=== PATIENT | female | born 1935 ===

== ENCOUNTER 2016-12-11 08:29 | Inpatient (IN) | payer MEDICARE, MEDICAID ==
--- NOTE | 2016-12-11 08:38 | ED PDOC ---
Arrival/HPI - General Historian: Patient, Family - History of Present Illness Time/Duration: < week Symptom Onset: Gradual Symptom Course: Worsening Activities at Onset: Light <Ehsan Kennedy - Last Filed: 12/11/16 10:23> <Doni Alvarado - Last Filed: 12/11/16 10:37> - General Chief Complaint: Shortness Of Breath Time Seen by Provider: 12/11/16 08:30 - History of Present Illness Narrative History of Present Illness (Text): 12/11/16 09:20 81yo F with PMHx of HTN, CHF, severe obesity, Osteoarthritis here for evaluation of shortness of breath. Patient has similar symptoms in the past, however, this morning, it was much worse. She states that she felt as though she could not breathe. She feels very tired. She felt as though her heart was racing. She does report a cough for the past week, productive of white phlegm. She reports some chills over the past week, but denies any subjective fevers. She also reports some sore throat over the same time period. She denies any Chest pain. No Headaches. She has been compliant with all of her medications. She uses 2L NC or Supplemental O2 at home as needed. She is not mobile and is in bed most of the time due to her severe Bilateral knee OA and severe BLE edema. She has to sleep in an upright position, does report severe orthopnea. PMD: Dr. Darcy Hopkins Cardio: Dr. Mendoza PMHx: Cataracts, GERD, HTN, CHF, Obesity, Bilateral lower Extremity OA Social Hx: Lives with son. Never used tobacco, denies ETOH, denies illicit drugs Allergy: Dabigatran, PCN, Rofecoxib, Warfarin, Pravastatin (Brent,Ehsan) Past Medical History - Provider Review Nursing Documentation Reviewed: Yes - Cardiac Hx Congestive Heart Failure: Yes (this admission) Hx Hypertension: Yes - Pulmonary Hx Respiratory Disorders: No - Neurological Hx Neurological Disorder: No - HEENT Hx Cataracts: Yes - Renal Hx Renal Disorder: No - Endocrine/Metabolic Hx Endocrine Disorders: No - Hematological/Oncological Hx Blood Disorders: No - Integumentary Hx Dermatological Disorder: No - Musculoskeletal/Rheumatological Hx Arthritis: Yes (bilateral knees) - Gastrointestinal Hx Gastroesophageal Reflux: Yes - Genitourinary/Gynecological Other/Comment: overactive bladder - Psychiatric Hx Depression: No Hx Emotional Abuse: No Hx Physical Abuse: No Hx Substance Use: No - Past Surgical History Past Surgical History: No Previous - Surgical History Other/Comment: fractured left wrist/arm needing cast - Anesthesia Hx Anesthesia: Yes Hx Anesthesia Reactions: No Hx Malignant Hyperthermia: No - Suicidal Assessment Feels Threatened In Home Enviroment: No <Ehsan Kennedy - Last Filed: 12/11/16 10:23> Family/Social History - Physician Review Nursing Documentation Reviewed: Yes Family/Social History: Unknown Family HX Smoking Status: Never Smoked Hx Alcohol Use: No Hx Substance Use: No Hx Substance Use Treatment: No <Ehsan Kennedy - Last Filed: 12/11/16 10:23> Allergies/Home Meds <Ehsan Kennedy - Last Filed: 12/11/16 10:23> <Doni Alvarado - Last Filed: 12/11/16 10:37> Allergies/Adverse Reactions: Allergies dabigatran etexilate mesylate [From Pradaxa] Allergy (Intermediate, Verified 08:37) ANGIOEDEMA arthralgia, cough, vertigo, itching, sorethroat, irritability Penicillins Allergy (Verified 12/11/16 08:37) RASH rofecoxib [From Vioxx] Allergy (Verified 12/11/16 08:37) FATIGUE warfarin Adverse Reaction (Unknown, Verified 12/11/16 08:37) ITCHING intolerant with cardio since she could not tolerate pradaxa pravastatin Adverse Reaction (Verified 12/11/16 08:37) RASH Home Medications: Home Meds Medication Instructions Recorded Confirmed Esomeprazole Magnesium [Nexium] 40 mg PO DAILY 09/13/11 12/11/16 Metoprolol Succinate 100 mg PO DAILY 09/13/11 12/11/16 Nisoldipine [Sular] 8.5 mg PO DAILY 09/13/11 12/11/16 Ergocalciferol (Vitamin D2) 1.25 mg PO .WEEKLY 12/11/16 12/11/16 [Vitamin D2] Furosemide [Lasix] 40 mg PO BID 12/11/16 12/11/16 Review of Systems - Physician Review All systems were reviewed & negative as marked: Yes - Review of Systems Constitutional: absent: Fevers Eyes: Normal ENT: Sore Throat. absent: Tinnitus, Sinus Congestion Respiratory: SOB, Cough, Sputum Cardiovascular: Chest Pain, Palpitations, Edema, CRA[place], Orthopnea. absent: Calf Pain, Syncope Gastrointestinal: absent: Abdominal Pain, Nausea, Vomiting Genitourinary Female: Normal Musculoskeletal: Normal Skin: Normal Neurological: Normal Endocrine: Normal <Ehsan Kennedy - Last Filed: 12/11/16 10:23> Physical Exam Vital Signs Reviewed: Yes Temperature: Afebrile Blood Pressure: Normal Pulse: Irregular Respiratory Rate: Normal Appearance: Positive for: Non-Toxic, Comfortable Pain Distress: Mild Mental Status: Positive for: Alert and Oriented X 3 - Systems Exam Head: Present: Atraumatic, Normocephalic Extroacular Muscles: Present: EOMI Conjunctiva: Present: Normal Mouth: Present: Moist Mucous Membranes Respiratory/Chest: Present: Decreased Breath Sounds, Rales Cardiovascular: Present: Irregular Rhythm, Peripheal Pulses Present, Tachycardic. No: Rub, Gallop, Muffled Abdomen: No: Tenderness, Distention, Peritoneal Signs, Rebound, Guarding Lower Extremity: Present: Edema, Tenderness, Swelling. No: CALF TENDERNESS, Estella's Sign Neurological: Present: GCS=15 Skin: Present: Warm, Normal Color Psychiatric: Present: Alert, Oriented x 3 <Ehsan Kennedy - Last Filed: 12/11/16 10:23> Medical Decision Making <Ehsan Kennedy - Last Filed: 12/11/16 10:23> <Doni Alvarado - Last Filed: 12/11/16 10:37> ED Course and Treatment: 12/11/16 10:12 81yo F here for evaluation of Shortness of breath. - CBC/CMP - BNP - CXR - Troponin - Blood Cxs, UA - EKG = Atrial Fib @ 96. Diffuse low voltage QRS. No Apparent ST changes. 12/11/16 10:23 - BNP elevated. - CXR with pleural effusions noted. Cardiomegaly. Increased lung markings. - Lasix 40 IVP given. - Elevated T. Bili 1.4 12/11/16 10:26 - Discussed case with Dr. Vikram Silver, Hospitalist covering for Dr. Darcy Hopkins, who accepts patient for admission. Discussed results with patient and family. All questions and concerns addressed. Patient and family understand and agree with plan. (Ehsan Kennedy) Patient Seen With Resident: In agreement with resident note which contains more details about the patient. Patient was seen and evaluated with resident. Came up with plan and treatment together. An 81 year old female with shortness of breath. Additional HPI as noted by resident. On physical exam, patient is tachycardic, has decreased breath sounds and rales, and lower extremity edema, tenderness and swelling. Ordered EKG, chest xray, labs and urinalysis. Will give patient Lasix. (Doni Alvarado) - Lab Interpretations Lab Results: 12/11/16 09:05 12/11/16 09:05 Lab Results 12/11/16 09:05: WBC 6.4 D, RBC 3.50, Hgb 10.0 L, Hct 31.8 L, MCV 90.9, MCH 28.6 , MCHC 31.4, RDW 15.7 H, Plt Count 165, MPV 9.4, Gran % 72.4 H, Lymph % (Auto) 13.0 L, [place] % (Auto) 12.7 H, Eos % (Auto) 1.4 L, Baso % (Auto) 0.5, Gran # 4.64 , Lymph # 0.8 L, [place] # 0.8 H, Eos # 0.1, Baso # 0.03 12/11/16 09:05: Sodium 140, Potassium 3.9, Chloride 101, Carbon Dioxide 31, Anion Gap 12, BUN 22 H, Creatinine 0.8, Est GFR ( Amer) > 60, Est GFR ( Non-Af Amer) > 60, Random Glucose 91, Calcium 9.2, Total Bilirubin 1.4 H, AST 34 , ALT 26, Alkaline Phosphatase 61, Troponin I < 0.01, NT-Pro-B Natriuret Pep 3850 H, Total Protein 6.7, Albumin 3.7, Globulin 3.0, Albumin/Globulin Ratio 1.2 - RAD Interpretation Radiology Orders: 12/11/16 08:54 CHEST PORTABLE [RAD] Stat - Medication Orders Current Medication Orders: Discontinued Medications Furosemide (Lasix) 40 mg IVP STAT STA Stop: 12/11/16 09:17 Last Admin: 12/11/16 09:39 Dose: 40 mg - PA / UTILITY TECHNICIAN / Resident Statement /DO has reviewed & agrees with the documentation as recorded. MD/DO has examined the patient and agrees with the treatment plan. <Ehsan Kennedy - Last Filed: 12/11/16 10:23> - Scribe Statement The provider has reviewed the documentation as recorded by the Scribe <Doni Alvarado - Last Filed: 12/11/16 10:37> - Scribe Statement Gregory Desouza Provider Scribe Attestation: All medical record entries made by the Scribe were at my direction and personally dictated by me. I have reviewed the chart and agree that the record accurately reflects my personal performance of the history, physical exam, medical decision making, and the department course for this patient. I have also personally directed, reviewed, and agree with the discharge instructions and disposition. (Doni Alvarado) Disposition/Present on Arrival - Present on Arrival Any Indicators Present on Arrival: No History of DVT/PE: No History of Uncontrolled Diabetes: No Urinary Catheter: No History Surgical Site Infection Following: None - Disposition Have Diagnosis and Disposition been Completed?: Yes Disposition Time: 10:29 Patient Plan: Admission, Telemetry <Ehsan Kennedy - Last Filed: 12/11/16 10:23> <Doni Alvarado - Last Filed: 12/11/16 10:37> - Disposition Diagnosis: CHF exacerbation Disposition: HOSPITALIZED Patient Problems: Current Active Problems Problem Status Onset CHF exacerbation Acute Condition: FAIR
[2016-12-11 08:47] VITALS: BMI 45.7
[2016-12-11 09:32] LABS: BASO # 0.03 K/mm3 (0.0-2.0); BASO % 0.5 % (0.0-3.0); EOS # 0.1 (0.0-0.7); EOS % 1.4 % (1.5-5.0); GRAN # 4.64 (1.4-6.5); GRAN % 72.4 % (50.0-68.0); LYMPH # 0.8 (1.2-3.4); MEAN CELL VOLUME 90.9 fl (80.0-105.0); MEAN CORPUSCULAR HEMOGLOBIN 28.6 pg (25.0-35.0); MEAN CORPUSCULAR HGB CONC 31.4 g/dl (31.0-37.0); MEAN PLATELET VOLUME 9.4 fl (7.0-11.0); MONO # 0.8 (0.1-0.6); MONO % 12.7 % (1.0-6.0); PLATELET COUNT 165 10^3/uL (120.0-450.0); RED CELL DISTRIBUTION WIDTH 15.7 % (11.5-14.5); WHITE BLOOD COUNT 6.4 10^3/ul (4.5-11.0)
[2016-12-11 09:33] LABS: ALB/GLOB RATIO 1.2 (1.1-1.8); ALBUMIN 3.7 g/dL (3.0-4.8); ALT/SGPT 26 U/L (7-56); AST/SGOT 34 U/L (15-39); BLOOD UREA NITROGEN 22 mg/dL (7-21); CALCIUM 9.2 mg/dL (8.4-10.5); GFR AFRICAN-AMERICAN > 60; GFR NON-AFRICAN AMERICAN > 60
[2016-12-11 09:44] LABS: B-TYPE NATRIURETIC PEPTIDE 3850 pg/mL (0-450)
[2016-12-11 09:47] LABS: TROPONIN I < 0.01 ng/mL
[2016-12-11 10:34] LABS: URINE BILIRUBIN NEGATIVE (NEGATIVE); URINE BLOOD SMALL (NEGATIVE); URINE GLUCOSE (UA) NEGATIVE (NEGATIVE); URINE LEUKOCYTE ESTERASE NEGATIVE Leu/uL (NEGATIVE); URINE NITRATE NEGATIVE (NEGATIVE); URINE PROTEIN NEGATIVE mg/dL (<30 mg/dL); URINE UROBILINOGEN 0.2 E.U./dL (<1 E.U./dL)
[2016-12-11 10:36] LABS: URINE APPEARANCE CLEAR (CLEAR); URINE COLOR YELLOW (YELLOW)
[2016-12-11 10:38] LABS: URINE BACTERIA TRACE (NEG); URINE RBC 15 - 20 /hpf (0-2)
[2016-12-11] MEDS ORDERED: Metoprolol Succinate 100 mg XL Tab PO SCH (11:45)
--- NOTE | 2016-12-11 11:51 | CP.PCM.HP ---
<Elinor Eli - Last Filed: 12/11/16 12:16> History of Present Illness - History of Present Illness History of Present Illness: 81 yo female with pmhx of HTN, Diastolic CHF (03/2016 EF 70%), Chronic atrial fibrillation, Obesity, Osteoarthritis presents to the ED for shortness of breath x 1 week. Daughters at the bedside, providing the history. Reports that breathing was worse this morning which prompted the ED visit. SOB is associated with LE swelling and palpitations, orthopnea. Patient reports that she is compliant with all medications. Sleeps with head of bed elevated. Periodically uses O2 supplementation at home. Also complaining of sore throat and productive cough (white phelgm). Patient denies any changes in activity. She ambulates minimally, normally transfers from the bed to chair at home. Denies any headache, dizziness, cp, abdominal pain, urinary symptoms, changes in bowel habits. ED Course: Lasix 40mg IVP PMD: Dr Hopkins Cardiology: Dr Hinojosa ALL: PCN, Warfarin, Rofecoxib, Dabigatran, Pravastatin Medications: Lasix 40mg BID, Metoprolol Succinate 100mg daily, Nisoldipine 8.5mg daily, Nexium 40mg daily Medical Hx: Chronic atrial fibrillation, HTN, CHF, Obesity, Osteoarthritis, GERD , Chronic venous stasis/LE edema Surgical Hx: Cataract surgery Social Hx: Lives with son, denies alcohol, tobacco, drug use Family Hx: non-contributory Present on Admission - Present on Admission Any Indicators Present on Admission: No History of DVT/PE: No History of Uncontrolled Diabetes: No Urinary Catheter: No Decubitus Ulcer Present: No Review of Systems - Review of Systems Systems not reviewed;Unavailable: Respiratory Distress All systems: reviewed and no additional remarkable complaints except - Constitutional Constitutional: absent: Chills, Fever, Weakness - EENT Eyes: absent: Blurred Vision, Change in Vision Ears: absent: Decreased Hearing Nose/Mouth/Throat: Sore Throat - Cardiovascular Cardiovascular: Dyspnea, Palpitations, Paroxysmal Nocturnal Dyspnea, Pedal Edema. absent: Chest Pain, Lightheadedness - Respiratory Respiratory: Cough, Dyspnea. absent: Wheezing - Gastrointestinal Gastrointestinal: absent: Abdominal Pain, Constipation, Diarrhea, Nausea, Vomiting - Genitourinary Genitourinary: absent: Difficulty Urinating, Dysuria, Urinary Frequency - Musculoskeletal Musculoskeletal: Arthralgias - Neurological Neurological: absent: Dizziness, Numbness, Headaches, Tingling - Psychiatric Psychiatric: absent: Anxiety, Depression Past Patient History - Past Social History Smoking Status: Never Smoked - CARDIAC Hx Congestive Heart Failure: Yes (this admission) Hx Hypertension: Yes - PULMONARY Hx Respiratory Disorders: No - NEUROLOGICAL Hx Neurological Disorder: No - HEENT Hx Cataracts: Yes - RENAL Hx Chronic Kidney Disease: No - ENDOCRINE/METABOLIC Hx Endocrine Disorders: No - HEMATOLOGICAL/ONCOLOGICAL Hx Blood Disorders: No - INTEGUMENTARY Hx Dermatological Problems: No - MUSCULOSKELETAL/RHEUMATOLOGICAL Hx Arthritis: Yes (bilateral knees) - GASTROINTESTINAL Hx Gastroesophageal Reflux: Yes - GENITOURINARY/GYNECOLOGICAL Other/Comment: overactive bladder - PSYCHIATRIC Hx Depression: No Hx Emotional Abuse: No Hx Physical Abuse: No Hx Substance Use: No - SURGICAL HISTORY Other/Comment: fractured left wrist/arm needing cast - ANESTHESIA Hx Anesthesia: Yes Hx Anesthesia Reactions: No Hx Malignant Hyperthermia: No Meds Allergies/Adverse Reactions: Allergies Allergy/AdvReac Type Severity Reaction Status Date / Time dabigatran etexilate mesylate Allergy Intermediate ANGIOEDEMA Verified 12/11/16 08:37 [From Pradaxa] Penicillins Allergy RASH Verified 12/11/16 08:37 rofecoxib [From Vioxx] Allergy FATIGUE Verified 12/11/16 08:37 warfarin AdvReac Unknown ITCHING Verified 12/11/16 08:37 pravastatin AdvReac RASH Verified 12/11/16 08:37 Physical Exam - Constitutional Appears: Well, Non-toxic - Head Exam Head Exam: ATRAUMATIC, NORMAL INSPECTION - Eye Exam Eye Exam: EOMI, Normal appearance Pupil Exam: NORMAL ACCOMODATION - ENT Exam ENT Exam: Mucous Membranes Moist - Neck Exam Neck exam: Positive for: Full Rom - Respiratory Exam Respiratory Exam: Rales, Respiratory Distress. absent: Accessory Muscle Use - Cardiovascular Exam Cardiovascular Exam: Irregular Rhythm, +S1, +S2 - GI/Abdominal Exam GI & Abdominal Exam: Normal Bowel Sounds, Soft. absent: Firm, Guarding, Rigid, Tenderness - Extremities Exam Additional comments: +3 LE edema Chronic venous stasis skin changes - Back Exam Back exam: NORMAL INSPECTION - Neurological Exam Neurological exam: Alert, CN II-XII Intact, Oriented x3 - Psychiatric Exam Psychiatric exam: Normal Affect, Normal Mood - Skin Skin Exam: Normal Color, Warm Results - Vital Signs Recent Vital Signs: Last Vital Signs Temp 98.6 F 12/11/16 08:33 Pulse 97 H 12/11/16 11:04 Resp 20 12/11/16 11:04 BP 132/60 12/11/16 11:04 Pulse Ox 95 12/11/16 11:04 - Labs Result Diagrams: 12/11/16 09:05 12/11/16 09:05 Assessment & Plan - Assessment and Plan (Free Text) Assessment: 81 yo female with pmhx of Diastolic CHF, HTN, Chronic afib, osteoartirits presents to the ED with worsening shortness of breath. Patient noted to be in Acute Respiratory Distress likely secondary to Acute on Chronic CHF. Plan: 1. Acute Respiratory distress 2/2 Acute on Chronic CHF exacerbation, Diastolic Dysfunction -Stable, Afebrile -Bilateral crackles noted on lung exam, +3 LE edema B/L -BNP: 3850 -CXR: final read pending -Echo 03/2016: EF 69%, moderate MR and TR, mild to moderate pulmonary HTN -F/U repeat Echo, f/u am CXR -Received Lasix 40mg IV in ED -Continue Lasix 40mg IV BID -Daily weights, strict I/Os -Trop negative x 1, trend cardiac enzymes -O2 supplementation -Monitor electrolytes -2gm Sodium diet, fluid restriction 1000ml -Cardiology on consult, f/u recommendations 2. Chronic atrial fibrillation -Monitor on telemetry -EKG in ED a fib, rate controlled -Not on anticoagulation at this time -Will continue Metoprolol Succinate 100mg daily -F/U echo 3. Hypertension -Continue metoprolol succinate 100mg daily -On Nisoldipine at home, will hold at this time -Can add CCB if needed 4. Anemia, Normocytic -Hgb 10.0 -Stable at baseline -Can follow up outpatient for further workup 5. GI/DVT ppx -Protonix 40mg PO daily -Lovenox 40mg daily <Adrianne WOOTEN,Rodolfo - Last Filed: 12/11/16 15:11> Results - Vital Signs Recent Vital Signs: Last Vital Signs Temp 97.6 F 12/11/16 12:00 Pulse 81 12/11/16 13:40 Resp 20 12/11/16 12:00 BP 133/72 12/11/16 13:40 Pulse Ox 95 12/11/16 11:04 - Labs Result Diagrams: 12/11/16 09:05 12/11/16 09:05 Attending/Attestation - Attestation I have personally seen and examined this patient.: Yes I have fully participated in the care of the patient.: Yes I have reviewed all pertinent clinical information: Yes Notes (Text): 12/11/16 15:08 Patient was seen and examined with medical editor. Agreed with resident assessment and plan. 81 yrs female with PMH of HTN, Diastolic CHF (03/2016 EF 70%), Chronic atrial fibrillation not on anticoagulation due to increase risk of fall ( Patient is minimally ambulatory at home) and , Obesity is admitted with CHF exacerbation, Patient is on IV diuresis, will follow up BUN and electrolyte.Patient has low voltage EKG and poor R wave progression, will get 2D Echo and cardiology consult. Management plan was discussed in detail with patient family. Education was provided. Prognosis is guarded.
--- NOTE | 2016-12-11 12:07 | RAD ---
HISTORY: Shortness of breath. Portable study 09:07. COMPARISON: 04/27/2016. FINDINGS: LUNGS: Suboptimal inspiratory effort and body habitus preclude optimal assessment of the lung kraus. Haziness at both bases unchanged compared to the prior study. PLEURA: No significant pleural effusion identified, no pneumothorax apparent. CARDIOVASCULAR: No radiographic findings to suggest acute or significant cardiovascular disease. OSSEOUS STRUCTURES: No significant abnormalities. VISUALIZED UPPER ABDOMEN: Normal. OTHER FINDINGS: None. IMPRESSION: Probably no active disease. No significant interval change compared to the prior examination(s). No preliminary report provided by emergency department personnel.
[2016-12-11] MEDS: Enoxaparin 40 mg Syringe SC SCH (13:40)
[2016-12-11] MEDS: Metoprolol Succinate 100 mg XL Tab PO SCH (13:40)
--- NOTE | 2016-12-11 14:02 | CARD ---
APPROVED REPORT EKG Measurement Heart [id number] <Conclusion> Atrial fibrillation Low voltage QRS Cannot rule out Anteroseptal infarct, age undetermined Abnormal ECG
[2016-12-11] MEDS ORDERED: guaiFENesin-DM 600-30 mg ER Tab PO PRN (15:58)
[2016-12-11] MEDS: Benzocaine/Menthol (Cepacol) Lozenge MT PRN (17:02)
[2016-12-11] MEDS: guaiFENesin-DM 600-30 mg ER Tab PO PRN (17:03)
[2016-12-11] MEDS ORDERED: Metoprolol Succinate 50 mg XL Tab PO SCH (19:00)
[2016-12-12 07:09] LABS: HEMOGLOBIN 9.7 g/dL (12.0-16.0); MEAN CELL VOLUME 94.7 fl (80.0-105.0); MEAN CORPUSCULAR HEMOGLOBIN 28.4 pg (25.0-35.0); MEAN CORPUSCULAR HGB CONC 29.9 g/dl (31.0-37.0); MEAN PLATELET VOLUME 9.8 fl (7.0-11.0); RBC 3.42 10^6/uL (3.5-6.1); RED CELL DISTRIBUTION WIDTH 15.9 % (11.5-14.5); WHITE BLOOD COUNT 6.2 10^3/ul (4.5-11.0)
[2016-12-12 07:15] LABS: ALB/GLOB RATIO 1.2 (1.1-1.8); ALBUMIN 3.6 g/dL (3.0-4.8); ALT/SGPT 32 U/L (7-56); AST/SGOT 36 U/L (15-39); BLOOD UREA NITROGEN 24 mg/dL (7-21); CALCIUM 9.1 mg/dL (8.4-10.5); GFR AFRICAN-AMERICAN > 60; GFR NON-AFRICAN AMERICAN > 60; MAGNESIUM 1.8 mg/dL (1.7-2.2)
[2016-12-12] MEDS: Metoprolol Succinate 100 mg XL Tab PO SCH (08:10)
[2016-12-12] MEDS: guaiFENesin-DM 600-30 mg ER Tab PO PRN (08:55)
--- NOTE | 2016-12-12 09:26 | RAD ---
HISTORY: CHF COMPARISON: 12/11/2016 FINDINGS: LUNGS: Moderate vascular congestion PLEURA: No significant pleural effusion identified, no pneumothorax apparent. CARDIOVASCULAR: Mild cardiomegaly OSSEOUS STRUCTURES: No significant abnormalities. VISUALIZED UPPER ABDOMEN: Normal. OTHER FINDINGS: None. IMPRESSION: Moderate vascular congestion
[2016-12-12] MEDS: NISOLDIPINE 8.5 MG PO SCH (11:19)
[2016-12-12] MEDS: Enoxaparin 40 mg Syringe SC SCH (11:19)
[2016-12-12] MEDS: Pantoprazole 40 mg EC Tab PO SCH (11:19)
--- NOTE | 2016-12-12 11:23 | CP.PCM.PN ---
<Elinor Eli - Last Filed: 12/12/16 14:10> Subjective - Date & Time of Evaluation Date of Evaluation: 12/12/16 Time of Evaluation: 07:00 - Subjective Subjective: Elinor Eli DO, PGY-1, Internal Medicine, Hospitalist Service Patient seen and examined at bedside. Per nursing, patient woke up last night feeling short of breath, O2 sat was wnl, currently patient reports breathing is a little better. Still coughing. Denies headache, dizziness, cp, palpitations, abdominal pain, urinary symptoms, changes in bowel habit. Objective - Vital Signs/Intake and Output Vital Signs (last 24 hours): Temp Pulse Resp BP Pulse Ox 97.7 F 64 20 122/65 95 12/12/16 06:00 12/12/16 08:10 12/12/16 06:00 12/12/16 08:10 12/12/16 06:00 Intake and Output: 12/12/16 12/12/16 06:59 18:59 Intake Total 240 Output Total 700 Balance -460 - Medications Medications: Current Medications Benzocaine/Menthol (Cepacol Sore Throat) 1 [place] MT Q4H PRN PRN Reason: Sore Throat Last Admin: 12/11/16 17:02 Dose: 1 [place] Enoxaparin Sodium (Lovenox) 40 mg SC DAILY [facility] PRN Reason: Protocol Last Admin: 12/11/16 13:40 Dose: 40 mg Furosemide (Lasix) 40 mg IVP BID [facility] Last Admin: 12/11/16 17:07 Dose: 40 mg Guaifenesin/Dextromethorphan (Mucinex-Dm 600-30 Mg) 1 tab PO BID PRN PRN Reason: Cough Last Admin: 12/12/16 08:55 Dose: 1 tab Home Med (Home Med) 1 unit PO DAILY [facility] Metoprolol Succinate (Toprol Xl) 100 mg PO BRK [facility] Last Admin: 12/12/16 08:10 Dose: 100 mg Metoprolol Succinate (Toprol Xl) 50 mg PO HS [facility] Pantoprazole Sodium (Protonix Ec Tab) 40 mg PO DAILY [facility] - Labs Labs: 12/12/16 06:30 12/12/16 06:30 - Constitutional Appears: Non-toxic, No Acute Distress - Head Exam Head Exam: ATRAUMATIC, NORMAL INSPECTION - Eye Exam Eye Exam: EOMI, Normal appearance Pupil Exam: NORMAL ACCOMODATION - ENT Exam ENT Exam: Mucous Membranes Moist - Neck Exam Neck Exam: Full ROM - Respiratory Exam Respiratory Exam: Decreased Breath Sounds, Rales, NORMAL BREATHING PATTERN. absent: Rhonchi, Wheezes - GI/Abdominal Exam GI & Abdominal Exam: Soft, Normal Bowel Sounds. absent: Distended, Rigid, Tenderness, Rebound - Extremities Exam Extremities Exam: Pedal Edema. absent: Tenderness Additional comments: + 3 LE edema B/L - Back Exam Back Exam: NORMAL INSPECTION - Neurological Exam Neurological Exam: Alert, Awake, Oriented x3 - Psychiatric Exam Psychiatric exam: Normal Affect, Normal Mood - Skin Skin Exam: Normal Color, Warm Assessment and Plan - Assessment and Plan (Free Text) Assessment: 81 yo female with pmhx of Diastolic CHF, HTN, Chronic afib, osteoartirits presents to the ED with worsening shortness of breath. Patient noted to be in Acute Respiratory Distress likely secondary to Acute on Chronic CHF. Plan: 1. Acute Respiratory distress 2/2 Acute on Chronic CHF exacerbation, Diastolic Dysfunction -Stable, Afebrile -BNP: 3850 on admission -CXR: moderate vascular congestion -Echo 03/2016: EF 69%, moderate MR and TR, mild to moderate pulmonary HTN -EKG in ED showing a fib, low voltage, poor R wave progression -Prelim Echo showing EF approx 54%, will await final report -Continue Lasix 40mg IV BID -Daily weights, strict I/Os -Trop negative x 3 -O2 supplementation -Monitor electrolytes -2gm Sodium diet, fluid restriction 1000ml -Cardiology on consult, f/u recommendations 2. Chronic atrial fibrillation -Monitor on telemetry -EKG in ED a fib, rate controlled -[id number]: 5, HASBLED: 1 -Not on anticoagulation at this time, possibly due to fall risk? -Will continue Metoprolol Succinate 100mg daily -F/U echo final report -Cardiology on consult 3. Hypertension -Continue metoprolol succinate 100mg daily -Per the family, patient takes 50mg of Metoprolol succinate HS, will continue -On Nisoldipine at home, will continue 4. Anemia, Normocytic -Hgb 9.7 -Stable at baseline -Can follow up outpatient for further workup 5. GI/DVT ppx -Protonix 40mg PO daily -Lovenox 40mg daily <Rodolfo Silver MD - Last Filed: 12/12/16 16:18> Objective - Vital Signs/Intake and Output Vital Signs (last 24 hours): Temp Pulse Resp BP Pulse Ox 97.0 F L 44 L 20 147/75 95 12/12/16 12:00 12/12/16 14:00 12/12/16 12:00 12/12/16 12:00 12/12/16 06:00 Intake and Output: 12/12/16 12/12/16 06:59 18:59 Intake Total 240 Output Total 700 Balance -460 - Medications Medications: Current Medications Benzocaine/Menthol (Cepacol Sore Throat) 1 [place] MT Q4H PRN PRN Reason: Sore Throat Last Admin: 12/11/16 17:02 Dose: 1 [place] Enoxaparin Sodium (Lovenox) 40 mg SC DAILY [facility] PRN Reason: Protocol Last Admin: 12/12/16 11:19 Dose: 40 mg Furosemide (Lasix) 40 mg IVP BID [facility] Last Admin: 12/12/16 11:20 Dose: 40 mg Guaifenesin/Dextromethorphan (Mucinex-Dm 600-30 Mg) 1 tab PO BID PRN PRN Reason: Cough Last Admin: 12/12/16 08:55 Dose: 1 tab Home Med (Home Med) 1 unit PO DAILY [facility] Last Admin: 12/12/16 11:19 Dose: 1 unit Metoprolol Succinate (Toprol Xl) 100 mg PO BRK [facility] Last Admin: 12/12/16 08:10 Dose: 100 mg Metoprolol Succinate (Toprol Xl) 50 mg PO HS [facility] Pantoprazole Sodium (Protonix Ec Tab) 40 mg PO DAILY [facility] Last Admin: 12/12/16 11:19 Dose: 40 mg - Labs Labs: 12/12/16 06:30 12/12/16 06:30 Attending/Attestation - Attestation I have personally seen and examined this patient.: Yes I have fully participated in the care of the patient.: Yes I have reviewed all pertinent clinical information, including history, physical exam and plan: Yes Notes (Text): 12/12/16 16:15 Patient was seen and examined with medical secretary receptionist. Agreed with resident assessment and plan. 81 yrs female with PMH of HTN, Diastolic CHF (03/2016 EF 70%), Chronic atrial fibrillation not on anticoagulation due to increase risk of fall and H/O bleeding , Obesity was admitted with CHF exacerbation, Patient is on IV lasix , slowly improving, renal functions are stable.We will continue IV lasix. We will follow up 2D Echo. AF, Rate is controlled with Metoprolol, not on anticoagulation due to H/O fall, GI bleeding ? Patient case was discussed with cardiology . Management plan was discussed in detail with patient family. Education was provided. Prognosis is guarded.
--- NOTE | 2016-12-12 20:07 | CARD ---
APPROVED REPORT EXAM: Two-dimensional and M-mode echocardiogram with Doppler and color Doppler. INDICATION Congestive Heart Failure 2D DIMENSIONS Left Atrium (2D)4.6 (1.6-4.0cm)IVSd1.1 (0.7-1.1cm) LVDd4.9 (3.9-5.9cm)PWd1.3 (0.7-1.1cm) LVDs3.5 (2.5-4.0cm)FS (%) 28.1 % LVEF (%)54.1 (>50%) M-Mode DIMENSIONS Aortic Root2.30 (2.2-3.7cm)Aortic Cusp Exc.1.10 (1.5-2.0cm) Aortic Valve AoV Peak Oomjwhjh651.0cm/sAoV VTI73.8cmAO Peak GR.25mmHg LVOT Peak Vpjotwhw84.5cm/sLVOT VTI23.40cmAO Mean GR.13mmHg Mitral Valve MV E Wktxwcxq972.0cm/sMV A Nugsnimd05.2cm/sE/A ratio2.8 TDI E/Lateral E'0.0E/Medial E'0.0 Tricuspid Valve TR Peak Hayvxdex575ld/sRAP [id number] Peak Gr.54mmHg [id number] LEFT VENTRICLE The left ventricle is normal size. There is borderline to mild concentric left ventricular hypertrophy. The left ventricular function is normal.EF-55% There is normal LV segmental wall motion. A fib No left ventricle thrombus noted on this study. There is no ventricular septal defect visualized. There is no left ventricular aneurysm. There is no mass noted in the left ventricle. RIGHT VENTRICLE The right ventricle is moderately to severely dilated. There is normal right ventricular wall thickness. Systolic function of RV is moderately to severely reduced. ATRIA The left atrium is severely dilated. The right atrium is severely dilated. The atrial septum is aneurysmal.A small PFO with left to right shunt by colr flow noted. AORTIC VALVE The aortic valve is calcified and displays decreased opening. There is trace aortic regurgitation. There is mild valvular aortic stenosis. There is no aortic valvular vegetation. MITRAL VALVE The mitral valve is calcified but opens well. Mitral annular calcification is mild to moderate. Mitral regurgitation is mild to moderate. There is no mitral valve stenosis. There is no evidence of mitral valve prolapse. TRICUSPID VALVE The tricuspid valve leaflets are thickened , but open well. There is moderate to severe tricuspid regurgitation.[id number] There is moderate to severe pulmonary hypertension. There is no tricuspid valve stenosis. There is no tricuspid valve prolapse or vegetation. PULMONIC VALVE The pulmonic valve is borderline thickened. There is trace to mild pulmonic valvular regurgitation. GREAT VESSELS The aortic root is normal in size. The ascending aorta is normal in size. The pulmonary artery is normal. The IVC is dilated. PERICARDIAL EFFUSION There is no pleural effusion. There is no pericardial effusion. <Conclusion> The left ventricle is normal size. There is borderline to mild concentric left ventricular hypertrophy. The left ventricular function is normal.EF-55% The right ventricle is moderately to severely dilated. Systolic function of RV is moderately to severely reduced. The left atrium is severely dilated. The right atrium is severely dilated. There is trace aortic regurgitation. Mitral regurgitation is mild to moderate. There is moderate to severe tricuspid regurgitation.[id number] There is moderate to severe pulmonary hypertension. There is trace to mild pulmonic valvular regurgitation. The IVC is dilated. There is no pericardial effusion.
[2016-12-12] MEDS ORDERED: Metoprolol Succinate 50 mg XL Tab PO SCH (22:00)
--- NOTE | 2016-12-13 03:48 | CON ---
DATE: 12/12/2016 CONSULT SERVICE: Cardiology. REASON FOR CONSULTATION: Shortness of breath, cardiac evaluation, and history of chronic atrial fibrillation. BRIEF CLINICAL HISTORY: An 81-year-old -speaking female with past medical history significant for chronic atrial fibrillation, CHF possibly secondary to diastolic dysfunction, osteoarthritis, came in with a one-week history of shortness of breath, but denies any chest pain or palpitations. The patient's son is at the bedside, giving all the information. Past history is significant for chronic atrial fibrillation, hypertension, gastroesophageal reflux disease, arthritis. Previous cardiac workup is as follows: The patient had echocardiography on 04/22/2016 that showed ejection fraction of 70%, normal LV size, normal LV thickness. Aortic valve was moderately calcified, mild valvular aortic stenosis, mitral regurgitation, moderate tricuspid regurgitation, mild pulmonary hypertension 49. Aortic peak gradient 26 mmHg, mean gradient 15 mmHg. NAZANIN 1.27. It was read as mild, but possibly looks like moderate aortic stenosis. History of chronic atrial fibrillation, started on Eliquis at home because the patient had difficulty in maintaining the Coumadin. Later on, it was discontinued because according to son, the patient had GI bleed. PMD: Dr. Hopkins. CARDIOLOGY: Dr. Hinojosa. ALLERGY: ALLERGIES TO PENICILLIN, COUMADIN, PRADAXA, and PRAVASTATIN. CURRENT MEDICATIONS: Lasix 40 mg b.i.d., metoprolol succinate 100 mg daily, and Nexium. PAST MEDICAL HISTORY: As mentioned, chronic atrial fibrillation, hypertension, CHF, diastolic dysfunction, aortic stenosis, arthritis, gastroesophageal reflux disease, chronic venous stasis, and leg edema. PAST SURGICAL HISTORY: Significant for cataract surgery. SOCIAL HISTORY: Denies smoking. Denies any history of alcohol abuse. REVIEW OF SYSTEMS: A 14-point review of systems as per HPI. PHYSICAL EXAMINATION: As follows. VITAL SIGNS: Temperature afebrile, heart rate 64, and blood pressure 147/75. HEENT: PERRLA. Extraocular muscles intact. NECK: Supple. No carotid bruit. No thyromegaly. CHEST: Clear to auscultation. HEART: S1 and S2 regular. ABDOMEN: Soft. EXTREMITIES: Clubbing and cyanosis negative. LABORATORY DATA: Blood workup is as follows. WBC 6.2, hemoglobin 9.9, hematocrit 32.4, and platelet count 159. Chemistry shows sodium 143, potassium 4.0, chloride 102, carbon dioxide of 30, anion gap of 14, BUN 24, creatinine 0.8. Troponin 0.01 and 0.03, x3 negative. ASSESSMENT: Decompensated congestive heart failure, acute and chronic secondary to diastolic dysfunction, atrial fibrillation, moderate aortic regurgitation, no evidence of acute [place] or obesity, arthritis, chronic venous stasis, history of anticoagulation on Eliquis probably stopped because of gastrointestinal bleed and anemia. RECOMMENDATION: Continue Lasix, continue enoxaparin DVT prophylaxis, continue metoprolol in the morning and 50 at night. We will follow with you. Once the patient's respiratory status improves, possible discharge. We will follow with you. Thank you Dr. Adrianne Templeton for the opportunity of taking care of the patient. Rodolfo Rudd MD
[2016-12-13 07:02] LABS: BLOOD UREA NITROGEN 28 mg/dL (7-21); GFR AFRICAN-AMERICAN > 60; GFR NON-AFRICAN AMERICAN 60; MAGNESIUM 1.8 mg/dL (1.7-2.2)
[2016-12-13 07:13] LABS: HEMOGLOBIN 9.7 g/dL (12.0-16.0); MEAN CELL VOLUME 95.2 fl (80.0-105.0); MEAN CORPUSCULAR HEMOGLOBIN 29.1 pg (25.0-35.0); MEAN CORPUSCULAR HGB CONC 30.6 g/dl (31.0-37.0); MEAN PLATELET VOLUME 9.6 fl (7.0-11.0); RBC 3.33 10^6/uL (3.5-6.1); RED CELL DISTRIBUTION WIDTH 15.8 % (11.5-14.5); WHITE BLOOD COUNT 6.9 10^3/ul (4.5-11.0)
[2016-12-13] MEDS ORDERED: Metoprolol Succinate 50 mg XL Tab PO SCH (08:00)
[2016-12-13] MEDS: Pantoprazole 40 mg EC Tab PO SCH (09:53)
[2016-12-13] MEDS: Enoxaparin 40 mg Syringe SC SCH (09:53)
--- NOTE | 2016-12-13 12:30 | CP.PCM.PN ---
<Elinor Eli - Last Filed: 12/13/16 17:08> Subjective - Date & Time of Evaluation Date of Evaluation: 12/13/16 Time of Evaluation: 07:30 - Subjective Subjective: Elinor Eli DO, PGY-1, Internal Medicine, Hospitalist Service Patient seen and examined at bedside. Per nursing no acute events overnight. Patient still short of breath but feels a little better. Denies headache, dizziness, cp, palpitations, abdominal pain, urinary symptoms. Objective - Vital Signs/Intake and Output Vital Signs (last 24 hours): Temp Pulse Resp BP Pulse Ox 98.3 F 62 20 129/51 L 96 12/13/16 06:00 12/13/16 06:00 12/13/16 06:00 12/13/16 06:00 12/13/16 06:00 Intake and Output: 12/13/16 12/13/16 06:59 18:59 Intake Total 480 Output Total 350 Balance 130 - Medications Medications: Current Medications Apixaban (Eliquis) 2.5 mg PO BID [facility] PRN Reason: Protocol Benzocaine/Menthol (Cepacol Sore Throat) 1 [place] MT Q4H PRN PRN Reason: Sore Throat Last Admin: 12/11/16 17:02 Dose: 1 [place] Furosemide (Lasix) 40 mg IVP BID [facility] Last Admin: 12/12/16 18:13 Dose: 40 mg Guaifenesin/Dextromethorphan (Mucinex-Dm 600-30 Mg) 1 tab PO BID PRN PRN Reason: Cough Last Admin: 12/12/16 08:55 Dose: 1 tab Home Med (Home Med) 1 unit PO DAILY [facility] Last Admin: 12/12/16 11:19 Dose: 1 unit Metoprolol Tartrate (Lopressor) 25 mg PO BID [facility] Pantoprazole Sodium (Protonix Ec Tab) 40 mg PO DAILY [facility] Last Admin: 12/13/16 09:53 Dose: 40 mg - Labs Labs: 12/13/16 05:45 12/13/16 05:45 - Constitutional Appears: Non-toxic, No Acute Distress - Head Exam Head Exam: ATRAUMATIC, NORMAL INSPECTION - Eye Exam Eye Exam: EOMI, Normal appearance Pupil Exam: NORMAL ACCOMODATION - ENT Exam ENT Exam: Mucous Membranes Moist - Neck Exam Neck Exam: Full ROM - Respiratory Exam Respiratory Exam: Decreased Breath Sounds, Rales, NORMAL BREATHING PATTERN. absent: Rhonchi, Wheezes - Cardiovascular Exam Cardiovascular Exam: Irregular Rhythm, +S1, +S2 - GI/Abdominal Exam GI & Abdominal Exam: Guarding, Soft, Normal Bowel Sounds. absent: Rigid, Tenderness - Extremities Exam Additional comments: +3 LE edema B/L - Back Exam Back Exam: NORMAL INSPECTION - Neurological Exam Neurological Exam: Alert, Awake, Oriented x3 - Psychiatric Exam Psychiatric exam: Normal Affect, Normal Mood - Skin Skin Exam: Normal Color, Warm Assessment and Plan - Assessment and Plan (Free Text) Assessment: 81 yo female with pmhx of Diastolic CHF, HTN, Chronic afib, osteoartirits presents to the ED with worsening shortness of breath. Patient noted to be in Acute Respiratory Distress likely secondary to Acute on Chronic CHF. Plan: 1. Acute Respiratory distress 2/2 Acute on Chronic CHF exacerbation, Diastolic Dysfunction -Stable, Afebrile -BNP: 3850 on admission -CXR: moderate vascular congestion -Echo 03/2016: EF 69%, moderate MR and TR, mild to moderate pulmonary HTN -EKG in ED showing a fib, low voltage, poor R wave progression -Echo showing EF approx 55%, moderate AR -Continue Lasix 40mg IV BID -Daily weights, strict I/Os -Trop negative x 3 -O2 supplementation -Monitor electrolytes -2gm Sodium diet, fluid restriction 1000ml -Cardiology on consult, f/u recommendations 2. Chronic atrial fibrillation -Monitor on telemetry -EKG in ED a fib, rate controlled -[id number]: 5, HASBLED: 1 -Stared on Eliquis 2.5mg BID -Lopressor 25mg BID -Echo showing EF 55%, moderate AR -Cardiology on consult 3. Hypertension -Lopressor 25mg BID -On Nisoldipine at home, will continue 4. Anemia, Normocytic -Stable at baseline -Can follow up outpatient for further workup 5. GI/DVT ppx -Protonix 40mg PO daily -Lovenox 40mg daily <Carmel Templeton - Last Filed: 12/13/16 21:38> Objective - Vital Signs/Intake and Output Vital Signs (last 24 hours): Temp Pulse Resp BP Pulse Ox 98.5 F 65 20 125/55 L 96 12/13/16 12:00 12/13/16 12:00 12/13/16 12:00 12/13/16 12:00 12/13/16 06:00 Intake and Output: 12/13/16 12/13/16 06:59 18:59 Intake Total 480 Output Total 350 Balance 130 - Medications Medications: Current Medications Apixaban (Eliquis) 2.5 mg PO BID [facility] PRN Reason: Protocol Benzocaine/Menthol (Cepacol Sore Throat) 1 [place] MT Q4H PRN PRN Reason: Sore Throat Last Admin: 12/11/16 17:02 Dose: 1 [place] Furosemide (Lasix) 40 mg IVP BID [facility] Last Admin: 12/13/16 15:41 Dose: Not Given Guaifenesin/Dextromethorphan (Mucinex-Dm 600-30 Mg) 1 tab PO BID PRN PRN Reason: Cough Last Admin: 12/12/16 08:55 Dose: 1 tab Home Med (Home Med) 1 unit PO DAILY [facility] Last Admin: 12/13/16 15:41 Dose: Not Given Metoprolol Tartrate (Lopressor) 25 mg PO BID [facility] Pantoprazole Sodium (Protonix Ec Tab) 40 mg PO DAILY [facility] Last Admin: 12/13/16 09:53 Dose: 40 mg Polyethylene Glycol (Miralax) 17 gm PO BID PRN PRN Reason: Constipation - Labs Labs: 12/13/16 05:45 12/13/16 05:45 Attending/Attestation - Attestation I have personally seen and examined this patient.: Yes I have fully participated in the care of the patient.: Yes I have reviewed all pertinent clinical information, including history, physical exam and plan: Yes Notes (Text): I have seen and examined patient at bedside. Agree with the above note with the following addition/ exceptions: Briefly this is 81 year old female with history of HTN, Diastolic CHF (03/2016 EF 70%), Chronic atrial fibrillation not on anticoagulation, Obesity was admitted with acute on chronic diastolic CHF exacerbation. She complains of tiredness and fatigue. Continue lasix. We will follow up 2D Echo. Patient has Afib. Yesterday she had episodes of bradycardia. Toprol was stopped and was started on low dose metoprolol. Patient was started on eliquis. Will closely monitor CBC. PT eval in am. Discussed in detail with patients son. Upon discharge patient will follow up with Varun GALLARDO. Dr Carmel Templeton
--- NOTE | 2016-12-13 15:17 | PN ---
DATE: 12/13/2016 REASON FOR THE CONSULTATION: Followup shortness of breath, cardiac evaluation, history of atrial fibrillation now is bradycardia. SUBJECTIVE: The patient denies any chest pain, shortness of breath. Family is at the bedside. [id number] is at the bedside. OBJECTIVE: GENERAL: Not in apparent distress, denies any chest pain. VITAL SIGNS: Temperature is afebrile, heart rate 62, blood pressure 129/50. HEENT: PERRLA. Extraocular muscles intact. NECK: Supple. No carotid bruit. No thyromegaly. CHEST: Clear to auscultation. HEART: S1 and S2 regular. ABDOMEN: Soft. EXTREMITIES: Clubbing and cyanosis negative. LABORATORY DATA: Blood workup as follows; WBC 6.9, hemoglobin 9.7, hematocrit 31.7, platelet count 149. Chemistry showed sodium 142, potassium 3.9, chloride 101, carbon dioxide 32, anion gap of 13, BUN 28, creatinine 0.9, troponin 0.01, 0.01, 0.3, 0.3, BNP 53111. ASSESSMENT AND PLAN: An 81-year-old female with past medical history of chronic atrial fibrillation, congestive heart failure secondary to diastolic dysfunction admitted to [facility] who had no evidence of acute coronary syndrome, no evidence of acute non-ST segment myocardial infarction. Patient's last echocardiogram on 04/22/2016 showed ejection fraction of 70%, normal LV size, normal LV wall thickness, aortic valve moderately calcified, mild aortic stenosis, mitral regurgitation, moderate tricuspid regurgitation, mild pulmonary hypertension, RV systolic pressure of 49, peak gradient across aortic valve is 26, mean gradient 15,aortic valve area 1.3. The patient was at home in Eliquis and 100 mg of Toprol-XL in the morning and 50 at night. Yesterday the patient had multiple pauses with bradycardia, being followed by Dr. Hopkins, so at this point, recommendation is, we will hold metoprolol and 100 mg of Toprol-XL decrease 100 mg XL in the morning and 50 at night, we will hold it and change to metoprolol 25 mg b.i.d. from tomorrow giving the wash out. So, the patient does not get bradycardia and pause, patient may end up in pacemaker, discussed with [id number] who was with the patient. Continue IV diuretics. The patient was at home on Eliquis, but it was held because of GI bleed at one point. We will monitor H and H and we will start 2.5 b.i.d and if patient can tolerate, we will continue Eliquis, discussed with [id number]. We will send the stool for guaiac to make sure the patient does not active bleeding and we will monitor H and H. We will start low dose 2.5 b.i.d. Eliquis, continue Lasix and continue proton pump inhibitor, continue Eliquis. We will follow. If the H and H drops, we will hold the Eliquis. We will restart metoprolol 25 b.i.d. from tomorrow with holding parameters with regular metoprolol tartrate. Rodolfo Rudd MD
[2016-12-13] MEDS: NISOLDIPINE 8.5 MG PO SCH (15:41)
[2016-12-13] MEDS ORDERED: POLYETHYLENE GLYCOL 3350 17 GM/Dose PACKET PO PRN (15:50)
[2016-12-13] MEDS: Benzocaine/Menthol (Cepacol) Lozenge MT PRN (20:09)
[2016-12-14 07:19] LABS: BASO # 0.02 K/mm3 (0.0-2.0); BASO % 0.3 % (0.0-3.0); EOS # 0.1 (0.0-0.7); EOS % 1.1 % (1.5-5.0); GRAN # 5.01 (1.4-6.5); GRAN % 70.7 % (50.0-68.0); HEMOGLOBIN 9.9 g/dL (12.0-16.0); LYMPH # 0.7 (1.2-3.4); LYMPH % 10.2 % (22.0-35.0); MEAN CELL VOLUME 95.1 fl (80.0-105.0); MEAN CORPUSCULAR HEMOGLOBIN 28.4 pg (25.0-35.0); MEAN CORPUSCULAR HGB CONC 29.9 g/dl (31.0-37.0); MEAN PLATELET VOLUME 9.5 fl (7.0-11.0); MONO # 1.3 (0.1-0.6); MONO % 17.7 % (1.0-6.0); PLATELET COUNT 157 10^3/uL (120.0-450.0); RBC 3.48 10^6/uL (3.5-6.1); RED CELL DISTRIBUTION WIDTH 15.8 % (11.5-14.5); WHITE BLOOD COUNT 7.1 10^3/ul (4.5-11.0)
[2016-12-14 07:39] LABS: ALB/GLOB RATIO 1.1 (1.1-1.8); ALBUMIN 3.5 g/dL (3.0-4.8); ALT/SGPT 28 U/L (7-56); AST/SGOT 33 U/L (15-39); BLOOD UREA NITROGEN 29 mg/dL (7-21); GFR AFRICAN-AMERICAN > 60; GFR NON-AFRICAN AMERICAN > 60; MAGNESIUM 1.8 mg/dL (1.7-2.2)
[2016-12-14] MEDS: guaiFENesin-DM 600-30 mg ER Tab PO PRN (10:02)
[2016-12-14] MEDS: POLYETHYLENE GLYCOL 3350 17 GM/Dose PACKET PO SCH ×2 (10:02→17:48)
[2016-12-14] MEDS: Pantoprazole 40 mg EC Tab PO SCH (10:03)
[2016-12-14] MEDS: NISOLDIPINE 8.5 MG PO SCH (10:07)
--- NOTE | 2016-12-14 12:56 | CP.PCM.PN ---
<Elinor Eli - Last Filed: 12/14/16 15:26> Subjective - Date & Time of Evaluation Date of Evaluation: 12/14/16 Time of Evaluation: 07:10 - Subjective Subjective: Elinor Eli DO, PGY-1, Internal Medicine, Hospitalist Service Patient seen and examined at bedside. Per nursing no acute events overnight. Patient is feeling better, less sob. Denies any headache, dizziness, cp, abdominal pain, urinary symptoms, changes in bowel habits. Objective - Vital Signs/Intake and Output Vital Signs (last 24 hours): Temp Pulse Resp BP Pulse Ox 99.1 F 69 18 147/60 98 12/14/16 12:00 12/14/16 12:00 12/14/16 12:00 12/14/16 12:00 12/14/16 06:00 Intake and Output: 12/14/16 12/14/16 06:59 18:59 Intake Total 120 Output Total 1300 Balance -1180 - Medications Medications: Current Medications Benzocaine/Menthol (Cepacol Sore Throat) 1 [place] MT Q4H PRN PRN Reason: Sore Throat Last Admin: 12/13/16 20:09 Dose: 1 [place] Docusate Sodium (Colace) 100 mg PO BID [facility] Last Admin: 12/14/16 10:02 Dose: 100 mg Furosemide (Lasix) 40 mg IVP BID [facility] Last Admin: 12/14/16 10:07 Dose: 40 mg Guaifenesin/Dextromethorphan (Mucinex-Dm 600-30 Mg) 1 tab PO BID PRN PRN Reason: Cough Last Admin: 12/14/16 10:02 Dose: 1 tab Home Med (Home Med) 1 unit PO DAILY [facility] Last Admin: 12/14/16 10:07 Dose: 1 unit Metoprolol Tartrate (Lopressor) 25 mg PO BID [facility] Last Admin: 12/14/16 10:03 Dose: 25 mg Pantoprazole Sodium (Protonix Ec Tab) 40 mg PO DAILY [facility] Last Admin: 12/14/16 10:03 Dose: 40 mg Polyethylene Glycol (Miralax) 17 gm PO BID [facility] Last Admin: 12/14/16 10:02 Dose: 17 gm - Labs Labs: 12/14/16 07:00 12/14/16 07:00 - Constitutional Appears: Non-toxic, No Acute Distress - Head Exam Head Exam: ATRAUMATIC, NORMAL INSPECTION - Eye Exam Eye Exam: EOMI, Normal appearance Pupil Exam: NORMAL ACCOMODATION - ENT Exam ENT Exam: Mucous Membranes Moist - Neck Exam Neck Exam: Full ROM - Respiratory Exam Respiratory Exam: Decreased Breath Sounds, Rales, NORMAL BREATHING PATTERN. absent: Wheezes - Cardiovascular Exam Cardiovascular Exam: Irregular Rhythm, +S1, +S2 - GI/Abdominal Exam GI & Abdominal Exam: Soft, Normal Bowel Sounds. absent: Guarding, Rigid, Tenderness - Extremities Exam Additional comments: +3 LE edema B/L - Back Exam Back Exam: NORMAL INSPECTION - Neurological Exam Neurological Exam: Alert, Awake, Oriented x3 - Psychiatric Exam Psychiatric exam: Normal Affect, Normal Mood - Skin Skin Exam: Normal Color, Warm Assessment and Plan - Assessment and Plan (Free Text) Assessment: 81 yo female with pmhx of Diastolic CHF, HTN, Chronic afib, osteoartirits presents to the ED with worsening shortness of breath. Patient noted to be in Acute Respiratory Distress likely secondary to Acute on Chronic CHF. Plan: 1. Acute Respiratory distress 2/2 Acute on Chronic CHF exacerbation, Diastolic Dysfunction -Stable, Afebrile -BNP: 3850 on admission -CXR on admission: moderate vascular congestion -Echo 03/2016: EF 69%, moderate MR and TR, mild to moderate pulmonary HTN -EKG in ED showing a fib, low voltage, poor R wave progression -Echo showing EF approx 55%, moderate AR -Continue Lasix 40mg IV BID -Daily weights, strict I/Os -Trop negative x 3 -O2 supplementation -Monitor electrolytes -2gm Sodium diet, fluid restriction 1000ml -Cardiology on consult, f/u recommendations -PT eval ordered, f/u recommendations 2. Chronic atrial fibrillation -Monitor on telemetry -EKG in ED a fib, rate controlled -[id number]: 5, HASBLED: 1 -Stared on Eliquis 2.5mg BID yesterday, however family concerned for GI bleed -Will monitor H/H and f/u stool occult -Continue Lopressor 25mg BID -Echo showing EF 55%, moderate AR -Cardiology on consult, f/u recommendations 3. Hypertension -Patient on metoprolol succinate at home, was bradycardic with pauses so discontinued -Continue Lopressor 25mg BID -On Nisoldipine at home, will continue 4. Anemia, Normocytic -Stable at baseline -Can follow up outpatient for further workup 5. GI/DVT ppx -Protonix 40mg PO daily -Eliquis on hold at this time as family is concerned for GI bleed, discussed with family the risks vs benefit of being on anticoagulation, family wants to discuss it amongst themselves. <Carmel Templeton - Last Filed: 12/15/16 16:10> Objective - Vital Signs/Intake and Output Vital Signs (last 24 hours): Temp Pulse Resp BP Pulse Ox 99.1 F 69 18 147/60 98 12/14/16 12:00 12/14/16 12:00 12/14/16 12:00 12/14/16 12:00 12/14/16 06:00 Intake and Output: 12/14/16 12/14/16 06:59 18:59 Intake Total 120 Output Total 1300 Balance -1180 - Medications Medications: Current Medications Acetaminophen (Tylenol 325mg Tab) 650 mg PO Q6H PRN PRN Reason: Pain, moderate (4-7) Last Admin: 12/14/16 13:51 Dose: 325 mg Benzocaine/Menthol (Cepacol Sore Throat) 1 [place] MT Q4H PRN PRN Reason: Sore Throat Last Admin: 12/13/16 20:09 Dose: 1 [place] Docusate Sodium (Colace) 100 mg PO BID [facility] Last Admin: 12/14/16 10:02 Dose: 100 mg Furosemide (Lasix) 40 mg IVP BID [facility] Last Admin: 12/14/16 10:07 Dose: 40 mg Guaifenesin/Dextromethorphan (Mucinex-Dm 600-30 Mg) 1 tab PO BID PRN PRN Reason: Cough Last Admin: 12/14/16 10:02 Dose: 1 tab Home Med (Home Med) 1 unit PO DAILY [facility] Last Admin: 12/14/16 10:07 Dose: 1 unit Metoprolol Tartrate (Lopressor) 25 mg PO BID [facility] Last Admin: 12/14/16 10:03 Dose: 25 mg Pantoprazole Sodium (Protonix Ec Tab) 40 mg PO DAILY [facility] Last Admin: 12/14/16 10:03 Dose: 40 mg Polyethylene Glycol (Miralax) 17 gm PO BID [facility] Last Admin: 12/14/16 10:02 Dose: 17 gm - Labs Labs: 12/14/16 07:00 12/14/16 07:00 Attending/Attestation - Attestation I have personally seen and examined this patient.: Yes I have fully participated in the care of the patient.: Yes I have reviewed all pertinent clinical information, including history, physical exam and plan: Yes Notes (Text): I have seen and examined patient at bedside. Agree with the above note with the following addition/ exceptions: Briefly this is 81 year old female with history of HTN, Diastolic CHF (03/2016 EF 70%), Chronic atrial fibrillation not on anticoagulation, Obesity was admitted with acute on chronic diastolic CHF exacerbation. She complains of tiredness and fatigue. Continue lasix. We will follow up 2D Echo. Patient has Afib. Yesterday she had episodes of bradycardia. Toprol was stopped and was started on low dose metoprolol. Patient was started on eliquis however family is adamantly refusing that. Patient son gave the history of massive GI bleed when she was on eliquis. Family was instructed on benefits vs side effects of not having anticoagulation. Patients son understands the risk. Will closely monitor CBC. PT eval in am. Discussed in detail with patients son. Upon discharge patient will follow up with Varun GALLARDO. Dr Carmel Templeton
--- NOTE | 2016-12-14 13:11 | CARD ---
APPROVED REPORT EKG Measurement Heart [id number] <Conclusion> Atrial fibrillation Rightward axis Low voltage QRS Septal infarct, age undetermined Abnormal ECG
--- NOTE | 2016-12-14 15:18 | PN ---
DATE: 12/14/2016 SUBJECTIVE: The patient is an 81-year-old female. The patient denies any chest pain, shortness of breath, or any palpitations. Two daughters and a son name Aaron is at the bedside. OBJECTIVE: GENERAL: Not in apparent distress, lying flat in the bed. VITAL SIGNS: As follows: Temperature is afebrile, heart rate 85, and blood pressure 129/65. HEENT: PERRLA. Extraocular muscles intact. NECK: Supple. No carotid bruit. No thyromegaly. CHEST: Clear to auscultation. HEART: S1 and S2 regular. ABDOMEN: Soft. EXTREMITIES: Clubbing and cyanosis negative. LABORATORY DATA: Blood workup as follows; WBC 7.1, hemoglobin 9.9, hematocrit 33.1, and platelet count 157. Chemistry showed sodium 144, potassium 4.3, chloride 102, carbon dioxide 34, anion gap of 12, BUN 29, creatinine 0.8, total protein 6.7, albumin 3.5, albumin-globulin ratio 1.1. Troponin 0.1, 0.3, 0.3. IMPRESSION AND PLAN: An 81-year-old morbidly obese female with past medical history significant for chronic atrial fibrillation, congestive heart failure secondary to diastolic dysfunction admitted to shortness of breath. No evidence of acute coronary syndrome, so far troponin is negative, no evidence of acute non-ST segment myocardial infarction. The patient's last echo on 04/22/2016 showed ejection fraction of 70%, normal LV size, normal LV wall thickness, aortic valve moderately calcified, mild aortic stenosis, mitral regurgitation, moderate tricuspid regurgitation, RV systolic pressure of 49, peak gradient across aortic valve is 26 mmHg, mean gradient 15 mmHg,valve area 1.3 cm consistent with mild to moderate aortic stenosis. The patient was at home on 100 mg of Toprol XL in the morning and 50 at night, and Eliquis discharged on home last time but the patient had a bleeding, so was stopped by the son. The patient on this admission had decompensated congestive heart failure, but multiple pauses, so Toprol was held up to yesterday afternoon. The patient has maximum pauses 2.6 multiple pauses, but since Toprol was held now this morning, since last night 5 p.m. no further episode of pause noted, but atrial fibrillation with slow ventricular rate noted. This morning, length of discussion done with the son name Aaron and 2 sisters, yesterday also discussed with the [id number] that we will cutdown the Toprol to 25 mg and wait for the washout period for 48 hours. If the patient remains stable, possibly we will discharged. So, far no evidence of longer pause than 3 seconds noted; the maximum pause is 2.6 seconds as mentioned above. The patient was in Toprol 100 mg XL in the morning and 50 mg at night. The patient's son is very adamant, does not want to be on Eliquis because the patient has a gastrointestinal bleed. Also, the patient has a history of gastrointestinal bleeding from Coumadin, though he understood completely his risk of stroke because this is the patient with a high risk for a stroke. Yesterday guaiac stool was also sent. So, we will discontinue Eliquis because the patient's family thinks this is allergy explaining that this is a side effect, so we will discontinue Eliquis, though we started low dose while the patient was in hospital to see any effective GI bleed, but the patient's son does not want to take the chance, so we will discontinue and start metoprolol 25 mg b.i.d. and observe for any bradycardia. If remained stable, possibly discharge home tomorrow, get out of bed to chair, ambulate and physical therapy. Further recommendation with the hospital course. We will follow with you. Physical therapy consult for ambulation. Thank you Dr. Adrianne Templeton for providing me the opportunity in taking care of Vicenta Duran. Rodolfo Rudd MD
[2016-12-14] MEDS: Benzocaine/Menthol (Cepacol) Lozenge MT PRN (20:32)
[2016-12-15] MEDS: guaiFENesin-DM 600-30 mg ER Tab PO PRN (00:17)
[2016-12-15 02:26] VITALS: O2SAT 94
[2016-12-15 06:08] LABS: MEAN CELL VOLUME 95.1 fl (80.0-105.0); MEAN CORPUSCULAR HEMOGLOBIN 28.6 pg (25.0-35.0); MEAN PLATELET VOLUME 9.5 fl (7.0-11.0); RBC 3.5 10^6/uL (3.5-6.1); WHITE BLOOD COUNT 7.9 10^3/ul (4.5-11.0)
[2016-12-15 06:43] LABS: BLOOD UREA NITROGEN 28 mg/dL (7-21); GFR AFRICAN-AMERICAN > 60; GFR NON-AFRICAN AMERICAN > 60; MAGNESIUM 1.7 mg/dL (1.7-2.2)
[2016-12-15 07:06] VITALS: RESP 18; TEMP 98.6
[2016-12-15] MEDS: Pantoprazole 40 mg EC Tab PO SCH (11:10)
[2016-12-15] MEDS: NISOLDIPINE 8.5 MG PO SCH (11:11)
[2016-12-15] MEDS: POLYETHYLENE GLYCOL 3350 17 GM/Dose PACKET PO SCH (11:11)
[2016-12-15 11:13] VITALS: BP 130/56; PULSE 76
--- NOTE | 2016-12-15 12:19 | CP.PCM.PN ---
<Elinor Eli - Last Filed: 12/15/16 12:29> Subjective - Date & Time of Evaluation Date of Evaluation: 12/15/16 Time of Evaluation: 07:05 - Subjective Subjective: Elinor Eli DO, PGY-1, Internal Medicine, Hospitalist Service Patient seen and examined at bedside. Per nursing no acute events overnight. Daughter at the bedside. Breathing is a little better, Having B/L knee pain, recieved Tylenol with some relief. Denies headache, dizziness, fevers, chills, cp, sob, abdominal pain, urinary symptoms. Objective - Vital Signs/Intake and Output Vital Signs (last 24 hours): Temp Pulse Resp BP Pulse Ox 98.6 F 76 18 130/56 L 94 L 12/15/16 06:00 12/15/16 11:10 12/15/16 06:00 12/15/16 11:11 12/15/16 06:00 Intake and Output: 12/15/16 12/15/16 06:59 18:59 Intake Total 820 Output Total 700 Balance 120 - Medications Medications: Current Medications Acetaminophen (Tylenol 325mg Tab) 650 mg PO Q6H PRN PRN Reason: Pain, moderate (4-7) Last Admin: 12/14/16 13:51 Dose: 325 mg Benzocaine/Menthol (Cepacol Sore Throat) 1 [place] MT Q4H PRN PRN Reason: Sore Throat Last Admin: 12/14/16 20:32 Dose: 1 [place] Docusate Sodium (Colace) 100 mg PO BID [facility] Last Admin: 12/15/16 11:10 Dose: 100 mg Furosemide (Lasix) 40 mg IVP BID [facility] Last Admin: 12/15/16 11:11 Dose: 40 mg Guaifenesin/Dextromethorphan (Mucinex-Dm 600-30 Mg) 1 tab PO BID PRN PRN Reason: Cough Last Admin: 12/15/16 00:17 Dose: 1 tab Home Med (Home Med) 1 unit PO DAILY [facility] Last Admin: 12/15/16 11:11 Dose: 1 unit Metoprolol Tartrate (Lopressor) 25 mg PO BID [facility] Last Admin: 12/15/16 11:10 Dose: 25 mg Pantoprazole Sodium (Protonix Ec Tab) 40 mg PO DAILY [facility] Last Admin: 12/15/16 11:10 Dose: 40 mg Polyethylene Glycol (Miralax) 17 gm PO BID [facility] Last Admin: 12/15/16 11:11 Dose: 17 gm - Labs Labs: 12/15/16 05:30 12/15/16 05:30 - Constitutional Appears: Well, No Acute Distress - Head Exam Head Exam: ATRAUMATIC, NORMAL INSPECTION, NORMOCEPHALIC - Eye Exam Eye Exam: EOMI, Normal appearance Pupil Exam: NORMAL ACCOMODATION - ENT Exam ENT Exam: Mucous Membranes Moist - Neck Exam Neck Exam: Full ROM - Respiratory Exam Respiratory Exam: Decreased Breath Sounds, NORMAL BREATHING PATTERN. absent: Rhonchi, Wheezes, Respiratory Distress - Cardiovascular Exam Cardiovascular Exam: Irregular Rhythm, +S1, +S2 - GI/Abdominal Exam GI & Abdominal Exam: Soft, Normal Bowel Sounds. absent: Guarding, Rigid, Tenderness - Extremities Exam Additional comments: +3 LE edema bilaterally + pedal pulses - Back Exam Back Exam: NORMAL INSPECTION - Neurological Exam Neurological Exam: Alert, Awake, Oriented x3 - Psychiatric Exam Psychiatric exam: Normal Affect, Normal Mood - Skin Skin Exam: Normal Color, Warm Assessment and Plan - Assessment and Plan (Free Text) Assessment: 81 yo female with pmhx of Diastolic CHF, HTN, Chronic afib, osteoartirits presents to the ED with worsening shortness of breath. Patient noted to be in Acute Respiratory Distress likely secondary to Acute on Chronic CHF. Plan: 1. Acute Respiratory distress 2/2 Acute on Chronic CHF exacerbation, Diastolic Dysfunction -Stable, Afebrile -BNP: 3850 on admission -CXR on admission: moderate vascular congestion -Echo 03/2016: EF 69%, moderate MR and TR, mild to moderate pulmonary HTN -EKG in ED showing a fib, low voltage, poor R wave progression -Echo showing EF approx 55%, moderate AR -Continue Lasix 40mg IV BID -Daily weights, strict I/Os -Trop negative x 3 -O2 supplementation -Monitor electrolytes -2gm Sodium diet, fluid restriction 1000ml -Cardiology on consult, f/u recommendations -PT eval ordered, patient was refusing PT yesterday because of pain, will f/u recommendations -Patient is a good candidate for [facility], Family wants to discuss patient's disposition 2. Chronic atrial fibrillation -Monitor on telemetry -EKG in ED a fib, rate controlled -[id number]: 5, HASBLED: 2 (patient reports having a history of GI bleed when on Eliquis in the past) -Eliquis has been discontinued per family's request. They understand the risks of not being on anticoagulation. -Continue Lopressor 25mg BID -Echo showing EF 55%, moderate AR -Cardiology on consult, f/u recommendations 3. Hypertension -Patient on metoprolol succinate at home, was bradycardic with pauses so discontinued -Continue Lopressor 25mg BID -On Nisoldipine at home, will continue 4. Anemia, Normocytic -Stable at baseline -Can follow up outpatient for further workup 5. GI/DVT ppx -Protonix 40mg PO daily -Eliquis discontinued <Carmel Templeton - Last Filed: 12/15/16 16:30> Objective - Vital Signs/Intake and Output Vital Signs (last 24 hours): Temp Pulse Resp BP Pulse Ox 98.6 F 76 18 130/56 L 94 L 12/15/16 06:00 12/15/16 11:10 12/15/16 06:00 12/15/16 11:11 12/15/16 06:00 Intake and Output: 12/15/16 12/15/16 06:59 18:59 Intake Total 820 Output Total 700 Balance 120 - Labs Labs: 12/15/16 05:30 12/15/16 05:30 Attending/Attestation - Attestation I have personally seen and examined this patient.: Yes I have fully participated in the care of the patient.: Yes I have reviewed all pertinent clinical information, including history, physical exam and plan: Yes Notes (Text): I have seen and examined patient at bedside. Agree with the above note with the following addition/ exceptions: Briefly this is 81 year old female with history of HTN, Diastolic CHF (03/2016 EF 70%), Chronic atrial fibrillation not on anticoagulation, Obesity was admitted with acute on chronic diastolic CHF exacerbation. She states that her tiredness and shortness of breath has improved. Continue lasix. We will follow up 2D Echo. Patient has Afib which is rate controlled. Toprol was stopped and was started on low dose metoprolol. Patient was started on eliquis however family is adamantly refusing that. Patient son gave the history of massive GI bleed when she was on eliquis. Family was instructed on benefits vs side effects of not having anticoagulation. Patients son understands the risk. Will closely monitor CBC. PT eval today. Discussed in detail with patients son. Upon discharge patient will follow up with Varun GALLARDO. Dr Carmel Templeton
--- NOTE | 2016-12-15 13:44 | CP.PCM.DIS ---
<Elinor Eli - Last Filed: 12/15/16 16:02> Provider - Provider Date of Admission: 12/11/16 10:21 Attending physician: Carmel Templeton MD Primary care physician: Cyndi Bond APN Consults: Cardiology: Tobin Time Spent in preparation of Discharge (in minutes): 35 Hospital Course - Lab Results Lab Results: Most Recent Lab Values WBC 7.9 10^3/ul (4.5-11.0) 12/15/16 05:30 RBC 3.50 10^6/uL (3.5-6.1) 12/15/16 05:30 Hgb 10.0 g/dL (12.0-16.0) L 12/15/16 05:30 Hct 33.3 % (36.0-48.0) L 12/15/16 05:30 MCV 95.1 fl (80.0-105.0) 12/15/16 05:30 MCH 28.6 pg (25.0-35.0) 12/15/16 05:30 MCHC 30.0 g/dl (31.0-37.0) L 12/15/16 05:30 RDW 16.0 % (11.5-14.5) H 12/15/16 05:30 Plt Count 153 10^3/uL (120.0-450.0) 12/15/16 05:30 MPV 9.5 fl (7.0-11.0) 12/15/16 05:30 Gran % 70.7 % (50.0-68.0) H 12/14/16 07:00 Lymph % (Auto) 10.2 % (22.0-35.0) L 12/14/16 07:00 [place] % (Auto) 17.7 % (1.0-6.0) H 12/14/16 07:00 Eos % (Auto) 1.1 % (1.5-5.0) L 12/14/16 07:00 Baso % (Auto) 0.3 % (0.0-3.0) 12/14/16 07:00 Gran # 5.01 (1.4-6.5) 12/14/16 07:00 Lymph # 0.7 (1.2-3.4) L 12/14/16 07:00 [place] # 1.3 (0.1-0.6) H 12/14/16 07:00 Eos # 0.1 (0.0-0.7) 12/14/16 07:00 Baso # 0.02 K/mm3 (0.0-2.0) 12/14/16 07:00 Sodium 143 mmol/L (132-148) 12/15/16 05:30 Potassium 3.9 mmol/L (3.6-5.0) 12/15/16 05:30 Chloride 100 mmol/L (95-110) 12/15/16 05:30 Carbon Dioxide 35 mmol/L (21-33) H 12/15/16 05:30 Anion Gap 12 (10-20) 12/15/16 05:30 BUN 28 mg/dL (7-21) H 12/15/16 05:30 Creatinine 0.8 mg/dL (0.5-1.4) 12/15/16 05:30 Est GFR ( Amer) > 60 12/15/16 05:30 Est GFR (Non-Af Amer) > 60 12/15/16 05:30 Random Glucose 90 mg/dL (70-110) 12/15/16 05:30 Calcium 9.0 mg/dL (8.4-10.5) 12/15/16 05:30 Phosphorus 3.5 mg/dL (2.5-4.5) 12/15/16 05:30 Magnesium 1.7 mg/dL (1.7-2.2) 12/15/16 05:30 Total Bilirubin 1.2 mg/dL (0.2-1.3) 12/14/16 07:00 AST 33 U/L (15-39) 12/14/16 07:00 ALT 28 U/L (7-56) 12/14/16 07:00 Alkaline Phosphatase 47 U/L (38-133) 12/14/16 07:00 Troponin I 0.03 ng/mL 12/11/16 21:00 NT-Pro-B Natriuret Pep 3850 pg/mL (0-450) H 12/11/16 09:05 Total Protein 6.7 g/dL (5.8-8.3) 12/14/16 07:00 Albumin 3.5 g/dL (3.0-4.8) 12/14/16 07:00 Globulin 3.2 gm/dL 12/14/16 07:00 Albumin/Globulin Ratio 1.1 (1.1-1.8) 12/14/16 07:00 Urine Color Yellow (YELLOW) 12/11/16 10:21 Urine Appearance Clear (CLEAR) 12/11/16 10:21 Urine pH 6.0 (4.7-8.0) 12/11/16 10:21 Ur Specific [place] 1.010 (1.005-1.035) 12/11/16 10:21 Urine Protein Negative mg/dL (<30 mg/dL) 12/11/16 10:21 Urine Glucose (UA) Negative mg/dL (NEGATIVE) 12/11/16 10:21 Urine Ketones Negative mg/dL (NEGATIVE) 12/11/16 10:21 Urine Blood Small (NEGATIVE) H 12/11/16 10:21 Urine Nitrate Negative (NEGATIVE) 12/11/16 10:21 Urine Bilirubin Negative (NEGATIVE) 12/11/16 10:21 Urine Urobilinogen 0.2 E.U./dL (<1 E.U./dL) 12/11/16 10:21 Ur Leukocyte Esterase Negative Jareth/uL (NEGATIVE) 12/11/16 10:21 Urine RBC 15 - 20 /hpf (0-2) 12/11/16 10:21 Urine WBC 2 - 5 /hpf (0-6) 12/11/16 10:21 Ur Epithelial Cells 4 - 5 /hpf (0-5) 12/11/16 10:21 Urine Bacteria Trace (NEG) 12/11/16 10:21 - Hospital Course Hospital Course: 81 yo female with pmhx of HTN, Diastolic CHF (03/2016 EF 70%), Chronic atrial fibrillation, Obesity, Osteoarthritis presents to the ED for shortness of breath x 1 week. Daughters at the bedside, providing the history. Reports that breathing was worse this morning which prompted the ED visit. SOB is associated with LE swelling and palpitations, orthopnea. Patient reports that she is compliant with all medications. Sleeps with head of bed elevated. Periodically uses O2 supplementation at home. Also complaining of sore throat and productive cough (white phelgm). Patient denies any changes in activity. She ambulates minimally, normally transfers from the bed to chair at home. Denies any headache, dizziness, cp, abdominal pain, urinary symptoms, changes in bowel habits. Patient was admitted for acute on chronic CHF exacerbation, diastolic dysfunction. BNP was 3850. CXR showed moderate vascular congestion. Cardiology was consulted and on the case. EKG on admission showed atrial fibrillation, rate controlled, with Poor R wave progression and low voltage. Troponins negative x 3. Echo showed EF of 55%, moderate AR. Patient was started on Lasix 40mg IV BID. Daily weights, strict I/Os, 1000ml fluid restriction and 2gm sodium diet were ordered. Patient was monitored on telemetry. Home medications were also resumed. While on telemetry, patient was noted to be bradycardic with pauses. Metoprolol succinate was discontinued and patient was started on Lopressor 25mg BID. Patient has a history of chronic atrial fibrillation, not on anticoagulation currently. Order was placed to start on Eliquis, however patients family did not want to start her on Eliquis. Per the family, the patient had a reaction in the past to Eliquis where she had a GI bleed. Discussed with the family that we recommend starting low dose Eliquis and will monitor H/H. Explained risks of not being anticoagulated and family understand and accept the risks. Eliquis was subsequently discontinued. Labs were monitored daily. Patient is anemic, hgb stable and at baseline. Will need outpatient workup. PT was ordered for the patient. Patient was also evaluated for TCU and was subsequently accepted. Patient was medically stable prior to discharge. All medications were reconciled. All questions and concerns were addressed. Patient to continue current treatment in TCU. Discharge Exam - Head Exam Head Exam: ATRAUMATIC, NORMAL INSPECTION, NORMOCEPHALIC - Eye Exam Eye Exam: EOMI, Normal appearance Pupil Exam: NORMAL ACCOMODATION - ENT Exam ENT Exam: Mucous Membranes Moist - Neck Exam Neck exam: Full Rom - Respiratory Exam Respiratory Exam: Decreased Breath Sounds, NORMAL BREATHING PATTERN. absent: Rales, Rhonchi, Wheezes, Respiratory Distress - Cardiovascular Exam Cardiovascular Exam: Irregular Rhythm, +S1, +S2 - GI/Abdominal Exam GI & Abdominal Exam: Normal Bowel Sounds, Soft, Tenderness. absent: Guarding, Rebound, Rigid - Extremities Exam Extremities exam: pedal pulses present Additional comments: +3 LE edema B/L - Back Exam Back exam: NORMAL INSPECTION - Neurological Exam Neurological exam: Alert, CN II-XII Intact, Oriented x3 - Psychiatric Exam Psychiatric exam: Normal Affect, Normal Mood - Skin Skin Exam: Normal Color, Warm Discharge Plan - Follow Up Plan Condition: FAIR Disposition: TRANSF TO SNF Instructions: Heart Failure (DC), Atrial Fibrillation (DC), Chest Pain (DC), Fall Prevention for Older Adults (GEN), Dyspnea (GEN) Additional Instructions: Patient will be discharged to TCU Referrals: Cyndi Bond APN [Primary Care Provider] - <Carmel Templeton - Last Filed: 12/15/16 16:34> Provider - Provider Date of Admission: 12/11/16 10:21 Attending physician: Carmel Templeton MD Primary care physician: Cyndi Bond APN Hospital Course - Lab Results Lab Results: Most Recent Lab Values WBC 7.9 10^3/ul (4.5-11.0) 12/15/16 05:30 RBC 3.50 10^6/uL (3.5-6.1) 12/15/16 05:30 Hgb 10.0 g/dL (12.0-16.0) L 12/15/16 05:30 Hct 33.3 % (36.0-48.0) L 12/15/16 05:30 MCV 95.1 fl (80.0-105.0) 12/15/16 05:30 MCH 28.6 pg (25.0-35.0) 12/15/16 05:30 MCHC 30.0 g/dl (31.0-37.0) L 12/15/16 05:30 RDW 16.0 % (11.5-14.5) H 12/15/16 05:30 Plt Count 153 10^3/uL (120.0-450.0) 12/15/16 05:30 MPV 9.5 fl (7.0-11.0) 12/15/16 05:30 Gran % 70.7 % (50.0-68.0) H 12/14/16 07:00 Lymph % (Auto) 10.2 % (22.0-35.0) L 12/14/16 07:00 [place] % (Auto) 17.7 % (1.0-6.0) H 12/14/16 07:00 Eos % (Auto) 1.1 % (1.5-5.0) L 12/14/16 07:00 Baso % (Auto) 0.3 % (0.0-3.0) 12/14/16 07:00 Gran # 5.01 (1.4-6.5) 12/14/16 07:00 Lymph # 0.7 (1.2-3.4) L 12/14/16 07:00 [place] # 1.3 (0.1-0.6) H 12/14/16 07:00 Eos # 0.1 (0.0-0.7) 12/14/16 07:00 Baso # 0.02 K/mm3 (0.0-2.0) 12/14/16 07:00 Sodium 143 mmol/L (132-148) 12/15/16 05:30 Potassium 3.9 mmol/L (3.6-5.0) 12/15/16 05:30 Chloride 100 mmol/L (95-110) 12/15/16 05:30 Carbon Dioxide 35 mmol/L (21-33) H 12/15/16 05:30 Anion Gap 12 (10-20) 12/15/16 05:30 BUN 28 mg/dL (7-21) H 12/15/16 05:30 Creatinine 0.8 mg/dL (0.5-1.4) 12/15/16 05:30 Est GFR ( Amer) > 60 12/15/16 05:30 Est GFR (Non-Af Amer) > 60 12/15/16 05:30 Random Glucose 90 mg/dL (70-110) 12/15/16 05:30 Calcium 9.0 mg/dL (8.4-10.5) 12/15/16 05:30 Phosphorus 3.5 mg/dL (2.5-4.5) 12/15/16 05:30 Magnesium 1.7 mg/dL (1.7-2.2) 12/15/16 05:30 Total Bilirubin 1.2 mg/dL (0.2-1.3) 12/14/16 07:00 AST 33 U/L (15-39) 12/14/16 07:00 ALT 28 U/L (7-56) 12/14/16 07:00 Alkaline Phosphatase 47 U/L (38-133) 12/14/16 07:00 Troponin I 0.03 ng/mL 12/11/16 21:00 NT-Pro-B Natriuret Pep 3850 pg/mL (0-450) H 12/11/16 09:05 Total Protein 6.7 g/dL (5.8-8.3) 12/14/16 07:00 Albumin 3.5 g/dL (3.0-4.8) 12/14/16 07:00 Globulin 3.2 gm/dL 12/14/16 07:00 Albumin/Globulin Ratio 1.1 (1.1-1.8) 12/14/16 07:00 Urine Color Yellow (YELLOW) 12/11/16 10:21 Urine Appearance Clear (CLEAR) 12/11/16 10:21 Urine pH 6.0 (4.7-8.0) 12/11/16 10:21 Ur Specific [place] 1.010 (1.005-1.035) 12/11/16 10:21 Urine Protein Negative mg/dL (<30 mg/dL) 12/11/16 10:21 Urine Glucose (UA) Negative mg/dL (NEGATIVE) 12/11/16 10:21 Urine Ketones Negative mg/dL (NEGATIVE) 12/11/16 10:21 Urine Blood Small (NEGATIVE) H 12/11/16 10:21 Urine Nitrate Negative (NEGATIVE) 12/11/16 10:21 Urine Bilirubin Negative (NEGATIVE) 12/11/16 10:21 Urine Urobilinogen 0.2 E.U./dL (<1 E.U./dL) 12/11/16 10:21 Ur Leukocyte Esterase Negative Jareth/uL (NEGATIVE) 12/11/16 10:21 Urine RBC 15 - 20 /hpf (0-2) 12/11/16 10:21 Urine WBC 2 - 5 /hpf (0-6) 12/11/16 10:21 Ur Epithelial Cells 4 - 5 /hpf (0-5) 12/11/16 10:21 Urine Bacteria Trace (NEG) 12/11/16 10:21 Attending/Attestation - Attestation I have personally seen and examined this patient.: Yes I have fully participated in the care of the patient.: Yes I have reviewed all pertinent clinical information, including history, physical exam and plan: Yes Notes (Text): I have seen and examined patient at bedside. Agree with the above note with the following addition/ exceptions: Briefly this is 81 year old female with history of HTN, Diastolic CHF (03/2016 EF 70%), Chronic atrial fibrillation not on anticoagulation, Obesity was admitted with acute on chronic diastolic CHF exacerbation. She states that her tiredness and shortness of breath has improved. She still complains of mild dry cough. Continue lasix. Patient has Afib which is rate controlled. Continue metoprolol. Patient got accepted in TCU. Discussed in detail with patients son. Upon discharge patient will follow up with Varun GALLARDO. Dr Carmel Templeton
[2016-12-15] MEDS ORDERED: Potassium Chloride 20 mEq ER Tab PO ONE (14:51)
[2016-12-15] MEDS ORDERED: Magnesium Oxide 400 mg Tab UD PO SCH (18:00)
--- NOTE | 2016-12-15 19:16 | PN ---
DATE: 12/15/2016 REASON FOR CONSULTATION: Decompensated congestive heart failure. SUBJECTIVE: The patient is an 81-year-old female. Denies any chest pain, shortness of breath, or any palpitation. Family is at the bedside. PHYSICAL EXAMINATION: GENERAL: Not in apparent distress, lying flat. VITAL SIGNS: As follows: Temperature afebrile, heart rate 72, and blood pressure 130/56. HEENT: PERRLA. Extraocular muscles are intact. NECK: Supple. No carotid bruits or thyromegaly. CHEST: Clear to auscultation. HEART: S1 and S2. Regular. ABDOMEN: Soft. EXTREMITIES: Clubbing and cyanosis are negative. LABORATORY DATA: Blood workup as follows: WBC 7.9, hemoglobin 10, hematocrit 33.3, and platelet count 153. Chemistry shows sodium 143, potassium 3.9, chloride 100, carbon dioxide 35, anion gap 12, BUN 28, creatinine 0.8, and magnesium 1.7. IMPRESSION: An 81-year-old morbidly obese female with past medical history significant for atrial fibrillation, chronic congestive heart failure secondary to diastolic dysfunction admitted with shortness of breath. No evidence of acute coronary syndrome, so far troponin remains flat negative. No evidence of non-ST segment myocardial infarction. Last echo on 04/22/2016 showed ejection fraction of 70%, normal left ventricular size, wall thickness, aortic valve moderately calcified, mild aortic stenosis, mild mitral regurgitation, moderate tricuspid regurgitation, right ventricular systolic pressure of 49, peak gradient across aortic valve is 26 mmHg, mean gradient 15 mmHg,valve area 1.3 cm consistent with mild to moderate aortic stenosis. The patient was at home on 100 mg of Toprol XL and 50 at night, bradycardia since the patient is here. Toprol was stopped and metoprolol 25 was started b.i.d. No further episode of bradycardia noted. Discussed with the night nurse took care the patient has no significant bradyarrhythmia. The patient was discharged on Eliquis, but son says that the bleeding stopped and later on Coumadin started, which also is stopped. The patient is not on anticoagulation. Discussed in length with the son Aaron risks, benefits, and alternatives, but the patient's son does not want to take the chance of gastrointestinal bleed though he understood the risk of stroke that the patient can get a stroke. RECOMMENDATIONS: Continue metoprolol 25 mg b.i.d., continue diuretics. The patient's family does not want to anticoagulation, out of bed to chair rehab. Monitor electrolyte supplement magnesium. We will follow. Consider TCU evaluation. We will also write for physical therapy evaluation out of bed to chair. Thank you Dr. Templeton for providing me the opportunity in taking care of Vicenta Duran. Rodolfo Rudd MD
== END 2016-12-15 14:14 | DRG 292 ==
LOC: ED 08:29 → ERH 10:21 → 2RNO 12:14
PROVIDERS: ADMIT Internal Medicine; ATTEND Hospitalist
DX: I11.0 Hypertensive heart disease with heart failure (principal); I50.33 Acute on chronic diastolic (congestive) heart failure; Z68.42 Body mass index [BMI] 45.0-49.9, adult; I27.2 Other secondary pulmonary hypertension; E66.01 Morbid (severe) obesity due to excess calories; R00.1 Bradycardia, unspecified; I08.3 Combined rheumatic disorders of mitral, aortic and tricuspid valves; I48.2 Chronic atrial fibrillation; M19.90 Unspecified osteoarthritis, unspecified site; K21.9 Gastro-esophageal reflux disease without esophagitis; I87.8 Other specified disorders of veins; D64.9 Anemia, unspecified; Z88.0 Allergy status to penicillin; Z79.02 Long term (current) use of antithrombotics/antiplatelets

== ENCOUNTER 2016-12-15 14:14 | Inpatient (IN) | payer OTHER, MEDICAID ==
[2016-12-15 17:33] VITALS: BMI 42.7
[2016-12-15] MEDS ORDERED: Pneumococcal 23-Valent Vaccine IM ONE (17:33)
[2016-12-15] MEDS: guaiFENesin-DM 600-30 mg ER Tab PO SCH (18:54)
[2016-12-15] MEDS: POLYETHYLENE GLYCOL 3350 17 GM/Dose PACKET PO SCH (18:54)
[2016-12-15] MEDS: Benzocaine/Menthol (Cepacol) Lozenge MT PRN (20:01)
[2016-12-16] MEDS: Pantoprazole 40 mg EC Tab PO SCH (05:13)
[2016-12-16 06:36] LABS: HEMATOCRIT 32.2 % (36.0-48.0); MEAN CELL VOLUME 96.1 fl (80.0-105.0); MEAN CORPUSCULAR HGB CONC 30.1 g/dl (31.0-37.0); MEAN PLATELET VOLUME 9.2 fl (7.0-11.0); WHITE BLOOD COUNT 7.1 10^3/ul (4.5-11.0)
[2016-12-16 06:52] LABS: ALB/GLOB RATIO 1.1 (1.1-1.8); ALKALINE PHOSPHATASE 49 U/L (38-133); ALT/SGPT 30 U/L (7-56); AST/SGOT 27 U/L (15-39); BILIRUBIN,TOTAL 1.4 mg/dL (0.2-1.3); BLOOD UREA NITROGEN 29 mg/dL (7-21); CALCIUM 8.9 mg/dL (8.4-10.5); CARBON DIOXIDE 33 mmol/L (21-33); CHLORIDE 101 mmol/L (95-110); GFR AFRICAN-AMERICAN > 60; GLUCOSE,RANDOM 98 mg/dL (70-110); POTASSIUM 4.1 mmol/L (3.6-5.0); SODIUM 144 mmol/L (132-148); TOTAL PROTEIN 6.7 g/dL (5.8-8.3)
[2016-12-16] MEDS ORDERED: MethylPREDNISolone Depo 40 mg/ml Inj IM ONE (10:31)
[2016-12-16] MEDS ORDERED: Bupivacaine 0.5% Inj(30mL) IJ ONE (10:31)
[2016-12-16] MEDS ORDERED: FMT LOWER DELIVERY MICROBIOTA PREPARATION 250 ML RC ONE (11:07)
--- NOTE | 2016-12-16 11:24 | CP.PCM.HP ---
<Elinor Eli - Last Filed: 12/16/16 16:49> History of Present Illness - History of Present Illness History of Present Illness: 81 yo female with pmhx of HTN, Diastolic CHF (03/2016 EF 70%), Chronic atrial fibrillation, Obesity, Osteoarthritis [place] [facility] [place] breath x 1 week. Daughters at the bedside, providing the history. Reports that breathing was worse this morning which prompted the ED visit. SOB is associated with LE swelling and palpitations, orthopnea, productive cough. Patient was admitted for acute on chronic CHF exacerbation, diastolic dysfunction. BNP was 3850. Cardiology was consulted and on the case. EKG on admission showed atrial fibrillation, rate controlled, with Poor R wave progression and low voltage. Troponins negative x 3. Echo showed EF of 55%, moderate AR. Patient was started on Lasix 40mg IV BID. Patient's breathing was improving, transferred to TCU for deconditioning and physical therapy. Currently patient reports breathing continues to improve. C/O of B/L knee pain. Also reports that she hasn't had a BM since monday. No other complaints at this time. Denies headaches, dizziness, cp, palpitations, abdominal pain, urinary symptoms. PMD: Dr Hopkins Cardiology: Dr Hinojosa ALL: PCN, Warfarin, Rofecoxib, Dabigatran, Pravastatin Medications: Lasix 40mg BID, Metoprolol Succinate 100mg daily, Nisoldipine 8.5mg daily, Nexium 40mg daily Medical Hx: Chronic atrial fibrillation, HTN, CHF, Obesity, Osteoarthritis, GERD , Chronic venous stasis/LE edema Surgical Hx: Cataract surgery Social Hx: Lives with son, denies alcohol, tobacco, drug use Family Hx: non-contributory Present on Admission - Present on Admission Any Indicators Present on Admission: No History of DVT/PE: No History of Uncontrolled Diabetes: No Urinary Catheter: No Decubitus Ulcer Present: No Review of Systems - Review of Systems All systems: reviewed and no additional remarkable complaints except - Constitutional Constitutional: absent: Chills, Fever, Weakness - EENT Eyes: absent: Blurred Vision, Change in Vision Ears: absent: Decreased Hearing - Cardiovascular Cardiovascular: Dyspnea, Edema. absent: Chest Pain, Lightheadedness, Palpitations, Syncope - Respiratory Respiratory: Cough. absent: Dyspnea, Wheezing - Gastrointestinal Gastrointestinal: Constipation. absent: Abdominal Pain, Bloating, Cramping, Diarrhea, Nausea, Vomiting - Genitourinary Genitourinary: absent: Difficulty Urinating, Dysuria, Hematuria - Musculoskeletal Musculoskeletal: Arthralgias. absent: Back Pain, Joint Swelling - Integumentary Integumentary: absent: Rash - Neurological Neurological: absent: Dizziness, Headaches, Weakness - Psychiatric Psychiatric: absent: Anxiety, Confusion, Depression Past Patient History - Past Social History Smoking Status: Never Smoked - CARDIAC Hx Congestive Heart Failure: Yes Hx Hypertension: Yes - PULMONARY Hx Respiratory Disorders: No - NEUROLOGICAL Hx Neurological Disorder: No - HEENT Hx Cataracts: Yes - RENAL Hx Chronic Kidney Disease: No - ENDOCRINE/METABOLIC Hx Endocrine Disorders: No - HEMATOLOGICAL/ONCOLOGICAL Hx Blood Disorders: No - INTEGUMENTARY Hx Dermatological Problems: No - MUSCULOSKELETAL/RHEUMATOLOGICAL Hx Arthritis: Yes - GASTROINTESTINAL Hx Gastrointestinal Disorders: (obese/reflux/constipation) - GENITOURINARY/GYNECOLOGICAL Hx Reproductive Disorders: No - PSYCHIATRIC Hx Depression: No Hx Emotional Abuse: No Hx Physical Abuse: No Hx Substance Use: No - SURGICAL HISTORY Other/Comment: fractured left wrist/arm needing cast - ANESTHESIA Hx Anesthesia: Yes Hx Anesthesia Reactions: No Hx Malignant Hyperthermia: No Meds Allergies/Adverse Reactions: Allergies Allergy/AdvReac Type Severity Reaction Status Date / Time dabigatran etexilate mesylate Allergy Intermediate ANGIOEDEMA Verified 12/11/16 08:37 [From Pradaxa] Penicillins Allergy RASH Verified 12/11/16 08:37 rofecoxib [From Vioxx] Allergy FATIGUE Verified 12/11/16 08:37 warfarin AdvReac Unknown ITCHING Verified 12/11/16 08:37 pravastatin AdvReac RASH Verified 12/11/16 08:37 Physical Exam - Constitutional Appears: Well, No Acute Distress - Head Exam Head Exam: ATRAUMATIC, NORMAL INSPECTION - Eye Exam Eye Exam: EOMI, Normal appearance Pupil Exam: NORMAL ACCOMODATION - ENT Exam ENT Exam: Mucous Membranes Moist - Neck Exam Neck exam: Positive for: Full Rom - Respiratory Exam Respiratory Exam: Decreased Breath Sounds, NORMAL BREATHING PATTERN. absent: Rales, Rhonchi, Wheezes - Cardiovascular Exam Cardiovascular Exam: Irregular Rhythm, +S1, +S2 - GI/Abdominal Exam GI & Abdominal Exam: Normal Bowel Sounds, Soft. absent: Guarding, Rigid, Tenderness - Extremities Exam Additional comments: +3 LE edema B/L - Back Exam Back exam: NORMAL INSPECTION - Neurological Exam Neurological exam: Alert, CN II-XII Intact, Oriented x3 - Psychiatric Exam Psychiatric exam: Normal Affect, Normal Mood - Skin Skin Exam: Normal Color, Warm Results - Vital Signs Recent Vital Signs: Last Vital Signs Temp 97.8 F 12/16/16 08:53 Pulse 68 12/16/16 08:53 Resp 18 12/16/16 08:53 BP 142/63 12/16/16 08:53 Pulse Ox 97 12/16/16 08:53 - Labs Result Diagrams: 12/16/16 05:30 12/16/16 05:30 Labs: Laboratory Results - last 24 hr 12/16/16 12/16/16 05:30 05:30 WBC 7.1 RBC 3.35 L Hgb 9.7 L Hct 32.2 L MCV 96.1 MCH 29.0 MCHC 30.1 L RDW 16.0 H Plt Count 150 MPV 9.2 Sodium 144 Potassium 4.1 Chloride 101 Carbon Dioxide 33 Anion Gap 14 BUN 29 H Creatinine 0.8 Est GFR ( Amer) > 60 Est GFR (Non-Af Amer) > 60 Random Glucose 98 Calcium 8.9 Total Bilirubin 1.4 H AST 27 ALT 30 Alkaline Phosphatase 49 Total Protein 6.7 Albumin 3.5 Globulin 3.2 Albumin/Globulin Ratio 1.1 Assessment & Plan - Assessment and Plan (Free Text) Assessment: 81 yo female with pmhx of Diastolic CHF, HTN, Chronic afib, osteoartirits presents to the ED with worsening shortness of breath. Patient noted to be in Acute Respiratory Distress likely secondary to Acute on Chronic CHF. Plan: 1. Acute Respiratory distress 2/2 Acute on Chronic CHF exacerbation, Diastolic Dysfunction -Stable, Afebrile -BNP: 3850 on admission -CXR on admission: moderate vascular congestion -Echo 03/2016: EF 69%, moderate MR and TR, mild to moderate pulmonary HTN -EKG in ED showing a fib, low voltage, poor R wave progression -Echo showing EF approx 55%, moderate AR -Continue Lasix 40mg PO BID -Daily weights, strict I/Os -Continue O2 supplementation -Monitor electrolytes -2gm Sodium diet, fluid restriction 1000ml -Cardiology on consult, f/u recommendations -Continue PT as tolerated 2. Chronic atrial fibrillation -Monitor on telemetry -EKG in ED a fib, rate controlled -[id number]: 5, HASBLED: 2 (patient reports having a history of GI bleed when on Eliquis in the past) -Eliquis has been discontinued per family's request. They understand the risks of not being on anticoagulation. -Continue Lopressor 25mg BID -Echo showing EF 55%, moderate AR -Cardiology on consult, f/u recommendations 3. Hypertension -Patient on metoprolol succinate at home, was bradycardic with pauses so discontinued -Continue Lopressor 25mg BID -On Nisoldipine at home, will continue 4. Anemia, Normocytic -Stable at baseline -Can follow up outpatient for further workup 5. Constipation -No BM since monday -Recieving Colace and Miralax -Will order tap water enema 5. GI/DVT ppx -Protonix 40mg PO daily <Carmel Templeton - Last Filed: 12/16/16 17:42> Results - Vital Signs Recent Vital Signs: Last Vital Signs Temp 97.1 F L 12/16/16 10:35 Pulse 85 12/16/16 17:23 Resp 18 12/16/16 10:35 BP 129/78 12/16/16 17:23 Pulse Ox 97 12/16/16 10:35 - Labs Result Diagrams: 12/16/16 05:30 12/16/16 05:30 Labs: Laboratory Results - last 24 hr 12/16/16 12/16/16 05:30 05:30 WBC 7.1 RBC 3.35 L Hgb 9.7 L Hct 32.2 L MCV 96.1 MCH 29.0 MCHC 30.1 L RDW 16.0 H Plt Count 150 MPV 9.2 Sodium 144 Potassium 4.1 Chloride 101 Carbon Dioxide 33 Anion Gap 14 BUN 29 H Creatinine 0.8 Est GFR ( Amer) > 60 Est GFR (Non-Af Amer) > 60 Random Glucose 98 Calcium 8.9 Total Bilirubin 1.4 H AST 27 ALT 30 Alkaline Phosphatase 49 Total Protein 6.7 Albumin 3.5 Globulin 3.2 Albumin/Globulin Ratio 1.1 Attending/Attestation - Attestation I have personally seen and examined this patient.: Yes I have fully participated in the care of the patient.: Yes I have reviewed all pertinent clinical information: Yes Notes (Text): I have seen and examined patient at bedside. Agree with the above note with the following addition/ exceptions: Briefly this is 81 year old female with history of HTN, Diastolic CHF (03/2016 EF 70%), Chronic atrial fibrillation not on anticoagulation, Obesity was admitted with acute on chronic diastolic CHF exacerbation. She states that her tiredness, cough and shortness of breath has improved. Continue lasix. Patient has Afib which is rate controlled. Continue metoprolol. Discussed in detail with patients son. Upon discharge patient will follow up with Varun GALLARDO. Dr Carmel Templeton
[2016-12-16] MEDS: NISOLDIPINE 8.5 MG PO SCH (11:54)
[2016-12-16] MEDS: POLYETHYLENE GLYCOL 3350 17 GM/Dose PACKET PO SCH ×2 (11:55→17:24)
[2016-12-16] MEDS: guaiFENesin-DM 600-30 mg ER Tab PO SCH ×2 (11:56→17:23)
[2016-12-16] MEDS: Benzocaine/Menthol (Cepacol) Lozenge MT PRN (11:57)
--- NOTE | 2016-12-16 23:47 | CON ---
DATE: 12/16/2016 HISTORY OF PRESENT ILLNESS: She is an 81-year-old female in room 313, bed 2. Seen in the TCU floor as she just came yesterday. Orthopedically, main problem is severe osteoarthritis right knee and being ankylosed with [id number] and effusion mild, but she has also lymphedema in both lower extremities. The arthritis x-ray was on the right when taken. I went to see the patient and she does have knee pain, but the family does not want an injection as she had one over a year ago without any help, and I explained that she needs physical therapy to regain some strength and mobility, and not to lie in bed all the time.she will need physical therapy to mobilize the patient with strengthening exercises and muscle exercises that will help decrease the lymphedema, and we will try to get her out of bed with help, but the family is very protective though. Does not want to do too much that may aggravate her pain, which I told we have to help her, we would have to do things that might aggravate her to get her stronger and mobilize her up out of bed, so persistent physical therapy and hold off on any Depo-Medrol injections until the family consents. FINAL DIAGNOSIS: Severe osteoarthritis right knee and lymphedema of the lower legs. Dl Steward DO TERRI
--- NOTE | 2016-12-17 05:40 | CON ---
DATE: 12/16/2016 LOCATION: The patient is in room 313, bed 2. REASON FOR CONSULTATION: Shortness of breath, chronic atrial fibrillation, diastolic dysfunction, and CHF. HISTORY OF PRESENT ILLNESS: An 81-year-old Greenlandic-speaking female who is known to have chronic atrial fibrillation, CHF, possibly secondary to diastolic dysfunction, osteoarthritis, obesity, moderate aortic regurgitation, and chronic venous stasis, who was admitted to the medical floor with shortness of breath. The patient was treated on the medical floor for CHF and now the patient admitted to Transition Care Unit for deconditioning and physical therapy. The patient's previous cardiac workup is as follows; the patient has echocardiogram on 04/22/2016, that showed ejection fraction of 70%, normal LV size, normal LV thickness, aortic valve was moderately calcified, and mild aortic valve stenosis was seen, moderate tricuspid regurgitation, mild mitral regurgitation, mild pulmonary hypertension with RVSP of 49 mmHg, peak aortic valve gradients of 26 with mean of 15 mmHg, and aortic valve area 1.27. The patient has history of chronic atrial fibrillation, was on Eliquis at home, also she has been tried on Coumadin, but this was difficult to manage Coumadin at home and then family did not want any anticoagulation because they are concerned about GI bleeding and complication of GI bleeding. According to the son, the patient had GI bleeding. MEDICATIONS: The patient's medications at home were Lasix 40 mg b.i.d., metoprolol succinate 100 mg b.i.d., and Nexium daily. ALLERGIES: THE PATIENT IS ALLERGIC TO PENICILLIN, COUMADIN, PRADAXA, AND PRAVASTATIN. COUMADIN AND PRADAXA ALLERGIES IS MEANT BY THE FAMILY THAT SHE DEVELOPS BLEEDING. PERSONAL HISTORY: Denies smoking or drinking. REVIEW OF SYSTEMS: All other systems reviewed, positive mentioned in the history, others are negative. PHYSICAL EXAMINATION: VITAL SIGNS: Blood pressure 138/77, respirations 18, pulse 74, and temperature 97.1. HEENT: Head is normocephalic. Eyes; pupils normal. Conjunctivae slightly pale. NECK: JVP low. Carotids equal. Thorax; AP diameter normal. LUNGS: No rales. CARDIOVASCULAR: S1 and S2, systolic murmur. No rub. ABDOMEN: Soft and protuberant. No organomegaly. EXTREMITIES: No clubbing. No cyanosis. The patient still has edema on the feet and lower legs. LABORATORY DATA: WBC 7.1, hemoglobin 9.7, hematocrit 32.2, and platelet 150. Sodium 144, potassium 4.1, BUN 29, creatinine 0.8, and total bilirubin 1.4. AST and ALT normal. Total protein and albumin normal. Chest x-ray on medical floor showed mild congestion changes and EKG on the medical floor showed atrial fibrillation with moderate rate, and nonspecific ST-T changes. The patient's troponin was negative. DIAGNOSES: Decompensated congestive heart failure, [id number], due to diastolic dysfunction, atrial fibrillation, moderate aortic regurgitation, mild aortic stenosis, moderate tricuspid regurgitation, mild mitral regurgitation, obesity, arthritis, chronic venous stasis, gastroesophageal reflux disease, and hypertension. PLAN: The patient not on anticoagulation because of family's request. They understands all possible complication including CVA and the patient can be bedridden rest of the life. The patient is now on Transition Care Unit for deconditioning and physical therapy, furosemide 40 mg p.o. b.i.d., metoprolol 25 mg b.i.d. with 100 mg, which she was getting b.i.d. from home, with which she has bradycardia. Since we cut down the metoprolol 25 mg b.i.d., her heart rate has been stable. Mucinex-DM 600-30 mg 1 tablet p.o. b.i.d. for cough, Protonix 40 mg daily. Continue present therapy and continue physical therapy. We will follow closely with you. Rodolfo Hinojosa MD
[2016-12-17] MEDS: Pantoprazole 40 mg EC Tab PO SCH (06:10)
[2016-12-17] MEDS: NISOLDIPINE 8.5 MG PO SCH (10:46)
[2016-12-17] MEDS: guaiFENesin-DM 600-30 mg ER Tab PO SCH ×2 (10:47→17:07)
[2016-12-17] MEDS: POLYETHYLENE GLYCOL 3350 17 GM/Dose PACKET PO SCH ×2 (10:47→17:06)
--- NOTE | 2016-12-17 15:41 | PN ---
DATE: 12/17/2016 REASON FOR CONSULTATION: Shortness of breath, chronic atrial fibrillation, diastolic dysfunction and CHF. SUBJECTIVE: The patient denies any chest pain, shortness of breath or any palpitation. OBJECTIVE: Not in apparent distress. Family is at the bedside, the son and sister is at the bedside. PHYSICAL EXAMINATION: As follows: VITAL SIGNS: Temperature afebrile, heart rate 85, blood pressure 129/78. HEENT: PERRLA. Extraocular muscles intact. NECK: Supple. No carotid bruit. No thyromegaly. CHEST: Clear to auscultation. HEART: S1 and S2 regular. ABDOMEN: Soft. EXTREMITIES: Clubbing and cyanosis negative. LABORATORY DATA: Blood workup as follows; WBC 7.8, hemoglobin 9.7, hematocrit 32.2, platelet count 150. Chemistries show sodium 144, potassium 4.1, chloride 101, carbon dioxide 33, anion gap of 14, BUN of 29, creatinine 0.8. IMPRESSION: 1. Acute decompensated congestive heart failure, acute on chronic diastolic dysfunction. Last echo on 04/22/2016 showed ejection 70% and normal left ventricular size, mild aortic stenosis, moderate tricuspid regurgitation, mild to moderate regurgitation, mild pulmonary hypertension, right ventricular systolic pressure 49. Peak gradient across the aortic valve was 26, mean gradient 50 mm, valve area 1.3 consistent with mild to moderate aortic stenosis. 2. Chronic atrial fibrillation, was on Eliquis at home. Also patient wanted to have Coumadin, but because of gastrointestinal bleed, it was held. 3. Chronic leg venous stasis. Currently the patient is not on anticoagulation because of family's request. Patient's family understand the risk of having a stroke, not having an anticoagulation, but does not want be because of the gastrointestinal bleed, thinks more dangerous. The patient was at home on 100 mg of Toprol-XL in the morning and 50 at night, Toprol was discontinued. Metoprolol 25 b.i.d. No further episode of bradyarrhythmia noted. RECOMMENDATION: Continue 25 metoprolol twice a day. Continue gentle diuretics. Continue rehab. Monitor electrolytes. We will follow with you. Thank you Dr. Diaz for providing me the opportunity in taking care of the patient, Renee Yadav. Rodolfo Rudd MD
--- NOTE | 2016-12-17 17:06 | PN ---
SUBJECTIVE: The patient is an 81 years old; I was asked by Dr. Hinojosa to takeover the patient's case because family knows Dr. Hinojosa for too long and they want somebody who can do , so I came to see the patient's family by the bedside, very concerned about her overall deteriorating condition. PHYSICAL EXAMINATION: GENERAL: She is awake and alert, Belarusian speaking, answer simple question. VITAL SIGNS: She is afebrile, pulse 85, respirations 16, and blood pressure 136/70. LUNGS: Bilateral fair air flow. No rhonchi or crackles. HEART: S1 and S2 audible. ABDOMEN: Soft and nontender. No rebound. No guarding. NEUROLOGIC: She has bilateral leg edema, seems to be improving. She has no focal deficits. LABORATORY DATA: WBC 7.1, hemoglobin 9.7, hematocrit 32, platelet 150. Chemistry; sodium 144, potassium 4.1, chloride 101, CO2 of 33, BUN 29, creatinine 0.8, blood sugar of 98. ASSESSMENT: 1. Morbid obesity. 2. Improving congestive heart failure, acute on chronic. 3. Chronic atrial fibrillation, not on anticoagulation upon family's request. 4. Tricuspid regurgitation. 5. Generalized osteoarthritis. 6. Bilateral edema, improving. 7. Peptic ulcer disease. 8. Hypertension. PLAN: Currently, the patient is on diuretics. She is not on any anticoagulation since the patient's family does not want her to have bleeding because she had one episode of bleeding and the patient was very significantly deconditioned. Given that finding, they understand the risk of not being on anticoagulant and still they do not want her to be on that. We will follow up her electrolyte and CBC intermittently. Katerin Diaz MD
--- NOTE | 2016-12-18 02:56 | RAD ---
EXAM: XR Chest, 1 View CLINICAL HISTORY: 81 years old, female; Signs and symptoms; Dyspnea; Additional info: Dyspnea, worsening TECHNIQUE: Frontal view of the chest. COMPARISON: DX - CHEST PORTABLE 12/12/2016 8:40:30 AM FINDINGS: The cardiomediastinal silhouette is enlarged, unchanged. Increased interstitial markings are identified bilaterally, findings consistent with mild pulmonary vascular congestion. The lungs are otherwise clear. No subdiaphragmatic free air or pneumothorax. The trachea is midline. IMPRESSION: Mild pulmonary vascular congestion, without focal infiltrate or effusion.
--- NOTE | 2016-12-18 03:14 | CP.PCM.PN ---
Subjective - Date & Time of Evaluation Date of Evaluation: 12/18/16 Time of Evaluation: 03:09 - Subjective Subjective: called by nurse pt is sob . pt is admitted with chf diastolic dysfunction.is on metoprolol and lasix. bid. Objective - Vital Signs/Intake and Output Vital Signs (last 24 hours): Temp Pulse Resp BP Pulse Ox 98.3 F 73 22 134/72 98 12/17/16 15:52 12/17/16 17:06 12/17/16 15:52 12/17/16 17:06 12/17/16 09:53 Intake and Output: 12/17/16 12/18/16 18:59 06:59 Intake Total 480 Balance 480 - Medications Medications: Current Medications Acetaminophen (Tylenol 325mg Tab) 650 mg PO Q6H PRN; Protocol PRN Reason: Pain, moderate (4-7) Benzocaine/Menthol (Cepacol Sore Throat) 1 [place] MT Q2H PRN; Protocol PRN Reason: Sore Throat Last Admin: 12/16/16 11:57 Dose: 1 [place] Docusate Sodium (Colace) 100 mg PO BID GOLDEN PRN Reason: Protocol Last Admin: 12/17/16 17:05 Dose: 100 mg Furosemide (Lasix) 40 mg PO BID GOLDEN Last Admin: 12/17/16 17:06 Dose: 40 mg Guaifenesin/Dextromethorphan (Mucinex-Dm 600-30 Mg) 1 tab PO BID GOLDEN PRN Reason: Protocol Last Admin: 12/17/16 17:07 Dose: 1 tab Home Med (Home Med) 1 unit PO DAILY GOLDEN PRN Reason: Protocol Last Admin: 12/17/16 10:46 Dose: 1 unit Metoprolol Tartrate (Lopressor) 25 mg PO 0800,1800 OGLDEN PRN Reason: Protocol Last Admin: 12/17/16 17:06 Dose: 25 mg Pantoprazole Sodium (Protonix Ec Tab) 40 mg PO 0600 GOLDEN PRN Reason: Protocol Last Admin: 12/17/16 06:10 Dose: 40 mg Polyethylene Glycol (Miralax) 17 gm PO BID GOLDEN PRN Reason: Protocol Last Admin: 12/17/16 17:06 Dose: 17 gm - Labs Labs: 12/16/16 05:30 12/16/16 05:30 - Constitutional Appears: Other (mild sob) - Head Exam Head Exam: NORMOCEPHALIC - Eye Exam Eye Exam: Normal appearance Pupil Exam: PERRL - ENT Exam ENT Exam: Mucous Membranes Moist - Respiratory Exam Respiratory Exam: Decreased Breath Sounds, Rales Additional comments: pt has rales at the bases. - Cardiovascular Exam Cardiovascular Exam: RRR, +S1, +S2 - Extremities Exam Extremities Exam: Normal Inspection - Neurological Exam Neurological Exam: Altered, Awake, CN II-XII Intact, Oriented x3 - Psychiatric Exam Psychiatric exam: Anxious - Skin Skin Exam: Dry, Warm Assessment and Plan - Assessment and Plan (Free Text) Assessment: chf. diastolic dysfunction. Plan: chest x-ray shows mild vascular congestion. lasix 40 mg x1 po.
[2016-12-18] MEDS: Pantoprazole 40 mg EC Tab PO SCH (05:43)
[2016-12-18 09:08] LABS: BASO # 0.02 K/mm3 (0.0-2.0); BASO % 0.3 % (0.0-3.0); EOS % 0.3 % (1.5-5.0); GRAN # 4.88 (1.4-6.5); GRAN % 78.2 % (50.0-68.0); HEMATOCRIT 30.9 % (36.0-48.0); LYMPH # 0.4 (1.2-3.4); LYMPH % 6.3 % (22.0-35.0); MEAN CORPUSCULAR HEMOGLOBIN 28.9 pg (25.0-35.0); MEAN CORPUSCULAR HGB CONC 30.1 g/dl (31.0-37.0); MEAN PLATELET VOLUME 9.1 fl (7.0-11.0); MONO # 0.9 (0.1-0.6); MONO % 14.9 % (1.0-6.0); PLATELET COUNT 158 10^3/uL (120.0-450.0); WHITE BLOOD COUNT 6.2 10^3/ul (4.5-11.0)
[2016-12-18 09:09] LABS: ALKALINE PHOSPHATASE 52 U/L (38-133); ALT/SGPT 33 U/L (7-56); AST/SGOT 32 U/L (15-39); BILIRUBIN,TOTAL 1.4 mg/dL (0.2-1.3); BLOOD UREA NITROGEN 34 mg/dL (7-21); CALCIUM 9.3 mg/dL (8.4-10.5); CARBON DIOXIDE 37 mmol/L (21-33); CHLORIDE 99 mmol/L (95-110); GFR AFRICAN-AMERICAN > 60; GLUCOSE,RANDOM 101 mg/dL (70-110); POTASSIUM 4.3 mmol/L (3.6-5.0); SODIUM 143 mmol/L (132-148); TOTAL PROTEIN 6.9 g/dL (5.8-8.3)
[2016-12-18 09:42] LABS: BAND 3 % (0-2); NEUTROPHIL 80 % (50.0-70.0)
[2016-12-18 09:43] LABS: ANISOCYTOSIS 1+; HYPOCHROMIA SLIGHT; OVALOCYTES SLIGHT; PLATELET ESTIMATE NORMAL (NORMAL); POIKILOCYTOSIS SLIGHT
[2016-12-18] MEDS: POLYETHYLENE GLYCOL 3350 17 GM/Dose PACKET PO SCH ×2 (11:18→18:17)
[2016-12-18] MEDS: NISOLDIPINE 8.5 MG PO SCH (11:18)
[2016-12-18] MEDS: guaiFENesin-DM 600-30 mg ER Tab PO SCH ×2 (11:19→18:17)
[2016-12-18] MEDS ORDERED: Enoxaparin 40 mg Syringe SC SCH (11:45)
--- NOTE | 2016-12-18 13:26 | CP.PCM.PN ---
Subjective - Date & Time of Evaluation Date of Evaluation: 12/18/16 Time of Evaluation: 13:24 - Subjective Subjective: Patient has very poor veins,needs iv access Objective - Vital Signs/Intake and Output Vital Signs (last 24 hours): Temp Pulse Resp BP Pulse Ox 98.4 F 79 20 124/55 L 95 12/18/16 10:00 12/18/16 10:00 12/18/16 10:00 12/18/16 10:00 12/18/16 10:00 Intake and Output: 12/18/16 12/18/16 06:59 18:59 Intake Total 480 Balance 480 - Medications Medications: Current Medications Acetaminophen (Tylenol 325mg Tab) 650 mg PO Q6H PRN; Protocol PRN Reason: Pain, moderate (4-7) Benzocaine/Menthol (Cepacol Sore Throat) 1 [place] MT Q2H PRN; Protocol PRN Reason: Sore Throat Last Admin: 12/16/16 11:57 Dose: 1 [place] Docusate Sodium (Colace) 100 mg PO BID GOLDEN PRN Reason: Protocol Last Admin: 12/18/16 11:18 Dose: Not Given Enoxaparin Sodium (Lovenox) 40 mg SC DAILY GOLDEN PRN Reason: Protocol Furosemide (Lasix) 40 mg IV 0800,1400 GOLDEN Guaifenesin/Dextromethorphan (Mucinex-Dm 600-30 Mg) 1 tab PO BID GOLDEN PRN Reason: Protocol Last Admin: 12/18/16 11:19 Dose: 1 tab Home Med (Home Med) 1 unit PO DAILY GOLDEN PRN Reason: Protocol Last Admin: 12/18/16 11:18 Dose: 1 unit Metoprolol Tartrate (Lopressor) 25 mg PO 0800,1800 GOLDEN PRN Reason: Protocol Last Admin: 12/18/16 08:35 Dose: 25 mg Pantoprazole Sodium (Protonix Ec Tab) 40 mg PO 0600 GOLDEN PRN Reason: Protocol Last Admin: 12/18/16 05:43 Dose: 40 mg Polyethylene Glycol (Miralax) 17 gm PO BID GOLDEN PRN Reason: Protocol Last Admin: 12/18/16 11:18 Dose: Not Given - Labs Labs: 12/18/16 09:00 12/18/16 08:30 - Constitutional Appears: No Acute Distress Assessment and Plan - Assessment and Plan (Free Text) Assessment: Poor venous access Plan: Hep lock inserted in the R antecubital region. # 22 angiocath used.
--- NOTE | 2016-12-18 20:46 | PN ---
DATE: 12/18/2016 REASON FOR CONSULTATION: Shortness of breath, atrial fibrillation, diastolic dysfunction and CHF. SUBJECTIVE: Family is at the bedside, complaining of shortness of breath. Event from the last night noted at 1 a.m., patient with short of breath. Chest x-ray was done, mild CHF. OBJECTIVE: GENERAL: Patient is lying on the bed, mild respiratory distress. Family is at the bedside. Event of the last night noted. Examination as follows: VITAL SIGNS: Temperature afebrile, heart rate 79, blood pressure 124/55. HEENT: PERRLA. Extraocular muscles intact. NECK: Supple. No carotid bruit. No thyromegaly. Mild JVD. CHEST: Clear to auscultation. HEART: S1 and S2 regular. ABDOMEN: Soft. EXTREMITIES: Clubbing and cyanosis negative. 2+ pedal edema. LABORATORY DATA: Blood workup as follows: WBC 6.2, hemoglobin 9.5, hematocrit 30.9, platelet count 158. Chemistries show sodium 143, potassium 4.3, chloride 99, carbon dioxide 37, anion gap 11, BUN of 34, creatinine of 1.0, bilirubin 1.4. Chest x-ray done at 1 a.m. reviewed, appears mild vascular congestion. IMPRESSION: 1. An 81-year-old obese female, body mass index elevated, body weight 243, body mass index 43 kg/m2, history of chronic atrial fibrillation, not on anticoagulation. Family is concerned about the gastrointestinal bleed. Admitted with acute decompensated congestive heart failure, acute on chronic, secondary diastolic dysfunction. Last echo dated 04/22/2016 showed ejection 70% and normal left ventricular size and function, mild aortic stenosis, event of last night noted and found to be in mildly congestive heart failure. Last echo as mentioned shows peak gradient across the aortic valve was 26, mean gradient 15, valve area consists of 1.2 cm2 consistent with [id number] aortic stenosis. 2. Chronic atrial fibrillation, on Eliquis. At one point, patient is also on Coumadin, but family is concerned of gastrointestinal bleed, on hold. 3. Chronic venous stasis and bradycardia when patient was admitted as patient was at home on 100 mg of Toprol-XL and 50 mg at night. It was held. As the bradycardia resolved, now on 25 mg b.i.d. RECOMMENDATION: We will discontinue p.o. Lasix. Start IV Lasix one stat dose now and one at 2 p.m. and then put 40 mg b.i.d. at 8 a.m. and 2 p.m. from tomorrow. Discussed with the family. We will put the IV line. If the IV line cannot be maintained in TCU and IV medication cannot be given, then the patient will be transferred to the medical floor. We will also discuss with Dr. Diaz and text Dr. Diaz the above update. Discussed with the patient's son, Aaron and the two daughters in length. We will follow closely. We will also get CBC, CMP in the morning with magnesium and phosphate in the morning. We will put DVT prophylaxis to prevent the blood clot. Monitor H and H for any drop in H and H. We will follow with you. If H and H drop, we will discontinue Lovenox Thank you Dr. Diaz for providing me the opportunity in taking care of the patient, Vicenta Duran. Rodolfo Rudd MD
[2016-12-19 07:33] LABS: BASO # 0.03 K/mm3 (0.0-2.0); BASO % 0.5 % (0.0-3.0); EOS % 0.6 % (1.5-5.0); GRAN # 4.55 (1.4-6.5); GRAN % 73.5 % (50.0-68.0); HEMATOCRIT 32.2 % (36.0-48.0); LYMPH # 0.5 (1.2-3.4); LYMPH % 8.6 % (22.0-35.0); MEAN CELL VOLUME 95.5 fl (80.0-105.0); MEAN CORPUSCULAR HEMOGLOBIN 28.5 pg (25.0-35.0); MEAN CORPUSCULAR HGB CONC 29.8 g/dl (31.0-37.0); MEAN PLATELET VOLUME 9.2 fl (7.0-11.0); MONO % 16.8 % (1.0-6.0); WHITE BLOOD COUNT 6.2 10^3/ul (4.5-11.0)
[2016-12-19 07:52] LABS: ALB/GLOB RATIO 1.1 (1.1-1.8); ALKALINE PHOSPHATASE 54 U/L (38-133); ALT/SGPT 35 U/L (7-56); AST/SGOT 33 U/L (15-39); BILIRUBIN,TOTAL 1.2 mg/dL (0.2-1.3); BLOOD UREA NITROGEN 34 mg/dL (7-21); CALCIUM 9.2 mg/dL (8.4-10.5); CARBON DIOXIDE 36 mmol/L (21-33); CHLORIDE 100 mmol/L (98-107); GFR AFRICAN-AMERICAN > 60; GLUCOSE,RANDOM 94 mg/dL (70-110); PHOSPHOROUS 3.6 mg/dL (2.5-4.5); SODIUM 146 mmol/L (132-148); TOTAL PROTEIN 6.8 g/dL (5.8-8.3)
[2016-12-19] MEDS: Pantoprazole 40 mg EC Tab PO SCH (08:09)
--- NOTE | 2016-12-19 09:10 | DS ---
HISTORY OF PRESENT ILLNESS: The patient is an 81-year-old female seen and examined. She complained of shortness of breath. Very sleepy. Family by the bedside. No nausea or vomiting and no diarrhea. No cough and no congestion. PHYSICAL EXAMINATION: VITAL SIGNS: She is afebrile, pulse is 79, respirations are 20 and blood pressure is 125/55. LUNGS: Bilateral soft crackles at bases. No respiratory rhonchi. HEART: S1 and S2 audible. Irregular rate control. ABDOMEN: Soft, obese and nontender. No rebound. No guarding. NEUROLOGIC: She is sleepy, but arousable. LABORATORY DATA: WBC of 6.2, hemoglobin of 9.3, hematocrit of 30.9 [place] [address]. Chemistries: Sodium of 143, potassium of 4.3, chloride of 99, CO2 of 37, BUN of 34, creatinine of 1.0, and blood sugar of 101 and total bilirubin of 1.4. ASSESSMENT: 1. Acute on chronic congestive heart failure leading to shortness of breath. X-ray showing pulmonary vascular congestion. 2. Morbid obesity. 3. Bilateral leg edema has significantly improved. 4. Chronic atrial fibrillation. 5. Generalized osteoarthritis. 6. History of peptic ulcer disease. PLAN: So, the plan is her Lasix has been switched to IV. If she did not improve, she will be transferred to ER to be admitted on acute care floor. Katerin Diaz MD
[2016-12-19] MEDS: guaiFENesin-DM 600-30 mg ER Tab PO SCH ×2 (11:00→17:32)
[2016-12-19] MEDS: POLYETHYLENE GLYCOL 3350 17 GM/Dose PACKET PO SCH ×2 (11:00→17:32)
[2016-12-19] MEDS: NISOLDIPINE 8.5 MG PO SCH (11:00)
--- NOTE | 2016-12-19 15:31 | PN ---
DATE: 12/19/2016 LOCATION: Room #313, bed 2. REASON FOR CONSULTATION: Shortness of breath, atrial fibrillation, diastolic dysfunction, congestive heart failure. SUBJECTIVE: The patient is lying comfortably in chair without any chest pain. The patient denies any palpitation. The patient now denies any shortness of breath. PHYSICAL EXAMINATION: VITAL SIGNS: Blood pressure is 126/62, respirations 20, pulse 77, temperature 98.5. HEENT: Head is normocephalic. Eyes: Pupils normal. Conjunctivae slightly pale. NECK: JVP low. Carotids equal. Thorax, AP diameter normal. LUNGS: No significant rales. CARDIOVASCULAR: S1 and S2. ABDOMEN: Protuberant. No organomegaly. EXTREMITIES: The patient has chronic venous stasis changes, also has some changes of elephantiasis type of thickness of skin. LABORATORY DATA: WBC 6.2, hemoglobin 9.6, hematocrit 32.2, platelets 159. Sodium 146, potassium 4.0, BUN 34, creatinine 0.9. Calcium, phosphorus, magnesium normal. AST and ALT normal. Total protein and albumin normal. DIAGNOSES: Congestive heart failure with diastolic dysfunction, chronic atrial fibrillation, echocardiogram 04/22/2016 ejection fraction 70%, mild to moderate aortic stenosis, chronic venous stasis, status post bradycardia due to Lopressor 100 mg XL in the morning and 50 mg at night. But now with cutting down Lopressor 25 mg b.i.d. short acting, the patient has no bradycardia. RECOMMENDATION/PLAN: Lengthy discussion with the family and finally they agreed to go on Eliquis 2.5 mg b.i.d half the dose. They know all the risks and complication. Previously, the patient had once a gastrointestinal bleeding so that is why they do not want to have any anticoagulation. But now after many discussions the family getting together they have agreed for that. So Eliquis has been ordered 2.[address] Diaz and continuing other medications as well, furosemide 40 mg p.o b.i.d., metoprolol 25 mg b.i.d., Protonix 40 daily. The patient continues to get physical therapy for deconditioning. We will follow. Rodolfo Hinojosa MD /15:30:49<
--- NOTE | 2016-12-19 17:44 | PN ---
SUBJECTIVE: The patient is seen and examined, lying in bed, mild shortness of breath better than yesterday. According to family, she was by bedside, eating and tolerating, does not have a great appetite worth referring. PHYSICAL EXAMINATION: VITAL SIGNS: She is afebrile, pulse 78, respirations 24, blood pressure 123/64. HEART: S1 and S2 audible. LUNGS: Bilaterally fair air flow. No rhonchi or crackle. ABDOMEN: Soft and obese. EXTREMITIES: Bilateral leg resolving edema and shrunken skin. LABORATORY DATA: WBC 6.2, hemoglobin 9.6, hematocrit 32, and platelets 159. Chemistry; sodium 146, potassium 4, chloride 100, CO2 of 36, BUN 34, and creatinine 0.9. Blood sugar of 94. LFTs are within normal limits. ASSESSMENT AND PLAN: 1. Morbid obesity. 2. Congestive heart failure. 3. Atrial fibrillation. 4. Discussed with patient's son who is at the bedside. They have decided to put her back on blood thinner. They want to watch her while she is here. We will monitor her electrolyte, out of bed to chair. Discussed with family at length . Katerin Diaz MD
[2016-12-20 06:11] LABS: ALKALINE PHOSPHATASE 49 U/L (38-133); ALT/SGPT 24 U/L (7-56); AST/SGOT 31 U/L (15-39); BILIRUBIN,TOTAL 1.2 mg/dL (0.2-1.3); BLOOD UREA NITROGEN 39 mg/dL (7-21); CALCIUM 9.2 mg/dL (8.4-10.5); CARBON DIOXIDE 39 mmol/L (21-33); CHLORIDE 98 mmol/L (95-110); GFR AFRICAN-AMERICAN > 60; GLUCOSE,RANDOM 96 mg/dL (70-110); POTASSIUM 4.1 mmol/L (3.6-5.0); SODIUM 144 mmol/L (132-148); TOTAL PROTEIN 6.7 g/dL (5.8-8.3)
[2016-12-20] MEDS: Pantoprazole 40 mg EC Tab PO SCH (06:25)
[2016-12-20 06:47] LABS: BASO # 0.03 K/mm3 (0.0-2.0); BASO % 0.5 % (0.0-3.0); EOS # 0.1 (0.0-0.7); EOS % 1.3 % (1.5-5.0); GRAN # 4.58 (1.4-6.5); GRAN % 72.7 % (50.0-68.0); HEMATOCRIT 30.8 % (36.0-48.0); LYMPH # 0.5 (1.2-3.4); LYMPH % 7.9 % (22.0-35.0); MEAN CELL VOLUME 96.6 fl (80.0-105.0); MEAN CORPUSCULAR HEMOGLOBIN 28.5 pg (25.0-35.0); MEAN CORPUSCULAR HGB CONC 29.5 g/dl (31.0-37.0); MEAN PLATELET VOLUME 9.5 fl (7.0-11.0); MONO # 1.1 (0.1-0.6); MONO % 17.6 % (1.0-6.0); RED CELL DISTRIBUTION WIDTH 15.9 % (11.5-14.5); WHITE BLOOD COUNT 6.3 10^3/ul (4.5-11.0)
[2016-12-20] MEDS: NISOLDIPINE 8.5 MG PO SCH (09:53)
[2016-12-20] MEDS: guaiFENesin-DM 600-30 mg ER Tab PO SCH ×2 (09:54→18:24)
[2016-12-20] MEDS: POLYETHYLENE GLYCOL 3350 17 GM/Dose PACKET PO SCH ×2 (09:54→18:26)
--- NOTE | 2016-12-20 16:09 | PN ---
DATE: 12/15/2016 REASON FOR CONSULTATION: Shortness of breath, atrial fibrillation, diastolic dysfunction, and CHF. SUBJECTIVE: Sitting on easy chair, family at bedside. Denies any chest pain. Shortness of breath improved than before. OBJECTIVE: GENERAL: Not in apparent distress. VITAL SIGNS: Heart rate 76, blood pressure 149/72. HEENT: PERRLA, intact. NECK: Supple. No carotid bruit or thyromegaly. LUNGS: Clear to auscultation. HEART: S1, S2 regular. ABDOMEN: Soft. EXTREMITIES: Clubbing and cyanosis negative. LABORATORY DATA: WBC 6.3, hemoglobin 9.2, hematocrit 30.8, and platelet count 166. Chemistry shows sodium 144, potassium 4.0, chloride , creatinine 0.9. IMPRESSION: Decompensated congestive heart failure acute on chronic secondary to diastolic dysfunction, obesity, body mass index 43.9 kg per meter square. Last echocardiogram shows ejection fraction 70%; [id number] aortic stenosis; chronic atrial fibrillation, on Eliquis; venous stasis. On admission, the patient was on high dose of beta facundo, bradycardia was decreased, but now was fairly stable. RECOMMENDATION: The patient has IV line. Continue IV Lasix. Continue Eliquis for atrial fibrillation. Continue metoprolol. Continue rehab. CVA status is stable. Periodically monitor electrolytes. We will follow with you. Thank you Dr. Diaz for providing me the opportunity in taking care of Renee Yadav. Rodolfo Rudd MD
[2016-12-21] MEDS: Pantoprazole 40 mg EC Tab PO SCH (06:49)
[2016-12-21] MEDS: NISOLDIPINE 8.5 MG PO SCH (11:20)
[2016-12-21] MEDS: guaiFENesin-DM 600-30 mg ER Tab PO SCH ×2 (11:21→17:31)
[2016-12-21] MEDS: POLYETHYLENE GLYCOL 3350 17 GM/Dose PACKET PO SCH ×2 (11:21→17:33)
--- NOTE | 2016-12-21 15:26 | RAD ---
HISTORY: Compare to see improvement of Congestion. COMPARISON: 12/18/2016 FINDINGS: LUNGS: No active pulmonary disease. PLEURA: No significant pleural effusion identified, no pneumothorax apparent. CARDIOVASCULAR: Moderate cardiomegaly and moderate vascular congestion. No significant change OSSEOUS STRUCTURES: No significant abnormalities. VISUALIZED UPPER ABDOMEN: Normal. OTHER FINDINGS: None. IMPRESSION: Moderate cardiomegaly and moderate vascular congestion. No significant change
--- NOTE | 2016-12-21 20:24 | PN ---
DATE: 12/21/2016 LOCATION: The patient in room 313, bed 2. REASON FOR CONSULTATION: Followup shortness of breath, atrial fibrillation, diastolic dysfunction, congestive heart failure. SUBJECTIVE: The patient lying comfortably in incliner without any chest pain, shortness of breath, palpitation. PHYSICAL EXAMINATION VITAL SIGNS: Blood pressure 132/74, respiratory rate 20, pulse 66, temperature 98.4. HEENT: Head is normocephalic. Eyes, pupils normal. Conjunctivae slightly pale. NECK: JVP low. Carotids equal. Thorax, AP diameter normal. LUNGS: No significant rales. CARDIOVASCULAR: S1, S2. ABDOMEN: Protuberant. No organomegaly. EXTREMITIES: The patient has chronic venous stasis changes. LABORATORY DATA: WBC 6.3, hemoglobin 9.1, hematocrit 30.8, platelets 156. Sodium 144, potassium 4.1, BUN 39, creatinine 0.9. Calcium, phosphorus, magnesium normal. AST, ALT normal. NT-proBNP 12,500. DIAGNOSES: Congestive heart failure with diastolic dysfunction, chronic atrial fibrillation, echo on 04/22/2016 showed ejection fraction of 70%. Mild to moderate aortic stenosis, chronic venous stasis, status post bradycardia due to Lopressor 100 mg XL long acting in the morning and 50 XL at night, but now with cutting down Lopressor to 25 mg b.i.d., the short-acting version, The patient states that she is feeling better. RECOMMENDATIONS AND PLAN: The patient started on Eliquis 2.5 mg b.i.d. after lengthy discussion many times with the family. They were reluctant the patient because she has history of GI bleeding, so family insisted to put on Eliquis half the dose, which is 2.5 b.i.d. The patient will continue to have physical therapy. The patient denies chest pain, shortness of breath, palpitation. The patient getting Eliquis 2.5 b.i.d., furosemide 40 IV b.i.d., metoprolol 25 mg b.i.d. The patient already on Mucinex DM 600 one tablet b.i.d., Protonix 40 daily, We will repeat chest x-ray to see improvement of the congestion, which was seen on the previous x-ray of 04/19/2013 and we will continue the present therapy, and we will discuss with you and follow with you. Rodolfo Hinojosa MD
--- NOTE | 2016-12-22 05:07 | CP.PCM.PN ---
Subjective - Date & Time of Evaluation Date of Evaluation: 12/22/16 Time of Evaluation: 05:30 - Subjective Subjective: Patient was seen at bedside because she complained of palpitations. Had sob, 10 minutes ago, not anymore. No chest pain. 81/min. BP.130/65. Temp:99*F RR:14/Min. Pulse ox : 95% . Received two tylenols 45 minutes ago. Daughter says that she can take only one tylenol, if she gets more , she gets palpitation. Medical record was reviewed. This 81 year old woman was admitted sob,lower extremities swelling, cough, orthopnea,. Has PMH of HTN,Atrial fibrillation, CHF, obesity , OA,multiple allergies, cataract surgery. Objective - Vital Signs/Intake and Output Vital Signs (last 24 hours): Temp Pulse Resp BP Pulse Ox 99 F 72 20 123/71 95 12/21/16 16:16 12/21/16 17:32 12/21/16 16:16 12/21/16 17:32 12/21/16 16:16 - Medications Medications: Current Medications Acetaminophen (Tylenol 325mg Tab) 650 mg PO Q6H PRN; Protocol PRN Reason: Pain, moderate (4-7) Last Admin: 12/22/16 02:07 Dose: 650 mg Apixaban (Eliquis) 2.5 mg PO BID GOLDEN PRN Reason: Protocol Last Admin: 12/21/16 17:31 Dose: 2.5 mg Benzocaine/Menthol (Cepacol Sore Throat) 1 [place] MT Q2H PRN; Protocol PRN Reason: Sore Throat Last Admin: 12/16/16 11:57 Dose: 1 [place] Docusate Sodium (Colace) 100 mg PO BID GOLDEN PRN Reason: Protocol Last Admin: 12/21/16 17:30 Dose: 100 mg Furosemide (Lasix) 40 mg IV 0800,1400 GOLDEN Last Admin: 12/21/16 13:40 Dose: 40 mg Guaifenesin/Dextromethorphan (Mucinex-Dm 600-30 Mg) 1 tab PO BID GOLDEN PRN Reason: Protocol Last Admin: 12/21/16 17:31 Dose: 1 tab Home Med (Home Med) 1 unit PO DAILY GOLDEN PRN Reason: Protocol Last Admin: 12/21/16 11:20 Dose: 1 unit Metoprolol Tartrate (Lopressor) 25 mg PO 0800,1800 GOLDEN PRN Reason: Protocol Last Admin: 12/21/16 17:32 Dose: 25 mg Pantoprazole Sodium (Protonix Ec Tab) 40 mg PO 0600 GOLDEN PRN Reason: Protocol Last Admin: 12/21/16 06:49 Dose: 40 mg Polyethylene Glycol (Miralax) 17 gm PO BID GOLDEN PRN Reason: Protocol Last Admin: 12/21/16 17:33 Dose: Not Given - Labs Labs: 12/20/16 05:20 12/20/16 05:20 - Constitutional Appears: Well, No Acute Distress - Head Exam Head Exam: ATRAUMATIC, NORMAL INSPECTION, NORMOCEPHALIC - Eye Exam Eye Exam: Normal appearance - ENT Exam ENT Exam: Normal External Ear Exam - Neck Exam Neck Exam: Normal Inspection - Respiratory Exam Respiratory Exam: NORMAL BREATHING PATTERN - Cardiovascular Exam Cardiovascular Exam: absent: JVD - GI/Abdominal Exam GI & Abdominal Exam: absent: Distended - Rectal Exam Rectal Exam: Deferred - Exam Additional comments: Deferred. - Extremities Exam Extremities Exam: Normal Inspection - Back Exam Back Exam: NORMAL INSPECTION - Neurological Exam Neurological Exam: Alert, Awake - Psychiatric Exam Psychiatric exam: Normal Affect, Normal Mood - Skin Skin Exam: Normal Color Assessment and Plan - Assessment and Plan (Free Text) Assessment: Atrial fibrillation. CHF. HTN. Obesity. OA. Plan: Duoneb neb treatment stat. Will let effect of tylenol wear off. Observation. Continue present management.
[2016-12-22] MEDS: Pantoprazole 40 mg EC Tab PO SCH (05:08)
[2016-12-22] MEDS ORDERED: Albuterol-Ipratrop 3 mg / 0.5 (3 ml) UD IH ONE (05:20)
[2016-12-22] MEDS: NISOLDIPINE 8.5 MG PO SCH (11:09)
[2016-12-22] MEDS: guaiFENesin-DM 600-30 mg ER Tab PO SCH ×2 (11:10→18:08)
[2016-12-22] MEDS: POLYETHYLENE GLYCOL 3350 17 GM/Dose PACKET PO SCH ×2 (11:11→18:08)
--- NOTE | 2016-12-22 13:38 | RAD ---
HISTORY: cough COMPARISON: 12/21/2016 TECHNIQUE: Chest PA and lateral FINDINGS: LUNGS: Technically limited examination, particularly in lateral view. No acute infiltrate. PLEURA: Small left pleural effusion. No evidence of right pleural effusion. No pneumothorax. CARDIOVASCULAR: Mild cardiomegaly. Congestive change. OSSEOUS STRUCTURES: No significant abnormalities. VISUALIZED UPPER ABDOMEN: Normal. OTHER FINDINGS: None. IMPRESSION: Congestive change with mild cardiomegaly and small left pleural effusion. No acute infiltrate.
[2016-12-22] MEDS ORDERED: metOLazone 5 MG TAB PO STA (17:25)
--- NOTE | 2016-12-23 03:46 | PN ---
DATE: 12/22/2016 LOCATION: The patient in room 313, bed 2. REASON FOR CONSULTATION: Followup shortness of breath, atrial fibrillation, diastolic dysfunction, CHF. SUBJECTIVE: The patient denies any chest pain or palpitation, but sometimes she feels slight short of breath. Right now, the patient is lying comfortably flat in bed. PHYSICAL EXAMINATION VITAL SIGNS: Blood pressure is 140/72, respirations 18, pulse 74, temperature 98.1. HEENT: Head is normocephalic. Eyes, pupils normal. Conjunctiva slightly pale. NECK: JVP low. Carotids equal. Thorax, AP diameter normal. LUNGS: Few basal rales. CARDIOVASCULAR: S1, S2. ABDOMEN: Protuberant. No organomegaly. EXTREMITIES: The patient has chronic venous stasis changes and some changes of elephantiasis of the skin. LABORATORY DATA: Sodium 144, potassium 4.1, BUN 39, creatinine 0.9. AST and ALT normal. Total protein and albumin normal. Sugar 96. Chest x-ray showed mild congestive changes. DIAGNOSES: Congestive heart failure, diastolic dysfunction, chronic atrial fibrillation, chronic venous stasis, [id number] aortic stenosis, on echo, performed on 04/22/2016 with ejection fraction 70%. PLAN: We will continue present therapy. We will give Lasix 40 IV extra dose now and we will also give Zaroxolyn 5 mg p.o. now, to the IV, she is already getting Lasix 40 IV b.i.d. So in addition to the b.i.d., we will give another does of Lasix and Zaroxolyn 5 mg p.o. stat dose to enhance the diuresis and we will continue to follow with you. Rodolfo Hinojosa MD
[2016-12-23] MEDS: Pantoprazole 40 mg EC Tab PO SCH (06:49)
[2016-12-23 07:24] LABS: BASO # 0.02 K/mm3 (0.0-2.0); BASO % 0.3 % (0.0-3.0); EOS # 0.1 (0.0-0.7); GRAN # 5.05 (1.4-6.5); GRAN % 74.4 % (50.0-68.0); HEMATOCRIT 30.6 % (36.0-48.0); LYMPH # 0.7 (1.2-3.4); LYMPH % 9.7 % (22.0-35.0); MEAN CELL VOLUME 97.8 fl (80.0-105.0); MEAN CORPUSCULAR HEMOGLOBIN 28.4 pg (25.0-35.0); MEAN CORPUSCULAR HGB CONC 29.1 g/dl (31.0-37.0); MEAN PLATELET VOLUME 8.7 fl (7.0-11.0); MONO % 14.6 % (1.0-6.0); RED CELL DISTRIBUTION WIDTH 16.3 % (11.5-14.5); WHITE BLOOD COUNT 6.8 10^3/ul (4.5-11.0)
[2016-12-23 07:27] LABS: BLOOD UREA NITROGEN 38 mg/dL (7-21); CHLORIDE 91 mmol/L (95-110); GFR AFRICAN-AMERICAN > 60; GLUCOSE,RANDOM 90 mg/dL (70-110); MAGNESIUM 1.9 mg/dL (1.7-2.2); PHOSPHOROUS 3.8 mg/dL (2.5-4.5); POTASSIUM 3.5 mmol/L (3.6-5.0); SODIUM 146 mmol/L (132-148)
[2016-12-23 07:40] LABS: CALCIUM 9.2 mg/dL (8.4-10.5); CARBON DIOXIDE 47 mmol/L (21-33)
[2016-12-23] MEDS ORDERED: Potassium Chloride 20 mEq ER Tab PO ONE ×2 (10:35→11:06)
[2016-12-23] MEDS: guaiFENesin-DM 600-30 mg ER Tab PO SCH (11:08)
[2016-12-23 11:12] VITALS: BP 153/82; PULSE 54; RESP 18; TEMP 98.7; O2SAT 95
[2016-12-23] MEDS: NISOLDIPINE 8.5 MG PO SCH (11:37)
[2016-12-23] MEDS: POLYETHYLENE GLYCOL 3350 17 GM/Dose PACKET PO SCH (11:38)
--- NOTE | 2016-12-23 14:52 | PN ---
DATE: 12/23/2016 LOCATION: The patient in room 313, bed 2. REASON FOR CONSULTATION AND FOLLOWUP: Shortness of breath, atrial fibrillation, diastolic dysfunction, congestive heart failure. SUBJECTIVE: The patient lying flat in bed without chest pain, shortness of breath, or palpitation. PHYSICAL EXAMINATION VITAL SIGNS: Blood pressure 153/82. Earlier blood pressure 134/73. Respirations 18, pulse recorded is 54. When examined, pulse was around 60 and the patient was sleeping. Temperature 98.7. HEENT: Head is normocephalic. Eyes, pupils normal. Conjunctiva slightly pale. NECK: JVP low. Carotids equal. Thorax, AP diameter normal. LUNGS: Clear. CARDIOVASCULAR: S1, S2. ABDOMEN: Protuberant. No organomegaly. EXTREMITIES: No clubbing. No cyanosis. The patient has thickness of the skin of the lower extremities. The edema of the legs has improved. LABORATORY DATA: WBC 6.8, hemoglobin 8.9, hematocrit 30.6, platelets 156. Sodium 146, potassium 3.5, BUN 38, creatinine 0.8. Random glucose 90. Calcium, phosphorus, magnesium normal. DIAGNOSES: Congestive heart failure with diastolic dysfunction; chronic atrial fibrillation; echo on 04/22/2016 showed ejection fraction of 70%, [id number] aortic stenosis; chronic venous stasis in the legs; status post bradycardia due to Lopressor 100 mg XL, long acting in the morning and 50 XL at night, but now with cutting down Lopressor to 25 mg b.i.d., which is short acting and also dose has been reduced, so the patient is staying stable with the rate; hypokalemia. PLAN: We will give K-Dur 40 mEq p.o. now and the patient is also on Eliquis 2.5 b.i.d. and Lasix 40 b.i.d. If the patient is going home today, we will give prescription for Zaroxolyn 2.5 mg Mondays and which means twice a week and the patient will go home on metoprolol 50 mg XL once a day, which is equivalent to regular metoprolol 25 b.i.d., which patient was getting in the hospital. Yesterday, after extra IV Lasix and Zaroxolyn 5 mg, the patient had good diuresis. We will follow. Rodolfo Hinojosa MD [facility] # [id number]
--- NOTE | 2016-12-23 22:19 | DS ---
HISTORY OF PRESENT ILLNESS: This is an 81-year-old female who had come into transitional care unit because of acute CHF. The patient was getting physical therapy. She is being followed by Dr. Hinojosa from Cardiology. She is improving. She has no complaints of headache, dizziness. The patient had echo that showed EF 70%. She had [id number] aortic stenosis. She is going to be discharged home. She has no headaches, dizziness, nausea, or vomiting. PHYSICAL EXAMINATION: VITAL SIGNS: Temperature is 98.8, pulse is 74, blood pressure is 144/77, respirations 20, O2 saturation 96%. GENERAL: The patient is lying in bed, flat, comfortable. HEENT: No oral lesion. Anicteric sclerae. Moist mucosa. NECK: No JVD, adenopathy, or thyromegaly. CARDIOVASCULAR: S1 and S2, regular. No murmurs, rubs, or gallops. LUNGS: Clear to auscultation bilaterally. No wheeze, rales, or rhonchi. ABDOMEN: Bowel sounds are positive, soft, nontender and nondistended. EXTREMITIES: no cyanosis, clubbing or edema. LABS: Last hemoglobin was 9.1. Chest x-ray shows mild left pleural effusion. PLAN: The patient will need to be on liquids for anticoagulation. She is going to continue with Lasix. She is on metoprolol. The patient was on cough medication, guaifenesin. The patient is going to be discharged home to follow up as an outpatient. CONDITION: Stable. ACTIVITIES: Increase as tolerated. Alfred Jara MD
== END 2016-12-23 15:01 | disposition home health service (06) | DRG 292 ==
LOC: TRCU 14:14
PROVIDERS: ADMIT Internal Medicine; ATTEND Internal Medicine
PROC: F07Z9FZ Gait Training/Functional Ambulation Treatment using Assistive, Adaptive, Supportive or Protective Equipment (ICD-10-PCS; principal; 2016-12-17)
PROC: F07Z5FZ Bed Mobility Treatment using Assistive, Adaptive, Supportive or Protective Equipment (ICD-10-PCS; 2016-12-17)
PROC: F07Z8FZ Transfer Training Treatment using Assistive, Adaptive, Supportive or Protective Equipment (ICD-10-PCS; 2016-12-17)
PROC: F07L6YZ Therapeutic Exercise Treatment of Musculoskeletal System - Lower Back / Lower Extremity using Other Equipment (ICD-10-PCS; 2016-12-17)
PROC: F08Z2FZ Grooming/Personal Hygiene Treatment using Assistive, Adaptive, Supportive or Protective Equipment (ICD-10-PCS; 2016-12-19)
PROC: F08Z1FZ Dressing Techniques Treatment using Assistive, Adaptive, Supportive or Protective Equipment (ICD-10-PCS; 2016-12-19)
DX: I11.0 Hypertensive heart disease with heart failure (principal); I50.33 Acute on chronic diastolic (congestive) heart failure; Z68.41 Body mass index [BMI] 40.0-44.9, adult; I27.2 Other secondary pulmonary hypertension; I48.2 Chronic atrial fibrillation; E66.01 Morbid (severe) obesity due to excess calories; R00.1 Bradycardia, unspecified; K21.9 Gastro-esophageal reflux disease without esophagitis; I87.8 Other specified disorders of veins; I35.0 Nonrheumatic aortic (valve) stenosis; I89.0 Lymphedema, not elsewhere classified; D64.9 Anemia, unspecified; K59.00 Constipation, unspecified; M17.11 Unilateral primary osteoarthritis, right knee; E87.6 Hypokalemia; Z87.11 Personal history of peptic ulcer disease; Z88.0 Allergy status to penicillin

== ENCOUNTER 2017-10-24 18:02 | Inpatient (IN) | payer MEDICARE, MEDICAID ==
[2017-10-24 18:51] LABS: VENOUS BLOOD GAS BASE EXCESS 9.2 mmol/L (0.0-2.0); VENOUS BLOOD GAS PO2 180 mm/Hg (30-55); VENOUS BLOOD PH 7.53 (7.32-7.43)
[2017-10-24 18:52] LABS: BASO # 0.02 K/mm3 (0.0-2.0); BASO % 0.3 % (0.0-3.0); EOS # 0.1 (0.0-0.7); EOS % 1.7 % (1.5-5.0); GRAN # 4.91 (1.4-6.5); GRAN % 63.4 % (50.0-68.0); HEMOGLOBIN 11.7 g/dL (12.0-16.0); LYMPH # 1.8 (1.2-3.4); LYMPH % 23.7 % (22.0-35.0); MEAN CELL VOLUME 89.4 fl (80.0-105.0); MEAN CORPUSCULAR HEMOGLOBIN 29.5 pg (25.0-35.0); MEAN CORPUSCULAR HGB CONC 33.1 g/dl (31.0-37.0); MEAN PLATELET VOLUME 9.6 fl (7.0-11.0); MONO # 0.8 (0.1-0.6); MONO % 10.9 % (1.0-6.0); RBC 3.96 10^6/uL (3.5-6.1); RED CELL DISTRIBUTION WIDTH 15.3 % (11.5-14.5); WHITE BLOOD COUNT 7.7 10^3/ul (4.5-11.0)
--- NOTE | 2017-10-24 18:59 | ED PDOC ---
Arrival/HPI - General Chief Complaint: Altered Mental Status Time Seen by Provider: 10/24/17 18:03 Historian: Family EM Caveat: Altered Mental Status - History of Present Illness Narrative History of Present Illness (Text): 10/24/17 19:44 This is an 82 yo F with PMH of HTN, Diastolic CHF (12/11/16 EF 51%), Chronic atrial fibrillation, Obesity, and Osteoarthritis who was brought in by family with complaint of acutely altered mental status x3 days. HPI/ROS/PE limited as patient non-verbal, not following commands. As per family, baseline was cautiously ambulatory around house, independent in some ADLs, but became altered , bedbound, non-verbal and moaning for last 3 days. Reports no PO intake, not following commands, and not speaking to family, mostly just moaning and tossing/ turning in bed. Is still making urine and moving bowels, soiling herself. No appreciable fevers, no diarrhea, no emesis. Medical Hx: Chronic atrial fibrillation, HTN, CHF, Obesity, Osteoarthritis, GERD , Chronic venous stasis/LE edema Surgical Hx: Cataract surgery Social Hx: Lives with son, denies alcohol, tobacco, drug use Family Hx: non-contributory PMD: Dr. Diaz Time/Duration: < week Symptom Onset: Sudden Symptom Course: Unchanged Associated Symptoms (Text): 10/24/17 20:53 non-verbal, moaning, not following commands Past Medical History - Provider Review Nursing Documentation Reviewed: Yes - Cardiac Hx Congestive Heart Failure: Yes Hx Hypertension: Yes - Pulmonary Hx Respiratory Disorders: No - Neurological Hx Neurological Disorder: No - HEENT Hx Cataracts: Yes - Renal Hx Renal Disorder: No - Endocrine/Metabolic Hx Endocrine Disorders: No - Hematological/Oncological Hx Blood Disorders: No - Integumentary Hx Dermatological Disorder: No - Musculoskeletal/Rheumatological Hx Falls: Yes - Gastrointestinal Hx Gastrointestinal Disorders: Yes - Genitourinary/Gynecological Other/Comment: overactive bladder - Psychiatric Hx Depression: No Hx Emotional Abuse: No Hx Physical Abuse: No Hx Substance Use: No - Past Surgical History Past Surgical History: No Previous - Surgical History Other/Comment: fractured left wrist/arm needing cast - Anesthesia Hx Anesthesia: Yes Hx Anesthesia Reactions: No Hx Malignant Hyperthermia: No - Suicidal Assessment Feels Threatened In Home Enviroment: No Family/Social History - Physician Review Nursing Documentation Reviewed: Yes Family/Social History: No Known Family HX Smoking Status: Never Smoked Hx Alcohol Use: No Hx Substance Use: No Hx Substance Use Treatment: No Allergies/Home Meds Allergies/Adverse Reactions: Allergies dabigatran etexilate mesylate [From Pradaxa] Allergy (Intermediate, Verified 08:37) ANGIOEDEMA arthralgia, cough, vertigo, itching, sorethroat, irritability Penicillins Allergy (Verified 12/11/16 08:37) RASH rofecoxib [From Vioxx] Allergy (Verified 12/11/16 08:37) FATIGUE warfarin Adverse Reaction (Unknown, Verified 12/11/16 08:37) ITCHING intolerant with cardio since she could not tolerate pradaxa pravastatin Adverse Reaction (Verified 12/11/16 08:37) RASH Home Medications: Home Meds Medication Instructions Recorded Confirmed Esomeprazole Magnesium [Nexium] 40 mg PO DAILY 09/13/11 10/24/17 Metoprolol Succinate 100 mg PO DAILY 09/13/11 10/24/17 Nisoldipine [Sular] 8.5 mg PO DAILY 09/13/11 10/24/17 Ergocalciferol (Vitamin D2) 1.25 mg PO .WEEKLY 12/11/16 10/24/17 [Vitamin D2] Furosemide [Lasix] 40 mg PO BID 12/11/16 10/24/17 Review of Systems - Review of Systems Systems not reviewed;Unavailable: Altered Mental Status Physical Exam - Physical Exam Physical Exam Limitations: Altered Mental Status Vital Signs Reviewed: Yes Vital Signs Temp Pulse Resp BP Pulse Ox 10/24/17 19:59 98.6 F 78 19 124/43 L 99 10/24/17 18:02 99 F 85 18 Temperature: Afebrile Blood Pressure: Normal Pulse: Regular Respiratory Rate: Normal Appearance: Positive for: Ill-Appearing, Uncomfortable. No: Well-Appearing, Comfortable Pain Distress: Moderate (intermittently rolling towards right lateral recummbent position,) Mental Status: Positive for: other (moaning, non-verbal, not following commands) . No: Alert and Oriented X 3 - Systems Exam Head: Present: Atraumatic, Normocephalic. No: Tenderness, Contusion, Swelling, Ecchymosis, Abrasion, Laceration Pupils: Present: PERRL. No: Sluggish, Non-Reactive, Pinpoint Extroacular Muscles: Present: Other (not following commands, so unable to assess EOMI, brief eye movement towards painful stimuli observed during one spontaneous eye opening) Conjunctiva: Present: Normal. No: Injected, Icteric Mouth: Present: Dry, Normal Lips, Normal Tounge. No: Moist Mucous Membranes, Drooling Nose (External): Present: Atraumatic. No: Abrasion, Laceration Nose (Internal): Present: No Active Bleeding. No: Epistaxis Neck: Present: Trachea Midline. No: JVD Respiratory/Chest: Present: Other (not following commands so not deep breathing for auscultation, but no jose david wheezes/rales/ronchi ). No: Respiratory Distress , Accessory Muscle Use Cardiovascular: Present: Normal S1, S2, Irregular Rhythm, Peripheal Pulses Present (+2 radials bilaterally). No: Regular Rate and Rhythm, Murmurs, Tachycardic, Bradycardic Abdomen: Present: Normal Bowel Sounds. No: Distention Upper Extremity: Present: Normal Inspection, NORMAL PULSES, Other (unable to assess ROM, some spontaneous movements but not following commands). No: Cyanosis, Edema, Swelling, Erythema, Deformity Lower Extremity: Present: Edema (trace pedal/ankle pitting edema), NORMAL PULSES. No: Cyanosis, Normal ROM (unable to assess ROM, some spontaneous movements but not following commands), Swelling, Erythema, Deformity Neurological: Present: Other (not following commands, sufficient motor control to repeatedly attempt to roll over on right lateral recumbent position from supine position). No: GCS=15 (GCS 9: E2 V2 M5) Skin: Present: Warm, Dry, Normal Color. No: Rashes Psychiatric: Present: Other (AMS, non-verbal, moaning, not following commands). No: Alert, Oriented x 3, Normal Insight, Normal Concentration, Normal Affect, Normal Mood Medical Decision Making ED Course and Treatment: 10/24/17 20:11 Ddx: AMS 2/2 UTI vs PNA, r/o stroke Hx of UTIs with AMS as per family, UA, Urine and Blood cx, CBC, and VBG lactate ordered to assess EKG obtained given hx AFib Trop and BNP to rule out ACS/CHF exacerbation CXR to assess for PNA Head CT to rule out acute stroke or bleed f/u and reassess for dispo 10/24/17 21:[address] positive for Right parasylvian hemorrhage, confirmed with [facility] Radiologist Neurosurgery consulted, nothing to do as per Dr. Johnson Neuro consulted: maintain SBP < 160 as per Neuro, CTA head and neck to rule out aneurysm due to location of bleed, repeat head CT in AM as per Dr. Stephenson CXR negative for infiltrate or fluid overload BNP elevated at > 2000, Cardio consulted as per Primary Case discussed with PMD, Dr. Diaz, who accepts for admission and requests ICU placement. Case discussed with resolution agent sheet ironworker (Dr. Menezes) who agrees with ICU placement, will come evaluate patient. ICU resident sheet ironworker notified of admission. Seen, reviewed, and discussed with attending, Dr. Mendes - Lab Interpretations Lab Results: 10/24/17 18:20 10/24/17 18:20 Lab Results 10/24/17 19:49: Urine Color Yellow, Urine Appearance Clear, Urine pH 7.5, Ur Specific Clark 1.010, Urine Protein Negative, Urine Glucose (UA) Negative, Urine Ketones Negative, Urine Blood Negative, Urine Nitrate Negative, Urine Bilirubin Negative, Urine Urobilinogen 2.0 H, Ur Leukocyte Esterase Negative 10/24/17 18:20: Sodium 145, Chloride 105, Potassium 4.4, Carbon Dioxide 29, Anion Gap 16, BUN 68 H, Creatinine 1.2, Est GFR ( Amer) 52, Est GFR (Non- Af Amer) 43, Random Glucose 104, Calcium 10.4, Phosphorus 4.2, Magnesium 2.3 H, Total Bilirubin 2.6 H, AST 37 H, ALT 34, Alkaline Phosphatase 50, Troponin I 0.04 D, NT-Pro-B Natriuret Pep 2340 H, Total Protein 7.2, Albumin 3.7, Globulin 3.5, Albumin/Globulin Ratio 1.1 10/24/17 18:20: pO2 180 H, VBG pH 7.53 H, VBG pCO2 39.0 L, VBG HCO3 32.6 H, VBG Total CO2 33.8 H, VBG O2 Sat (Calc) 100.1 H, VBG Base Excess 9.2 H, VBG Potassium 4.4, Sodium 143.0, Chloride 109.0 H, Glucose 101, Lactate 1.4, FiO2 21.0, Venous Blood Potassium 4.4 10/24/17 18:20: WBC 7.7, RBC 3.96, Hgb 11.7 L D, Hct 35.4 L, MCV 89.4 D, MCH 29.5, MCHC 33.1, RDW 15.3 H, Plt Count 214, MPV 9.6, Gran % 63.4, Lymph % (Auto ) 23.7, [place] % (Auto) 10.9 H, Eos % (Auto) 1.7, Baso % (Auto) 0.3, Gran # 4.91, Lymph # (Auto) 1.8, [place] # (Auto) 0.8 H, Eos # (Auto) 0.1, Baso # (Auto) 0.02 - RAD Interpretation Radiology Orders: 10/24/17 18:41 HEAD W/O CONTRAST [CT] Stat 10/24/17 19:01 CXR [CHEST PORTABLE] [RAD] Stat - Medication Orders Current Medication Orders: Sodium Chloride (Sodium Chloride 0.9%) 1,000 mls @ 70 mls/hr IV .[id number] GOLDEN Last Admin: 10/24/17 19:50 Dose: 70 mls/hr eMAR Start Stop Document 10/24/17 19:50 RD (Rec: 10/24/17 19:50 RD [id number]) Intravenous Solution Start Date 10/24/17 Start Time 19:50 Disposition/Present on Arrival - Present on Arrival Any Indicators Present on Arrival: No History of DVT/PE: No History of Uncontrolled Diabetes: No Urinary Catheter: No History of Decub. Ulcer: No History Surgical Site Infection Following: None - Disposition Have Diagnosis and Disposition been Completed?: Yes Diagnosis: Intracerebral bleed Disposition: HOSPITALIZED Disposition Time: 21:40 Patient Plan: Admission, ICU Condition: CRITICAL Forms: [employer] (Azeri)
[2017-10-24 19:02] LABS: ALB/GLOB RATIO 1.1 (1.1-1.8); ALBUMIN 3.7 g/dL (3.0-4.8); CALCIUM 10.4 mg/dL (8.4-10.5)
[2017-10-24 19:13] LABS: TROPONIN I 0.04 ng/mL
--- NOTE | 2017-10-24 19:30 | CT ---
EXAM: CT Head Without Intravenous Contrast EXAM DATE/TIME: 10/24/2017 6:41 PM CLINICAL HISTORY: 82 years old, female; Signs and symptoms; Altered mental status/memory loss; Confusion or disorientation; Additional info: AMS TECHNIQUE: Axial computed tomography images of the head/brain without intravenous contrast. All CT scans at this facility use at least one of these dose optimization techniques: automated exposure control; mA and/or kV adjustment per patient size (includes targeted exams where dose is matched to clinical indication); or iterative reconstruction. Coronal and sagittal reformatted images were created and reviewed. COMPARISON: There are no prior studies for comparison. FINDINGS: Artifacts: Motion artifact degrades image quality. Brain and ventricles: Ventricles are normal in size. There is no midline shift. There is mild prominence of sulci and gyri. There is patchy decrease attenuation in periventricular white matter. There is a focus of increased attenuation just medial to the right sylvian fissure. There is minimal surrounding edema. No other hemorrhages are identified. Martin-white differentiation is maintained. Bones/joints: There are no gross osseous abnormalities. Soft tissues: unremarkable Sinuses: There is no acute sinusitis. Mastoid air cells: Ears and mastoids: Middle ears and mastoids are unremarkable. Orbits: Motion limits evaluation of orbital contents. IMPRESSION: Small right parasylvian hemorrhage possibly hypertensive Additional nonemergent findings as described above.
[2017-10-24] MEDS: Sodium Chloride 0.9% 1,000 ML IV SCH (19:50)
[2017-10-24 19:55] LABS: PH,URINE 7.5 (4.7-8.0); URINE APPEARANCE CLEAR (CLEAR); URINE BILIRUBIN NEGATIVE (NEGATIVE); URINE BLOOD NEGATIVE (NEGATIVE); URINE COLOR YELLOW (YELLOW); URINE GLUCOSE (UA) NEGATIVE (NEGATIVE); URINE LEUKOCYTE ESTERASE NEGATIVE Leu/uL (NEGATIVE); URINE PROTEIN NEGATIVE mg/dL (<30 mg/dL)
--- NOTE | 2017-10-24 21:16 | CP.PCM.CON ---
<Nohemi Nazario - Last Filed: 10/24/17 22:38> History of Present Illness - History of Present Illness History of Present Illness: ICU consult note for Dr Menezes. Reason for consult: hemorrhagic cva. Patient is an 82 y/o with PMHx of HTN, Diastolic CHF (03/2016 EF 55%), Chronic atrial fibrillation ( not on anticoagulation), Obesity, severe osteoarthritis presenting with changes in mental status. Patient is currently non verbal, thus history was obtained from son and daughter. Family states since Monday noon, patient suddenly became confused, was unable to talk, eat, and was not opening her eyes. Patient became incontinent as well. Patient was only moaning, and saying in Tongan "pain" pointing toward her right knee (this complaints is chronic as per family, states patient complains of pain even when alert, due to severe OA). Nevertheless, prior to Monday, patient was verbal, was ambulating with a walker with family's help. Patient takes BP meds daily, takes Lopressor, and sular and water pill, measures her BP at home daily and as per son it has been normal. As per son, patient was started on pradaxa, then Coumadin for afib almost a year ago, which were stopped due to side effects such as dizziness, nausea/ vomiting. Patient doesn't take asa. Patient was also started on cholesterol medication in the past, however patient stopped taking it due to side effects. No recent travel as per family. Family denies fall, trauma or seizure like activity. Unable to obtain detail ROS due to mental status. In the ED, patient was found to have small right parasylvian hemorrhage possibly hypertensive. GCS of 9 ( E1V3M5), Patient is otherwise able to protect her airway, saturating 95% on room air. PMHx: Chronic atrial fibrillation (not on anticoagulation), HTN, CHF, Obesity, Osteoarthritis, GERD PSHx: Cataract surgery, lap bouchra FMHx: non contributory Social: Lives with son and daughter, denies alcohol, tobacco, or drug use. Uses walker to ambulate. Family Hx: non-contributory ALL: PCN, Warfarin, Rofecoxib, Dabigatran, Pravastatin Medications: as per chart. Review of Systems - Review of Systems Systems not reviewed;Unavailable: Altered Mental Status Past Patient History - Past Social History Smoking Status: Never Smoked Alcohol: None Drugs: Denies Home Situation {Lives}: With Family - CARDIAC Hx Congestive Heart Failure: Yes Hx Hypertension: Yes - PULMONARY Hx Respiratory Disorders: No - NEUROLOGICAL Hx Neurological Disorder: No - HEENT Hx Cataracts: Yes - RENAL Hx Chronic Kidney Disease: No - ENDOCRINE/METABOLIC Hx Endocrine Disorders: No - HEMATOLOGICAL/ONCOLOGICAL Hx Blood Disorders: No - INTEGUMENTARY Hx Dermatological Problems: No - MUSCULOSKELETAL/RHEUMATOLOGICAL Hx Falls: Yes - GASTROINTESTINAL Hx Gastrointestinal Disorders: Yes - GENITOURINARY/GYNECOLOGICAL Other/Comment: overactive bladder - PSYCHIATRIC Hx Depression: No Hx Emotional Abuse: No Hx Physical Abuse: No Hx Substance Use: No - SURGICAL HISTORY Other/Comment: fractured left wrist/arm needing cast - ANESTHESIA Hx Anesthesia: Yes Hx Anesthesia Reactions: No Hx Malignant Hyperthermia: No Meds Allergies/Adverse Reactions: Allergies Allergy/AdvReac Type Severity Reaction Status Date / Time dabigatran etexilate mesylate Allergy Intermediate ANGIOEDEMA Verified 12/11/16 08:37 [From Pradaxa] Penicillins Allergy RASH Verified 12/11/16 08:37 rofecoxib [From Vioxx] Allergy FATIGUE Verified 12/11/16 08:37 warfarin AdvReac Unknown ITCHING Verified 12/11/16 08:37 pravastatin AdvReac RASH Verified 12/11/16 08:37 - Medications Medications: Current Medications Sodium Chloride (Sodium Chloride 0.9%) 1,000 mls @ 70 mls/hr IV .[id number] [facility] Last Admin: 10/24/17 19:50 Dose: 70 mls/hr Physical Exam - Constitutional Appears: No Acute Distress, Confused - Head Exam Head Exam: ATRAUMATIC, NORMAL INSPECTION, NORMOCEPHALIC - Eye Exam Eye Exam: Normal appearance, PERRL. absent: Scleral icterus Pupil Exam: NORMAL ACCOMODATION - ENT Exam ENT Exam: Mucous Membranes Moist - Neck Exam Additional comments: + short neck - Respiratory Exam Respiratory Exam: Clear to Auscultation Bilateral, NORMAL BREATHING PATTERN. absent: Rales, Rhonchi, Wheezes, Respiratory Distress, Stridor - Cardiovascular Exam Cardiovascular Exam: Diastolic murmur, Irregular Rhythm, +S1, +S2, Systolic Murmur. absent: Bradycardia, Tachycardia, Gallop, JVD, Rubs - GI/Abdominal Exam GI & Abdominal Exam: Normal Bowel Sounds, Soft. absent: Distended, Firm, Guarding, Rebound, Rigid, Tenderness - Extremities Exam Extremities exam: Positive for: tenderness (right knees.), pedal pulses present. Negative for: pedal edema Additional comments: non pitting edema. - Neurological Exam Additional comments: Patient with closed eyes, not opening her eyes spontaneously, moves most of her extremities spontaneously with pain, not following commands. Unable to lift kelsey upper and lower extremities against gravity. Downward going toes kelsey. Normal patella and brachioradial reflexes kelsey. Pupils equal, and reactive to light. - Psychiatric Exam Psychiatric exam: Anxious - Skin Skin Exam: Dry, Normal Color, Warm Results - Vital Signs Recent Vital Signs: Last Vital Signs Temp 98.6 F 10/24/17 19:59 Pulse 78 10/24/17 19:59 Resp 19 10/24/17 19:59 BP 124/43 L 10/24/17 19:59 Pulse Ox 99 10/24/17 19:59 - Labs Result Diagrams: 10/24/17 18:20 10/24/17 18:20 Labs: Laboratory Results - last 24 hr 10/24/17 10/24/17 10/24/17 18:20 18:20 18:20 WBC 7.7 RBC 3.96 Hgb 11.7 L D Hct 35.4 L MCV 89.4 D MCH 29.5 MCHC 33.1 RDW 15.3 H Plt Count 214 MPV 9.6 Gran % 63.4 Lymph % (Auto) 23.7 [place] % (Auto) 10.9 H Eos % (Auto) 1.7 Baso % (Auto) 0.3 Gran # 4.91 Lymph # (Auto) 1.8 [place] # (Auto) 0.8 H Eos # (Auto) 0.1 Baso # (Auto) 0.02 pO2 180 H VBG pH 7.53 H VBG pCO2 39.0 L VBG HCO3 32.6 H VBG Total CO2 33.8 H VBG O2 Sat (Calc) 100.1 H VBG Base Excess 9.2 H VBG Potassium 4.4 Sodium 143.0 145 Chloride 109.0 H 105 Glucose 101 Lactate 1.4 FiO2 21.0 Potassium 4.4 Carbon Dioxide 29 Anion Gap 16 BUN 68 H Creatinine 1.2 Est GFR ( Amer) 52 Est GFR (Non-Af Amer) 43 Random Glucose 104 Calcium 10.4 Phosphorus 4.2 Magnesium 2.3 H Total Bilirubin 2.6 H AST 37 H ALT 34 Alkaline Phosphatase 50 Troponin I 0.04 D NT-Pro-B Natriuret Pep 2340 H Total Protein 7.2 Albumin 3.7 Globulin 3.5 Albumin/Globulin Ratio 1.1 Venous Blood Potassium 4.4 Urine Color Urine Appearance Urine pH Ur Specific [place] Urine Protein Urine Glucose (UA) Urine Ketones Urine Blood Urine Nitrate Urine Bilirubin Urine Urobilinogen Ur Leukocyte Esterase 10/24/17 19:49 WBC RBC Hgb Hct MCV MCH MCHC RDW Plt Count MPV Gran % Lymph % (Auto) [place] % (Auto) Eos % (Auto) Baso % (Auto) Gran # Lymph # (Auto) [place] # (Auto) Eos # (Auto) Baso # (Auto) pO2 VBG pH VBG pCO2 VBG HCO3 VBG Total CO2 VBG O2 Sat (Calc) VBG Base Excess VBG Potassium Sodium Chloride Glucose Lactate FiO2 Potassium Carbon Dioxide Anion Gap BUN Creatinine Est GFR ( Amer) Est GFR (Non-Af Amer) Random Glucose Calcium Phosphorus Magnesium Total Bilirubin AST ALT Alkaline Phosphatase Troponin I NT-Pro-B Natriuret Pep Total Protein Albumin Globulin Albumin/Globulin Ratio Venous Blood Potassium Urine Color Yellow Urine Appearance Clear Urine pH 7.5 Ur Specific [place] 1.010 Urine Protein Negative Urine Glucose (UA) Negative Urine Ketones Negative Urine Blood Negative Urine Nitrate Negative Urine Bilirubin Negative Urine Urobilinogen 2.0 H Ur Leukocyte Esterase Negative - EKG Data EKG Interpreted by: Myself (Afib with non specific ST/T wave changes.) Assessment & Plan - Assessment and Plan (Free Text) Assessment: Patient is an 82 y/o with PMHx of HTN, Diastolic CHF (03/2016 EF 55%), Chronic atrial fibrillation ( not on anticoagulation), Obesity, severe osteoarthritis presenting with changes in mental status for 4 days. Patient was found to have small right parasylvian hemorrhage possibly hypertensive. GCS of 9, Patient is otherwise able to protect her airway, saturating 95% on room air. Patient is to be admitted to ICU for close monitoring. Plan: Neuro: AMS likely due to small right parasylvian hemorrhage possibly hypertensive - Neurosurgery consulted, no intervention at this time as per ED. - Neurology consulted, recommending to maintain SBP below 160, repeat CT head in the AM, CTA of neck and head to r/o aneurysm and stenosis. - Neuro check q2, fall and seizure precautions - Head of bed above 35 degrees - Cardene drip to maintain SBP ~160s. - NPO - Speech, swallow, PT/OT evaluation - Will add PT/PTT to the lab. Pulm: stable, saturating well on room air. Nasal cannula prn to maintain O2 sat above 94%. Cardiac: Cardene drip started to maintain sbp ~160. h/o diastolic chf, no clinical signs of fluid overload, however pro bnp was elevated. repeat echo ordered, cardio consulted, lasix and oral BP meds on hold. H/o of AFib- currently rate controlled. not on anticoagulation. ID: No active signs of infection will monitor. Renal: slight increase in creat by 0.4 from almost a year ago likely due to dehydration. started on NS@70 ml/hr. Endo: will maintain euglycemia. Heme: h/o of anemia- h/h slightly higher than previous h/h likely due to dehydration. will add pt/ptt. Gi: npo pending swallow eval. Protonix for gi prophylaxis. DVT prophylaxis: VTE device. Patient seen, examined and case discussed with Dr Menezes. - Date & Time Date: 10/24/17 Time: 22:35 <Hakan Menezes - Last Filed: 10/25/17 06:44> Meds - Medications Medications: Current Medications Sodium Chloride (Sodium Chloride 0.9%) 1,000 mls @ 70 mls/hr IV .[id number] [facility] Last Admin: 10/24/17 19:50 Dose: 70 mls/hr Nicardipine HCl (Cardene Iv Premix) 20 mg in 200 mls @ 50 mls/hr IV .Q4H PRN; Protocol; 5 MG/HR PRN Reason: TITRATE PER MD ORDER Last Titration: 10/25/17 06:00 Dose: 5 mg/hr, 50 mls/hr Propofol (Diprivan) 1,000 mg in 100 mls @ 2.336 mls/hr IV .Q24H PRN; Protocol; 5 MCG/KG/MIN PRN Reason: TITRATE PER MD ORDER Pantoprazole Sodium (Protonix Inj) 40 mg IVP DAILY [facility] Results - Vital Signs Recent Vital Signs: Last Vital Signs Temp 98.2 F 10/24/17 23:46 Pulse 87 10/24/17 23:46 Resp 20 10/24/17 23:46 BP 102/41 L 10/24/17 23:46 Pulse Ox 94 L 10/24/17 23:46 - Labs Result Diagrams: 10/24/17 18:20 10/24/17 18:20 Labs: Laboratory Results - last 24 hr 10/25/17 05:55 pCO2 37 pO2 193.0 H HCO3 27.6 ABG pH 7.48 H ABG Total CO2 28.7 H ABG O2 Saturation 100.1 H ABG O2 Content 17.3 ABG Base Excess 4.0 H ABG Hemoglobin 12.4 ABG Carboxyhemoglobin 2.0 H POC ABG HHb (Measured) -0.1 L ABG Methemoglobin 1.2 ABG O2 Capacity 17.3 Hgb O2 Saturation 96.9 FiO2 50.0 Attending/Attestation - Attestation I have personally seen and examined this patient.: Yes I have fully participated in the care of the patient.: Yes I have reviewed all pertinent clinical information: Yes Notes (Text): 10/25/17 06:39 Patient was seen when she was in the ER . Agree with history, physical examination, assessment , plan, consult note. 82 year ole woman with altered mental status for 2 days ,elevated BNP, elevated BUN,has PMH of HTN,CHF,paroxysmal SVT,aortic regurgitation, nephrolithiasis, OA,morbid obesity, chronic atrial fibrillation,GERD,venous stasis, hypothyroidism, PNA, anemia, GERD, facial neuralgia, right wrist fracture(Cast), cataract surgery,family history of DM, HTN.Will keep in ICU for observation, neurocheck, repeat CT head,CT angio head, neurosurgery consult, neurology consult, hydration. BP 104/41, HR 83/min, afebrile, RR 18/min, pulse ox was 98 % on nasal canula at 2L/min. But patient started coughing a lot, there was accumulation of lot of secretion in tanya pharynx. She was intubated prophylactically with size 7.5 ETT. Position was confirmed by direct visualization, co2 capnography and cxr. She was kept on 450/14/50% ,+ 5. This AM ABG was 7.48/37/193/27.6. FiO2 was reduced to 40%. NGT was passed. CCT spent was 30 minutes.
[2017-10-24] MEDS ORDERED: Iodixanol 320 mg/ml 150 ml Bottle IV ONE (22:01)
--- NOTE | 2017-10-24 22:26 | CARD ---
APPROVED REPORT EKG Measurement Heart [id number] <Conclusion> Atrial fibrillation Anteroseptal infarct, age undetermined Abnormal ECG
[2017-10-24] MEDS ORDERED: Nicardipine 20 MG/200 ML 20 MG/200 ML BAG IV PRN (22:40)
[2017-10-25 00:15] LABS: INR 1.13 (0.93-1.08); PARTIAL THROMBOPLASTIN TIME 30.2 Seconds (25.1-36.5); PROTHROMBIN TIME 12.9 SECONDS (9.4-12.5)
[2017-10-25 00:57] VITALS: BMI 29.5
[2017-10-25] MEDS ORDERED: Midazolam 2 MG/2 ML VIAL IVP STA (01:54)
[2017-10-25] MEDS ORDERED: Midazolam 2 MG/2 ML VIAL ONE (01:58)
[2017-10-25] MEDS ORDERED: Propofol 10 mg/ml 1,000 MG/100 ML VIAL ONE (02:17)
[2017-10-25] MEDS ORDERED: Propofol 10 mg/ml 1,000 MG/100 ML VIAL IV PRN (02:30)
--- NOTE | 2017-10-25 05:10 | HP ---
HISTORY OF PRESENT ILLNESS: The patient is 82 years old, known to me from house call. I saw the patient almost 3 weeks ago because of her bilateral leg swelling, redness. They were hard to touch. She was getting increasingly short of breath, so I started her on Lasix 40 mg twice a day and metolazone 2.5 mg daily and that was given for 1 week. I got a call day before yesterday that the patient has been increasingly weak, lethargic, not eating. I asked them to stop her Lasix that has been stopped for last 3-4 days. The patient is mostly sleepy and hardly arousable. I advised them to come to emergency room. They were reluctant to take her to emergency room yesterday. I asked them to give her p.o. fluids, Pedialyte, Gatorade and if did not improve, she has to come to emergency room to rule out any underlying infection or renal insufficiency. So, she was brought in today for further evaluation. PAST MEDICAL HISTORY: 1. Significant for chronic AFib, not on anticoagulation upon family's request. 2. Congestive heart failure. 3. History of hypertension. 4. Chronic kidney disease. 5. Bilateral leg elephantiasis. ALLERGIES: 1. THE PATIENT IS ALLERGIC TO DABIGATRAN. 2. PENICILLIN. 3. ROFECOXIB. 4. WARFARIN. 5. PRAVASTATIN. MEDICATION AT HOME: She is on metoprolol 100 mg daily, Lasix 40 mg twice a day, Nexium 40 mg daily, lisinopril 10 mg daily. SOCIAL HISTORY: She lives with her daughter. Denies smoking or alcohol use. PHYSICAL EXAMINATION GENERAL: She is sleeping, but arousable. VITAL SIGNS: She has temperature 99, pulse 85, respirations 18. HEAD AND NECK: She has nonicteric sclerae, pale conjunctivae. HEART: S1 and S2 audible. Irregular rate control. ABDOMEN: Soft, nontender. No rebound. No guarding. NEUROLOGIC: The patient is awake, alert, oriented. The patient is sleeping, but arousable. LABORATORY DATA: WBC 7.7, hemoglobin 11.7, hematocrit 35.4, platelet 214, pH 7.53, PCO2 of 39, pulse ox is 100. Chemistry, sodium 145, potassium 4.4, chloride 105, CO2 of 29, BUN 68, creatinine 1.2, blood sugar of 104. Magnesium 2.3, total bilirubin 2.6, AST , BNP is 2340. Urinalysis is pending. ASSESSMENT AND PLAN: 1. Acute and chronic renal failure. 2. Dehydration. 3. History of congestive heart failure. 4. Hypotension. 5. Altered mental status, rule out urinary tract infection. PLAN: Blood culture and urine cultures are sent. We will start IV fluid and resume her usual medication. Dr. Hinojosa will be consulted. We will follow up electrolyte in the a.m. Katerin Diaz MD
[2017-10-25 06:13] LABS: ARTERIAL BLOOD GAS HCO3 27.6 mmol/L (21-28); ARTERIAL BLOOD GAS HEMOGLOBIN 12.4 g/dL (11.7-17.4); ARTERIAL BLOOD GAS O2 CAPACITY 17.3 mL/dl (16-24); ARTERIAL BLOOD GAS O2 CONTENT 17.3 ML/dl (15-23); ARTERIAL BLOOD GAS O2 SAT 100.1 % (95-98); ARTERIAL BLOOD GAS PCO2 37 mm/Hg (35-45); ARTERIAL BLOOD GAS PH 7.48 (7.35-7.45); ARTERIAL BLOOD GAS TCO2 28.7 mmol.L (22-28)
[2017-10-25 06:52] LABS: BASO # 0.02 K/mm3 (0.0-2.0); BASO % 0.2 % (0.0-3.0); EOS % 0.1 % (1.5-5.0); GRAN # 6.62 (1.4-6.5); LYMPH # 0.7 (1.2-3.4); LYMPH % 8.7 % (22.0-35.0); MEAN CELL VOLUME 89.6 fl (80.0-105.0); MEAN CORPUSCULAR HEMOGLOBIN 29.6 pg (25.0-35.0); MEAN CORPUSCULAR HGB CONC 33.1 g/dl (31.0-37.0); MEAN PLATELET VOLUME 9.3 fl (7.0-11.0); MONO # 0.9 (0.1-0.6); RBC 4.05 10^6/uL (3.5-6.1); RED CELL DISTRIBUTION WIDTH 15.3 % (11.5-14.5); WHITE BLOOD COUNT 8.3 10^3/ul (4.5-11.0)
[2017-10-25 07:12] LABS: ALBUMIN 3.7 g/dL (3.0-4.8); ALT/SGPT 27 U/L (7-56); AST/SGOT 39 U/L (14-36); BLOOD UREA NITROGEN 60 mg/dL (7-21); GFR AFRICAN-AMERICAN > 60; GFR NON-AFRICAN AMERICAN 53; HDL CHOLESTEROL 47 mg/dL (29-60)
[2017-10-25 07:16] LABS: LDL CHOLESTEROL 52 mg/dL (0-129)
--- NOTE | 2017-10-25 07:59 | CP.CCUPN ---
<Joaquina Zacarias - Last Filed: 10/25/17 14:55> CCU Subjective - Physician Review Subjective (Free Text): 10/25/17 07:54 Per sign out, pt was intubated for alter mental status and copious secretion to protect airway Now, Family by bedside CCU Objective - Vital Signs / Intake & Output Intake and Output (Last 8hrs): Intake & Output 10/24/17 10/25/17 10/25/17 22:59 06:59 14:59 Intake Total 0 Balance 0 Weight 171 lb 11.2 oz Intake: IV 0 - Physical Exam Head: Positive for: Atraumatic, Normocephalic. Negative for: Tenderness, Contusion, Swelling, Ecchymosis, Abrasion, Laceration Pupils: Positive for: PERRL. Negative for: Sluggish, Non-Reactive, Pinpoint Conjunctiva: Positive for: Normal. Negative for: Injected, Icteric Mouth: Positive for: Dry, Normal Lips, Normal Tounge. Negative for: Moist Mucous Membranes, Drooling Nose (External): Positive for: Atraumatic. Negative for: Abrasion, Laceration Nose (Internal): Positive for: No Active Bleeding. Negative for: Epistaxis Neck: Positive for: Trachea Midline. Negative for: JVD Respiratory/Chest: Positive for: Clear to Auscultation. Negative for: Respiratory Distress, Accessory Muscle Use Cardiovascular: Positive for: Normal S1, S2, Irregular Rhythm, Peripheal Pulses Present (+2 radials bilaterally). Negative for: Regular Rate and Rhythm, Murmurs, Tachycardic, Bradycardic Abdomen: Positive for: Normal Bowel Sounds. Negative for: Distention, Peritoneal Signs Upper Extremity: Positive for: Normal Inspection, NORMAL PULSES. Negative for: Cyanosis, Edema, Swelling, Erythema, Deformity Lower Extremity: Positive for: Edema (trace pedal/ankle pitting edema), NORMAL PULSES. Negative for: Cyanosis, Normal ROM (unable to assess ROM, some spontaneous movements but not following commands), Swelling, Erythema, Deformity Neurological: Positive for: Other (not following commands, sufficient motor control to repeatedly attempt to roll over on right lateral recumbent position from supine position). Negative for: GCS=15 (GCS 9: E2 V2 M5) Skin: Positive for: Warm, Dry, Normal Color. Negative for: Rashes Psychiatric: Positive for: Other (Intubated). Negative for: Alert, Oriented x 3 , Normal Insight, Normal Concentration, Normal Affect, Normal Mood - Medications Active Medications: Active Medications Generic Name Dose Route Start Last Admin Trade Name Freq PRN Reason Stop Dose Admin Sodium Chloride 1,000 mls @ 70 mls/hr 10/24/17 19:30 10/24/17 19:50 Sodium Chloride 0.9% IV 70 mls/hr .[id number] GOLDEN Administration Nicardipine HCl 20 mg in 200 mls @ 50 mls/hr 10/24/17 22:40 10/25/17 06:00 Cardene Iv Premix IV 5 mg/hr .Q4H PRN 50 mls/hr TITRATE PER MD ORDER Titration Protocol 5 MG/HR Propofol 1,000 mg in 100 mls @ 2.336 mls/hr 10/25/17 02:30 Diprivan IV .Q24H PRN TITRATE PER MD ORDER Protocol 5 MCG/KG/MIN Pantoprazole Sodium 40 mg 10/25/17 10:00 Protonix Inj IVP DAILY GOLDEN - Patient Studies Lab Studies: Lab Studies 10/25/17 10/25/17 10/25/17 Range/Units 06:00 06:00 05:55 WBC 8.3 (4.5-11.0) 10^3/ul RBC 4.05 (3.5-6.1) 10^6/uL Hgb 12.0 (12.0-16.0) g/dL Hct 36.3 (36.0-48.0) % MCV 89.6 (80.0-105.0) fl MCH 29.6 (25.0-35.0) pg MCHC 33.1 (31.0-37.0) g/dl RDW 15.3 H (11.5-14.5) % Plt Count 206 (120.0-450.0) 10^3/uL MPV 9.3 (7.0-11.0) fl Gran % 80.0 H (50.0-68.0) % Lymph % (Auto) 8.7 L (22.0-35.0) % Dubois % (Auto) 11.0 H (1.0-6.0) % Eos % (Auto) 0.1 L (1.5-5.0) % Baso % (Auto) 0.2 (0.0-3.0) % Gran # 6.62 H (1.4-6.5) Lymph # (Auto) 0.7 L (1.2-3.4) Dubois # (Auto) 0.9 H (0.1-0.6) Eos # (Auto) 0.0 (0.0-0.7) Baso # (Auto) 0.02 (0.0-2.0) K/mm3 pCO2 37 (35-45) mm/Hg pO2 193.0 H (80-100) mm/Hg HCO3 27.6 (21-28) mmol/L ABG pH 7.48 H (7.35-7.45) ABG Total CO2 28.7 H (22-28) mmol.L ABG O2 Saturation 100.1 H (95-98) % ABG O2 Content 17.3 (15-23) ML/dl ABG Base Excess 4.0 H (-2.0-3.0) mmol/L ABG Hemoglobin 12.4 (11.7-17.4) g/dL ABG Carboxyhemoglobin 2.0 H (0.5-1.5) % POC ABG HHb (Measured) -0.1 L (0-5) % ABG Methemoglobin 1.2 (0.0-3.0) % ABG O2 Capacity 17.3 (16-24) mL/dl Hgb O2 Saturation 96.9 (95.0-98.0) % FiO2 50.0 % Sodium 145 (132-148) mmol/L Potassium 3.9 (3.6-5.0) mmol/L Chloride 106 (98-107) mmol/L Carbon Dioxide 27 (21-33) mmol/L Anion Gap 16 (10-20) BUN 60 H (7-21) mg/dL Creatinine 1.0 (0.7-1.2) mg/dl Est GFR ( Amer) > 60 Est GFR (Non-Af Amer) 53 Random Glucose 135 H (70-110) mg/dL Calcium 10.0 (8.4-10.5) mg/dL Total Bilirubin 2.5 H (0.2-1.3) mg/dL AST 39 H (14-36) U/L ALT 27 (7-56) U/L Alkaline Phosphatase 47 (38-126) U/L Total Protein 7.2 (5.8-8.3) g/dL Albumin 3.7 (3.0-4.8) g/dL Globulin 3.5 gm/dL Albumin/Globulin Ratio 1.0 L (1.1-1.8) Triglycerides 308 H (35-160) mg/dL Cholesterol 130 (130-200) mg/dL LDL Cholesterol Direct 52 (0-129) mg/dL HDL Cholesterol 47 (29-60) mg/dL Laboratory Results - last 24 hr 10/25/17 10/25/17 10/25/17 05:55 06:00 06:00 WBC 8.3 RBC 4.05 Hgb 12.0 Hct 36.3 MCV 89.6 MCH 29.6 MCHC 33.1 RDW 15.3 H Plt Count 206 MPV 9.3 Gran % 80.0 H Lymph % (Auto) 8.7 L Dubois % (Auto) 11.0 H Eos % (Auto) 0.1 L Baso % (Auto) 0.2 Gran # 6.62 H Lymph # (Auto) 0.7 L Dubois # (Auto) 0.9 H Eos # (Auto) 0.0 Baso # (Auto) 0.02 pCO2 37 pO2 193.0 H HCO3 27.6 ABG pH 7.48 H ABG Total CO2 28.7 H ABG O2 Saturation 100.1 H ABG O2 Content 17.3 ABG Base Excess 4.0 H ABG Hemoglobin 12.4 ABG Carboxyhemoglobin 2.0 H POC ABG HHb (Measured) -0.1 L ABG Methemoglobin 1.2 ABG O2 Capacity 17.3 Hgb O2 Saturation 96.9 FiO2 50.0 Sodium 145 Potassium 3.9 Chloride 106 Carbon Dioxide 27 Anion Gap 16 BUN 60 H Creatinine 1.0 Est GFR ( Amer) > 60 Est GFR (Non-Af Amer) 53 Random Glucose 135 H Calcium 10.0 Total Bilirubin 2.5 H AST 39 H ALT 27 Alkaline Phosphatase 47 Total Protein 7.2 Albumin 3.7 Globulin 3.5 Albumin/Globulin Ratio 1.0 L Triglycerides 308 H Cholesterol 130 LDL Cholesterol Direct 52 HDL Cholesterol 47 Critical Care Progress Note - Nutrition Nutrition: Nutrition Category Date Time Status NPO Diet [DIET] Diets 06/26/18 Dinner Ordered Assessment/Plan - Assessment and Plan (Free Text) Plan: Ms Vicenta Duran, 82 F with PMHx of HTN, Diastolic CHF (03/2016 EF 55%) not on ASA/Statin, Chronic atrial fibrillation (not on anticoagulation), Obesity, severe osteoarthritis presenting with changes in mental status for 4 days. Patient was found to have small right parasylvian hemorrhage possibly hypertensive. GCS of 9 (E1V3M5) last night, but copious secretion in tanya pharynx worrisome of aspiration, and she was intubated for protecting airway Neuro: AMS likely due to small right parasylvian hemorrhage possibly hypertensive - Neurosurgery consulted, no intervention at this time as per ED. - Neurology consulted, recommending to maintain SBP below 160, repeat CT head in the AM, CTA of neck and head to r/o aneurysm and stenosis. - Neuro check q2, fall and seizure precautions - Head of bed above 35 degrees - Cardene drip to maintain SBP 130 - 160. - NPO - Speech, swallow, PT/OT evaluation - Will add PT/PTT to the lab. - Per neuro - No MRI today Pulm: Intubated for airway protection: PRVC 450/14/40% ,+ 5.; Pressure support x 4 hours. back on PRVC CXR (10/25) - slightly fluid overload, no significant pleural effusion ABG normal pro bnp was elevated Cardiac: Cardene drip PRN to maintain sbp 130~160. h/o diastolic chf repeat echo ordered, cardio consulted, lasix and oral BP meds on hold H/o of AFib- currently rate controlled. not on anticoagulation. GI: NGT in place ID: No active signs of infection will monitor. Renal: slight increase in creat by 0.4 from almost a year ago likely due to dehydration. started on NS@70 ml/hr. Endo: will maintain euglycemia. Hx hypothyroidism Heme: h/o of anemia- h/h slightly higher than previous h/h likely due to dehydration. will add pt/ptt. Gi: npo pending swallow eval. Protonix for gi prophylaxis. DVT prophylaxis: VTE device. s/r/d/w Dr. Villalobos <Tree Villalobos - Last Filed: 10/25/17 15:17> CCU Objective - Vital Signs / Intake & Output Vital Signs (Last 4 hours): Vital Signs Temp Pulse Resp BP Pulse Ox 10/25/17 15:09 101.6 F H 10/25/17 14:50 82 96 10/25/17 14:40 86 97 10/25/17 14:30 80 136/63 99 10/25/17 14:20 79 97 10/25/17 14:10 84 98 10/25/17 14:00 92 H 146/70 99 10/25/17 13:50 94 H 98 10/25/17 13:40 87 98 10/25/17 13:30 90 124/49 L 99 10/25/17 13:20 98 10/25/17 13:10 85 98 10/25/17 13:00 87 122/61 98 10/25/17 12:50 91 H 98 10/25/17 12:40 89 98 10/25/17 12:30 84 124/51 L 97 10/25/17 12:20 89 100 10/25/17 12:10 93 H 98 10/25/17 12:00 88 124/57 L 99 10/25/17 11:50 92 H 98 10/25/17 11:40 89 98 10/25/17 11:30 95 H 130/49 L 98 10/25/17 11:20 100.6 F H 91 H 28 H 99 10/25/17 11:17 88 98 Intake and Output (Last 8hrs): Intake & Output 10/25/17 10/25/17 10/25/17 06:59 14:59 22:59 Intake Total 1040 Output Total 200 Balance 840 Weight 171 lb 11.2 oz Intake: IV 1040 Left Antecubital 840 Left Hand 200 Oral 0 Output: Urine 200 Urethral (Jackson) 200 Other: # Bowel Movements 2 - Medications Active Medications: Active Medications Generic Name Dose Route Start Last Admin Trade Name Freq PRN Reason Stop Dose Admin Sodium Chloride 1,000 mls @ 70 mls/hr 10/24/17 19:30 10/25/17 10:14 Sodium Chloride 0.9% IV 70 mls/hr .[id number] GOLDEN Administration Nicardipine HCl 20 mg in 200 mls @ 50 mls/hr 10/24/17 22:40 10/25/17 06:00 Cardene Iv Premix IV 5 mg/hr .Q4H PRN 50 mls/hr TITRATE PER MD ORDER Titration Protocol 5 MG/HR Propofol 1,000 mg in 100 mls @ 2.336 mls/hr 10/25/17 02:30 Diprivan IV .Q24H PRN TITRATE PER MD ORDER Protocol 5 MCG/KG/MIN Pantoprazole Sodium 40 mg 10/25/17 10:00 10/25/17 10:12 Protonix Inj IVP 40 mg DAILY GOLDEN Administration - Patient Studies Lab Studies: Lab Studies 10/25/17 10/25/17 10/25/17 Range/Units 06:00 06:00 05:55 WBC 8.3 (4.5-11.0) 10^3/ul RBC 4.05 (3.5-6.1) 10^6/uL Hgb 12.0 (12.0-16.0) g/dL Hct 36.3 (36.0-48.0) % MCV 89.6 (80.0-105.0) fl MCH 29.6 (25.0-35.0) pg MCHC 33.1 (31.0-37.0) g/dl RDW 15.3 H (11.5-14.5) % Plt Count 206 (120.0-450.0) 10^3/uL MPV 9.3 (7.0-11.0) fl Gran % 80.0 H (50.0-68.0) % Lymph % (Auto) 8.7 L (22.0-35.0) % Dubois % (Auto) 11.0 H (1.0-6.0) % Eos % (Auto) 0.1 L (1.5-5.0) % Baso % (Auto) 0.2 (0.0-3.0) % Gran # 6.62 H (1.4-6.5) Lymph # (Auto) 0.7 L (1.2-3.4) Dubois # (Auto) 0.9 H (0.1-0.6) Eos # (Auto) 0.0 (0.0-0.7) Baso # (Auto) 0.02 (0.0-2.0) K/mm3 pCO2 37 (35-45) mm/Hg pO2 193.0 H (80-100) mm/Hg HCO3 27.6 (21-28) mmol/L ABG pH 7.48 H (7.35-7.45) ABG Total CO2 28.7 H (22-28) mmol.L ABG O2 Saturation 100.1 H (95-98) % ABG O2 Content 17.3 (15-23) ML/dl ABG Base Excess 4.0 H (-2.0-3.0) mmol/L ABG Hemoglobin 12.4 (11.7-17.4) g/dL ABG Carboxyhemoglobin 2.0 H (0.5-1.5) % POC ABG HHb (Measured) -0.1 L (0-5) % ABG Methemoglobin 1.2 (0.0-3.0) % ABG O2 Capacity 17.3 (16-24) mL/dl Hgb O2 Saturation 96.9 (95.0-98.0) % FiO2 50.0 % Sodium 145 (132-148) mmol/L Potassium 3.9 (3.6-5.0) mmol/L Chloride 106 (98-107) mmol/L Carbon Dioxide 27 (21-33) mmol/L Anion Gap 16 (10-20) BUN 60 H (7-21) mg/dL Creatinine 1.0 (0.7-1.2) mg/dl Est GFR ( Amer) > 60 Est GFR (Non-Af Amer) 53 Random Glucose 135 H (70-110) mg/dL Calcium 10.0 (8.4-10.5) mg/dL Total Bilirubin 2.5 H (0.2-1.3) mg/dL AST 39 H (14-36) U/L ALT 27 (7-56) U/L Alkaline Phosphatase 47 (38-126) U/L Total Protein 7.2 (5.8-8.3) g/dL Albumin 3.7 (3.0-4.8) g/dL Globulin 3.5 gm/dL Albumin/Globulin Ratio 1.0 L (1.1-1.8) Triglycerides 308 H (35-160) mg/dL Cholesterol 130 (130-200) mg/dL LDL Cholesterol Direct 52 (0-129) mg/dL HDL Cholesterol 47 (29-60) mg/dL Laboratory Results - last 24 hr 10/25/17 10/25/17 10/25/17 05:55 06:00 06:00 WBC 8.3 RBC 4.05 Hgb 12.0 Hct 36.3 MCV 89.6 MCH 29.6 MCHC 33.1 RDW 15.3 H Plt Count 206 MPV 9.3 Gran % 80.0 H Lymph % (Auto) 8.7 L Dubois % (Auto) 11.0 H Eos % (Auto) 0.1 L Baso % (Auto) 0.2 Gran # 6.62 H Lymph # (Auto) 0.7 L Dubois # (Auto) 0.9 H Eos # (Auto) 0.0 Baso # (Auto) 0.02 pCO2 37 pO2 193.0 H HCO3 27.6 ABG pH 7.48 H ABG Total CO2 28.7 H ABG O2 Saturation 100.1 H ABG O2 Content 17.3 ABG Base Excess 4.0 H ABG Hemoglobin 12.4 ABG Carboxyhemoglobin 2.0 H POC ABG HHb (Measured) -0.1 L ABG Methemoglobin 1.2 ABG O2 Capacity 17.3 Hgb O2 Saturation 96.9 FiO2 50.0 Sodium 145 Potassium 3.9 Chloride 106 Carbon Dioxide 27 Anion Gap 16 BUN 60 H Creatinine 1.0 Est GFR ( Amer) > 60 Est GFR (Non-Af Amer) 53 Random Glucose 135 H Calcium 10.0 Total Bilirubin 2.5 H AST 39 H ALT 27 Alkaline Phosphatase 47 Total Protein 7.2 Albumin 3.7 Globulin 3.5 Albumin/Globulin Ratio 1.0 L Triglycerides 308 H Cholesterol 130 LDL Cholesterol Direct 52 HDL Cholesterol 47 Critical Care Progress Note - Nutrition Nutrition: Nutrition Category Date Time Status NPO Diet [DIET] Diets 10/24/17 Dinner Ordered Attending/Attestation - Attestation I have personally seen and examined this patient.: Yes I have fully participated in the care of the patient.: Yes I have reviewed all pertinent clinical information: Yes Notes (Text): 10/25/17 15:10 The patient was seen and examined at the bedside. Patient care was discussed with resident Medical records, lab studies were reviewed and management issues were discussed and formulated. Overnight events reviewed. Agree with above treatment plans as outlined in 's note with addition of the following: Acute Respiratory Failure \ Hypoxemia \ Intracerebral Bleed \ Afib \ CHF \ Sepsis \ MIRIAM on CKD \ Encephalopathy -hemodynamic monitoring to maintain MAP>65; f\u Echo -mechanical ventilation and o2 supplementation to maintain Spo2 >90 Pao2>60 -monitor for TV 6ml\kg IBW and plateau pressure <30 -ABG and CXR were reviewed ; PS trial of 10 PS plus 5 Peep tolerated well -Pt unable to protect airway at this time for extubation -continue nebs and pulmonary toileting -start broad spectrum Abx and and f\u pancultures; consider ID team eval -f\u Bun\Cr and U\o; continue gentle hydration -NPO and aspiration precautions -neurosurgery eval appreciated; as per their opinion the bleed is minimal and no acute intervention is needed at this time -neurology team eval; continue neuro checks; repeat imaging as requested by neurology team -DVT \ PUD prophylaxis CCM time 35min
--- NOTE | 2017-10-25 08:30 | RAD ---
HISTORY: ams, r/o PNA COMPARISON: Chest radiographs 12/22/2016. FINDINGS: LUNGS: No active pulmonary disease. PLEURA: No significant pleural effusion identified, no pneumothorax apparent. CARDIOVASCULAR: Cardiomegaly remains. No pulmonary vascular congestion apparent. OSSEOUS STRUCTURES: No significant abnormalities. VISUALIZED UPPER ABDOMEN: Normal. OTHER FINDINGS: None. IMPRESSION: Stable cardiomegaly. No acute pulmonary or vascular disease appreciable.
--- NOTE | 2017-10-25 09:02 | RAD ---
HISTORY: post intubation COMPARISON: No prior. FINDINGS: A nasogastric tube is in place terminating at the left upper quadrant abdomen. LUNGS: No active pulmonary disease. PLEURA: No significant pleural effusion identified, no pneumothorax apparent. CARDIOVASCULAR: Stable likely cardiomegaly. No pulmonary vascular congestion. . OSSEOUS STRUCTURES: No significant abnormalities. VISUALIZED UPPER ABDOMEN: Normal. OTHER FINDINGS: None. IMPRESSION: Status post NG tube placement terminating at left upper quadrant abdomen as discussed above. No definite acute cardiopulmonary disease appreciable.
[2017-10-25] MEDS ORDERED: Sodium Chloride 0.9% 500 ML IV STA (09:41)
--- NOTE | 2017-10-25 09:43 | CP.PCM.PN ---
Subjective - Date & Time of Evaluation Date of Evaluation: 10/25/17 Time of Evaluation: 09:38 - Subjective Subjective: CT last night small right parasyslvian hemmorhage I could not personally identify it on that study nor did I see it on repeat No surgical intervention managment as per neurology Objective - Vital Signs/Intake and Output Vital Signs (last 24 hours): Temp Pulse Resp BP Pulse Ox 98.2 F 83 20 102/41 L 94 L 10/24/17 23:46 10/25/17 02:00 10/24/17 23:46 10/24/17 23:46 10/24/17 23:46 Intake and Output: 10/25/17 10/25/17 06:59 18:59 Intake Total 0 Balance 0 - Medications Medications: Current Medications Sodium Chloride (Sodium Chloride 0.9%) 1,000 mls @ 70 mls/hr IV .[id number] [facility] Last Admin: 10/24/17 19:50 Dose: 70 mls/hr Nicardipine HCl (Cardene Iv Premix) 20 mg in 200 mls @ 50 mls/hr IV .Q4H PRN; Protocol; 5 MG/HR PRN Reason: TITRATE PER MD ORDER Last Titration: 10/25/17 06:00 Dose: 5 mg/hr, 50 mls/hr Propofol (Diprivan) 1,000 mg in 100 mls @ 2.336 mls/hr IV .Q24H PRN; Protocol; 5 MCG/KG/MIN PRN Reason: TITRATE PER MD ORDER Pantoprazole Sodium (Protonix Inj) 40 mg IVP DAILY GOLDEN - Labs Labs: 10/25/17 06:00 10/25/17 06:00 PT 12.9 SECONDS (9.4-12.5) H 10/24/17 18:25 INR 1.13 (0.93-1.08) H 10/24/17 18:25 APTT 30.2 Seconds (25.1-36.5) 10/24/17 18:25
--- NOTE | 2017-10-25 10:12 | CT ---
PROCEDURE: CT HEAD WITHOUT CONTRAST. HISTORY: follow up COMPARISON: 10/24/17. TECHNIQUE: Axial computed tomography images were obtained through the head/brain without intravenous contrast. Radiation dose: Total exam DLP = mGy-cm. This CT exam was performed using one or more of the following dose reduction techniques: Automated exposure control, adjustment of the mA and/or kV according to patient size, and/or use of iterative reconstruction technique. FINDINGS: HEMORRHAGE: Stable small right perisylvian.Fissure hemorrhage. BRAIN: No mass effect or edema. Chronic microvascular ischemic changes. VENTRICLES: Unremarkable. No hydrocephalus. CALVARIUM: Unremarkable. PARANASAL SINUSES: Unremarkable as visualized. No significant inflammatory changes. MASTOID AIR CELLS: Unremarkable as visualized. No inflammatory changes. OTHER FINDINGS: None. IMPRESSION: Stable small right perisylvian.Fissure hemorrhage.
[2017-10-25] MEDS: Sodium Chloride 0.9% 1,000 ML IV SCH ×2 (10:14→16:39)
--- NOTE | 2017-10-25 14:37 | CT ---
PROCEDURE: CT Angiography of the Brain and Neck. HISTORY: rule out aneurysm as per Neuro COMPARISON: None available. TECHNIQUE: CT angiography of the intracranial and neck arteries was performed. Coronal and sagittal maximum intensity projection reformatted images were generated. Contrast Dose: Visipaque 320, 150 cc Radiation dose:Total exam DLP = 492.54 mGy-cm. This CT exam was performed using one or more of the following dose reduction techniques: Automated exposure control, adjustment of the mA and/or kV according to patient size, and/or use of iterative reconstruction technique. FINDINGS: INTERNAL CEREBRAL ARTERIES: Unremarkable. The skull base, petrous, cavernous and supraclinoid segments are bilaterally widely patent. The right cavernous and supraclinoid right DEEPIKA segment is slightly larger than the left without definitive aneurysm development appreciable. ANTERIOR CEREBRAL ARTERIES: Unremarkable. A1 and A2 segments are widely patent. Smaller distal branches unremarkable, as visualized. MIDDLE CEREBRAL ARTERIES: Unremarkable. M1 and M2 segments are widely patent. Perisylvian branches grossly symmetric. POSTERIOR CIRCULATION: Basilar Artery: Unremarkable. Distal Vertebral Arteries: Unremarkable. Posterior Cerebral Arteries: Unremarkable. Posterior Inferior Cerebellar Arteries: Unremarkable. NECK CTA: Common Carotid arteries: The bilateral common carotid appear widely patent from their origins to their bifurcations with no significant stenosis appreciated. No evidence to suggest common carotid artery dissection. Internal Carotid arteries: No significant stenosis is appreciated throughout the cervical internal carotid artery segments bilaterally and there is no evidence of dissection either. External Carotid arteries: Appear unremarkable bilaterally. Vertebral arteries: The bilateral vertebral arteries appear normal in caliber from their origins to their junction with the basilar artery. No significant stenosis or definite pattern of dissection. ANEURYSM/ VASCULAR MALFORMATIONS: None. OTHER FINDINGS: Trace right basal ganglia intraparenchymal hemorrhage stable. IMPRESSION: Unremarkable CT Angiography of the Brain and Neck.
--- NOTE | 2017-10-25 15:24 | CP.PCM.CON ---
History of Present Illness - History of Present Illness History of Present Illness: Neurology Consultation Note: Mrs. Duran is an 82-year-old woman with a past medical history of HTN, CHF, AF not on anti-coagulation, severe osteoarthritis, who presented to the ED yesterday with encephalopathy, became less responsive with GCS of 8, and required intubation for airway protection. CT scan of the head showed a small hoang-sylvian area hyperdensity that was concerning for bleed. CTA of the head/ neck was unremarkable. According to the history, which is provided by the daughter, who is at bedside in the ICU, the patient became suddenly confused and had difficulty with speech after complaining of pain in her knees. She began to moan in pain and did not offer speech after that. Currently, the patient is intubated, off sedation moves all extremities, does not open eyes to command or pain, does localize to pain. Pupils are reactive, she breathes on her own with pressure support, but is not on PRVC (still breathing over the vent). Review of Systems - Review of Systems All systems: reviewed and no additional remarkable complaints except Past Patient History - Past Social History Smoking Status: Never Smoked - CARDIAC Hx Cardiac Disorders: Yes Hx Angina: No Hx Cardia Arrhythmia: Yes Hx Circulatory Problems: Yes Hx Congestive Heart Failure: Yes Hx Heart Murmur: No Hx Heart Transplant: No Hx Hypercholesterolemia: No Hx Hypertension: Yes Hx Internal Defibrillator: No Hx Mitral Valve Prolapse: No Hx Pacemaker: No Hx Peripheral Edema: No Hx Peripheral Vascular Disease: No - PULMONARY Hx Respiratory Disorders: No - NEUROLOGICAL Hx Neurological Disorder: No - HEENT Hx Cataracts: Yes - RENAL Hx Chronic Kidney Disease: No - ENDOCRINE/METABOLIC Hx Endocrine Disorders: No - HEMATOLOGICAL/ONCOLOGICAL Hx Blood Disorders: No - INTEGUMENTARY Hx Dermatological Problems: No - MUSCULOSKELETAL/RHEUMATOLOGICAL Hx Falls: Yes - GASTROINTESTINAL Hx Gastrointestinal Disorders: Yes - GENITOURINARY/GYNECOLOGICAL Other/Comment: overactive bladder - PSYCHIATRIC Hx Depression: No Hx Emotional Abuse: No Hx Physical Abuse: No Hx Substance Use: No - SURGICAL HISTORY Hx Cardiac Catheterization: Yes Hx Coronary Stent: Yes - ANESTHESIA Hx Anesthesia: Yes Hx Anesthesia Reactions: No Hx Malignant Hyperthermia: No Meds Allergies/Adverse Reactions: Allergies Allergy/AdvReac Type Severity Reaction Status Date / Time dabigatran etexilate mesylate Allergy Intermediate ANGIOEDEMA Verified 12/11/16 08:37 [From Pradaxa] Penicillins Allergy RASH Verified 12/11/16 08:37 rofecoxib [From Vioxx] Allergy FATIGUE Verified 12/11/16 08:37 warfarin AdvReac Unknown ITCHING Verified 12/11/16 08:37 pravastatin AdvReac RASH Verified 12/11/16 08:37 - Medications Medications: Current Medications Sodium Chloride (Sodium Chloride 0.9%) 1,000 mls @ 70 mls/hr IV .[id number] [facility] Last Admin: 10/25/17 10:14 Dose: 70 mls/hr Nicardipine HCl (Cardene Iv Premix) 20 mg in 200 mls @ 50 mls/hr IV .Q4H PRN; Protocol; 5 MG/HR PRN Reason: TITRATE PER MD ORDER Last Titration: 10/25/17 06:00 Dose: 5 mg/hr, 50 mls/hr Propofol (Diprivan) 1,000 mg in 100 mls @ 2.336 mls/hr IV .Q24H PRN; Protocol; 5 MCG/KG/MIN PRN Reason: TITRATE PER MD ORDER Pantoprazole Sodium (Protonix Inj) 40 mg IVP DAILY [facility] Last Admin: 10/25/17 10:12 Dose: 40 mg Physical Exam - Neurological Exam Additional comments: Pupils reactive and equal, corneal response is normal, breathes over the ventilator, moves all extremities to painful stimulus, does not open eyes to pain or voice. GCS = 6T Results - Vital Signs Recent Vital Signs: Last Vital Signs Temp 101.6 F H 10/25/17 15:09 Pulse 82 10/25/17 14:50 Resp 28 H 10/25/17 11:20 BP 136/63 10/25/17 14:30 Pulse Ox 96 10/25/17 14:50 - Labs Result Diagrams: 10/25/17 06:00 10/25/17 06:00 Labs: Laboratory Results - last 24 hr 10/25/17 10/25/17 10/25/17 05:55 06:00 06:00 WBC 8.3 RBC 4.05 Hgb 12.0 Hct 36.3 MCV 89.6 MCH 29.6 MCHC 33.1 RDW 15.3 H Plt Count 206 MPV 9.3 Gran % 80.0 H Lymph % (Auto) 8.7 L [place] % (Auto) 11.0 H Eos % (Auto) 0.1 L Baso % (Auto) 0.2 Gran # 6.62 H Lymph # (Auto) 0.7 L [place] # (Auto) 0.9 H Eos # (Auto) 0.0 Baso # (Auto) 0.02 pCO2 37 pO2 193.0 H HCO3 27.6 ABG pH 7.48 H ABG Total CO2 28.7 H ABG O2 Saturation 100.1 H ABG O2 Content 17.3 ABG Base Excess 4.0 H ABG Hemoglobin 12.4 ABG Carboxyhemoglobin 2.0 H POC ABG HHb (Measured) -0.1 L ABG Methemoglobin 1.2 ABG O2 Capacity 17.3 Hgb O2 Saturation 96.9 FiO2 50.0 Sodium 145 Potassium 3.9 Chloride 106 Carbon Dioxide 27 Anion Gap 16 BUN 60 H Creatinine 1.0 Est GFR ( Amer) > 60 Est GFR (Non-Af Amer) 53 Random Glucose 135 H Calcium 10.0 Total Bilirubin 2.5 H AST 39 H ALT 27 Alkaline Phosphatase 47 Total Protein 7.2 Albumin 3.7 Globulin 3.5 Albumin/Globulin Ratio 1.0 L Triglycerides 308 H Cholesterol 130 LDL Cholesterol Direct 52 HDL Cholesterol 47 Assessment & Plan - Assessment and Plan (Free Text) Assessment: The patient may have toxic-metabolic encephalopathy, a new ischemic stroke, or may have subclinical status epilepticus. The small area of focal hyperdensity on CT scan should be re-evaluated. It may be a vein or could be a small bleed. Plan: This is unlikely to cause her current mental status. However, we will continue monitoring her vital signs to ensure she is not hypertensive, she does not have any abnormal electrolytes, infection, fever or flat head position. I will order an EEG to rule out subclinical status. Otherwise, the patient's underlying cardiac, infectious and pulmonary issues should be managed to improve her mental status. Thank you.
[2017-10-25] MEDS: Vancomycin 1gm in NS 250ml 1 GM/250 ML BAG IVPB SCH (16:36)
--- NOTE | 2017-10-25 17:39 | CP.PCM.CON ---
History of Present Illness - History of Present Illness History of Present Illness: Infectious Disease Consultation: October 25, 2017 82 yo female with PMHx of HTN, Diastolic CHF (03/2016 EF 55%), Chronic atrial fibrillation ( not on anticoagulation), Obesity, severe osteoarthritis presenting with changes in mental status. Patient is currently non verbal, thus history was obtained from son and daughter. Family states since Monday noon, patient suddenly became confused, was unable to talk, eat, and was not opening her eyes. Patient became incontinent as well. Patient was only moaning, and saying in Icelandic "pain" pointing toward her right knee (this complaints is chronic as per family, states patient complains of pain even when alert, due to severe OA). Nevertheless, prior to Monday, patient was verbal, was ambulating with a walker with family's help. Patient takes BP meds daily, takes Lopressor, and sular and water pill, measures her BP at home daily and as per son it has been normal. As per son, patient was started on pradaxa, then Coumadin for afib almost a year ago, which were stopped due to side effects such as dizziness, nausea/ vomiting. No recent travel as per family. Family denies fall, trauma or seizure like activity. Unable to obtain detail ROS due to mental status. In the ED, patient was found to have small right parasylvian hemorrhage possibly hypertensive. GCS of 9 ( E1V3M5), Patient is otherwise able to protect her airway, saturating 95% on room air. PMHx: Chronic atrial fibrillation (not on anticoagulation), HTN, CHF, Obesity, Osteoarthritis, GERD PSHx: Cataract, lap chol Allergies: PCN, refecoxib, warfarin, pravastatin, dabigatran etexilate mesylate. Social Hx: No EtOH or illicit drug use Tobacco use daily (refused to quantify) Active Medications Acetaminophen (Tylenol 650 Mg Supp) 650 mg RC Q4H PRN PRN Reason: Fever >100.4 F Sodium Chloride (Sodium Chloride 0.9%) 1,000 mls @ 70 mls/hr IV .[id number] [facility] Last Admin: 10/25/17 10:14 Dose: 70 mls/hr Nicardipine HCl (Cardene Iv Premix) 20 mg in 200 mls @ 50 mls/hr IV .Q4H PRN; Protocol; 5 MG/HR PRN Reason: TITRATE PER MD ORDER Last Titration: 10/25/17 06:00 Dose: 5 mg/hr, 50 mls/hr Propofol (Diprivan) 1,000 mg in 100 mls @ 2.336 mls/hr IV .Q24H PRN; Protocol; 5 MCG/KG/MIN PRN Reason: TITRATE PER MD ORDER Vancomycin HCl (Vancomycin 1gm) 1 gm in 250 mls @ 167 mls/hr IVPB Q12H [facility] PRN Reason: Protocol Last Admin: 10/25/17 16:36 Dose: 167 mls/hr Piperacillin Sod/Tazobactam Sod (Zosyn 3.375 In Ns 100ml) 100 mls @ 200 mls/hr IVPB Q6 [facility] PRN Reason: Protocol Stop: 10/26/17 00:29 Pantoprazole Sodium (Protonix Inj) 40 mg IVP DAILY [facility] Last Admin: 10/25/17 10:12 Dose: 40 mg Family Hx: Unable to Obtain ROS: Unable to Obtain Past Patient History - Past Social History Smoking Status: Never Smoked - CARDIAC Hx Cardiac Disorders: Yes Hx Angina: No Hx Cardia Arrhythmia: Yes Hx Circulatory Problems: Yes Hx Congestive Heart Failure: Yes Hx Heart Murmur: No Hx Heart Transplant: No Hx Hypercholesterolemia: No Hx Hypertension: Yes Hx Internal Defibrillator: No Hx Mitral Valve Prolapse: No Hx Pacemaker: No Hx Peripheral Edema: No Hx Peripheral Vascular Disease: No - PULMONARY Hx Respiratory Disorders: No - NEUROLOGICAL Hx Neurological Disorder: No - HEENT Hx Cataracts: Yes - RENAL Hx Chronic Kidney Disease: No - ENDOCRINE/METABOLIC Hx Endocrine Disorders: No - HEMATOLOGICAL/ONCOLOGICAL Hx Blood Disorders: No - INTEGUMENTARY Hx Dermatological Problems: No - MUSCULOSKELETAL/RHEUMATOLOGICAL Hx Falls: Yes - GASTROINTESTINAL Hx Gastrointestinal Disorders: Yes - GENITOURINARY/GYNECOLOGICAL Other/Comment: overactive bladder - PSYCHIATRIC Hx Depression: No Hx Emotional Abuse: No Hx Physical Abuse: No Hx Substance Use: No - SURGICAL HISTORY Hx Cardiac Catheterization: Yes Hx Coronary Stent: Yes - ANESTHESIA Hx Anesthesia: Yes Hx Anesthesia Reactions: No Hx Malignant Hyperthermia: No Meds Allergies/Adverse Reactions: Allergies Allergy/AdvReac Type Severity Reaction Status Date / Time dabigatran etexilate mesylate Allergy Intermediate ANGIOEDEMA Verified 12/11/16 08:37 [From Pradaxa] Penicillins Allergy RASH Verified 12/11/16 08:37 rofecoxib [From Vioxx] Allergy FATIGUE Verified 12/11/16 08:37 warfarin AdvReac Unknown ITCHING Verified 12/11/16 08:37 pravastatin AdvReac RASH Verified 12/11/16 08:37 - Medications Medications: Current Medications Acetaminophen (Tylenol 650 Mg Supp) 650 mg RC Q4H PRN PRN Reason: Fever >100.4 F Sodium Chloride (Sodium Chloride 0.9%) 1,000 mls @ 70 mls/hr IV .[id number] [facility] Last Admin: 10/25/17 10:14 Dose: 70 mls/hr Nicardipine HCl (Cardene Iv Premix) 20 mg in 200 mls @ 50 mls/hr IV .Q4H PRN; Protocol; 5 MG/HR PRN Reason: TITRATE PER MD ORDER Last Titration: 10/25/17 06:00 Dose: 5 mg/hr, 50 mls/hr Propofol (Diprivan) 1,000 mg in 100 mls @ 2.336 mls/hr IV .Q24H PRN; Protocol; 5 MCG/KG/MIN PRN Reason: TITRATE PER MD ORDER Vancomycin HCl (Vancomycin 1gm) 1 gm in 250 mls @ 167 mls/hr IVPB Q12H [facility] PRN Reason: Protocol Last Admin: 10/25/17 16:36 Dose: 167 mls/hr Piperacillin Sod/Tazobactam Sod (Zosyn 3.375 In Ns 100ml) 100 mls @ 200 mls/hr IVPB Q6 [facility] PRN Reason: Protocol Stop: 10/26/17 00:29 Pantoprazole Sodium (Protonix Inj) 40 mg IVP DAILY [facility] Last Admin: 10/25/17 10:12 Dose: 40 mg Physical Exam - Constitutional Appears: Non-toxic, Chronically Ill - Head Exam Head Exam: ATRAUMATIC, NORMOCEPHALIC - Eye Exam Eye Exam: EOMI, PERRL Pupil Exam: NORMAL ACCOMODATION, PERRL - ENT Exam ENT Exam: Mucous Membranes Moist, Normal External Ear Exam, TM's Normal Bilaterally - Respiratory Exam Respiratory Exam: Clear to Auscultation Bilateral, NORMAL BREATHING PATTERN. absent: Rales, Rhonchi, Wheezes - Cardiovascular Exam Cardiovascular Exam: Diastolic murmur, Irregular Rhythm, +S1, +S2 - GI/Abdominal Exam GI & Abdominal Exam: Normal Bowel Sounds, Soft. absent: Distended, Tenderness - Extremities Exam Extremities exam: Positive for: tenderness (right knee) - Neurological Exam Neurological exam: Altered Additional comments: Patient with closed eyes, not opening her eyes spontaneously, moves most of her extremities spontaneously with pain, not following commands. Unable to lift kelsey upper and lower extremities against gravity. Downward going toes kelsey. Normal patella and brachioradial reflexes kelsey. Pupils equal, and reactive to light. - Skin Skin Exam: Dry, Normal Color, Warm Results - Vital Signs Recent Vital Signs: Last Vital Signs Temp 101.6 F H 10/25/17 15:09 Pulse 82 10/25/17 14:50 Resp 28 H 10/25/17 11:20 BP 136/63 10/25/17 14:30 Pulse Ox 96 10/25/17 14:50 - Labs Result Diagrams: 10/25/17 06:00 10/25/17 06:00 Labs: Laboratory Results - last 24 hr 10/25/17 10/25/17 10/25/17 05:55 06:00 06:00 WBC 8.3 RBC 4.05 Hgb 12.0 Hct 36.3 MCV 89.6 MCH 29.6 MCHC 33.1 RDW 15.3 H Plt Count 206 MPV 9.3 Gran % 80.0 H Lymph % (Auto) 8.7 L [place] % (Auto) 11.0 H Eos % (Auto) 0.1 L Baso % (Auto) 0.2 Gran # 6.62 H Lymph # (Auto) 0.7 L [place] # (Auto) 0.9 H Eos # (Auto) 0.0 Baso # (Auto) 0.02 pCO2 37 pO2 193.0 H HCO3 27.6 ABG pH 7.48 H ABG Total CO2 28.7 H ABG O2 Saturation 100.1 H ABG O2 Content 17.3 ABG Base Excess 4.0 H ABG Hemoglobin 12.4 ABG Carboxyhemoglobin 2.0 H POC ABG HHb (Measured) -0.1 L ABG Methemoglobin 1.2 ABG O2 Capacity 17.3 Hgb O2 Saturation 96.9 FiO2 50.0 Sodium 145 Potassium 3.9 Chloride 106 Carbon Dioxide 27 Anion Gap 16 BUN 60 H Creatinine 1.0 Est GFR ( Amer) > 60 Est GFR (Non-Af Amer) 53 Random Glucose 135 H Calcium 10.0 Total Bilirubin 2.5 H AST 39 H ALT 27 Alkaline Phosphatase 47 Total Protein 7.2 Albumin 3.7 Globulin 3.5 Albumin/Globulin Ratio 1.0 L Triglycerides 308 H Cholesterol 130 LDL Cholesterol Direct 52 HDL Cholesterol 47 Assessment & Plan - Assessment and Plan (Free Text) Assessment: 82 yo female with fevers up to 101.6 F and found to have a small right parasyslvian hemmorhage. No leukocytosis but febrile. Pearson cultures and obtain procalcitonin on this patient. Drastic change in mental status as per the family. Currently on Vancomycin and Zosyn. Need clarification on PCN allergy. May need to switch Zosyn to Aztreonam for the time being. Unclear the etiology of the fever. May be secondary to hemmorhage but the hemmorhage appears to be small and unlikely to be the cause of the fevers. Pearson cultures of the patient. Will discuss with family to see what the nature of the PCN allergy is. Thank you for allowing me to participate in the care of the patient, we will follow with you.
[2017-10-25 17:59] LABS: VENOUS BLOOD GAS BASE EXCESS 4.4 mmol/L (0.0-2.0); VENOUS BLOOD GAS PO2 87 mm/Hg (30-55); VENOUS BLOOD PH 7.55 (7.32-7.43)
--- NOTE | 2017-10-25 18:17 | CARD ---
APPROVED REPORT EXAM: Two-dimensional and M-mode echocardiogram with Doppler and color Doppler. INDICATION CVA/TIA 2D DIMENSIONS Left Atrium (2D)4.8 (1.6-4.0cm)IVSd1.1 (0.7-1.1cm) LVDd4.7 (3.9-5.9cm)LVOT Diameter2.1 (1.8-2.4cm) PWd1.5 (0.7-1.1cm)LVDs3.5 (2.5-4.0cm) FS (%) 25.5 %LVEF (%)50.3 (>50%) M-Mode DIMENSIONS Aortic Root2.40 (2.2-3.7cm)Aortic Cusp Exc.1.20 (1.5-2.0cm) Aortic Valve AoV Peak Rbawsscq969.0cm/sAoV VTI51.4cmAO Peak GR.40mmHg LVOT Peak Lvzyepzp340.0cm/sLVOT VTI20.50cmAO Mean GR.20mmHg NAZANIN (VMAX)1.74ma1BAL (VTI)1.38cm2 Mitral Valve E/A ratio0.0 TDI E/Lateral E'0.0E/Medial E'0.0 Tricuspid Valve TR Peak [id number] [id number] Peak Gr.30mmHg [id number] LEFT VENTRICLE The left ventricle is normal size. There is normal left ventricular wall thickness. The left ventricular function is normal. The left ventricular ejection fraction is within the normal range. RIGHT VENTRICLE The right ventricle is normal size. There is normal right ventricular wall thickness. The right ventricular systolic function is normal. ATRIA The left atrium is moderately dilated. The right atrium is moderately dilated. AORTIC VALVE The aortic valve is moderately calcified. There is moderate valvular aortic stenosis. MITRAL VALVE The mitral valve is moderately thickened. Mitral regurgitation is mild to moderate. TRICUSPID VALVE There is mild tricuspid regurgitation. There is mild pulmonary hypertension. GREAT VESSELS The aortic root is normal in size. The IVC collapses <50% with inspiration. PERICARDIAL EFFUSION There is no pericardial effusion. <Conclusion> The left ventricle is normal size. There is normal left ventricular wall thickness. The left ventricular function is normal. The left ventricular ejection fraction is within the normal range. There is moderate valvular aortic stenosis. Mitral regurgitation is mild to moderate. There is mild tricuspid regurgitation. There is mild pulmonary hypertension.
--- NOTE | 2017-10-25 18:30 | PN ---
DATE: 10/25/2017 SUBJECTIVE: The patient is 82 years old, who was brought in because of increasing lethargy, poor responsiveness, initial diagnosis of the patient had dehydration and possible UTI, but CAT scan shows right perisylvian questionable bleed. Because of her lethargy, she was intubated for airway protection. The patient was seen and examined in CCU. She is on vent. According to family, she is full code. PHYSICAL EXAMINATION: VITAL SIGNS: She has temperature of 101, pulse 82, respirations 18, blood pressure 136/63. LUNGS: Bilateral fair airflow. No rhonchi or crackle. HEART: S1 and S2 audible. Irregular, rate controlled. ABDOMEN: Soft, obese, nontender. No rebound. No guarding. NEUROLOGICAL: She is on vent and sedated. EXTREMITIES: Bilateral leg, +2 edema. LABORATORY EXAM: WBC 8.3, hemoglobin 12, hematocrit 36, platelet 206. Chemistry: Sodium 145, potassium 3.9, chloride 106, CO2 of 27, BUN 60, creatinine 1, blood sugar 155, total bili 2.5, AST 39, triglyceride is 308. Urinalysis is unremarkable. She had repeat CT scan of the head done that shows stable small right perisylvian fissure hemorrhage. ASSESSMENT: 1. Altered mental status. Questionable right perisylvian hemorrhage. 2. History of atrial fibrillation, not on anticoagulation upon family's request. 3. Chronic bilateral venous stasis dermatitis. PLAN: We will have close ICU monitoring. Monitor her blood pressure. Continue vent support. We will have serial CT scan of the head done. No neurosurgical intervention is needed at this point. Discussed with the patient's daughter who is by the bedside. Katerin Diaz MD
[2017-10-25] MEDS: Piperacillin/Tazobact 3.375 gm 100 ML IVPB SCH ×2 (18:40→23:48)
--- NOTE | 2017-10-25 22:52 | CON ---
DATE: 10/25/2017 LOCATION: Patient is in CCU 129, bed 6. REASON FOR CONSULTATION: Atrial fibrillation, possible CVA, dehydration, altered mental status. HISTORY OF PRESENT ILLNESS: Patient is an 82-year-old Hebrew-speaking female who is known to have chronic atrial fibrillation, CHF possibly secondary to diastolic dysfunction, osteoarthritis, obesity, mild aortic stenosis, moderate mitral regurgitation, moderate tricuspid regurgitation, RVSP of 49 mmHg suggestive of ulon-ch-ojyiheci pulmonary hypertension, normal LV ejection fraction of 70%, admitted with the history that five days ago, patient started getting drowsy and stopped eating and she got confused and slowly she became very drowsy and became unresponsive. Patient was brought to the emergency room and patient was intubated. Prior to this, there is no history of chest pain or palpitation. Patient was not on anticoagulation because of previous GI bleeding and family opposed the idea for any anticoagulation in the past. Patient's previous cardiac workup showed the patient had echo on 04/22/2016 that showed LV ejection fraction of 70%, normal LV size, aortic valve is moderately calcified, mild aortic valve stenoses were seen, moderate tricuspid regurgitation, mild mitral regurgitation, [id number] pulmonary hypertension with RVSP of 49 mmHg. Patient is known to have chronic atrial fibrillation, was on Eliquis one time and also was tried on Coumadin one time, but was difficult to manage with Coumadin at home and family finally decided not to do any anticoagulation because they were concerned about her GI bleeding as a complication which happened in the past. MEDICATIONS: The patient's home medications included Sular 8.5 mg daily, metoprolol succinate 100 mg p.o. daily, Lasix 40 mg b.i.d., Nexium 40 mg daily, vitamin D2 at 1.25 mg every week. ALLERGIES: PATIENT IS ALLERGIC TO PENICILLIN, COUMADIN, PRADAXA, PRAVASTATIN. COUMADIN AND PRADAXA ALLERGIES ARE AMENDED BY THE FAMILY THAT SHE DEVELOPED BLEEDING. PERSONAL HISTORY: There is no history of smoking or drinking. REVIEW OF SYSTEMS: All the systems reviewed, positive mentioned in the history, others were negative. PHYSICAL EXAMINATION: GENERAL: Patient is on respirator, unresponsive, but sometime moves arms and legs. VITAL SIGNS: Blood pressure 125/47, respirations 20, pulse 91, and temperature 100.6. HEENT: Head: Normocephalic. Eyes: Pupils normal, conjunctivae normal. Nose and throat normal. NECK: JVP is low. Carotid equal. THORAX: AP diameter normal. LUNGS: No significant rales. CARDIOVASCULAR: S1 and S2, systolic murmur grade 2 to 3/6. No rub. ABDOMEN: Soft. No tenderness. No organomegaly. EXTREMITIES: Patient has chronic venous stasis. No significant edema at present. LABORATORY DATA: Shows WBC 8.3, hemoglobin 12, hematocrit 36.3, and platelets 206. Sodium 145, potassium 3.9, BUN 60, creatinine 1, random glucose 135, total bilirubin 2.5, AST 39, ALT 27, total protein 7.2, albumin 3.7, triglycerides 308. [id number]-dybnetlrres peptide 2340. EKG showed atrial fibrillation, moderate rate, Small Q-waves in II, III, and aVF, possible old anteroseptal AK. Chest x-ray showed cardiomegaly, no pulmonary congestion, no active pulmonary disease. On admission, CT scan, possible small right perisylvian hemorrhage, possibly hypertensive. Repeat CT scan on 10/25/2017 showed stable small right perisylvian incision hemorrhage. Head and neck CTA is done, report is pending. DIAGNOSES: Altered mental status, possible small perisylvian hemorrhage on the right, atrial fibrillation, dehydration, history of congestive heart failure probably due to left ventricular diastolic dysfunction, mild aortic stenosis, moderate mitral regurgitation, moderate tricuspid regurgitation, right ventricular systolic pressure 49 mmHg suggestive of mild to moderate pulmonary hypertension, normal left ventricular size, normal left ventricular function with left ventricular ejection fraction of 70%. PLAN: Plan is to give IV fluids. Patient is on respirator. We will continue the respirator according to blood gas management. Patient is on IV fluid therapy. Atrial fibrillation, heart rate is under control. Repeat echo has been requested. Detailed discussion with the family and explained the diagnoses and prognosis. I will follow up the labs and I will follow with you closely. Rodolfo Hinojosa MD
[2017-10-26] MEDS: Vancomycin 1gm in NS 250ml 1 GM/250 ML BAG IVPB SCH ×2 (02:37→16:15)
[2017-10-26] MEDS ORDERED: Acetaminophen 650mg/20.3ml solution UD PO PRN (07:28)
[2017-10-26 09:49] LABS: BASO # 0.03 K/mm3 (0.0-2.0); BASO % 0.3 % (0.0-3.0); EOS % 0.2 % (1.5-5.0); GRAN # 9.31 (1.4-6.5); GRAN % 80.1 % (50.0-68.0); HEMOGLOBIN 10.7 g/dL (12.0-16.0); LYMPH % 8.6 % (22.0-35.0); MEAN CELL VOLUME 91.7 fl (80.0-105.0); MEAN CORPUSCULAR HEMOGLOBIN 29.7 pg (25.0-35.0); MEAN CORPUSCULAR HGB CONC 32.4 g/dl (31.0-37.0); MONO # 1.3 (0.1-0.6); MONO % 10.8 % (1.0-6.0); RBC 3.6 10^6/uL (3.5-6.1); RED CELL DISTRIBUTION WIDTH 15.5 % (11.5-14.5); WHITE BLOOD COUNT 11.6 10^3/ul (4.5-11.0)
[2017-10-26 10:02] LABS: ALBUMIN 3.1 g/dL (3.0-4.8); ALT/SGPT 31 U/L (7-56); AST/SGOT 47 U/L (14-36); BLOOD UREA NITROGEN 39 mg/dL (7-21); CALCIUM 9.1 mg/dL (8.4-10.5); GFR AFRICAN-AMERICAN > 60; GFR NON-AFRICAN AMERICAN 53
--- NOTE | 2017-10-26 13:45 | CP.PCM.PN ---
<Chu Siegel - Last Filed: 10/26/17 13:48> Subjective - Date & Time of Evaluation Date of Evaluation: 10/26/17 Time of Evaluation: 13:41 - Subjective Subjective: Ms. Duran was seen and examined at the bedside in ICU. She is more alert, just extubated on bipap machine saturating above 90's. She is unable to answer some questions but follow all commands. EEG was done this am. There was no untoward events overnight. Objective - Vital Signs/Intake and Output Vital Signs (last 24 hours): Temp Pulse Resp BP Pulse Ox 100.6 F H 92 H 59 H 118/51 L 97 10/26/17 12:55 10/26/17 13:40 10/26/17 13:30 10/26/17 13:00 10/26/17 13:30 Intake and Output: 10/26/17 10/26/17 06:59 18:59 Intake Total 2180 Output Total 1225 Balance 955 - Medications Medications: Current Medications Sodium Chloride (Sodium Chloride 0.9%) 1,000 mls @ 70 mls/hr IV .[id number] [facility] Last Admin: 10/25/17 16:39 Dose: 70 mls/hr Propofol (Diprivan) 1,000 mg in 100 mls @ 2.336 mls/hr IV .Q24H PRN; Protocol; 5 MCG/KG/MIN PRN Reason: TITRATE PER MD ORDER Vancomycin HCl (Vancomycin 1gm) 1 gm in 250 mls @ 167 mls/hr IVPB Q12H [facility] PRN Reason: Protocol Last Admin: 10/26/17 02:37 Dose: 167 mls/hr Acetaminophen (Ofirmev) 1,000 mg in 100 mls @ 400 mls/hr IVPB Q6H PRN PRN Reason: Temperature Stop: 10/28/17 12:55 Pantoprazole Sodium (Protonix Inj) 40 mg IVP DAILY [facility] Last Admin: 10/26/17 09:11 Dose: 40 mg - Labs Labs: 10/26/17 09:30 10/26/17 09:30 PT 12.9 SECONDS (9.4-12.5) H 10/24/17 18:25 INR 1.13 (0.93-1.08) H 10/24/17 18:25 APTT 30.2 Seconds (25.1-36.5) 10/24/17 18:25 - Constitutional Appears: No Acute Distress - Head Exam Head Exam: NORMAL INSPECTION - Eye Exam Pupil Exam: PERRL Additional comments: 2 mm sluggish bilateral. - Neurological Exam Neurological Exam: Awake Neuro motor strength exam: Left Upper Extremity: 3, Right Upper Extremity: 3, Left Lower Extremity: 2/1, Right Lower Extremity: 2/1 Additional comments: neurological improved from previous examination. Assessment and Plan (1) Encephalopathy acute Assessment & Plan: Case discussed with Dr. Stephenson, continue all current medical regimen. Pending EEG. Recommend normothermic, blood pressure control, treat any electrolyte abnormalities. Status: Acute <Memo Stephenson - Last Filed: 10/26/17 19:32> Objective - Vital Signs/Intake and Output Vital Signs (last 24 hours): Temp Pulse Resp BP Pulse Ox 98 F 88 23 123/53 L 100 10/26/17 15:16 10/26/17 18:40 10/26/17 18:40 10/26/17 18:00 10/26/17 18:40 Intake and Output: 10/26/17 10/27/17 18:59 06:59 Intake Total 1290 Output Total 560 Balance 730 - Medications Medications: Current Medications Sodium Chloride (Sodium Chloride 0.9%) 1,000 mls @ 70 mls/hr IV .[id number] [facility] Last Admin: 10/25/17 16:39 Dose: 70 mls/hr Propofol (Diprivan) 1,000 mg in 100 mls @ 2.336 mls/hr IV .Q24H PRN; Protocol; 5 MCG/KG/MIN PRN Reason: TITRATE PER MD ORDER Vancomycin HCl (Vancomycin 1gm) 1 gm in 250 mls @ 167 mls/hr IVPB Q12H [facility] PRN Reason: Protocol Last Admin: 10/26/17 16:15 Dose: 167 mls/hr Acetaminophen (Ofirmev) 1,000 mg in 100 mls @ 400 mls/hr IVPB Q6H PRN PRN Reason: Temperature Stop: 10/28/17 12:55 Methylprednisolone (Solu-Medrol) 20 mg IVP Q8H [facility] Last Admin: 10/26/17 18:10 Dose: 20 mg Pantoprazole Sodium (Protonix Inj) 40 mg IVP DAILY [facility] Last Admin: 10/26/17 09:11 Dose: 40 mg - Labs Labs: 10/26/17 09:30 10/26/17 09:30 PT 12.9 SECONDS (9.4-12.5) H 10/24/17 18:25 INR 1.13 (0.93-1.08) H 10/24/17 18:25 APTT 30.2 Seconds (25.1-36.5) 10/24/17 18:25 Assessment and Plan (1) Encephalopathy acute Assessment & Plan: EEG was reviewed and the patient is currently in status epilepticus. I will discuss this with the primary team and load the patient with 4 mg of Ativan IV, followed by Keppra 1500 mg IV and continue 750 BID. We will repeat EEG tomorrow. Status: Acute
--- NOTE | 2017-10-26 13:50 | CP.CCUPN ---
<OlesyaMing - Last Filed: 10/26/17 13:46> CCU Subjective - Physician Review Events Since Last Encounter (Free Text): 10/26/17 07:00 Patient seen and examined at bedside. No acute overnight events, patient is responsive at bedside but still intubated and sedated. CCU Objective - Vital Signs / Intake & Output Vital Signs (Last 4 hours): Vital Signs Temp Pulse Resp BP Pulse Ox 10/26/17 13:40 92 H 10/26/17 13:30 95 H 59 H 97 10/26/17 13:20 93 H 52 H 98 10/26/17 13:10 98 10/26/17 13:00 83 27 H 118/51 L 98 10/26/17 12:55 100.6 F H 10/26/17 12:50 90 27 H 98 10/26/17 12:40 89 29 H 98 10/26/17 12:30 89 29 H 98 10/26/17 12:20 87 30 H 97 10/26/17 12:10 84 28 H 97 10/26/17 12:00 88 26 H 119/42 L 97 10/26/17 11:50 92 H 24 98 10/26/17 11:40 87 30 H 98 10/26/17 11:33 90 10/26/17 11:30 95 H 25 H 98 10/26/17 11:20 94 H 57 H 98 10/26/17 11:12 90 40 H 98 10/26/17 11:11 86 34 H 98 10/26/17 11:10 95 H 37 H 98 10/26/17 11:09 84 31 H 98 10/26/17 11:08 83 29 H 98 10/26/17 11:07 82 30 H 98 10/26/17 11:06 90 29 H 98 10/26/17 11:05 93 H 31 H 98 10/26/17 11:04 94 H 28 H 98 10/26/17 11:03 93 H 31 H 98 10/26/17 11:02 128/68 10/26/17 11:01 100 H 25 H 98 10/26/17 11:00 90 30 H 98 10/26/17 10:59 89 41 H 98 10/26/17 10:58 88 32 H 98 10/26/17 10:57 89 33 H 98 10/26/17 10:56 82 32 H 98 10/26/17 10:55 90 30 H 98 10/26/17 10:54 90 31 H 98 10/26/17 10:53 89 30 H 98 10/26/17 10:52 89 30 H 98 10/26/17 10:51 100 H 22 98 10/26/17 10:50 97 H 98 10/26/17 10:49 90 34 H 98 10/26/17 10:48 93 H 33 H 99 10/26/17 10:47 99 H 54 H 99 10/26/17 10:46 102 H 21 99 10/26/17 10:45 99 H 23 98 10/26/17 10:44 89 22 98 10/26/17 10:43 86 29 H 98 10/26/17 10:42 84 29 H 98 10/26/17 10:41 81 29 H 98 10/26/17 10:40 81 29 H 98 10/26/17 10:39 87 29 H 98 10/26/17 10:38 86 29 H 98 10/26/17 10:37 78 29 H 98 10/26/17 10:36 87 26 H 98 10/26/17 10:35 85 32 H 98 10/26/17 10:34 87 36 H 99 10/26/17 10:33 84 31 H 99 10/26/17 10:32 81 29 H 98 10/26/17 10:31 82 31 H 99 10/26/17 10:30 90 27 H 99 10/26/17 10:29 91 H 30 H 98 10/26/17 10:28 91 H 28 H 98 10/26/17 10:27 91 H 31 H 98 10/26/17 10:26 87 29 H 98 10/26/17 10:25 90 29 H 98 10/26/17 10:24 88 28 H 98 10/26/17 10:23 90 30 H 98 Intake and Output (Last 8hrs): Intake & Output 10/25/17 10/26/17 10/26/17 22:59 06:59 14:59 Intake Total 1340 840 Output Total 575 650 Balance 765 190 Weight 78.16 kg Intake: IV 1340 840 Left Antecubital 1340 840 Oral 0 Output: Urine 575 650 Urethral (Jackson) 575 650 Other: # Bowel Movements 1 - Physical Exam Head: Positive for: Atraumatic, Normocephalic. Negative for: Tenderness, Contusion, Swelling, Ecchymosis, Abrasion, Laceration Pupils: Positive for: PERRL. Negative for: Sluggish, Non-Reactive, Pinpoint Extroacular Muscles: Positive for: Other (not following commands, so unable to assess EOMI, brief eye movement towards painful stimuli observed during one spontaneous eye opening) Conjunctiva: Positive for: Normal. Negative for: Injected, Icteric Mouth: Positive for: Dry, Normal Lips, Normal Tounge. Negative for: Moist Mucous Membranes, Drooling Nose (External): Positive for: Atraumatic. Negative for: Abrasion, Laceration Nose (Internal): Positive for: No Active Bleeding. Negative for: Epistaxis Neck: Positive for: Trachea Midline. Negative for: JVD Respiratory/Chest: Positive for: Clear to Auscultation. Negative for: Respiratory Distress, Accessory Muscle Use Cardiovascular: Positive for: Normal S1, S2, Irregular Rhythm, Peripheal Pulses Present (+2 radials bilaterally). Negative for: Regular Rate and Rhythm, Murmurs, Tachycardic, Bradycardic Abdomen: Positive for: Normal Bowel Sounds. Negative for: Distention, Peritoneal Signs Upper Extremity: Positive for: Normal Inspection, NORMAL PULSES. Negative for: Cyanosis, Edema, Swelling, Erythema, Deformity Lower Extremity: Positive for: Edema (trace pedal/ankle pitting edema), NORMAL PULSES. Negative for: Cyanosis, Normal ROM (unable to assess ROM, some spontaneous movements but not following commands), Swelling, Erythema, Deformity Neurological: Positive for: Other (not following commands, sufficient motor control to repeatedly attempt to roll over on right lateral recumbent position from supine position). Negative for: GCS=15 (GCS 9: E2 V2 M5) Skin: Positive for: Warm, Dry, Normal Color. Negative for: Rashes Psychiatric: Positive for: Other (Intubated). Negative for: Alert, Oriented x 3 , Normal Insight, Normal Concentration, Normal Affect, Normal Mood - Medications Active Medications: Active Medications Generic Name Dose Route Start Last Admin Trade Name Freq PRN Reason Stop Dose Admin Sodium Chloride 1,000 mls @ 70 mls/hr 10/24/17 19:30 10/25/17 16:39 Sodium Chloride 0.9% IV 70 mls/hr .[id number] [facility] Administration Propofol 1,000 mg in 100 mls @ 2.336 mls/hr 10/25/17 02:30 Diprivan IV .Q24H PRN TITRATE PER MD ORDER Protocol 5 MCG/KG/MIN Vancomycin HCl 1 gm in 250 mls @ 167 mls/hr 10/25/17 15:15 10/26/17 02:37 Vancomycin 1gm IVPB 167 mls/hr Q12H [facility] Administration Protocol Acetaminophen 1,000 mg in 100 mls @ 400 mls/hr 10/26/17 12:54 Ofirmev IVPB 10/28/17 12:55 Q6H PRN Temperature Pantoprazole Sodium 40 mg 10/25/17 10:00 10/26/17 09:11 Protonix Inj IVP 40 mg DAILY [facility] Administration - Patient Studies Lab Studies: Microbiology Studies 10/24/17 23:33 MRSA Culture (Admit) - Final Naris MRSA NOT DETECTED Lab Studies 10/26/17 10/26/17 10/25/17 Range/Units 09:30 09:30 17:44 WBC 11.6 H D (4.5-11.0) 10^3/ul RBC 3.60 (3.5-6.1) 10^6/uL Hgb 10.7 L (12.0-16.0) g/dL Hct 33.0 L (36.0-48.0) % MCV 91.7 (80.0-105.0) fl MCH 29.7 (25.0-35.0) pg MCHC 32.4 (31.0-37.0) g/dl RDW 15.5 H (11.5-14.5) % Plt Count 165 (120.0-450.0) 10^3/uL MPV 10.0 (7.0-11.0) fl Gran % 80.1 H (50.0-68.0) % Lymph % (Auto) 8.6 L (22.0-35.0) % Meade % (Auto) 10.8 H (1.0-6.0) % Eos % (Auto) 0.2 L (1.5-5.0) % Baso % (Auto) 0.3 (0.0-3.0) % Gran # 9.31 H (1.4-6.5) Lymph # (Auto) 1.0 L (1.2-3.4) Meade # (Auto) 1.3 H (0.1-0.6) Eos # (Auto) 0.0 (0.0-0.7) Baso # (Auto) 0.03 (0.0-2.0) K/mm3 pO2 87 H (30-55) mm/Hg VBG pH 7.55 H (7.32-7.43) VBG pCO2 30.0 L (40-60) VBG HCO3 26.2 (21-28) mmol/l VBG Total CO2 27.1 (22-28) mmol.L VBG O2 Sat (Calc) 99.5 H (40-65) % VBG Base Excess 4.4 H (0.0-2.0) mmol/L VBG Potassium 3.6 (3.6-5.2) mmol/L Sodium 151 H 146.0 (132-148) mmol/L Chloride 118 H 115.0 H (98-107) mmol/L Glucose 106 H (65-105) mg/dl Lactate 1.0 (0.7-2.1) mmol/L FiO2 21.0 % Potassium 3.4 L (3.6-5.0) mmol/L Carbon Dioxide 23 (21-33) mmol/L Anion Gap 13 (10-20) BUN 39 H (7-21) mg/dL Creatinine 1.0 (0.7-1.2) mg/dl Est GFR ( Amer) > 60 Est GFR (Non-Af Amer) 53 Random Glucose 97 (70-110) mg/dL Calcium 9.1 (8.4-10.5) mg/dL Phosphorus 3.6 (2.5-4.5) mg/dL Magnesium 2.1 (1.7-2.2) mg/dL Total Bilirubin 2.7 H (0.2-1.3) mg/dL AST 47 H D (14-36) U/L ALT 31 (7-56) U/L Alkaline Phosphatase 39 (38-126) U/L Total Protein 6.4 (5.8-8.3) g/dL Albumin 3.1 (3.0-4.8) g/dL Globulin 3.3 gm/dL Albumin/Globulin Ratio 1.0 L (1.1-1.8) Venous Blood Potassium 3.6 (3.6-5.2) mmol/L Laboratory Results - last 24 hr 10/25/17 10/26/17 10/26/17 17:44 09:30 09:30 WBC 11.6 H D RBC 3.60 Hgb 10.7 L Hct 33.0 L MCV 91.7 MCH 29.7 MCHC 32.4 RDW 15.5 H Plt Count 165 MPV 10.0 Gran % 80.1 H Lymph % (Auto) 8.6 L Meade % (Auto) 10.8 H Eos % (Auto) 0.2 L Baso % (Auto) 0.3 Gran # 9.31 H Lymph # (Auto) 1.0 L Meade # (Auto) 1.3 H Eos # (Auto) 0.0 Baso # (Auto) 0.03 pO2 87 H VBG pH 7.55 H VBG pCO2 30.0 L VBG HCO3 26.2 VBG Total CO2 27.1 VBG O2 Sat (Calc) 99.5 H VBG Base Excess 4.4 H VBG Potassium 3.6 Sodium 146.0 151 H Chloride 115.0 H 118 H Glucose 106 H Lactate 1.0 FiO2 21.0 Potassium 3.4 L Carbon Dioxide 23 Anion Gap 13 BUN 39 H Creatinine 1.0 Est GFR ( Amer) > 60 Est GFR (Non-Af Amer) 53 Random Glucose 97 Calcium 9.1 Phosphorus 3.6 Magnesium 2.1 Total Bilirubin 2.7 H AST 47 H D ALT 31 Alkaline Phosphatase 39 Total Protein 6.4 Albumin 3.1 Globulin 3.3 Albumin/Globulin Ratio 1.0 L Venous Blood Potassium 3.6 Critical Care Progress Note - Nutrition Nutrition: Nutrition Category Date Time Status NPO Diet [DIET] Diets 10/24/17 Dinner Ordered Assessment/Plan - Assessment and Plan (Free Text) Assessment: 82 F under ICU management for management of airway secondary to altered mental status - patient now extubated Acute Leukocytosis HTN Diastolic CHF A-Fib CKD Obesity GERD LE Edema Neuro: AMS likely due to small right parasylvian hemorrhage possibly hypertensive - Neurosurgery consulted, no intervention at this time as per ED. - Neurology consulted, recommending to maintain SBP below 160, repeat CT head in the AM, CTA of neck and head to r/o aneurysm and stenosis. - Neuro check q2, fall and seizure precautions - Head of bed above 35 degrees - Cardene drip to maintain SBP 130 - 160. - NPO - Speech, swallow, PT/OT evaluation - Will add PT/PTT to the lab. - No MRI needed Pulm: Patient extubated - resting on nasal cannula CXR (10/25) - slightly fluid overload, no significant pleural effusion ABG normal pro bnp was elevated Cardiac: Cardene drip PRN to maintain sbp 130~160. h/o diastolic chf repeat echo ordered, cardio consulted, lasix and oral BP meds on hold H/o of AFib- currently rate controlled. not on anticoagulation. GI: NGT in place ID: No active signs of infection; continues to be on broad spectrum antibiotics until etiology of fevers is determined; also had a leukocytosis today Renal: slight increase in creat by 0.4 from almost a year ago likely due to dehydration. started on NS@70 ml/hr. Endo: will maintain euglycemia. Hx hypothyroidism Heme: h/o of anemia- h/h slightly higher than previous h/h likely due to dehydration. will add pt/ptt. Gi: npo pending swallow eval. Protonix for gi prophylaxis. DVT prophylaxis: VTE device. <Sriram Bruce - Last Filed: 10/27/17 10:32> CCU Objective - Vital Signs / Intake & Output Vital Signs (Last 4 hours): Vital Signs Temp Pulse Resp BP Pulse Ox 10/27/17 07:00 98.6 F 89 27 H 135/66 100 10/27/17 06:57 98.6 F 92 H 100 10/27/17 06:50 98.6 F 88 28 H 100 10/27/17 06:42 98.6 F 89 100 10/27/17 06:40 98.6 F 94 H 20 100 10/27/17 06:38 98.6 F 91 H 100 10/27/17 06:36 98.6 F 91 H 100 Intake and Output (Last 8hrs): Intake & Output 10/26/17 10/27/17 10/27/17 22:59 06:59 14:59 Intake Total 1290 900 Output Total 560 500 Balance 730 400 Intake: IV 1290 900 Left Antecubital 1290 900 Output: Urine 560 500 Urethral (Jackson) 560 500 - Medications Active Medications: Active Medications Generic Name Dose Route Start Last Admin Trade Name Freq PRN Reason Stop Dose Admin Sodium Chloride 1,000 mls @ 70 mls/hr 10/24/17 19:30 10/27/17 04:48 Sodium Chloride 0.9% IV 70 mls/hr .[id number] [facility] Administration Propofol 1,000 mg in 100 mls @ 2.336 mls/hr 10/25/17 02:30 Diprivan IV .Q24H PRN TITRATE PER MD ORDER Protocol 5 MCG/KG/MIN Vancomycin HCl 1 gm in 250 mls @ 167 mls/hr 10/25/17 15:15 10/27/17 03:00 Vancomycin 1gm IVPB 167 mls/hr Q12H [facility] Administration Protocol Acetaminophen 1,000 mg in 100 mls @ 400 mls/hr 10/26/17 12:54 Ofirmev IVPB 10/28/17 12:55 Q6H PRN Temperature Levetiracetam 500 mg/ Sodium 105 mls @ 460 mls/hr 10/27/17 19:00 Chloride IV 0700,1900 [facility] Dextrose 1,000 mls @ 75 mls/hr 10/27/17 10:30 Dextrose 5% In Water 1000 Ml IV .[id number] [facility] Methylprednisolone 20 mg 10/27/17 10:30 Solu-Medrol IVP Q12H [facility] Pantoprazole Sodium 40 mg 10/25/17 10:00 10/27/17 10:21 Protonix Inj IVP 40 mg DAILY [facility] Administration - Patient Studies Lab Studies: Microbiology Studies 10/25/17 17:45 Blood Culture - Preliminary Blood NO GROWTH AFTER 24 HOURS 10/25/17 17:45 Blood Culture - Preliminary Blood NO GROWTH AFTER 24 HOURS 10/25/17 19:47 Gram Stain - Final Trachasp 10/24/17 23:33 MRSA Culture (Admit) - Final Naris MRSA NOT DETECTED Lab Studies 10/27/17 10/27/17 10/25/17 Range/Units 06:10 06:10 17:44 WBC 8.3 D (4.5-11.0) 10^3/ul RBC 3.84 (3.5-6.1) 10^6/uL Hgb 11.3 L (12.0-16.0) g/dL Hct 36.6 (36.0-48.0) % MCV 95.3 D (80.0-105.0) fl MCH 29.4 (25.0-35.0) pg MCHC 30.9 L (31.0-37.0) g/dl RDW 15.6 H (11.5-14.5) % Plt Count 177 (120.0-450.0) 10^3/uL MPV 10.4 (7.0-11.0) fl Gran % 93.0 H (50.0-68.0) % Lymph % (Auto) 5.5 L (22.0-35.0) % Meade % (Auto) 1.4 (1.0-6.0) % Eos % (Auto) 0.0 L (1.5-5.0) % Baso % (Auto) 0.1 (0.0-3.0) % Gran # 7.71 H (1.4-6.5) Lymph # (Auto) 0.5 L (1.2-3.4) Meade # (Auto) 0.1 (0.1-0.6) Eos # (Auto) 0.0 (0.0-0.7) Baso # (Auto) 0.01 (0.0-2.0) K/mm3 Neutrophils % (Manual) 93 H (50.0-70.0) % Lymphocytes % (Manual) 4 L (22.0-35.0) % Monocytes % (Manual) 2 (1.0-6.0) % Basophils % (Manual) 1 (0.0-1.0) % Platelet Evaluation Normal (NORMAL) Poikilocytosis (manual Slight Ovalocytes 1+ Sodium 157 H* (132-148) mmol/L Potassium 3.9 (3.6-5.0) mmol/L Chloride 121 H (98-107) mmol/L Carbon Dioxide 23 (21-33) mmol/L Anion Gap 16 (10-20) BUN 37 H (7-21) mg/dL Creatinine 1.0 (0.7-1.2) mg/dl Est GFR ( Amer) > 60 Est GFR (Non-Af Amer) 53 Random Glucose 108 (70-110) mg/dL Calcium 9.4 (8.4-10.5) mg/dL Total Bilirubin 1.5 H (0.2-1.3) mg/dL AST 32 (14-36) U/L ALT 29 (7-56) U/L Alkaline Phosphatase 43 (38-126) U/L Total Protein 6.9 (5.8-8.3) g/dL Albumin 3.4 (3.0-4.8) g/dL Globulin 3.5 gm/dL Albumin/Globulin Ratio 1.0 L (1.1-1.8) Procalcitonin 0.07 L (0.19-0.49) NG/ML Laboratory Results - last 24 hr 10/25/17 10/27/17 10/27/17 17:44 06:10 06:10 WBC 8.3 D RBC 3.84 Hgb 11.3 L Hct 36.6 MCV 95.3 D MCH 29.4 MCHC 30.9 L RDW 15.6 H Plt Count 177 MPV 10.4 Gran % 93.0 H Lymph % (Auto) 5.5 L Meade % (Auto) 1.4 Eos % (Auto) 0.0 L Baso % (Auto) 0.1 Gran # 7.71 H Lymph # (Auto) 0.5 L Meade # (Auto) 0.1 Eos # (Auto) 0.0 Baso # (Auto) 0.01 Neutrophils % (Manual) 93 H Lymphocytes % (Manual) 4 L Monocytes % (Manual) 2 Basophils % (Manual) 1 Platelet Evaluation Normal Poikilocytosis (manual Slight Ovalocytes 1+ Sodium 157 H* Potassium 3.9 Chloride 121 H Carbon Dioxide 23 Anion Gap 16 BUN 37 H Creatinine 1.0 Est GFR ( Amer) > 60 Est GFR (Non-Af Amer) 53 Random Glucose 108 Calcium 9.4 Total Bilirubin 1.5 H AST 32 ALT 29 Alkaline Phosphatase 43 Total Protein 6.9 Albumin 3.4 Globulin 3.5 Albumin/Globulin Ratio 1.0 L Procalcitonin 0.07 L Critical Care Progress Note - Nutrition Nutrition: Nutrition Category Date Time Status Liquid Diet [DIET] Diets 10/27/17 Breakfast Ordered Attending/Attestation - Attestation I have personally seen and examined this patient.: Yes I have fully participated in the care of the patient.: Yes I have reviewed all pertinent clinical information: Yes Notes (Text): 10/27/17 10:[address] bruce note
--- NOTE | 2017-10-26 16:56 | RAD ---
HISTORY: Extubation COMPARISON: No prior. FINDINGS: Nasogastric and endotracheal tubes are not identified. LUNGS: No acute infiltrate, pleural effusion or pneumothorax bilaterally. PLEURA: As above. CARDIOVASCULAR: Cardiomegaly is stable. No pulmonary vascular congestion. OSSEOUS STRUCTURES: No significant abnormalities. VISUALIZED UPPER ABDOMEN: Normal. OTHER FINDINGS: None. IMPRESSION: Stable cardiomegaly. No acute infiltrate bilaterally. Patient apparently extubated with nasogastric tube also not present.
--- NOTE | 2017-10-26 16:58 | RAD ---
HISTORY: Pneumonia? COMPARISON: Portable chest 10/25/2017 2:29 a.m.. FINDINGS: LUNGS: Endotracheal tube and nasogastric tube are unchanged in position grossly. No acute infiltrate bilaterally, pleural effusion or pneumothorax. Cardiomediastinal silhouette appears stable. No definitive interval cardiopulmonary disease appreciable. PLEURA: No significant pleural effusion identified, no pneumothorax apparent. CARDIOVASCULAR: Normal. OSSEOUS STRUCTURES: No significant abnormalities. VISUALIZED UPPER ABDOMEN: Normal. OTHER FINDINGS: None. IMPRESSION: Stable chest radiography with no definitive interval cardiopulmonary disease appreciable.
[2017-10-26] MEDS ORDERED: Albuterol-Ipratrop 3 mg / 0.5 (3 ml) UD IH ONE (17:00)
[2017-10-26] MEDS ORDERED: Albuterol-Ipratrop 3 mg / 0.5 (3 ml) UD ONE (17:04)
[2017-10-26] MEDS: MethylPREDNISolone 40 mg Vial IVP SCH (18:10)
--- NOTE | 2017-10-26 18:58 | PN ---
DATE: 10/26/2017 SUBJECTIVE: The patient is seen and examined at bedside. She passed pressure support trial and was successfully extubated initially to BiPAP and then, switched to nasal cannula. OBJECTIVE: VITAL SIGNS: At present time, her vital signs are as follows: Blood pressure 119/51 with mean arterial pressure 75, heart rate 94, oxygen saturation 98% on 2 liters nasal cannula, respiratory rate 30, however, it is habitual and she looks very, very comfortable. She communicates with the family, able to protect airways, has good cough and gag reflex. She is following commands. HEENT: Head and neck atraumatic. LUNGS: Clear to auscultation bilaterally. HEART: Regular rhythm and rate. S1, S2 normal. ABDOMEN: Soft, nontender, nondistended. MUSCULOSKELETAL: No C/C/E. NEUROLOGICAL: The patient moves all extremities spontaneously. SKIN: Moist. PSYCHIATRIC: The patient is alert, awake and oriented x3. LABORATORY DATA: WBC 11.6, hemoglobin 10.7, platelet count 165. Sodium 151, potassium 3.4 (supplemented), carbon dioxide 23, BUN 39, creatinine 1 down from 1.2 as of 2 days ago, glucose 97, AST 47, ALT 31, total bilirubin 2.7 MEDICATIONS: Tylenol p.r.n., the patient is off of Cardene drip, Protonix 40 mg IV daily, normal saline 70 mL/hour, vancomycin 1 g IV every 12 hours. ASSESSMENT AND PLAN: This is an 82-year-old lady who initially presented with questionable intraparenchymal bleed and was admitted to Intensive Care Unit for blood pressure control. She initially had altered mental status and was not able to protect her airways, for which she was intubated. At present time, she is extubated. She is alert, awake, oriented. She is communicating with her family and following commands. She moves all extremities spontaneously. We will continue to target euvolemia, euglycemia, normothermia and oxygen saturation more than 90%. We will continue with DVT, GI prophylaxes. ccm time 40 min Sriram Gutiérrez MD MTDD
--- NOTE | 2017-10-26 19:02 | PN ---
DATE: 10/26/2017 SUBJECTIVE: The patient is an 82-year-old. The patient still in ICU, seen and examined. Sedation was turned off. Seems to be more alert. Just had ABG drawn. Awaiting results to make decision about extubation or not. Family by the bedside. PHYSICAL EXAMINATION: VITAL SIGNS: She has temperature 100.6, pulse 90, respirations 20, blood pressure 128/68. LUNGS: Bilateral fair airflow. Few soft crackles, scattered. HEART: S1 and S2 audible. Irregular rate control. ABDOMEN: Soft, nontender. No rebound. No guarding. NEUROLOGIC: She is awake, alert, confused, and disoriented. LABORATORY EXAM: WBC 11.6, hemoglobin 10.7, hematocrit 33, platelet 165. Chemistry: Sodium 151, potassium 3.4, chloride 118, CO2 of 23, BUN 39, creatinine 1, blood sugar of 97. Total bilirubin 2.7. AST is 47. ASSESSMENT: 1. Small right perisylvian bleed. 2. Status post altered mental status, seems to be improving. 3. Status post intubation secondary to altered mental status for airway protection. 4. Chronic atrial fibrillation, not on anticoagulant. 5. Hypertension. 6. Congestive heart failure. 7. Chronic anemia. PLAN: We will follow up ABG to decide about extubation or not, spoke to the family. The patient is full code, do not everything done. Continue on Protonix, she is on IV fluids, she is on vancomycin. We will repeat CBC and CMP in a.m. Katerin Diaz MD
--- NOTE | 2017-10-26 19:23 | CP.PCM.PN ---
Subjective - Date & Time of Evaluation Date of Evaluation: 10/26/17 Time of Evaluation: 17:00 - Subjective Subjective: Infectious Disease Follow Up: October 26, 2017 82 yo female with PMHx of HTN, Diastolic CHF (03/2016 EF 55%), Chronic atrial fibrillation ( not on anticoagulation), Obesity, severe osteoarthritis presenting with changes in mental status. Patient is currently non verbal, thus history was obtained from son and daughter. Family states since Monday noon, patient suddenly became confused, was unable to talk, eat, and was not opening her eyes. Patient became incontinent as well. Patient was only moaning, and saying in Uzbek "pain" pointing toward her right knee (this complaints is chronic as per family, states patient complains of pain even when alert, due to severe OA). Nevertheless, prior to Monday, patient was verbal, was ambulating with a walker with family's help. Patient takes BP meds daily, takes Lopressor, and sular and water pill, measures her BP at home daily and as per son it has been normal. As per son, patient was started on pradaxa, then Coumadin for afib almost a year ago, which were stopped due to side effects such as dizziness, nausea/ vomiting. No recent travel as per family. Family denies fall, trauma or seizure like activity. Unable to obtain detail ROS due to mental status. In the ED, patient was found to have small right parasylvian hemorrhage possibly hypertensive. GCS of 9 ( E1V3M5), Patient is otherwise able to protect her airway, saturating 95% on room air. Extubated today. Still confused but following orders. Swallow studies for the morning. Leukocytosis still elevated. Objective - Vital Signs/Intake and Output Vital Signs (last 24 hours): Temp Pulse Resp BP Pulse Ox 98 F 88 23 123/53 L 100 10/26/17 15:16 10/26/17 18:40 10/26/17 18:40 10/26/17 18:00 10/26/17 18:40 Intake and Output: 10/26/17 10/26/17 06:59 18:59 Intake Total 2180 1290 Output Total 1225 560 Balance 955 730 - Medications Medications: Current Medications Sodium Chloride (Sodium Chloride 0.9%) 1,000 mls @ 70 mls/hr IV .[id number] [facility] Last Admin: 10/25/17 16:39 Dose: 70 mls/hr Propofol (Diprivan) 1,000 mg in 100 mls @ 2.336 mls/hr IV .Q24H PRN; Protocol; 5 MCG/KG/MIN PRN Reason: TITRATE PER MD ORDER Vancomycin HCl (Vancomycin 1gm) 1 gm in 250 mls @ 167 mls/hr IVPB Q12H [facility] PRN Reason: Protocol Last Admin: 10/26/17 16:15 Dose: 167 mls/hr Acetaminophen (Ofirmev) 1,000 mg in 100 mls @ 400 mls/hr IVPB Q6H PRN PRN Reason: Temperature Stop: 10/28/17 12:55 Methylprednisolone (Solu-Medrol) 20 mg IVP Q8H [facility] Last Admin: 10/26/17 18:10 Dose: 20 mg Pantoprazole Sodium (Protonix Inj) 40 mg IVP DAILY [facility] Last Admin: 10/26/17 09:11 Dose: 40 mg - Labs Labs: 10/26/17 09:30 10/26/17 09:30 PT 12.9 SECONDS (9.4-12.5) H 10/24/17 18:25 INR 1.13 (0.93-1.08) H 10/24/17 18:25 APTT 30.2 Seconds (25.1-36.5) 10/24/17 18:25 - Constitutional Appears: Non-toxic, Chronically Ill - Head Exam Head Exam: ATRAUMATIC, NORMOCEPHALIC - Eye Exam Eye Exam: EOMI, PERRL Pupil Exam: NORMAL ACCOMODATION, PERRL - ENT Exam ENT Exam: Mucous Membranes Moist, Normal External Ear Exam, TM's Normal Bilaterally - Respiratory Exam Respiratory Exam: Clear to Ausculation Bilateral, NORMAL BREATHING PATTERN. absent: Rales, Rhonchi, Wheezes - Cardiovascular Exam Cardiovascular Exam: Diastolic murmur, Irregular Rhythm, +S1, +S2 - GI/Abdominal Exam GI & Abdominal Exam: Soft, Normal Bowel Sounds. absent: Distended, Tenderness - Extremities Exam Extremities Exam: Tenderness (right knee) - Neurological Exam Neurological Exam: Alert, Awake Additional comments: Patient with spontaneous eye opening, moves most of her extremities spontaneously with pain, following commands now. Normal patella and brachioradial reflexes kelsey. Pupils equal, and reactive to light. - Skin Skin Exam: Dry, Normal Color, Warm Assessment and Plan - Assessment and Plan (Free Text) Assessment: 82 yo female with fevers up to 101.6 F and found to have a small right parasyslvian hemmorhage. No leukocytosis but febrile. Peasron cultures and obtain procalcitonin on this patient. Drastic change in mental status as per the family. Currently on Vancomycin and Zosyn. Need clarification on PCN allergy. May need to switch Zosyn to Aztreonam for the time being. Unclear the etiology of the fever. May be secondary to hemmorhage but the hemmorhage appears to be small and unlikely to be the cause of the fevers. Pearson cultures of the patient. Will discuss with family to see what the nature of the PCN allergy is. Extubated. Still having fevers of 101 F. Cultures negative to date. Most recent Chest X-ray is not showing any infiltrates. Procalcitonin is low which would argue against an infectious process. Urinalysis not showing signs of a UTI. Check influenza as a potential viral source. Thank you for allowing me to participate in the care of the patient, we will follow with you.
[2017-10-26] MEDS ORDERED: levETIRAcetam 1,500 MG in Sodium Chloride 0.9% 100 ML IV ONE (19:32)
--- NOTE | 2017-10-26 20:58 | PN ---
DATE: 10/26/2017 REASON FOR THE CONSULTATION AND FOLLOWUP: Atrial fibrillation, possible CVA, dehydration, altered mental status, intubated. SUBJECTIVE: The patient denies any chest pain, awake and alert, still being intubated. Family member is at the bedside. PHYSICAL EXAMINATION: VITAL SIGNS: Temperature is afebrile, heart rate 83, blood pressure 118/55. HEENT: PERRLA. Extraocular muscles intact. NECK: Supple. No carotid bruit. No thyromegaly. CHEST: Clear to auscultation. HEART: S1 and S2 regular. ABDOMEN: Soft. EXTREMITIES: Clubbing and cyanosis negative. LABORATORY DATA: Blood workup as follows: WBC 11.6, hemoglobin 10.7, hematocrit 33, platelet count 165. Chemistry showed sodium 151, potassium 3.4, chloride 118, carbon dioxide 23, anion gap of 13, BUN 30, and creatinine 1. Total bilirubin 2.7, AST 47, ALT 31, alkaline phosphatase 39. BNP 2340. IMPRESSION: Chronic atrial fibrillation, history of gastrointestinal bleed, off and on anticoagulation with Eliquis and at one point on Coumadin also; and history of preserved left ventricular function by echo on 04/22/2016, ejection fraction 70%, normal left ventricular size, mild aortic stenosis, moderate tricuspid regurgitation, mild mitral regurgitation, right ventricular systolic pressure of 49; history of chronic atrial fibrillation, admitted with altered mental status, poor intake for a couple of days, dehydration, hyponatremia, intubated, respiratory failure. Initial CAT scan shows intracerebellar bleed. An 82-year-old female with obesity, chronic atrial fibrillation, congestive heart failure, diastolic dysfunction, admitted with altered mental status, found to have intracerebellar bleed, and moderate aortic stenosis, respiratory failure and intubated. RECOMMENDATION: Continue vent management. Continue gentle hydration. Once extubated, start initial supported prolonged intubation . We will follow. Continue IV fluids. Continue broad-spectrum antibiotic. Continue vent management, wean off the vent as tolerated. Not a candidate for anticoagulation because of the history of recent intracerebellar bleed. In the past, patient also has a history of GI bleed. Discussed with the patient's family in length. We will follow with you. Thank you, Dr. Diaz, for providing us the opportunity in taking care of Vicenta Duran. Rodolfo Rudd MD Psychiatric # [id number]
[2017-10-26] MEDS: Sodium Chloride 0.9% 1,000 ML IV SCH (21:49)
[2017-10-27] MEDS: MethylPREDNISolone 40 mg Vial IVP SCH ×4 (02:00→22:08)
[2017-10-27] MEDS: Vancomycin 1gm in NS 250ml 1 GM/250 ML BAG IVPB SCH (03:00)
[2017-10-27] MEDS: Sodium Chloride 0.9% 1,000 ML IV SCH (04:48)
[2017-10-27 07:04] LABS: BASO # 0.01 K/mm3 (0.0-2.0); BASO % 0.1 % (0.0-3.0); GRAN # 7.71 (1.4-6.5); HEMOGLOBIN 11.3 g/dL (12.0-16.0); LYMPH # 0.5 (1.2-3.4); LYMPH % 5.5 % (22.0-35.0); MEAN CORPUSCULAR HEMOGLOBIN 29.4 pg (25.0-35.0); MEAN CORPUSCULAR HGB CONC 30.9 g/dl (31.0-37.0); MEAN PLATELET VOLUME 10.4 fl (7.0-11.0); MONO # 0.1 (0.1-0.6); MONO % 1.4 % (1.0-6.0); PLATELET COUNT 177 10^3/uL (120.0-450.0); RBC 3.84 10^6/uL (3.5-6.1); RED CELL DISTRIBUTION WIDTH 15.6 % (11.5-14.5); WHITE BLOOD COUNT 8.3 10^3/ul (4.5-11.0)
[2017-10-27 07:08] LABS: MEAN CELL VOLUME 95.3 fl (80.0-105.0)
[2017-10-27 07:10] LABS: ALBUMIN 3.4 g/dL (3.0-4.8); ALT/SGPT 29 U/L (7-56); AST/SGOT 32 U/L (14-36); BLOOD UREA NITROGEN 37 mg/dL (7-21); CALCIUM 9.4 mg/dL (8.4-10.5); GFR AFRICAN-AMERICAN > 60; GFR NON-AFRICAN AMERICAN 53
[2017-10-27] MEDS ORDERED: levETIRAcetam 500mg IVPB 500 MG/100 ML BAG IV STA (07:18)
[2017-10-27 08:19] LABS: NEUTROPHIL 93 % (50.0-70.0)
[2017-10-27 08:20] LABS: BASOPHIL 1 % (0.0-1.0); LYMPHOCYTE 4 % (22.0-35.0); MONOCYTE 2 % (1.0-6.0); PLATELET ESTIMATE NORMAL (NORMAL); POIKILOCYTOSIS SLIGHT
[2017-10-27 08:21] LABS: OVALOCYTES 1+
[2017-10-27] MEDS ORDERED: levETIRAcetam 500 MG in Sodium Chloride 0.9% 100 ML IV SCH ×2 (10:00→19:00)
--- NOTE | 2017-10-27 10:18 | CP.CCUPN ---
<Joaquina Zacarias - Last Filed: 10/27/17 15:55> CCU Subjective - Physician Review Subjective (Free Text): 10/25/17 07:54 Per sign out, pt was intubated for alter mental status and copious secretion to protect airway Now, Family by bedside 10/27/17 11:52 Extubated yesterday, Family by bedside. PT today.Tolerate puree/honey thick CCU Objective - Vital Signs / Intake & Output Vital Signs (Last 4 hours): Vital Signs Temp Pulse Resp BP Pulse Ox 10/27/17 07:00 98.6 F 89 27 H 135/66 100 10/27/17 06:57 98.6 F 92 H 100 10/27/17 06:50 98.6 F 88 28 H 100 10/27/17 06:42 98.6 F 89 10/27/17 06:40 98.6 F 94 H 20 100 10/27/17 06:38 98.6 F 91 H 100 10/27/17 06:36 98.6 F 91 H 100 10/27/17 06:30 98.4 F 92 H 23 10/27/17 06:29 98.4 F 88 100 10/27/17 06:20 98.4 F 92 H 25 H 100 Intake and Output (Last 8hrs): Intake & Output 10/26/17 10/27/17 10/27/17 22:59 06:59 14:59 Intake Total 1290 900 Output Total 560 500 Balance 730 400 Intake: IV 1290 900 Left Antecubital 1290 900 Output: Urine 560 500 Urethral (Jackson) 560 500 - Physical Exam Head: Positive for: Atraumatic, Normocephalic. Negative for: Tenderness, Contusion, Swelling, Ecchymosis, Abrasion, Laceration Pupils: Positive for: PERRL. Negative for: Sluggish, Non-Reactive, Pinpoint Extroacular Muscles: Positive for: EOMI Conjunctiva: Positive for: Normal. Negative for: Injected, Icteric Mouth: Positive for: Dry, Normal Lips, Normal Tounge. Negative for: Moist Mucous Membranes, Drooling Nose (External): Positive for: Atraumatic. Negative for: Abrasion, Laceration Nose (Internal): Positive for: No Active Bleeding. Negative for: Epistaxis Neck: Positive for: Trachea Midline. Negative for: JVD Respiratory/Chest: Positive for: Clear to Auscultation. Negative for: Respiratory Distress, Accessory Muscle Use Cardiovascular: Positive for: Normal S1, S2, Irregular Rhythm, Peripheal Pulses Present (+2 radials bilaterally). Negative for: Regular Rate and Rhythm, Murmurs, Tachycardic, Bradycardic Abdomen: Positive for: Normal Bowel Sounds. Negative for: Distention, Peritoneal Signs Upper Extremity: Positive for: Normal Inspection, NORMAL PULSES. Negative for: Cyanosis, Edema, Swelling, Erythema, Deformity Lower Extremity: Positive for: Edema (trace pedal/ankle pitting edema), NORMAL PULSES. Negative for: Cyanosis, Normal ROM (unable to assess ROM, some spontaneous movements but not following commands), Swelling, Erythema, Deformity Neurological: Positive for: Other (follow command, answer 1 word answer in khmer; motor 4- RUE/RLE; motor 3+ LUE/LLE) Skin: Positive for: Warm, Dry, Normal Color. Negative for: Rashes Psychiatric: Positive for: Alert, Other (AAOx2 to person and place). Negative for: Oriented x 3 - Medications Active Medications: Active Medications Generic Name Dose Route Start Last Admin Trade Name Freq PRN Reason Stop Dose Admin Sodium Chloride 1,000 mls @ 70 mls/hr 10/24/17 19:30 10/27/17 04:48 Sodium Chloride 0.9% IV 70 mls/hr .[id number] [facility] Administration Propofol 1,000 mg in 100 mls @ 2.336 mls/hr 10/25/17 02:30 Diprivan IV .Q24H PRN TITRATE PER MD ORDER Protocol 5 MCG/KG/MIN Vancomycin HCl 1 gm in 250 mls @ 167 mls/hr 10/25/17 15:15 10/27/17 03:00 Vancomycin 1gm IVPB 167 mls/hr Q12H [facility] Administration Protocol Acetaminophen 1,000 mg in 100 mls @ 400 mls/hr 10/26/17 12:54 Ofirmev IVPB 10/28/17 12:55 Q6H PRN Temperature Levetiracetam 500 mg/ Sodium 105 mls @ 460 mls/hr 10/27/17 19:00 Chloride IV 0700,1900 [facility] Methylprednisolone 20 mg 10/26/17 18:15 10/27/17 02:00 Solu-Medrol IVP 20 mg Q8H [facility] Administration Pantoprazole Sodium 40 mg 10/25/17 10:00 10/26/17 09:11 Protonix Inj IVP 40 mg DAILY [facility] Administration - Patient Studies Lab Studies: Microbiology Studies 10/25/17 17:45 Blood Culture - Preliminary Blood NO GROWTH AFTER 24 HOURS 10/25/17 17:45 Blood Culture - Preliminary Blood NO GROWTH AFTER 24 HOURS 10/25/17 19:47 Gram Stain - Final Trachasp 10/24/17 23:33 MRSA Culture (Admit) - Final Naris MRSA NOT DETECTED Lab Studies 10/27/17 10/27/17 10/25/17 Range/Units 06:10 06:10 17:44 WBC 8.3 D (4.5-11.0) 10^3/ul RBC 3.84 (3.5-6.1) 10^6/uL Hgb 11.3 L (12.0-16.0) g/dL Hct 36.6 (36.0-48.0) % MCV 95.3 D (80.0-105.0) fl MCH 29.4 (25.0-35.0) pg MCHC 30.9 L (31.0-37.0) g/dl RDW 15.6 H (11.5-14.5) % Plt Count 177 (120.0-450.0) 10^3/uL MPV 10.4 (7.0-11.0) fl Gran % 93.0 H (50.0-68.0) % Lymph % (Auto) 5.5 L (22.0-35.0) % [place] % (Auto) 1.4 (1.0-6.0) % Eos % (Auto) 0.0 L (1.5-5.0) % Baso % (Auto) 0.1 (0.0-3.0) % Gran # 7.71 H (1.4-6.5) Lymph # (Auto) 0.5 L (1.2-3.4) [place] # (Auto) 0.1 (0.1-0.6) Eos # (Auto) 0.0 (0.0-0.7) Baso # (Auto) 0.01 (0.0-2.0) K/mm3 Neutrophils % (Manual) 93 H (50.0-70.0) % Lymphocytes % (Manual) 4 L (22.0-35.0) % Monocytes % (Manual) 2 (1.0-6.0) % Basophils % (Manual) 1 (0.0-1.0) % Platelet Evaluation Normal (NORMAL) Poikilocytosis (manual Slight Ovalocytes 1+ Sodium 157 H* (132-148) mmol/L Potassium 3.9 (3.6-5.0) mmol/L Chloride 121 H (98-107) mmol/L Carbon Dioxide 23 (21-33) mmol/L Anion Gap 16 (10-20) BUN 37 H (7-21) mg/dL Creatinine 1.0 (0.7-1.2) mg/dl Est GFR ( Amer) > 60 Est GFR (Non-Af Amer) 53 Random Glucose 108 (70-110) mg/dL Calcium 9.4 (8.4-10.5) mg/dL Total Bilirubin 1.5 H (0.2-1.3) mg/dL AST 32 (14-36) U/L ALT 29 (7-56) U/L Alkaline Phosphatase 43 (38-126) U/L Total Protein 6.9 (5.8-8.3) g/dL Albumin 3.4 (3.0-4.8) g/dL Globulin 3.5 gm/dL Albumin/Globulin Ratio 1.0 L (1.1-1.8) Procalcitonin 0.07 L (0.19-0.49) NG/ML Laboratory Results - last 24 hr 10/25/17 10/27/17 10/27/17 17:44 06:10 06:10 WBC 8.3 D RBC 3.84 Hgb 11.3 L Hct 36.6 MCV 95.3 D MCH 29.4 MCHC 30.9 L RDW 15.6 H Plt Count 177 MPV 10.4 Gran % 93.0 H Lymph % (Auto) 5.5 L [place] % (Auto) 1.4 Eos % (Auto) 0.0 L Baso % (Auto) 0.1 Gran # 7.71 H Lymph # (Auto) 0.5 L [place] # (Auto) 0.1 Eos # (Auto) 0.0 Baso # (Auto) 0.01 Neutrophils % (Manual) 93 H Lymphocytes % (Manual) 4 L Monocytes % (Manual) 2 Basophils % (Manual) 1 Platelet Evaluation Normal Poikilocytosis (manual Slight Ovalocytes 1+ Sodium 157 H* Potassium 3.9 Chloride 121 H Carbon Dioxide 23 Anion Gap 16 BUN 37 H Creatinine 1.0 Est GFR ( Amer) > 60 Est GFR (Non-Af Amer) 53 Random Glucose 108 Calcium 9.4 Total Bilirubin 1.5 H AST 32 ALT 29 Alkaline Phosphatase 43 Total Protein 6.9 Albumin 3.4 Globulin 3.5 Albumin/Globulin Ratio 1.0 L Procalcitonin 0.07 L Critical Care Progress Note - Nutrition Nutrition: Nutrition Category Date Time Status Liquid Diet [DIET] Diets 10/27/17 Breakfast Ordered Assessment/Plan - Assessment and Plan (Free Text) Plan: Ms Vicenta Duran, 82 F with PMHx of HTN, Diastolic CHF (03/2016 EF 55%) not on ASA/Statin, Chronic atrial fibrillation (not on anticoagulation), Obesity, severe osteoarthritis presenting with changes in mental status for 4 days. Patient was found to have small right parasylvian hemorrhage possibly hypertensive. GCS of 9 (E1V3M5) on the night of admission with copious secretion in tanya pharynx worrisome of aspiration, and she was intubated for protecting airway. She was extubated on 10/26, now on 3L NC. EEG on 10/26 shows status epilepticus Acute parasylvian stroke Seizure likely due to acute stroke vs chronic stroke vs metabolic abnormality Alter mental status secondary to status epilepticus SIRS (fever, leukocytosis) likely due to seizure HTN Diastolic CHF A-Fib, rate control, not candidate on anticoagulant due to compliance and Hx GI bleed CKD Obesity GERD LE Edema Neuro: SBP below 160, repeat CT head in the AM, CTA of neck and head to r/o aneurysm and stenosis. fall and seizure precautions Head of bed above 35 degrees follow up today's EEG Pulm: Patient extubated - resting on 3L nasal cannula CXR (10/25) - slightly fluid overload, no significant pleural effusion pro bnp was elevated Cardiac: Lasix and oral BP meds on hold. SBP 130s h/o diastolic chf Echo (10/25): LVEF 50; mild to mod mitral regurg; RVSP 40 GI: Puree and honey thicken ID: Observe off antibiotics per ID Renal: Creatinine at baseline (Cre 1) Hypernatremia at 157, D5W @ 75. recheck BMP at 4pm Endo: will maintain euglycemia. Hx hypothyroidism Heme: h/o of anemia- h/h slightly higher than previous h/h likely due to dehydration. will add pt/ptt. Gi: npo pending swallow eval. Protonix for gi prophylaxis. DVT prophylaxis: VTE device. Dispo: OOB, PT/OT, May be downgrade tomorrow? s/r/d/w Dr. Gutiérrez <Sriram Gutiérrez - Last Filed: 10/27/17 16:07> CCU Objective - Vital Signs / Intake & Output Vital Signs (Last 4 hours): Vital Signs Pulse 10/27/17 13:57 72 Intake and Output (Last 8hrs): Intake & Output 10/27/17 10/27/17 10/27/17 06:59 14:59 22:59 Intake Total 900 Output Total 500 Balance 400 Intake: IV 900 Left Antecubital 900 Output: Urine 500 Urethral (Jackson) 500 - Medications Active Medications: Active Medications Generic Name Dose Route Start Last Admin Trade Name Freq PRN Reason Stop Dose Admin Acetaminophen 650 mg 10/27/17 15:56 Tylenol 325mg Tab PO Q6H PRN Fever >100.4 F Dextrose 1,000 mls @ 75 mls/hr 10/27/17 10:30 10/27/17 10:35 Dextrose 5% In Water 1000 Ml IV 75 mls/hr .[id number] [facility] Administration Levetiracetam 750 mg/ Sodium 107.5 mls @ 460 mls/hr 10/27/17 19:00 Chloride IV 0700,1900 [facility] Methylprednisolone 20 mg 10/27/17 10:30 10/27/17 10:36 Solu-Medrol IVP Not Given Q12H [facility] Pantoprazole Sodium 40 mg 10/25/17 10:00 10/27/17 10:21 Protonix Inj IVP 40 mg DAILY [facility] Administration - Patient Studies Lab Studies: Microbiology Studies 10/25/17 20:47 Urine Culture - Final Urine,Jackson No Growth (<1,000 CFU/ML) 10/25/17 19:47 Gram Stain - Final Trachasp Sputum Culture - Preliminary NORMAL ORAL TANA 10/25/17 17:45 Blood Culture - Preliminary Blood NO GROWTH AFTER 24 HOURS 10/25/17 17:45 Blood Culture - Preliminary Blood NO GROWTH AFTER 24 HOURS Lab Studies 10/27/17 10/27/17 10/27/17 Range/Units 15:11 06:10 06:10 WBC 8.3 D (4.5-11.0) 10^3/ul RBC 3.84 (3.5-6.1) 10^6/uL Hgb 11.3 L (12.0-16.0) g/dL Hct 36.6 (36.0-48.0) % MCV 95.3 D (80.0-105.0) fl MCH 29.4 (25.0-35.0) pg MCHC 30.9 L (31.0-37.0) g/dl RDW 15.6 H (11.5-14.5) % Plt Count 177 (120.0-450.0) 10^3/uL MPV 10.4 (7.0-11.0) fl Gran % 93.0 H (50.0-68.0) % Lymph % (Auto) 5.5 L (22.0-35.0) % [place] % (Auto) 1.4 (1.0-6.0) % Eos % (Auto) 0.0 L (1.5-5.0) % Baso % (Auto) 0.1 (0.0-3.0) % Gran # 7.71 H (1.4-6.5) Lymph # (Auto) 0.5 L (1.2-3.4) [place] # (Auto) 0.1 (0.1-0.6) Eos # (Auto) 0.0 (0.0-0.7) Baso # (Auto) 0.01 (0.0-2.0) K/mm3 Neutrophils % (Manual) 93 H (50.0-70.0) % Lymphocytes % (Manual) 4 L (22.0-35.0) % Monocytes % (Manual) 2 (1.0-6.0) % Basophils % (Manual) 1 (0.0-1.0) % Platelet Evaluation Normal (NORMAL) Poikilocytosis (manual Slight Ovalocytes 1+ Sodium 153 H 157 H* (132-148) mmol/L Potassium 4.0 3.9 (3.6-5.0) mmol/L Chloride 118 H 121 H (98-107) mmol/L Carbon Dioxide 23 23 (21-33) mmol/L Anion Gap 16 16 (10-20) BUN 42 H 37 H (7-21) mg/dL Creatinine 1.0 1.0 (0.7-1.2) mg/dl Est GFR ( Amer) > 60 > 60 Est GFR (Non-Af Amer) 53 53 Random Glucose 206 H 108 (70-110) mg/dL Calcium 9.1 9.4 (8.4-10.5) mg/dL Total Bilirubin 1.5 H (0.2-1.3) mg/dL AST 32 (14-36) U/L ALT 29 (7-56) U/L Alkaline Phosphatase 43 (38-126) U/L Total Protein 6.9 (5.8-8.3) g/dL Albumin 3.4 (3.0-4.8) g/dL Globulin 3.5 gm/dL Albumin/Globulin Ratio 1.0 L (1.1-1.8) Laboratory Results - last 24 hr 10/27/17 10/27/17 10/27/17 06:10 06:10 15:11 WBC 8.3 D RBC 3.84 Hgb 11.3 L Hct 36.6 MCV 95.3 D MCH 29.4 MCHC 30.9 L RDW 15.6 H Plt Count 177 MPV 10.4 Gran % 93.0 H Lymph % (Auto) 5.5 L [place] % (Auto) 1.4 Eos % (Auto) 0.0 L Baso % (Auto) 0.1 Gran # 7.71 H Lymph # (Auto) 0.5 L [place] # (Auto) 0.1 Eos # (Auto) 0.0 Baso # (Auto) 0.01 Neutrophils % (Manual) 93 H Lymphocytes % (Manual) 4 L Monocytes % (Manual) 2 Basophils % (Manual) 1 Platelet Evaluation Normal Poikilocytosis (manual Slight Ovalocytes 1+ Sodium 157 H* 153 H Potassium 3.9 4.0 Chloride 121 H 118 H Carbon Dioxide 23 23 Anion Gap 16 16 BUN 37 H 42 H Creatinine 1.0 1.0 Est GFR ( Amer) > 60 > 60 Est GFR (Non-Af Amer) 53 53 Random Glucose 108 206 H Calcium 9.4 9.1 Total Bilirubin 1.5 H AST 32 ALT 29 Alkaline Phosphatase 43 Total Protein 6.9 Albumin 3.4 Globulin 3.5 Albumin/Globulin Ratio 1.0 L Critical Care Progress Note - Nutrition Nutrition: Nutrition Category Date Time Status Pureed [Dysphagia/Modified Consistency Diet] [DIET] Diets 10/27/17 Lunch Ordered Attending/Attestation - Attestation I have personally seen and examined this patient.: Yes I have fully participated in the care of the patient.: Yes I have reviewed all pertinent clinical information: Yes Notes (Text): 10/27/17 16:[address] Gutiérrez note
--- NOTE | 2017-10-27 11:48 | CP.PCM.PN ---
Subjective - Date & Time of Evaluation Date of Evaluation: 10/27/17 Time of Evaluation: 11:48 - Subjective Subjective: Ms. Duran was seen and examined at the bedside in ICU. She is more alert, talks more,but failed swallowing evaluation. She is able to answer more questions and follow all commands. EEG showed eliptical wave.There was no untoward events overnight. Objective - Vital Signs/Intake and Output Vital Signs (last 24 hours): Temp Pulse Resp BP Pulse Ox 98.6 F 89 27 H 135/66 100 10/27/17 07:00 10/27/17 07:00 10/27/17 07:00 10/27/17 07:00 10/27/17 07:00 Intake and Output: 10/27/17 10/27/17 06:59 18:59 Intake Total 900 Output Total 500 Balance 400 - Medications Medications: Current Medications Vancomycin HCl (Vancomycin 1gm) 1 gm in 250 mls @ 167 mls/hr IVPB Q12H [facility] PRN Reason: Protocol Last Admin: 10/27/17 03:00 Dose: 167 mls/hr Acetaminophen (Ofirmev) 1,000 mg in 100 mls @ 400 mls/hr IVPB Q6H PRN PRN Reason: Temperature Stop: 10/28/17 12:55 Dextrose (Dextrose 5% In Water 1000 Ml) 1,000 mls @ 75 mls/hr IV .[id number] [facility] Last Admin: 10/27/17 10:35 Dose: 75 mls/hr Levetiracetam 750 mg/ Sodium (Chloride) 107.5 mls @ 460 mls/hr IV 0700,1900 [facility] Methylprednisolone (Solu-Medrol) 20 mg IVP Q12H [facility] Last Admin: 10/27/17 10:36 Dose: Not Given Pantoprazole Sodium (Protonix Inj) 40 mg IVP DAILY [facility] Last Admin: 10/27/17 10:21 Dose: 40 mg - Labs Labs: 10/27/17 06:10 10/27/17 06:10 PT 12.9 SECONDS (9.4-12.5) H 10/24/17 18:25 INR 1.13 (0.93-1.08) H 10/24/17 18:25 APTT 30.2 Seconds (25.1-36.5) 10/24/17 18:25 - Constitutional Appears: No Acute Distress - Head Exam Head Exam: NORMAL INSPECTION - Neurological Exam Neurological Exam: Alert, Awake Neuro motor strength exam: Left Upper Extremity: 3, Right Upper Extremity: 3, Left Lower Extremity: 2/1, Right Lower Extremity: 2/1 Additional comments: neurological improved from previous examination, more alert, on nasal cannula, sensation is intact. Assessment and Plan (1) Encephalopathy acute Assessment & Plan: Case discussed with Dr. Stephenson, continue all current medical regimen including current dose of AED. Pending repeat EEG result.Recommend normothermic, blood pressure control, treat any electrolyte abnormalities. Status: Acute
[2017-10-27 16:03] LABS: BLOOD UREA NITROGEN 42 mg/dL (7-21); CALCIUM 9.1 mg/dL (8.4-10.5); GFR AFRICAN-AMERICAN > 60; GFR NON-AFRICAN AMERICAN 53
--- NOTE | 2017-10-27 16:03 | PN ---
DATE: 10/27/2017 SUBJECTIVE: The patient is seen and examined at bedside. She is comfortable. She talks full sentences. She is alert, awake. Yesterday, EEG showed nonconvulsive status for which the patient received 4 mg of Ativan and Keppra 1500 mg. Today, the patient continued on Keppra 750 mg IV every 12 hours and follow up EEG was done. The patient is again alert, awake, protecting airways, good cough and gag reflex. PHYSICAL EXAMINATION: VITAL SIGNS: Temperature 98.6, blood pressure 134/59, oxygen saturation 100% on 2 liters nasal cannula, respiratory rate 20, heart rate 80. HEENT: Head and neck atraumatic. LUNGS: Clear to auscultation bilaterally. HEART: Regular rate rhythm, S1, S2 normal. ABDOMEN: Soft, nontender, nondistended. MUSCULOSKELETAL: 1+ bilateral pedal and ankle edema. NEURO: The patient moves all extremities spontaneously. SKIN: Moist. PSYCH: The patient is alert, awake and oriented, not in respiratory or otherwise distress. LABORATORY DATA: WBC 8.3, hemoglobin 11.3, platelet count 177. Sodium 157 (D5W at rate of 75 mL/hour started, BMP will be followed in the afternoon), potassium 3.9, chloride 121, carbon dioxide 23, BUN 37, creatinine 1, glucose 108, AST 32, ALT 29, total bilirubin 1.5. Procalcitonin 0.07 MEDICATIONS: Tylenol IV p.r.n., D5W 75 mL/hour, Keppra 500 mg IV every 12 hours, Solu-Medrol 20 mg IV every 12 hours, Protonix, vancomycin. ASSESSMENT AND PLAN: This is an 82-year-old lady who initially presented with intraparenchymal brain hemorrhage. She was initially intubated for airway protection. However, successfully extubated yesterday. Yesterday's EEG showed nonconvulsive status. However, today the patient is more alert, awake with clear consciousness. EEG repeated, official report is pending. Elevated sodium is dealt with D5W at 75 mL/hour of IV drip. Normal saline stopped. The patient failed bedside swallow evaluation, thus will be n.p.o. and swallow evaluation will be repeated. We will repeat BMP in the afternoon to follow up on sodium level. The patient is on Keppra 500 mg b.i.d. We will continue to target euvolemia, euglycemia, normothermia and oxygen saturation more than 90%. We will continue with deep venous thrombosis and gastrointestinal prophylaxis. Addendum: passed swallow eval-->will start puree thick food Sriram Gutiérrez MD MTDD
--- NOTE | 2017-10-27 16:29 | PN ---
DATE: 10/27/2017 LOCATION: The patient is in CCU 129, bed 6. REASON FOR CONSULTATION AND FOLLOWUP: Atrial fibrillation, possible CVA, dehydration, altered mental status, respiratory distress, now successfully extubated. SUBJECTIVE: The patient is much more alert and conscious now. Denies any chest pain or any shortness of breath or palpitations. PHYSICAL EXAMINATION: VITAL SIGNS: Blood pressure 135/56, respirations 27, pulse 89, and temperature 98.6. HEENT: Head is normocephalic. Eyes: Pupils normal. Conjunctivae slightly pale. NECK: JVP low. Carotids equal. THORAX: AP diameter normal. LUNGS: No significant rales. CARDIOVASCULAR: S1 and S2. Ejection systolic murmur, grade 2/6. No rub. Irregular rhythm due to atrial fibrillation. ABDOMEN: Soft. No tenderness. No organomegaly. Bowel sounds are normal. EXTREMITIES: No clubbing, no cyanosis. LABORATORY DATA: WBC 8.3, hemoglobin 11.3, hematocrit 36.6, and platelets 177. Sodium 157. BUN 37, creatinine 1. Total bilirubin 1.5. AST and ALT normal. Total protein 6.9, albumin 3.4. Chest x-ray on 10/26/2017, did not show any significant abnormality. DIAGNOSES: Chronic atrial fibrillation, history of gastrointestinal bleeding in the past on previous admission. I had detailed discussion with the family about anticoagulation and they decided not to have any sort of anticoagulation with the patient due to previous history of gastrointestinal bleeding. Echo on 04/22/2016, showed ejection fraction of 70%, normal left ventricular size, mild aortic stenosis, moderate tricuspid regurgitation, mild mitral regurgitation, right ventricular systolic pressure of 49 mmHg suggestive of mild pulmonary hypertension, chronic atrial fibrillation. Altered mental status. Respiratory distress, status post intubation, now successful extubation. CAT scan of the brain showed small right perisylvian fissure hemorrhage. Hypernatremia. PLAN: The patient is already getting dextrose in water 75 mL an hour that will help hypernatremia, Protonix 40 mg IV daily, methylprednisolone 20 mg IV every 12 hours, vancomycin 1 g IV every 12 hours. We will continue current therapy with bleeding in the brain. The patient is no more a candidate for any sort of anticoagulation which seems previously family had refused because of history of GI bleeding in the past. We will monitor with you and follow with you. Rodolfo Hinojosa MD [facility] # [id number]
--- NOTE | 2017-10-27 17:15 | CP.PCM.PN ---
Subjective - Date & Time of Evaluation Date of Evaluation: 10/27/17 Time of Evaluation: 17:00 - Subjective Subjective: Infectious Disease Follow Up: October 27, 2017 82 yo female with PMHx of HTN, Diastolic CHF (03/2016 EF 55%), Chronic atrial fibrillation ( not on anticoagulation), Obesity, severe osteoarthritis presenting with changes in mental status. Patient is currently non verbal, thus history was obtained from son and daughter. Family states since Monday noon, patient suddenly became confused, was unable to talk, eat, and was not opening her eyes. Patient became incontinent as well. Patient was only moaning, and saying in Maori "pain" pointing toward her right knee (this complaints is chronic as per family, states patient complains of pain even when alert, due to severe OA). Nevertheless, prior to Monday, patient was verbal, was ambulating with a walker with family's help. Patient takes BP meds daily, takes Lopressor, and sular and water pill, measures her BP at home daily and as per son it has been normal. As per son, patient was started on pradaxa, then Coumadin for afib almost a year ago, which were stopped due to side effects such as dizziness, nausea/ vomiting. No recent travel as per family. Family denies fall, trauma or seizure like activity. Unable to obtain detail ROS due to mental status. In the ED, patient was found to have small right parasylvian hemorrhage possibly hypertensive. GCS of 9 ( E1V3M5), Patient is otherwise able to protect her airway, saturating 95% on room air. Extubated yesterday. Less confused and following orders today. Swallow studies for the morning. Leukocytosis appears to have resolved today. Afebrile today. Objective - Vital Signs/Intake and Output Vital Signs (last 24 hours): Temp Pulse Resp BP Pulse Ox 98.6 F 72 27 H 135/66 100 10/27/17 07:00 10/27/17 13:57 10/27/17 07:00 10/27/17 07:00 10/27/17 07:00 Intake and Output: 10/27/17 10/27/17 06:59 18:59 Intake Total 900 Output Total 500 Balance 400 - Medications Medications: Current Medications Acetaminophen (Tylenol 325mg Tab) 650 mg PO Q6H PRN PRN Reason: Fever >100.4 F Levetiracetam 750 mg/ Sodium (Chloride) 107.5 mls @ 460 mls/hr IV 0700,1900 [facility] Dextrose (Dextrose 5% In Water 1000 Ml) 1,000 mls @ 40 mls/hr IV .Q24H [facility] Methylprednisolone (Solu-Medrol) 20 mg IVP Q12H [facility] Last Admin: 10/27/17 10:36 Dose: Not Given Pantoprazole Sodium (Protonix Inj) 40 mg IVP DAILY [facility] Last Admin: 10/27/17 10:21 Dose: 40 mg - Labs Labs: 10/27/17 06:10 10/27/17 15:11 PT 12.9 SECONDS (9.4-12.5) H 10/24/17 18:25 INR 1.13 (0.93-1.08) H 10/24/17 18:25 APTT 30.2 Seconds (25.1-36.5) 10/24/17 18:25 - Constitutional Appears: Non-toxic, No Acute Distress, Chronically Ill - Head Exam Head Exam: ATRAUMATIC, NORMOCEPHALIC - Eye Exam Eye Exam: EOMI, PERRL Pupil Exam: NORMAL ACCOMODATION, PERRL - ENT Exam ENT Exam: Mucous Membranes Moist, Normal External Ear Exam, TM's Normal Bilaterally - Respiratory Exam Respiratory Exam: Clear to Ausculation Bilateral, NORMAL BREATHING PATTERN. absent: Rales, Rhonchi, Wheezes - Cardiovascular Exam Cardiovascular Exam: Diastolic murmur, Irregular Rhythm, +S1, +S2 - GI/Abdominal Exam GI & Abdominal Exam: Soft, Normal Bowel Sounds. absent: Distended, Tenderness - Extremities Exam Extremities Exam: Tenderness (right knee) - Neurological Exam Neurological Exam: Alert, Awake Additional comments: Patient with spontaneous eye opening, moves most of her extremities spontaneously with pain, following commands now. Normal patella and brachioradial reflexes kelsey. Pupils equal, and reactive to light. - Skin Skin Exam: Dry, Normal Color, Warm Assessment and Plan - Assessment and Plan (Free Text) Assessment: 82 yo female with fevers up to 101.6 F and found to have a small right parasyslvian hemmorhage. No leukocytosis but febrile. Pearson cultures and obtain procalcitonin on this patient. Drastic change in mental status as per the family. Currently on Vancomycin and Zosyn. Need clarification on PCN allergy. May need to switch Zosyn to Aztreonam for the time being. Unclear the etiology of the fever. May be secondary to hemmorhage but the hemmorhage appears to be small and unlikely to be the cause of the fevers. Pearson cultures of the patient. Will discuss with family to see what the nature of the PCN allergy is. Family states that it was a rash. Remains Extubated. Afebrile. Cultures have remained negative to date. Most recent Chest X-ray is not showing any infiltrates. Procalcitonin is low which would argue against an infectious process. Urinalysis not showing signs of a UTI. Check influenza as a potential viral source. Overall, the patient is improving. Thank you for allowing me to participate in the care of the patient, we will follow with you.
[2017-10-27 22:57] LABS: BLOOD UREA NITROGEN 46 mg/dL (7-21); GFR AFRICAN-AMERICAN > 60; GFR NON-AFRICAN AMERICAN 53
--- NOTE | 2017-10-28 01:23 | PN ---
DATE: 10/27/2017 SUBJECTIVE: Patient is 82 years old, was extubated last night, doing well, communicative, wants to eat, was given some liquid by family, but she is ready , currently she is coughing also. PHYSICAL EXAMINATION: VITAL SIGNS: She is afebrile, pulse 87, respirations 27, blood pressure of 135/66. LUNGS: Bilateral soft crackle in the upper lung region. HEART: S1 and S2 audible. ABDOMEN: Soft, nontender. No rebound, no guarding. NEUROLOGIC: She is awake and alert, able to communicate. EXTREMITIES: Bilateral legs, +2 edema. LABORATORY EXAM: WBC of 6.3, hemoglobin 11.3, hematocrit 36.6, platelets 177. Chemistry: Sodium 153, potassium 4, chloride 118, CO2 of 23, BUN 42, creatinine 1. Blood sugar 206. Blood cultures and urine cultures are negative. ASSESSMENT: 1. Status post right perisylvian small hemorrhage. 2. Status post respiratory failure, doing well. 3. Chronic atrial fibrillation. 4. History of gastrointestinal bleeding in the past. 5. Dysphagia. 6. Chronic anemia. 7. Hyperglycemia. 8. Renal insufficiency, improving. PLAN: Since the patient is n.p.o. for now, we will start her on gentle hydration, she is on 40mL of D5 and normal saline, she was found to have status epilepticus. Currently she is on Keppra. Continue on steroids. We will request for TCU evaluation. Currently, she is on pureed diet as per swallowing eval recommendations. Katerin Diaz MD
[2017-10-28 06:14] LABS: BASO # 0.01 K/mm3 (0.0-2.0); BASO % 0.1 % (0.0-3.0); EOS % 0.1 % (1.5-5.0); GRAN # 9.34 (1.4-6.5); GRAN % 92.4 % (50.0-68.0); LYMPH # 0.4 (1.2-3.4); LYMPH % 4.3 % (22.0-35.0); MEAN CELL VOLUME 95.4 fl (80.0-105.0); MEAN CORPUSCULAR HEMOGLOBIN 29.5 pg (25.0-35.0); MEAN CORPUSCULAR HGB CONC 30.9 g/dl (31.0-37.0); MEAN PLATELET VOLUME 10.4 fl (7.0-11.0); MONO # 0.3 (0.1-0.6); MONO % 3.1 % (1.0-6.0); RBC 3.73 10^6/uL (3.5-6.1); RED CELL DISTRIBUTION WIDTH 15.3 % (11.5-14.5); WHITE BLOOD COUNT 10.1 10^3/ul (4.5-11.0)
[2017-10-28 06:29] LABS: ALBUMIN 3.5 g/dL (3.0-4.8); CALCIUM 8.9 mg/dL (8.4-10.5)
--- NOTE | 2017-10-28 10:01 | PN ---
DATE: 10/28/2017 LOCATION: The patient is in CCU 129, bed 6. REASON FOR CONSULTATION AND FOLLOWUP: Atrial fibrillation, altered mental status, respiratory failure, cerebral bleed, successful extubation. SUBJECTIVE: The patient is more alert, answers to questions. Denies chest pain, shortness of breath, or palpitations. PHYSICAL EXAMINATION: VITAL SIGNS: Blood pressure 135/70, respirations 32, pulse 72. The patient is afebrile. HEENT: Head is normocephalic. Eyes: Pupils normal. Conjunctivae slightly pale. NECK: JVP low. Carotids equal. THORAX: AP diameter normal. LUNGS: No significant rales. CARDIOVASCULAR: S1 and S2. Ejection systolic murmur, grade 2-3/6. No rub. Irregular rhythm due to atrial fibrillation. ABDOMEN: Soft. No tenderness. No organomegaly. EXTREMITIES: No clubbing, no cyanosis. LABORATORY DATA: WBC 10.1, hemoglobin 11, hematocrit 35.6, platelets 178. Sodium 149, potassium 4.3, BUN 50, creatinine 1.2. AST is 34, ALT 19, total protein 6.9, albumin 3.5. DIAGNOSES: Chronic atrial fibrillation, history of gastrointestinal bleeding. In the past, we had a detailed discussion with the family and they did not any sort of anticoagulation and also, the patient now found to have cerebral bleed, so the patient is not a candidate for anticoagulation even now; altered mental status, status post respiratory failure, status post successful extubation, mild aortic stenosis, moderate tricuspid regurgitation, mild mitral regurgitation, right ventricular systolic pressure of 49 mmHg suggestive of mild pulmonary hypertension, normal left ventricular ejection fraction with normal systolic function of left ventricular with ejection fraction of 70%. CAT scan showed small right perisylvian fissure hemorrhage; hypernatremia. PLAN: The patient's hypernatremia is improving. The patient is clinically also improving. We will continue D5W fluid for hypernatremia, Protonix 40 IV daily, methylprednisolone 20 mg IV every 12 hours. We will continue present therapy and we will follow with you. Rodolfo Hinojosa MD
[2017-10-28] MEDS: MethylPREDNISolone 40 mg Vial IVP SCH ×2 (11:10→22:27)
[2017-10-28] MEDS ORDERED: Albuterol-Ipratrop 3 mg / 0.5 (3 ml) UD ONE (13:11)
[2017-10-28] MEDS: Albuterol-Ipratrop 3 mg / 0.5 (3 ml) UD IH PRN ×2 (13:20→17:25)
[2017-10-28] MEDS: Aluminum Hydroxide/Magnesium 30 ML, DiphenhydrAMINE 75 MG, Lidocaine 2% Viscous 30 ML PO PRN (15:22)
--- NOTE | 2017-10-28 19:45 | CP.PCM.PN ---
Subjective - Date & Time of Evaluation Date of Evaluation: 10/28/17 Time of Evaluation: 17:30 - Subjective Subjective: Infectious Disease Follow Up: October 28, 2017 82 yo female with PMHx of HTN, Diastolic CHF (03/2016 EF 55%), Chronic atrial fibrillation ( not on anticoagulation), Obesity, severe osteoarthritis presenting with changes in mental status. Patient is currently non verbal, thus history was obtained from son and daughter. Family states since Monday noon, patient suddenly became confused, was unable to talk, eat, and was not opening her eyes. Patient became incontinent as well. Patient was only moaning, and saying in French "pain" pointing toward her right knee (this complaints is chronic as per family, states patient complains of pain even when alert, due to severe OA). Nevertheless, prior to Monday, patient was verbal, was ambulating with a walker with family's help. Patient takes BP meds daily, takes Lopressor, and sular and water pill, measures her BP at home daily and as per son it has been normal. As per son, patient was started on pradaxa, then Coumadin for afib almost a year ago, which were stopped due to side effects such as dizziness, nausea/ vomiting. No recent travel as per family. Family denies fall, trauma or seizure like activity. Unable to obtain detail ROS due to mental status. In the ED, patient was found to have small right parasylvian hemorrhage possibly hypertensive. GCS of 9 ( E1V3M5), Patient is otherwise able to protect her airway, saturating 95% on room air. Extubated 10/26/2017. Following orders today. Swallow studies for the morning. Leukocytosis appears to have resolved. Remains afebrile. Objective - Vital Signs/Intake and Output Vital Signs (last 24 hours): Temp Pulse Resp BP Pulse Ox 97.9 F 93 H 30 H 139/63 96 10/28/17 12:00 10/28/17 18:50 10/28/17 18:40 10/28/17 16:00 10/28/17 18:50 - Medications Medications: Current Medications Acetaminophen (Tylenol 325mg Tab) 650 mg PO Q6H PRN PRN Reason: Fever >100.4 F Last Admin: 10/28/17 11:10 Dose: 650 mg Albuterol/Ipratropium (Duoneb 3 Mg/0.5 Mg (3 Ml) Ud) 3 ml IH Q3 PRN PRN Reason: Shortness of Breath Last Admin: 10/28/17 17:25 Dose: 3 ml Al Hydrox/Mg Hydrox/Simethicone 30 ml/Diphenhydramine HCl 75 mg/Lidocaine 30 ml 0 ml PO Q2H PRN PRN Reason: Mouth/Throat Pain Last Admin: 10/28/17 15:22 Dose: 5 ml Levetiracetam 750 mg/ Sodium (Chloride) 107.5 mls @ 460 mls/hr IV 0700,1900 [facility] Last Admin: 10/28/17 18:45 Dose: 460 mls/hr Methylprednisolone (Solu-Medrol) 20 mg IVP Q12H [facility] Last Admin: 10/28/17 11:10 Dose: 20 mg Pantoprazole Sodium (Protonix Inj) 40 mg IVP DAILY [facility] Last Admin: 10/28/17 11:09 Dose: 40 mg - Labs Labs: 10/28/17 05:45 10/28/17 05:45 PT 12.9 SECONDS (9.4-12.5) H 10/24/17 18:25 INR 1.13 (0.93-1.08) H 10/24/17 18:25 APTT 30.2 Seconds (25.1-36.5) 10/24/17 18:25 - Constitutional Appears: Non-toxic, No Acute Distress, Chronically Ill - Head Exam Head Exam: ATRAUMATIC, NORMOCEPHALIC - Eye Exam Eye Exam: EOMI, PERRL Pupil Exam: NORMAL ACCOMODATION, PERRL - ENT Exam ENT Exam: Mucous Membranes Moist, Normal External Ear Exam, TM's Normal Bilaterally - Respiratory Exam Respiratory Exam: Clear to Ausculation Bilateral, NORMAL BREATHING PATTERN. absent: Rales, Rhonchi, Wheezes - Cardiovascular Exam Cardiovascular Exam: Diastolic murmur, Irregular Rhythm, +S1, +S2 - GI/Abdominal Exam GI & Abdominal Exam: Soft, Normal Bowel Sounds. absent: Distended, Tenderness - Extremities Exam Extremities Exam: Tenderness (right knee) - Neurological Exam Neurological Exam: Alert, Awake, CN II-XII Intact, Oriented x3 Additional comments: Following commands. Moves all extremities. - Psychiatric Exam Psychiatric exam: Normal Affect, Normal Mood - Skin Skin Exam: Dry, Normal Color, Warm Assessment and Plan - Assessment and Plan (Free Text) Assessment: 82 yo female with fevers up to 101.6 F and found to have a small right parasyslvian hemmorhage. No leukocytosis but febrile. Pearson cultures and obtain procalcitonin on this patient. Drastic change in mental status as per the family. Currently on Vancomycin and Zosyn. Need clarification on PCN allergy. Unclear the etiology of the fever. May be secondary to hemmorhage but the hemmorhage appears to be small and unlikely to be the cause of the fevers. Pearson cultures of the patient. Will discuss with family to see what the nature of the PCN allergy is. Family states that it was a rash. Remains Extubated. Afebrile. Cultures have remained negative to date. Most recent Chest X-ray is not showing any infiltrates. Procalcitonin is low which would argue against an infectious process. Urinalysis not showing signs of a UTI. Check influenza as a potential viral source. Overall, the patient is improving. Off antibiotics. Thank you for allowing me to participate in the care of the patient, we will follow with you.
--- NOTE | 2017-10-28 23:29 | PN ---
DATE: 10/28/2017 SUBJECTIVE: Patient is 82 years old, seen and examined. Sitting in chair, tolerating pureed diet. Family by the bedside. She is fully awake and alert, slight cough. PHYSICAL EXAMINATION: VITAL SIGNS: She is afebrile, pulse 93, respirations 30, blood pressure 148/74. LUNGS: Bilateral soft crackles, scattered. HEART: S1, S2 audible. ABDOMEN: Soft, obese, nontender. No rebound, no guarding. NEUROLOGIC: She is awake, alert, oriented, able to communicate. Has generalized weakness. LABORATORY DATA: WBC 10.1, hemoglobin 11, hematocrit 35, platelet 178. Chemistry: Sodium 149, potassium 4.3, chloride 115, CO2 of 21, BUN 50, creatinine 1.2, blood sugar 181. Blood cultures and urine cultures are negative. ASSESSMENT: 1. Status post respiratory failure. 2. Chronic atrial fibrillation. 3. Chronic renal failure. 4. Right perisylvian questionable hemorrhage. 5. Deconditioning and difficulty walking. 6. History of gastrointestinal bleed. 7. Dysphagia for liquids. 8. Moderate tricuspid regurgitation. PLAN: Patient will be transferred out of ICU. Patient is a little dehydrated. IV fluid is discontinued. Continue nebulizer treatment and continue on methylprednisolone. Continue her on Protonix. We will follow up her CBC and electrolyte in the a.m. Katerin Diaz MD
--- NOTE | 2017-10-29 05:45 | CP.PCM.PN ---
Subjective - Date & Time of Evaluation Date of Evaluation: 10/29/17 Time of Evaluation: 05:45 - Subjective Subjective: Ms. Duran was seen and examined at the bedside. She is more alert, talks more, complains of non-productive cough. She is on thickened liquids, still persist to request thin liquids. She denies any headache, dizziness, lightheadedness. She is able to answer more questions and follow all commands. There was no untoward events overnight. Objective - Vital Signs/Intake and Output Vital Signs (last 24 hours): Temp Pulse Resp BP Pulse Ox 97.8 F 67 20 121/66 98 10/28/17 23:20 10/29/17 05:09 10/28/17 23:20 10/28/17 23:20 10/28/17 23:20 Intake and Output: 10/28/17 10/29/17 18:59 06:59 Intake Total 1140 Balance 1140 - Medications Medications: Current Medications Acetaminophen (Tylenol 325mg Tab) 650 mg PO Q6H PRN PRN Reason: Fever >100.4 F Last Admin: 10/28/17 11:10 Dose: 650 mg Albuterol/Ipratropium (Duoneb 3 Mg/0.5 Mg (3 Ml) Ud) 3 ml IH Q3 PRN PRN Reason: Shortness of Breath Last Admin: 10/28/17 17:25 Dose: 3 ml Al Hydrox/Mg Hydrox/Simethicone 30 ml/Diphenhydramine HCl 75 mg/Lidocaine 30 ml 0 ml PO Q2H PRN PRN Reason: Mouth/Throat Pain Last Admin: 10/28/17 15:22 Dose: 5 ml Levetiracetam 750 mg/ Sodium (Chloride) 107.5 mls @ 460 mls/hr IV 0700,1900 [facility] Last Admin: 10/28/17 18:45 Dose: 460 mls/hr Methylprednisolone (Solu-Medrol) 20 mg IVP Q12H [facility] Last Admin: 10/28/17 22:27 Dose: 20 mg Pantoprazole Sodium (Protonix Inj) 40 mg IVP DAILY [facility] Last Admin: 10/28/17 11:09 Dose: 40 mg - Labs Labs: 10/28/17 05:45 10/28/17 05:45 PT 12.9 SECONDS (9.4-12.5) H 10/24/17 18:25 INR 1.13 (0.93-1.08) H 10/24/17 18:25 APTT 30.2 Seconds (25.1-36.5) 10/24/17 18:25 - Constitutional Appears: No Acute Distress - Head Exam Head Exam: NORMAL INSPECTION - Eye Exam Pupil Exam: PERRL - Neurological Exam Neurological Exam: Alert, Awake, Oriented x3 Neuro motor strength exam: Left Upper Extremity: 4, Right Upper Extremity: 4, Left Lower Extremity: 3, Right Lower Extremity: 3 Additional comments: neurological unchanged from previous examination. Assessment and Plan (1) Encephalopathy acute Assessment & Plan: Case discussed with Dr. Stephenson, continue all current medical regimen including current dose of AED. Recommend normothermic, blood pressure control, treat any electrolyte abnormalities, and please refer to primary team patient's non- productive cough. Status: Acute
[2017-10-29 07:11] LABS: ALB/GLOB RATIO 1.1 (1.1-1.8); ALBUMIN 3.6 g/dL (3.0-4.8); CALCIUM 9.2 mg/dL (8.4-10.5)
[2017-10-29 07:17] LABS: GRAN # 7.51 (1.4-6.5); GRAN % 91.8 % (50.0-68.0); HEMOGLOBIN 11.2 g/dL (12.0-16.0); LYMPH # 0.4 (1.2-3.4); MEAN CELL VOLUME 94.3 fl (80.0-105.0); MEAN CORPUSCULAR HGB CONC 30.8 g/dl (31.0-37.0); MEAN PLATELET VOLUME 10.1 fl (7.0-11.0); MONO # 0.3 (0.1-0.6); MONO % 3.2 % (1.0-6.0); RBC 3.86 10^6/uL (3.5-6.1); RED CELL DISTRIBUTION WIDTH 15.2 % (11.5-14.5); WHITE BLOOD COUNT 8.2 10^3/ul (4.5-11.0)
[2017-10-29] MEDS: MethylPREDNISolone 40 mg Vial IVP SCH (09:31)
--- NOTE | 2017-10-29 12:11 | PN ---
DATE: 10/29/2017 LOCATION: The patient is in room 263, bed 1. REASON FOR CONSULTATION AND FOLLOWUP: Atrial fibrillation, altered mental status, respiratory failure, cerebral bleed, successful extubation. SUBJECTIVE: The patient is conscious, alert, lying in bed without any respiratory distress. Denies any chest pain, shortness of breath, palpitation. PHYSICAL EXAMINATION: VITAL SIGNS: Blood pressure 121/66, respirations 20, pulse 71, temperature 97.8. HEENT: Head is normocephalic. Eyes: Pupils normal. Conjunctivae slightly pale. NECK: JVP low. Carotids equal. THORAX: AP diameter normal. LUNGS: Clear. CARDIOVASCULAR: S1 and S2. Ejection systolic murmur grade II-III/. No rub. ABDOMEN: Soft. No organomegaly. Bowel sounds normal. EXTREMITIES: No clubbing. No cyanosis. LABORATORY DATA: WBC 8.2, hemoglobin 11.2, hematocrit 36.4, platelet 186. Sodium 150, potassium 4.8, BUN 56, creatinine 1.3. AST 29, ALT 26, total protein 6.9, albumin 3.6. DIAGNOSES: Chronic atrial fibrillation, history of gastrointestinal bleeding in the past, perisylvian fissure hemorrhage in the brain, hypernatremia, normal left ventricular function with ejection fraction of 70%. Status post respiratory failure, status post successful extubation, dehydration, renal dysfunction. We will order 5% dextrose in water for IV therapy, which will help BUN and hypernatremia. We will follow lab in the morning. The patient getting prednisone 10 mg p.o. daily, Protonix 40 IV daily, levetiracetam 750 mg IV b.i.d., iron sucrose IV. We will repeat labs in the morning. We will follow with you. Rodolfo Hinojosa MD
--- NOTE | 2017-10-29 12:17 | PN ---
DATE: 10/29/2017 SUBJECTIVE: The patient is 82-year-old seen and examined, lying in bed, seems to be comfortable. No nausea or vomiting. No diarrhea. Eating and tolerating. Has scanty cough. OBJECTIVE: VITAL SIGNS: She is afebrile, pulse 70, respirations 20, blood pressure 157/81. LUNGS: Bilateral good airflow. No rhonchi or crackle. HEART: S1, S2 audible. Irregular rate control. ABDOMEN: Soft, nontender. No rebound, no guarding. NEUROLOGIC: She is awake, alert, oriented, able to communicate. EXTREMITIES: Bilateral legs, +1 edema. DATA: Laboratory examination: WBC is 8.2, hemoglobin 11.2, hematocrit 36.4, platelet of 186. Chemistry: Sodium 150, potassium 4.8, chloride 112, CO2 24, BUN 56, creatinine 1.3, blood sugar of 120. ASSESSMENT AND PLAN: 1. History of right hemorrhage versus cerebrovascular accident. 2. Chronic atrial fibrillation, not on anticoagulation. 3. Chronic anemia. 4. Chronic kidney failure. 5. Deconditioning. 6. Difficulty walking. 7. Dysphagia for liquids, currently on pureed diet. 8. Hypernatremia. Plan is a discussed with daughter who is at the bedside. Push p.o. fluids and she was found to have status epilepticus, the patient is currently on Keppra. Continue her on Protonix, cut down her steroid. Discontinue IV Solu-Medrol and put her on small dose of prednisone. Physical Therapy evaluation will be done. If the patient is not hypoxic or if tachycardia go up on exertion, she can be transferred to TCU. The patient did not have Physical Therapy evaluation yet, so transfer could be tomorrow morning and discussed with the family who was at the bedside. Katerin Diaz MD
[2017-10-29] MEDS ORDERED: Dextrose 5%/0.45% NS 1,000 ML IV SCH ×2 (12:30→12:45)
--- NOTE | 2017-10-29 18:09 | CP.PCM.PN ---
Subjective - Date & Time of Evaluation Date of Evaluation: 10/29/17 Time of Evaluation: 16:00 - Subjective Subjective: Infectious Disease Follow Up: October 29, 2017 82 yo female with PMHx of HTN, Diastolic CHF (03/2016 EF 55%), Chronic atrial fibrillation ( not on anticoagulation), Obesity, severe osteoarthritis presenting with changes in mental status. Patient is currently non verbal, thus history was obtained from son and daughter. Family states since Monday noon, patient suddenly became confused, was unable to talk, eat, and was not opening her eyes. Patient became incontinent as well. Patient was only moaning, and saying in Italian "pain" pointing toward her right knee (this complaints is chronic as per family, states patient complains of pain even when alert, due to severe OA). Nevertheless, prior to Monday, patient was verbal, was ambulating with a walker with family's help. Patient takes BP meds daily, takes Lopressor, and sular and water pill, measures her BP at home daily and as per son it has been normal. As per son, patient was started on pradaxa, then Coumadin for afib almost a year ago, which were stopped due to side effects such as dizziness, nausea/ vomiting. No recent travel as per family. Family denies fall, trauma or seizure like activity. Unable to obtain detail ROS due to mental status. In the ED, patient was found to have small right parasylvian hemorrhage possibly hypertensive. GCS of 9 ( E1V3M5), Patient is otherwise able to protect her airway, saturating 95% on room air. Extubated 10/26/2017. Following orders today. Swallow studies for the morning. Leukocytosis appears to have resolved. Remains afebrile. Appetite significantly improved. Objective - Vital Signs/Intake and Output Vital Signs (last 24 hours): Temp Pulse Resp BP Pulse Ox 98.2 F 77 18 147/68 98 10/29/17 12:00 10/29/17 14:00 10/29/17 12:00 10/29/17 12:00 10/29/17 06:00 Intake and Output: 10/29/17 10/29/17 06:59 18:59 Intake Total 120 840 Output Total 240 Balance -120 840 - Medications Medications: Current Medications Acetaminophen (Tylenol 325mg Tab) 650 mg PO Q6H PRN PRN Reason: Fever >100.4 F Last Admin: 10/28/17 11:10 Dose: 650 mg Albuterol/Ipratropium (Duoneb 3 Mg/0.5 Mg (3 Ml) Ud) 3 ml IH Q3 PRN PRN Reason: Shortness of Breath Last Admin: 10/28/17 17:25 Dose: 3 ml Al Hydrox/Mg Hydrox/Simethicone 30 ml/Diphenhydramine HCl 75 mg/Lidocaine 30 ml 0 ml PO Q2H PRN PRN Reason: Mouth/Throat Pain Last Admin: 10/28/17 15:22 Dose: 5 ml Levetiracetam 750 mg/ Sodium (Chloride) 107.5 mls @ 460 mls/hr IV 0700,1900 [facility] Last Admin: 10/29/17 18:02 Dose: 460 mls/hr Dextrose (Dextrose 5% In Water 1000 Ml) 1,000 mls @ 60 mls/hr IV .[id number] [facility] Last Admin: 10/29/17 12:48 Dose: 60 mls/hr Pantoprazole Sodium (Protonix Inj) 40 mg IVP DAILY [facility] Last Admin: 10/29/17 09:31 Dose: 40 mg Prednisone (Prednisone Tab) 10 mg PO DAILY [facility] Last Admin: 10/29/17 12:41 Dose: 10 mg - Labs Labs: 10/29/17 06:00 10/29/17 06:00 PT 12.9 SECONDS (9.4-12.5) H 10/24/17 18:25 INR 1.13 (0.93-1.08) H 10/24/17 18:25 APTT 30.2 Seconds (25.1-36.5) 10/24/17 18:25 - Constitutional Appears: Non-toxic, No Acute Distress, Chronically Ill - Head Exam Head Exam: ATRAUMATIC, NORMOCEPHALIC - Eye Exam Eye Exam: EOMI, PERRL Pupil Exam: NORMAL ACCOMODATION, PERRL - ENT Exam ENT Exam: Mucous Membranes Moist, Normal External Ear Exam, TM's Normal Bilaterally - Neck Exam Neck Exam: Full ROM, Normal Inspection - Respiratory Exam Respiratory Exam: Clear to Ausculation Bilateral, NORMAL BREATHING PATTERN. absent: Rales, Rhonchi, Wheezes - Cardiovascular Exam Cardiovascular Exam: REGULAR RHYTHM, RRR, +S1, +S2 - GI/Abdominal Exam GI & Abdominal Exam: Soft, Normal Bowel Sounds. absent: Distended, Tenderness - Extremities Exam Extremities Exam: Tenderness (right knee) - Neurological Exam Neurological Exam: Alert, Awake, CN II-XII Intact, Oriented x3 Additional comments: Following commands. Moves all extremities. - Psychiatric Exam Psychiatric exam: Normal Affect, Normal Mood - Skin Skin Exam: Intact, Normal Color, Warm Assessment and Plan - Assessment and Plan (Free Text) Assessment: 82 yo female with fevers up to 101.6 F and found to have a small right parasyslvian hemmorhage. No leukocytosis but febrile. Pearson cultures and obtain procalcitonin on this patient. Drastic change in mental status as per the family. Currently on Vancomycin and Zosyn. Need clarification on PCN allergy. Unclear the etiology of the fever. May be secondary to hemmorhage but the hemmorhage appears to be small and unlikely to be the cause of the fevers. Pearson cultures of the patient. Will discuss with family to see what the nature of the PCN allergy is. Family states that it was a rash. Remains Extubated. Afebrile. Cultures have remained negative to date. Most recent Chest X-ray is not showing any infiltrates. Procalcitonin is low which would argue against an infectious process. Urinalysis not showing signs of a UTI. Check influenza as a potential viral source. Overall, the patient is improving. Off antibiotics. Cultures have been negative and patient afebrile for several days now. Noted that renal function was decreasing however. Thank you for allowing me to participate in the care of the patient, we will follow with you.
[2017-10-29] MEDS: Aluminum Hydroxide/Magnesium 30 ML, DiphenhydrAMINE 75 MG, Lidocaine 2% Viscous 30 ML PO PRN (21:18)
[2017-10-30 06:54] LABS: CALCIUM 9.1 mg/dL (8.4-10.5)
--- NOTE | 2017-10-30 09:12 | EEG ---
DVATE: 10/27/2017 CONDITION OF THE RECORDING: EEG was acquired using 10-20 electrode system. All electrodes were referenced to A1-A2 or P1-P2 respectively. Continuous seizure monitoring was done using spike detection . ABNORMALITIES: This EEG shows the patient is in status epilepticus. There are almost continuous sharp waves that are bilaterally symmetrical and occurring at a frequency of 1 to 2 per second. There are no normal background rhythm. There is no sleep, there is no drowsiness. IMPRESSION: This is an abnormal awake electroencephalogram which indicates status epilepticus. Clinical correlation is required. Troy Nunez MD
[2017-10-30] MEDS ORDERED: levETIRAcetam 500 mg/5ml UD cups PO SCH (10:00)
[2017-10-30] MEDS ORDERED: Lubricant Eye Drops UD OU PRN ×2 (10:31→10:37)
--- NOTE | 2017-10-30 10:31 | PQF ---
PROVIDER RESPONSE TEXT: Provider was unable to determine a response for this query. REVIEWER QUERY TEXT: Kidney Disease, Chronic CKD Stage Chronic Kidney Disease (CKD) is documented in the Medical Record. Please specify the disease stage ( includes probable or suspected) Such as: -- Chronic kidney disease Stage 1 -- Chronic kidney disease Stage 2 -- Chronic kidney disease Stage 3 -- Chronic kidney disease Stage 4 -- Chronic kidney disease Stage 5 -- Chronic kidney disease Stage 5, requiring dialysis -- End Stage Renal Disease -- Other, please specify Stages are defined by the [employer] as follows: CKD Stage I GFR >= 90 ml / min per 1.73 m2 and persistent albuminuria CKD Stage 2 GFR between 60 and 89 with persistent albuminuria CKD Stage 3 GFR between 30 and 59 CKD Stage 4 GFR between 15 and 29 CKD Stage 5 GFR between <15 or End Stage Renal Disease The patient's Clinical Indicators include: Query created by: Jewell Le on 10/26/2017 10:00 AM Electronically signed by: Katerin Diaz MD 10/30/2017 10:28 AM
[2017-10-30] MEDS ORDERED: guaiFENesin 100 mg/5 ml Syrup UD PO PRN (10:32)
--- NOTE | 2017-10-30 10:44 | CP.PCM.PN ---
Subjective - Date & Time of Evaluation Date of Evaluation: 10/30/17 Time of Evaluation: 10:44 - Subjective Subjective: Ms. Duran was seen and examined at the bedside. She is more alert, talks more, up in a chair, and according to staff and family able to stand and pivot herself.She is on thickened liquids, still persist to request thin liquids. She denies any headache, dizziness, lightheadedness. She is able to answer more questions and follow all commands. Repeat EEG showed status epilepticus.There was no untoward events overnight. Objective - Vital Signs/Intake and Output Vital Signs (last 24 hours): Temp Pulse Resp BP Pulse Ox 97.8 F 76 18 143/66 99 10/30/17 06:00 10/30/17 06:00 10/30/17 06:00 10/30/17 06:00 10/30/17 06:00 Intake and Output: 10/30/17 10/30/17 06:59 18:59 Intake Total 120 Balance 120 - Medications Medications: Current Medications Acetaminophen (Tylenol 325mg Tab) 650 mg PO Q6H PRN PRN Reason: Fever >100.4 F Last Admin: 10/28/17 11:10 Dose: 650 mg Albuterol/Ipratropium (Duoneb 3 Mg/0.5 Mg (3 Ml) Ud) 3 ml IH Q3 PRN PRN Reason: Shortness of Breath Last Admin: 10/28/17 17:25 Dose: 3 ml Artificial Tears (Refresh Opth Soln) 0.3 ml OU Q6 PRN PRN Reason: Inflammation Al Hydrox/Mg Hydrox/Simethicone 30 ml/Diphenhydramine HCl 75 mg/Lidocaine 30 ml 0 ml PO Q2H PRN PRN Reason: Mouth/Throat Pain Last Admin: 10/29/17 21:18 Dose: 30 ml Guaifenesin (Robitussin) 200 mg PO Q6H PRN PRN Reason: Cough Dextrose (Dextrose 5% In Water 1000 Ml) 1,000 mls @ 60 mls/hr IV .[id number] [facility] Last Admin: 10/30/17 05:30 Dose: Not Given Levetiracetam (Keppra) 750 mg PO BID [facility] Last Admin: 10/30/17 10:23 Dose: 750 mg Pantoprazole Sodium (Protonix Ec Tab) 40 mg PO 0600 [facility] Prednisone (Prednisone Tab) 10 mg PO DAILY [facility] Last Admin: 10/30/17 10:23 Dose: 10 mg - Labs Labs: 10/29/17 06:00 10/30/17 05:30 PT 12.9 SECONDS (9.4-12.5) H 10/24/17 18:25 INR 1.13 (0.93-1.08) H 10/24/17 18:25 APTT 30.2 Seconds (25.1-36.5) 10/24/17 18:25 - Constitutional Appears: No Acute Distress - Head Exam Head Exam: NORMAL INSPECTION - Neurological Exam Neurological Exam: Alert, Awake Neuro motor strength exam: Left Upper Extremity: 4, Right Upper Extremity: 4, Left Lower Extremity: 3, Right Lower Extremity: 3 Additional comments: more alert, follows commands Assessment and Plan (1) Seizure Assessment & Plan: Case discussed with Dr. Stephenson, continue all current medical, physical, occupational, and speech therapies. Recommend to increase keppra from 500 mg to 750 mg PO Q 12, repeat EEG today to evaluate the new dose is effective, hydration, treat any electrolyte abnormalities. Status: Acute
--- NOTE | 2017-10-30 12:59 | PN ---
DATE: 10/30/2017 LOCATION: The patient in room 264, bed 2. REASON FOR CONSULTATION AND FOLLOWUP: Atrial fibrillation, altered mental status, respiratory failure, cerebral bleed, successful extubation. SUBJECTIVE: The patient is conscious, alert now. No respiratory distress. Denies chest pain. No palpitation. PHYSICAL EXAMINATION: VITAL SIGNS: Blood pressure is 143/66, respirations 18, 20, pulse 72, temperature 97.8. HEENT: Head is normocephalic. Eyes: Pupils normal. Conjunctivae normal. Nose and throat normal. NECK: JVP low. Carotids equal. THORAX: AP diameter normal. LUNGS: No significant rales. CARDIOVASCULAR: S1 and S2. Ejection systolic murmur, grade III/. No rub. ABDOMEN: Soft. No tenderness. No organomegaly. EXTREMITIES: No clubbing. No cyanosis. LABORATORY DATA: WBC 8.2, hemoglobin 11.2, hematocrit 36.4, platelet 186. Sodium 147, potassium 4.5, BUN 47, creatinine 1.1, magnesium 2.6, calcium 9.1. DIAGNOSES: Chronic atrial fibrillation; history of gastrointestinal bleeding in the past; perisylvian fissure hemorrhage in the brain; hypernatremia, improving. Normal left ventricular function with ejection fraction of 70%, status post respiratory failure, status post successful extubation, dehydration, renal dysfunction. PLAN: The patient's high sodium level is improving with the D5W therapy. The patient is getting D5W mL an hour, DuoNeb hand nebulizer therapy, prednisone 10 mg p.o. daily, Keppra 750 b.i.d., Protonix 40 daily. We will continue present therapy. We will follow. Rodolfo Hinojosa MD
[2017-10-30] MEDS: Aluminum Hydroxide/Magnesium 30 ML, DiphenhydrAMINE 75 MG, Lidocaine 2% Viscous 30 ML PO PRN (14:07)
--- NOTE | 2017-10-30 17:06 | CP.PCM.PN ---
Subjective - Date & Time of Evaluation Date of Evaluation: 10/30/17 Time of Evaluation: 16:49 - Subjective Subjective: Infectious Disease Follow Up: October 30, 2017 82 yo female with PMHx of HTN, Diastolic CHF (03/2016 EF 55%), Chronic atrial fibrillation ( not on anticoagulation), Obesity, severe osteoarthritis presenting with changes in mental status. Patient is currently non verbal, thus history was obtained from son and daughter. Family states since Monday noon, patient suddenly became confused, was unable to talk, eat, and was not opening her eyes. Patient became incontinent as well. Patient was only moaning, and saying in Azeri "pain" pointing toward her right knee (this complaints is chronic as per family, states patient complains of pain even when alert, due to severe OA). Nevertheless, prior to Monday, patient was verbal, was ambulating with a walker with family's help. Patient takes BP meds daily, takes Lopressor, and sular and water pill, measures her BP at home daily and as per son it has been normal. As per son, patient was started on pradaxa, then Coumadin for afib almost a year ago, which were stopped due to side effects such as dizziness, nausea/ vomiting. No recent travel as per family. Family denies fall, trauma or seizure like activity. Unable to obtain detail ROS due to mental status. In the ED, patient was found to have small right parasylvian hemorrhage possibly hypertensive. GCS of 9 ( E1V3M5), Patient is otherwise able to protect her airway, saturating 95% on room air. Extubated 10/26/2017. Following orders today. Swallow studies for the morning. Leukocytosis appears to have resolved. Remains afebrile. Appetite significantly improved. Overall, the patient is doing better. Objective - Vital Signs/Intake and Output Vital Signs (last 24 hours): Temp Pulse Resp BP Pulse Ox 98.4 F 60 18 125/60 99 10/30/17 12:00 10/30/17 14:00 10/30/17 12:00 10/30/17 12:00 10/30/17 06:00 Intake and Output: 10/30/17 10/30/17 06:59 18:59 Intake Total 120 240 Output Total 200 Balance 120 40 - Medications Medications: Current Medications Acetaminophen (Tylenol 325mg Tab) 650 mg PO Q6H PRN PRN Reason: Fever >100.4 F Last Admin: 10/30/17 14:02 Dose: 650 mg Albuterol/Ipratropium (Duoneb 3 Mg/0.5 Mg (3 Ml) Ud) 3 ml IH Q3 PRN PRN Reason: Shortness of Breath Last Admin: 10/28/17 17:25 Dose: 3 ml Artificial Tears (Refresh Opth Soln) 0.3 ml OU Q6 PRN PRN Reason: Inflammation Last Admin: 10/30/17 11:00 Dose: 0.3 ml Al Hydrox/Mg Hydrox/Simethicone 30 ml/Diphenhydramine HCl 75 mg/Lidocaine 30 ml 0 ml PO Q2H PRN PRN Reason: Mouth/Throat Pain Last Admin: 10/30/17 14:07 Dose: 5 ml Guaifenesin (Robitussin) 200 mg PO Q6H PRN PRN Reason: Cough Last Admin: 10/30/17 13:59 Dose: 200 mg Dextrose (Dextrose 5% In Water 1000 Ml) 1,000 mls @ 60 mls/hr IV .[id number] [facility] Last Admin: 10/30/17 05:30 Dose: Not Given Levetiracetam (Keppra) 750 mg PO BID [facility] Last Admin: 10/30/17 10:23 Dose: 750 mg Pantoprazole Sodium (Protonix Ec Tab) 40 mg PO 0600 [facility] Prednisone (Prednisone Tab) 10 mg PO DAILY [facility] Last Admin: 10/30/17 10:23 Dose: 10 mg - Labs Labs: 10/29/17 06:00 10/30/17 05:30 PT 12.9 SECONDS (9.4-12.5) H 10/24/17 18:25 INR 1.13 (0.93-1.08) H 10/24/17 18:25 APTT 30.2 Seconds (25.1-36.5) 10/24/17 18:25 - Constitutional Appears: Non-toxic, No Acute Distress, Chronically Ill - Head Exam Head Exam: ATRAUMATIC, NORMOCEPHALIC - Eye Exam Eye Exam: EOMI, PERRL Pupil Exam: NORMAL ACCOMODATION, PERRL - ENT Exam ENT Exam: Mucous Membranes Moist, Normal External Ear Exam, TM's Normal Bilaterally - Neck Exam Neck Exam: Full ROM, Normal Inspection - Respiratory Exam Respiratory Exam: Clear to Ausculation Bilateral, NORMAL BREATHING PATTERN. absent: Rales, Rhonchi, Wheezes - Cardiovascular Exam Cardiovascular Exam: REGULAR RHYTHM, RRR, +S1, +S2 - GI/Abdominal Exam GI & Abdominal Exam: Soft, Normal Bowel Sounds. absent: Distended, Tenderness - Extremities Exam Extremities Exam: Tenderness (right knee) - Neurological Exam Neurological Exam: Alert, Awake, CN II-XII Intact, Oriented x3 Additional comments: Following commands. Moves all extremities. - Psychiatric Exam Psychiatric exam: Normal Affect, Normal Mood - Skin Skin Exam: Intact, Normal Color, Warm Assessment and Plan - Assessment and Plan (Free Text) Assessment: 82 yo female with fevers up to 101.6 F and found to have a small right parasyslvian hemmorhage. No leukocytosis but febrile. Pearson cultures and obtain procalcitonin on this patient. Drastic change in mental status as per the family. Currently on Vancomycin and Zosyn. Need clarification on PCN allergy. Unclear the etiology of the fever. May be secondary to hemmorhage but the hemmorhage appears to be small and unlikely to be the cause of the fevers. Pearson cultures of the patient. Will discuss with family to see what the nature of the PCN allergy is. Family states that it was a rash. Remains Extubated. Afebrile. Cultures have remained negative to date. Most recent Chest X-ray is not showing any infiltrates. Procalcitonin is low which would argue against an infectious process. Urinalysis not showing signs of a UTI. Check influenza as a potential viral source. Overall, the patient is improving. Off antibiotics. Cultures have been negative and patient afebrile for several days now. Noted that renal function was decreasing. There was a slight improvement to the renal function today. Thank you for allowing me to participate in the care of the patient, we will follow with you.
[2017-10-30] MEDS: Phenytoin 100 mg/4 ml Oral Susp UD PO SCH (21:43)
--- NOTE | 2017-10-31 01:12 | CT ---
EXAM: CT Head Without Intravenous Contrast EXAM DATE/TIME: 10/30/2017 11:17 PM CLINICAL HISTORY: The patient age is 82 years old and is female; Signs and symptoms; Altered mental status/memory loss Facility exam id and description: Ct heads head w/o contrast TECHNIQUE: Axial computed tomography images of the head/brain without intravenous contrast. All CT scans at this facility use at least one of these dose optimization techniques: automated exposure control; mA and/or kV adjustment per patient size (includes targeted exams where dose is matched to clinical indication); or iterative reconstruction. Coronal and sagittal reformatted images were created and reviewed. COMPARISON: CT - HEAD W/O CONTRAST 2017-10-25 09:00 FINDINGS: Artifacts: Motion artifact limits this study. Limitations: Evaluation of the ASPECTS score is limited by artifact. Brain: Motion artifact limits the evaluation for intracranial hemorrhage and acute territorial type infarct within the bilateral temporal and frontal lobes, right side greater than left. The area of hemorrhage previously visualized in the region of the right external capsule has significantly improved. Aside from the areas of artifact, the white-hannon differentiation is preserved. There are scattered foci of hypodensity within the cerebral white matter, likely representing small vessel ischemic disease in a patient this age. The acuity of the white matter disease is indeterminate. Midline shift: There is no midline shift. Ventricles: There is mild prominence of the ventricles and sulci, compatible with atrophy. Bones/joints: The calvarium demonstrates no evidence for a depressed fracture. Soft tissues: No acute abnormality. Vasculature: There is atherosclerotic calcification of the intracranial internal carotid arteries and distal vertebral arteries. Sinuses: No acute sinusitis. Mastoid air cells: Minimal effusion within the left mastoid air cells. IMPRESSION: 1. Motion artifact limits the evaluation for intracranial hemorrhage and acute territorial type infarct within the bilateral temporal and frontal lobes, right side greater than left. Repeat CT imaging is recommended. 2. The area of hemorrhage previously visualized in the region of the right external capsule has significantly improved. 3. There are scattered foci of hypodensity within the cerebral white matter, likely representing small vessel ischemic disease in a patient this age. 4. Mild atrophy. 5. Incidental/non-acute findings are described above.
[2017-10-31 01:45] VITALS: RESP 20
[2017-10-31] MEDS: Phenytoin 100 mg/4 ml Oral Susp UD PO SCH (05:45)
[2017-10-31 06:14] VITALS: TEMP 98.5
[2017-10-31] MEDS ORDERED: Pantoprazole 40 mg EC Tab PO SCH (10:00)
--- NOTE | 2017-10-31 10:39 | DS ---
HISTORY OF PRESENT ILLNESS: The patient is 82 years old, seen and examined. Patient was brought to emergency room, because family noticed that she was confused, disoriented, sleeping a lot, not eating. Initial impression was may be she had UTI. So I advised her to come to emergency room for further evaluation. She was found to have right small perisylvian hemorrhage versus stroke. So patient was admitted in ICU. She was intubated for airway protection. She was found to be in status epilepticus, has been on Keppra. After three days, her respiratory status improved. Her mental status improved. So, she was successfully extubated, transferred to telemetry, doing well. PHYSICAL EXAMINATION: GENERAL: She is awake, alert, oriented, able to communicate. VITAL SIGNS: She is afebrile. Pulse 72, respirations 18, blood pressure 146/66. LUNGS: Bilateral good airflow. No rhonchi or crackle. HEART: S1, S2 audible. ABDOMEN: Soft, nontender. No rebound. No guarding. NEUROLOGICAL: Patient is awake, alert, oriented, communicative. LABORATORY EXAM: Her sodium 147, potassium 4.5, chloride 114, CO2 of 26, BUN 47, creatinine 1.1. Blood sugar 192. Magnesium 2.6. ASSESSMENT: 1. Small right perisylvian hemorrhage. 2. Chronic atrial fibrillation, not on anticoagulation upon family's request. 3. Chronic anemia. 4. Congestive heart failure. 5. Bilateral edema. 6. Dysphagia, currently on thickened liquid and pureed diet. PLAN: Patient is doing much better. She is a perfect candidate for TCU so she is being discharged to TCU where she will receive physical therapy and she will be watched for fluids . Katerin Diaz MD
[2017-10-31 10:48] VITALS: PULSE 68
[2017-10-31 10:50] VITALS: BP 134/50; O2SAT 98
--- NOTE | 2017-10-31 14:22 | CARD ---
APPROVED REPORT EKG Measurement Heart [id number] <Conclusion> Atrial fibrillation with slow ventricular response Septal infarct, age undetermined Q in lll NSSTW changes
--- NOTE | 2017-10-31 16:29 | PN ---
DATE: 10/31/2017 REASON FOR CONSULTATION AND FOLLOWUP: Atrial fibrillation, altered mental status, respiratory failure, CVA bleed, successfully extubated. SUBJECTIVE: The patient denies any chest pain, shortness of breath, or any palpitation. DaughterMaverick at the bedside. PHYSICAL EXAMINATION: VITAL SIGNS: Temperature afebrile, heart rate 69, blood pressure 154/72. HEENT: PERRLA. Extraocular muscles intact. NECK: Supple. No carotid bruit. No thyromegaly. CHEST: Clear to auscultation. HEART: S1 and S2, regular. ABDOMEN: Soft. EXTREMITIES: Clubbing and cyanosis negative. LABORATORY DATA: Blood workup as follows: WBC 8.2, hemoglobin 11.2, hematocrit 36.4, and platelet count 186. Chemistry shows sodium 147, potassium 4.5, chloride 114, CO2 of 26, anion gap 13. BUN 47, creatinine 1.1. Magnesium 2.6. Repeat CAT scan this morning, read today showed motion artifact limited evaluation, intracranial hemorrhage, mild atrophy. The area of hemorrhage previously visualized in the region of right external capsule has significantly improved. IMPRESSION: An 82-year-old female with a past medical history significant for atrial fibrillation, not on anticoagulation as per family's option, admitted with altered mental status intracerebellar bleed, history of gastrointestinal bleed in the past. Her recent echo shows normal left ventricular function, ejection fraction 70%, status post respiratory failure, status post successfully extubated. Dehydration, renal impairment. Now, renal function is significantly improved back to baseline. History of atrial fibrillation. Yesterday, the patient had 20 beats of supraventricular tachycardia supraventricular tachycardia, but probably, it is most likely atrial fibrillation with bundle branch block and aberrancy. 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 Recommendation,not enough to do any pacemaker at this time. RECOMMENDATIONS: Continue to observe. Continue phenytoin for seizure disorder. Continue Proventil. I will follow with you. Patient is not on anticoagulation because of recent history of possible AFib, history of GI bleed in the past. We will monitor with you. Discussed with the patient's daughter, Maverick and son 3 days ago. The patient is cleared from cardiac point of view to go to the rehab facility and the TCU. Thank you, Dr. Diaz, for providing us the opportunity in taking care of the patient, Vicenta Duran. Rodolfo Rudd MD
--- NOTE | 2017-10-31 16:52 | CP.PCM.PN ---
Subjective - Date & Time of Evaluation Date of Evaluation: 10/31/17 Time of Evaluation: 11:30 - Subjective Subjective: Infectious Disease Follow Up: October 31, 2017 82 yo female with PMHx of HTN, Diastolic CHF (03/2016 EF 55%), Chronic atrial fibrillation ( not on anticoagulation), Obesity, severe osteoarthritis presenting with changes in mental status. Patient is currently non verbal, thus history was obtained from son and daughter. Family states since Monday noon, patient suddenly became confused, was unable to talk, eat, and was not opening her eyes. Patient became incontinent as well. Patient was only moaning, and saying in Faroese "pain" pointing toward her right knee (this complaints is chronic as per family, states patient complains of pain even when alert, due to severe OA). Nevertheless, prior to Monday, patient was verbal, was ambulating with a walker with family's help. Patient takes BP meds daily, takes Lopressor, and sular and water pill, measures her BP at home daily and as per son it has been normal. As per son, patient was started on pradaxa, then Coumadin for afib almost a year ago, which were stopped due to side effects such as dizziness, nausea/ vomiting. No recent travel as per family. Family denies fall, trauma or seizure like activity. Unable to obtain detail ROS due to mental status. In the ED, patient was found to have small right parasylvian hemorrhage possibly hypertensive. GCS of 9 ( E1V3M5), Patient is otherwise able to protect her airway, saturating 95% on room air. Extubated 10/26/2017. Following orders today. Swallow studies for the morning. Leukocytosis appears to have resolved. Remains afebrile. Appetite significantly improved. Overall, the patient is doing better. For TCU transfer today. Objective - Vital Signs/Intake and Output Vital Signs (last 24 hours): Temp Pulse Resp BP Pulse Ox 98.5 F 68 20 134/50 L 98 10/31/17 06:00 10/31/17 10:00 10/31/17 10:00 10/31/17 10:10/31/17 10:00 - Labs Labs: 10/29/17 06:00 10/30/17 05:30 PT 12.9 SECONDS (9.4-12.5) H 10/24/17 18:25 INR 1.13 (0.93-1.08) H 10/24/17 18:25 APTT 30.2 Seconds (25.1-36.5) 10/24/17 18:25 - Constitutional Appears: Non-toxic, Chronically Ill - Head Exam Head Exam: ATRAUMATIC, NORMOCEPHALIC - Eye Exam Eye Exam: EOMI, PERRL Pupil Exam: NORMAL ACCOMODATION, PERRL - ENT Exam ENT Exam: Mucous Membranes Moist, Normal External Ear Exam, TM's Normal Bilaterally - Neck Exam Neck Exam: Full ROM, Normal Inspection - Respiratory Exam Respiratory Exam: Clear to Ausculation Bilateral, NORMAL BREATHING PATTERN. absent: Rales, Rhonchi, Wheezes - Cardiovascular Exam Cardiovascular Exam: REGULAR RHYTHM, RRR, +S1, +S2 - GI/Abdominal Exam GI & Abdominal Exam: Soft, Normal Bowel Sounds. absent: Distended, Tenderness - Extremities Exam Extremities Exam: Full ROM, Normal Inspection - Neurological Exam Neurological Exam: Alert, Awake, CN II-XII Intact, Oriented x3 Additional comments: Following commands. Moves all extremities. - Psychiatric Exam Psychiatric exam: Normal Affect, Normal Mood - Skin Skin Exam: Intact, Normal Color Assessment and Plan - Assessment and Plan (Free Text) Assessment: 82 yo female with fevers up to 101.6 F and found to have a small right parasyslvian hemmorhage. No leukocytosis but febrile. Pearson cultures and obtain procalcitonin on this patient. Drastic change in mental status as per the family. Currently on Vancomycin and Zosyn. Need clarification on PCN allergy. Unclear the etiology of the fever. May be secondary to hemmorhage but the hemmorhage appears to be small and unlikely to be the cause of the fevers. Pearson cultures of the patient. Will discuss with family to see what the nature of the PCN allergy is. Family states that it was a rash. Remains Extubated. Afebrile. Cultures have remained negative to date. Most recent Chest X-ray is not showing any infiltrates. Procalcitonin is low which would argue against an infectious process. Urinalysis not showing signs of a UTI. Check influenza as a potential viral source. Overall, the patient is improving. Off antibiotics. Cultures have been negative and patient afebrile for several days now. Noted that renal function was decreasing. There was a slight improvement to the renal function on last check. Thank you for allowing me to participate in the care of the patient, we will follow with you.
== END 2017-10-31 12:30 | DRG 64 ==
LOC: ED 18:02 → ERH 20:15 → CCU 23:40 → 2RNO 10-28 21:17
PROVIDERS: ADMIT Internal Medicine; ATTEND Internal Medicine
PROC: 5A1945Z Respiratory Ventilation, 24-96 Consecutive Hours (ICD-10-PCS; principal; 2017-10-25)
PROC: 0BH17EZ Insertion of Endotracheal Airway into Trachea, Via Natural or Artificial Opening (ICD-10-PCS; 2017-10-25)
PROC: 5A09357 Assistance with Respiratory Ventilation, Less than 24 Consecutive Hours, Continuous Positive Airway Pressure (ICD-10-PCS; 2017-10-26)
DX: I61.9 Nontraumatic intracerebral hemorrhage, unspecified (principal); J96.01 Acute respiratory failure with hypoxia; G92 Toxic encephalopathy; N17.9 Acute kidney failure, unspecified; I13.0 Hypertensive heart and chronic kidney disease with heart failure and stage 1 through stage 4 chronic kidney disease, or unspecified chronic kidney disease; I50.30 Unspecified diastolic (congestive) heart failure; E87.0 Hyperosmolality and hypernatremia; R40.2420 Glasgow coma scale score 9-12, unspecified time; G40.901 Epilepsy, unspecified, not intractable, with status epilepticus; I48.2 Chronic atrial fibrillation; D64.9 Anemia, unspecified; R13.10 Dysphagia, unspecified; N18.9 Chronic kidney disease, unspecified; E86.0 Dehydration; I95.9 Hypotension, unspecified; K21.9 Gastro-esophageal reflux disease without esophagitis; I27.20 Pulmonary hypertension, unspecified; I08.3 Combined rheumatic disorders of mitral, aortic and tricuspid valves; M19.90 Unspecified osteoarthritis, unspecified site; I89.0 Lymphedema, not elsewhere classified; E03.9 Hypothyroidism, unspecified; I87.2 Venous insufficiency (chronic) (peripheral); R73.9 Hyperglycemia, unspecified; R26.2 Difficulty in walking, not elsewhere classified; E66.01 Morbid (severe) obesity due to excess calories; Z68.30 Body mass index [BMI] 30.0-30.9, adult; Z88.0 Allergy status to penicillin; Z88.8 Allergy status to other drugs, medicaments and biological substances

== ENCOUNTER 2017-10-31 12:38 | Inpatient (IN) | payer OTHER, MEDICAID ==
[2017-10-31] MEDS ORDERED: Albuterol-Ipratrop 3 mg / 0.5 (3 ml) UD IH PRN (15:03)
[2017-10-31] MEDS ORDERED: guaiFENesin 200 mg/10 ml Syrup UD PO PRN (15:03)
[2017-10-31] MEDS ORDERED: Lubricant Eye Drops UD OU PRN (15:03)
[2017-10-31 16:11] VITALS: BMI 30.7
[2017-10-31] MEDS: Phenytoin 100 mg/4 ml Oral Susp UD PO SCH (21:16)
[2017-11-01] MEDS: Phenytoin 100 mg/4 ml Oral Susp UD PO SCH ×3 (05:57→21:31)
[2017-11-01] MEDS ORDERED: Pantoprazole 40 mg EC Tab PO SCH (06:00)
[2017-11-01] MEDS: Pantoprazole 40 mg Susp UD PO SCH (06:08)
--- NOTE | 2017-11-01 12:08 | HP ---
CHIEF COMPLAINT AND HISTORY OF PRESENT ILLNESS: This is an 82-year-old female who had come to the hospital, was found to have hemorrhage in the right pelvic area. The patient has a history of chronic atrial fibrillation and has not been on anticoagulation upon the family's request. The patient has been transferred to the Transitional Care Unit for rehab. The initial H and P was reviewed by me and I do agree with this. The patient has no complaints of any chest pain. No shortness of breath. No headaches or dizziness. She has been feeling better. She states she has been eating. She does have pruritus that she complains about. ALLERGIES: DABIGATRAN, PENICILLIN, ROFECOXIB, WARFARIN, PRAVASTATIN. PAST MEDICAL HISTORY: 1. Atrial fibrillation, not on anticoagulation. 2. CHF. 3. Hypertension. 4. CKD. 5. Bilateral elephantiasis. MEDICATIONS: Have been reviewed. SOCIAL HISTORY: Lives with the daughter. No smoking, alcohol. PHYSICAL EXAMINATION: VITAL SIGNS: Temperature is 98.1, pulse is 76, blood pressure is 148/67, respirations 20. GENERAL: The patient lying in bed, uncomfortable, and in no acute distress. HEENT: Atraumatic and normocephalic. Anicteric sclerae. Moist mucosa. Micro conjunctivae. No oral lesions. NECK: No JVD, anterior and posterior adenopathy, thyromegaly, or bruits. CARDIOVASCULAR: S1 and S2 regular. No murmur, rubs, or gallop. LUNGS: Clear to auscultation bilaterally. No wheezes, rales, or rhonchi. ABDOMEN: Bowel sounds are positive. Soft, nontender and nondistended. No hepatosplenomegaly. No rebound and no guarding EXTREMITIES: No cyanosis, clubbing, or edema. NEUROLOGIC: No facial asymmetry. Tongue is midline. No uvula deviation. Power is 5/5 upper extremity and lower extremity. Sensation intact in upper extremity and lower extremity. PSYCHIATRIC: She is awake, alert and oriented x3. No anxiety or depression. She has normal affect. GENITOURINARY: No CVA tenderness. VASCULAR: 2+ pulses in the carotid pulses and pedal pulses. SKIN: No erythema or nodules. SPINE: Shows normal curvature. LABORATORY DATA: No new labs. ASSESSMENT: 1. Obese with a body mass index of 30. 2. Hypertension. 3. Seizure disorder, on Dilantin. PLAN: The patient is on a dysphagia modified diet. She is getting physical therapy. She is currently comfortable. She will continue to be followed. The old discharge note and H and P were reviewed by me. Alfred Jara MD
--- NOTE | 2017-11-01 16:36 | CP.PCM.CON ---
History of Present Illness - History of Present Illness History of Present Illness: Neurology Consultation Note: Mrs. Duran is an 82-year-old woman who was recently admitted for acute encephalopathy, found to have a possible perisylvian bleed on CT head, and was later diagnosed with status epilepticus based on EEG. She was started on Keppra and titrated up, but had itchiness and drowsiness. Subsequently, the Keppra dose was titrated down and she was loaded with dilantin. She did well on this regimen and was transferred to TCU. I was consulted to continue following the patient and assist with the management and care. Review of Systems - Review of Systems All systems: reviewed and no additional remarkable complaints except Past Patient History - Past Social History Smoking Status: Never Smoked - CARDIAC Hx Cardiac Disorders: Yes Hx Congestive Heart Failure: Yes Hx Hypertension: Yes - PULMONARY Hx Respiratory Disorders: No - NEUROLOGICAL Hx Neurological Disorder: No - HEENT Hx Cataracts: Yes - RENAL Hx Chronic Kidney Disease: No - ENDOCRINE/METABOLIC Hx Endocrine Disorders: No - HEMATOLOGICAL/ONCOLOGICAL Hx Blood Disorders: No - INTEGUMENTARY Hx Dermatological Problems: No - MUSCULOSKELETAL/RHEUMATOLOGICAL Hx Arthritis: Yes - GASTROINTESTINAL Hx Gastrointestinal Disorders: Yes - GENITOURINARY/GYNECOLOGICAL Other/Comment: overactive bladder - PSYCHIATRIC Hx Depression: No Hx Emotional Abuse: No Hx Physical Abuse: No - SURGICAL HISTORY Other/Comment: fractured left wrist/arm needing cast - ANESTHESIA Hx Anesthesia: Yes Hx Anesthesia Reactions: No Hx Malignant Hyperthermia: No Meds Allergies/Adverse Reactions: Allergies Allergy/AdvReac Type Severity Reaction Status Date / Time dabigatran etexilate mesylate Allergy Intermediate ANGIOEDEMA Verified 10/31/17 20:33 [From Pradaxa] Penicillins Allergy RASH Verified 10/31/17 20:33 rofecoxib [From Vioxx] Allergy FATIGUE Verified 10/31/17 20:33 warfarin AdvReac Unknown ITCHING Verified 10/31/17 20:33 pravastatin AdvReac RASH Verified 10/31/17 20:33 - Medications Medications: Current Medications Acetaminophen (Tylenol 325mg Tab) 650 mg PO Q6H PRN; Protocol PRN Reason: Fever >100.4 F Albuterol/Ipratropium (Duoneb 3 Mg/0.5 Mg (3 Ml) Ud) 3 ml IH Q3H PRN; Protocol PRN Reason: Shortness of Breath Artificial Tears (Refresh Opth Soln) 0 ml OU Q6H PRN; Protocol PRN Reason: Inflammation Al Hydrox/Mg Hydrox/Simethicone 30 ml/Diphenhydramine HCl 75 mg/Lidocaine 30 ml 0 ml PO Q2H PRN; Protocol PRN Reason: Mouth/Throat Pain Guaifenesin (Robitussin) 200 mg PO Q6H PRN; Protocol PRN Reason: Cough and congestion Levetiracetam (Keppra) 250 mg PO BID [facility] PRN Reason: Protocol Last Admin: 11/01/17 11:17 Dose: 250 mg Losartan Potassium (Cozaar) 50 mg PO DAILY [facility] Last Admin: 11/01/17 11:15 Dose: 50 mg Pantoprazole Sodium (Protonix Susp) 40 mg PO 0600 GOLDEN Last Admin: 11/01/17 06:08 Dose: 40 mg Phenytoin (Dilantin) 100 mg PO Q8 [facility] PRN Reason: Protocol Last Admin: 11/01/17 14:22 Dose: 100 mg Prednisone (Prednisone Tab) 10 mg PO DAILY G[facility]EN PRN Reason: Protocol Last Admin: 11/01/17 11:17 Dose: 10 mg Physical Exam - Neurological Exam Neurological exam: Abnormal Gait, Alert, CN II-XII Intact, Oriented x3, Reflexes Normal Results - Vital Signs Recent Vital Signs: Last Vital Signs Temp 98.1 F 11/01/17 06:00 Pulse 69 11/01/17 11:15 Resp 20 11/01/17 06:00 BP 156/67 H 11/01/17 11:15 Pulse Ox 97 11/01/17 06:00 Assessment & Plan (1) Seizure Assessment and Plan: Continue dilantin 100 mg TID and Keppra 250 mg BID. Will titrate Keppra down to 250 mg QHS next week. Status: Chronic Priority: Medium
--- NOTE | 2017-11-01 21:03 | CON ---
DATE: 11/01/2017 CARDIOLOGY CONSULTATION REASON FOR CONSULTATION: Continuity of care in Transitional Care Unit, history of atrial fibrillation, not on anticoagulation, admitted with CVA, possible bleed. BRIEF CLINICAL HISTORY: This is an 82-year-old, Welsh-speaking female with known history of chronic atrial fibrillation, history of GI bleed in the past, and family opted not to have anticoagulation who initially admitted on 10/24/2017 with altered mental status, possible CVA, possible intracerebellar bleed, now patient is transferred to Transitional Care Unit for the continuity of care. Family is at the bedside. Denies any chest pain, shortness of breath, or any palpitations. PAST MEDICAL HISTORY: Significant for atrial fibrillation, diastolic dysfunction, osteoarthritis, obesity, mild aortic stenosis, moderate mitral regurgitation, moderate tricuspid regurgitation, RV systolic pressure of 49, ejection fraction preserved 70% on echo dated 04/22/2016. Patient had a repeat echo on 10/25/2017 that showed normal LV function, ejection fraction within normal limit, moderate aortic stenosis, [id number] mitral regurgitation, mild tricuspid regurgitation, mild pulmonary hypertension, RV systolic pressure of 40. History of GI bleed and family did not want anticoagulation last time. CURRENT MEDICATIONS: Patient is taking phenytoin sodium or Dilantin, Keppra, prednisone, artificial tear, guaifenesin, acetaminophen. ALLERGIES: PENICILLIN, COUMADIN, PRAVACHOL, DABIGATRAN. REVIEW OF SYSTEMS: As per HPI. PHYSICAL EXAMINATION: VITAL SIGNS: Height of the patient 5 feet 4 inches, weight of the patient 179 pounds, body mass index 30.7 kg per meter squared. Temperature is afebrile, heart rate is 76, blood pressure 142/67. HEENT: PERRLA. Extraocular muscles are intact. NECK: Supple. No carotid bruit or thyromegaly. CHEST: Clear to auscultation. HEART: S1 and S2, regular. ABDOMEN: Soft. EXTREMITIES: Clubbing and cyanosis negative. LABORATORY DATA: Blood workup as follows: WBC 8.2, hemoglobin 11.2, hematocrit 36.4, and platelet count 186. Chemistry shows sodium 147, potassium 4.5, chloride 101, carbon dioxide 26, anion gap of 13, BUN 47, creatinine 1.1, magnesium 2.6. IMPRESSION: An 82-year-old female with past medical history of chronic atrial fibrillation, family opted for medical treatment, admitted with altered mental status, not on anticoagulation. Initial CAT scan consistent with questionable intracerebellar bleed; repeat CAT scan did not show further bleed. Most recent echo was done that showed preserved left ventricular ejection fraction of 70%. Initially, patient has respiratory failure, now extubated successfully as outpatient in the Transitional Care Unit for continuity of care. Denies any chest pain, shortness of breath, or any palpitations. Patient was at home on metoprolol, but it was held because the patient was having bradycardia, atrial fibrillation with slow response, and yesterday in the telemetry 2.5-second pause, so metoprolol is on hold. Currently, the patient's heart rate is 60 to 70 in atrial fibrillation, blood pressure is well maintained. RECOMMENDATIONS: Continue phenytoin. Continue nebulizer treatment. Continue acetaminophen. Avoid beta-facundo. Avoid rate-limiting calcium channel facundo. We will start low dose of losartan as the patient was on losartan. I discussed with the patient's son and patient's daughter, Maverick, explained the patient's condition and medication, the concern about holding the Lopressor explained to the family. Rodolfo Rudd MD
[2017-11-02] MEDS: Phenytoin 100 mg/4 ml Oral Susp UD PO SCH ×3 (05:33→21:34)
[2017-11-02] MEDS: Pantoprazole 40 mg Susp UD PO SCH (05:33)
--- NOTE | 2017-11-02 14:45 | PN ---
DATE: 11/02/2017 REASON FOR THE CONSULTATION: Followup continuity of care in Transitional Care Unit; history of atrial fibrillation, not on anticoagulation; admitted with CVA, possible intracerebral bleed. SUBJECTIVE: The patient feels okay. Denies any chest pain, shortness of breath or any palpitation. OBJECTIVE: GENERAL: Not in any apparent distress, sitting in the chair. Family members, son and the daughterDelfina are at the bedside. VITAL SIGNS: Temperature afebrile, heart rate 77, blood pressure 123/54. HEENT: PERRLA. Extraocular muscles intact. NECK: Supple. No carotid bruit. No thyromegaly. CHEST: Clear to auscultation. HEART: S1 and S2 regular. ABDOMEN: Soft. EXTREMITIES: Clubbing and cyanosis negative. LABORATORY DATA: Blood workup not available. IMPRESSION: An 82-year-old female with past medical history of chronic atrial fibrillation, not on anticoagulation because of gastrointestinal bleed in the past. Admitted with altered mental status, cerebrovascular accident, possible dehydration. Initial CAT scan read as bleed, later subsequent did not show any bleed. The patient was dehydrated. BUN and creatinine were elevated. Now, the patient is much stable. RECOMMENDATIONS: Continue phenytoin for seizure. Continue nebulizer treatment. Continue acetaminophen. Avoid beta facundo because the patient gets symptomatic rony, AFib with low ventricular rate. Avoid rate-limiting calcium channel facundo as well. Start low dose of losartan when the patient is okay to be discharged. Discharge on losartan. No beta facundo or rate-limiting calcium channel facundo because of significant bradycardia. Most recent echo of the patient demonstrated ejection fraction of 70%. Discussed with the son and the daughterDelfina in length. We will also discuss with Dr. Diaz not to give any beta facundo upon discharge. Rodolfo Rudd MD
--- NOTE | 2017-11-02 19:58 | PN ---
DATE: 11/02/2017 SUBJECTIVE: The patient is 82 years old, seen and examined, lying in bed. Seems to be comfortable. Eating poorly, but no chest pain, no shortness of breath. OBJECTIVE: VITAL SIGNS: She has a temperature of 99.1, pulse 72, respirations 20, and blood pressure 125/52. LUNGS: Bilateral fair airflow. No rhonchi or crackle. HEART: S1 and S2 audible. ABDOMEN: Soft. Nontender. No rebound. No guarding. NEUROLOGIC: The patient is awake, alert, oriented, and communicative. EXTREMITIES: Bilateral legs, no edema. LABORATORY DATA: There is no new lab available today. ASSESSMENT: 1. Status post altered mental status secondary to right perisylvian stroke. 2. Questionable status epilepticus, currently on Keppra and phenytoin. 3. Hypertension. 4. Hyperlipidemia. PLAN: We will continue the patient on current medications. Encourage ambulation and we will follow up patient in a.m. Katerin Diaz MD
[2017-11-03] MEDS: Pantoprazole 40 mg Susp UD PO SCH (06:44)
[2017-11-03] MEDS: Phenytoin 100 mg/4 ml Oral Susp UD PO SCH ×3 (06:44→21:20)
--- NOTE | 2017-11-03 12:59 | PN ---
DATE: 11/03/2017 REASON FOR THE CONSULTATON: Follow up continuity of care in Transitional Care Unit, history of atrial fibrillation, not on anticoagulation, admitted with CVA, possible intracerebral bleed, history of GI bleed in the past. SUBJECTIVE: The patient denies any chest pain, shortness of breath or any palpitations. Family member, two daughters are at bedside. PHYSICAL EXAMINATION: GENERAL: Not in apparent distress, sitting in the wheelchair comfortably. VITAL SIGNS: Temperature afebrile, heart rate 70, blood pressure 140/52, HEENT: PERRLA. Extraocular muscles intact. NECK: Supple. No carotid bruit or thyromegaly. CHEST: Clear to auscultation. HEART: S1, S2 regular. ABDOMEN: Soft. EXTREMITIES: Clubbing and cyanosis negative. LABORATORY DATA: Blood workup is not available. IMPRESSION: An 82-year-old female with a past medical history significant for chronic atrial fibrillation, not on anticoagulation as per family wish and history of gastrointestinal bleed in the past, admitted with altered mental status, cerebrovascular accident, possible dehydration. Initial CAT scan shows intracerebral bleed, later on did not show bleed, possibly the symptoms are secondary to increasing BUN and creatinine and dehydration, now the patient is significantly improved. Continue losartan, phenytoin. The patient was at home. Lopressor, which was held because of significant bradycardia 2.5 second pause. Since after the Lopressor was held, the patient is hemodynamically stable, no further episode of bradycardia or hemodynamic instability noted. Discussed with the son not to start metoprolol at home, continue losartan. Discussed with the daughter. We will discuss with Dr. Diaz not to restart beta-facundo. Rodolfo Rudd MD
--- NOTE | 2017-11-03 15:46 | PN ---
DATE: 11/03/2017 SUBJECTIVE: Patient is 82 years old, seen and examined, lying in bed, seems to be comfortable, not doing well in physical therapy, asking for liquid diet. She is craving for soup, although she has difficulty swallowing liquids. OBJECTIVE: VITAL SIGNS: Patient is afebrile, pulse 70, respirations 16, blood pressure 140/52. LUNGS: Bilateral good airflow. No rhonchi or crackles. HEART: S1 and S2 audible. ABDOMEN: Soft, nontender, no rebound, no guarding. NEUROLOGIC: Patient is awake, alert, communicative. EXTREMITIES: Bilateral legs, no edema. ASSESSMENT: 1. Status post respiratory failure. 2. Right perisylvian cerebrovascular accident. 3. Hypertension. 4. Hyperlipidemia. 5. Chronic atrial fibrillation, not on anticoagulation upon family's request. PLAN: Currently, patient is on Dilantin and Keppra. We will continue that. Continue on losartan and start her on Lasix. Monitor CBC and CMP in a.m. Katerin Diaz MD
[2017-11-04] MEDS: Phenytoin 100 mg/4 ml Oral Susp UD PO SCH ×3 (06:17→21:18)
[2017-11-04] MEDS: Pantoprazole 40 mg Susp UD PO SCH (06:17)
[2017-11-04 09:14] LABS: BASO # 0.01 K/mm3 (0.0-2.0); BASO % 0.1 % (0.0-3.0); EOS # 0.3 (0.0-0.7); EOS % 3.8 % (1.5-5.0); GRAN # 4.2 (1.4-6.5); GRAN % 60.8 % (50.0-68.0); HEMOGLOBIN 11.5 g/dL (12.0-16.0); LYMPH # 1.6 (1.2-3.4); LYMPH % 22.8 % (22.0-35.0); MEAN CELL VOLUME 91.5 fl (80.0-105.0); MEAN CORPUSCULAR HEMOGLOBIN 29.8 pg (25.0-35.0); MEAN CORPUSCULAR HGB CONC 32.6 g/dl (31.0-37.0); MEAN PLATELET VOLUME 8.7 fl (7.0-11.0); MONO # 0.9 (0.1-0.6); MONO % 12.5 % (1.0-6.0); RBC 3.86 10^6/uL (3.5-6.1); RED CELL DISTRIBUTION WIDTH 14.8 % (11.5-14.5); WHITE BLOOD COUNT 6.9 10^3/ul (4.5-11.0)
[2017-11-04 09:35] LABS: ALB/GLOB RATIO 1.1 (1.1-1.8); ALBUMIN 2.9 g/dL (3.0-4.8); ALT/SGPT 23 U/L (7-56); AST/SGOT 28 U/L (14-36); BLOOD UREA NITROGEN 17 mg/dL (7-21); CALCIUM 8.8 mg/dL (8.4-10.5); GFR AFRICAN-AMERICAN > 60; GFR NON-AFRICAN AMERICAN 60
--- NOTE | 2017-11-04 13:59 | PN ---
DATE: 11/04/2017 SUBJECTIVE: Patient is 82 years old, seen and examined, sitting in chair, seems to be comfortable. Awake, alert, oriented, communicative. Eating and tolerating. OBJECTIVE: VITAL SIGNS: She is afebrile, pulse 51, respirations 20, blood pressure 115/59. LUNGS: Bilateral fair airflow. No rhonchi or crackle. HEART: S1 and S2 audible. ABDOMEN: Soft, obese, and nontender. No rebound, no guarding. NEUROLOGICAL: She is awake, alert, oriented, and communicative. EXTREMITIES: Bilateral legs, no edema. LABORATORY EXAM: WBC 6.9, hemoglobin 11.5, hematocrit 35.3, and platelets 144. Chemistry: Sodium 140, potassium 4.2, chloride 102, CO2 of 31. BUN 17, creatinine 0.9. Blood sugar of 96. ASSESSMENT AND PLAN: 1. Questionable status epilepticus. 2. History of right perisylvian cerebrovascular accident. 3. Congestive heart failure. 4. Chronic atrial fibrillation. 5. Hypertension. PLAN: We will restart patient on Lasix. She is on Keppra and Dilantin. Family is very concerned. They want second opinion to make sure that she needs this medication and they are requesting Dr. Moy, because he is their family neurologist and will request for neuro evaluation for second opinion and will continue current medication and I will follow up patient on Monday. Katerin Diaz MD
[2017-11-05] MEDS: Phenytoin 100 mg/4 ml Oral Susp UD PO SCH ×3 (06:04→21:32)
[2017-11-05] MEDS: Pantoprazole 40 mg Susp UD PO SCH (06:04)
--- NOTE | 2017-11-05 06:27 | CP.PCM.PN ---
Subjective - Date & Time of Evaluation Date of Evaluation: 11/05/17 Time of Evaluation: 06:23 - Subjective Subjective: Ms. Duran was seen and examined at the bedside. She is awake, denies any headache, dizziness, itchiness. She is able follow simple commands with lower extremities weaker than the upper extremity. There was no untoward events overnight. Objective - Vital Signs/Intake and Output Vital Signs (last 24 hours): Temp Pulse Resp BP Pulse Ox 98.5 F 71 20 114/48 L 97 11/04/17 16:00 11/04/17 16:00 11/04/17 16:00 11/04/17 16:00 11/04/17 16:00 Intake and Output: 11/04/17 11/05/17 18:59 06:59 Intake Total 360 Balance 360 - Medications Medications: Current Medications Acetaminophen (Tylenol 325mg Tab) 650 mg PO Q6H PRN; Protocol PRN Reason: Fever >100.4 F Last Admin: 11/05/17 06:04 Dose: 650 mg Albuterol/Ipratropium (Duoneb 3 Mg/0.5 Mg (3 Ml) Ud) 3 ml IH Q3H PRN; Protocol PRN Reason: Shortness of Breath Artificial Tears (Refresh Opth Soln) 0 ml OU Q6H PRN; Protocol PRN Reason: Inflammation Al Hydrox/Mg Hydrox/Simethicone 30 ml/Diphenhydramine HCl 75 mg/Lidocaine 30 ml 0 ml PO Q2H PRN; Protocol PRN Reason: Mouth/Throat Pain Furosemide (Lasix) 40 mg PO DAILY [facility] Last Admin: 11/04/17 10:14 Dose: 40 mg Guaifenesin (Robitussin) 200 mg PO Q6H PRN; Protocol PRN Reason: Cough and congestion Levetiracetam (Keppra) 250 mg PO HS [facility] Losartan Potassium (Cozaar) 50 mg PO DAILY [facility] Last Admin: 11/04/17 10:14 Dose: Not Given Pantoprazole Sodium (Protonix Susp) 40 mg PO 0600 [facility] Last Admin: 11/05/17 06:04 Dose: 40 mg Phenytoin (Dilantin) 100 mg PO Q8 [facility] PRN Reason: Protocol Last Admin: 11/05/17 06:04 Dose: 100 mg - Labs Labs: 11/04/17 08:55 11/04/17 08:55 - Constitutional Appears: No Acute Distress - Head Exam Head Exam: NORMAL INSPECTION - Eye Exam Pupil Exam: PERRL - Neurological Exam Neurological Exam: Awake Neuro motor strength exam: Left Upper Extremity: 3, Right Upper Extremity: 3, Left Lower Extremity: 2/1, Right Lower Extremity: 2/1 Additional comments: She is awake, alert, able to follow commands, sensation is intact. Assessment and Plan (1) Seizure Assessment & Plan: Case discussed with Dr. Stephenson, continue all current medical, physical, occupational, and speech therapies. Recommend dilantin level and decrease keppra fro BID to HS with plan to discontinue upon discharge, hydration, keep head of bed elevated at least 30 degrees. Status: Chronic
[2017-11-05] MEDS: POLYETHYLENE GLYCOL 3350 17 GM/Dose PACKET PO SCH (17:24)
--- NOTE | 2017-11-06 00:06 | PN ---
DATE: 11/05/2017 SUBJECTIVE: She is comfortable in the bed, in no acute distress, daughter at bedside. She denies any problem, tolerating oral feeding. Participating in physical therapy. No chest pain, no shortness of breath, no cough with expectoration. REVIEW OF SYSTEMS: As per HPI. Rest of 12-point review of systems reviewed negative. PHYSICAL EXAMINATION: GENERAL: Comfortable in bed, in no acute distress. VITAL SIGNS: Temperature 98.7, heart rate 56 per minute, respiratory rate 18 per minute, blood pressure 115/59. HEENT: Pallor positive. NECK: No lymphadenopathy. CHEST: Air entry present and equal bilateral. No added sound. CARDIOVASCULAR: S1, S2 normal. No murmur. No gallop. ABDOMEN: Soft, nontender. No hepatosplenomegaly. EXTREMITIES: No edema. NEUROLOGIC: Awake, alert, oriented, communicative. SKIN: No petechiae. No rash. LABORATORY DATA: White count 6.9, hemoglobin 11.5, hematocrit 35.3, platelet count 144. Sodium 140, potassium 4.2, BUN 17, creatinine 0.9. MEDICATIONS: Tylenol 650 every 6 hours p.r.n., DuoNeb p.r.n., artificial tear, Lasix 40 mg daily, Robitussin every 6 hour p.r.n., Keppra 250 p.o. at bedtime, potassium, Dilantin 100 mg every 8, MiraLax 17 g p.o. daily. ASSESSMENT: History of status epilepticus, congestive heart failure, chronic atrial fibrillation, hypertension, chronic anemia. PLAN: We will continue Keppra and Dilantin. Participating in physical therapy. Hemoglobin and hematocrit stable. Congestive heart failure is well compensated. No bleeding from any site currently. Not on any anticoagulation for atrial fibrillation. Tosin Chiu MD
[2017-11-06] MEDS: Phenytoin 100 mg/4 ml Oral Susp UD PO SCH ×3 (06:14→21:14)
[2017-11-06] MEDS: Pantoprazole 40 mg Susp UD PO SCH (06:14)
[2017-11-06] MEDS: POLYETHYLENE GLYCOL 3350 17 GM/Dose PACKET PO SCH (10:23)
--- NOTE | 2017-11-06 13:39 | PN ---
DATE: 11/06/2017 SUBJECTIVE: The patient is 82-year-old, seen and examined, sitting in chair, seems to be comfortable, complained of generalized weakness and fatigue. Eating well. Food was brought from home. PHYSICAL EXAMINATION: VITAL SIGNS: She is afebrile, pulse 80, respiration 18, blood pressure 130/61. LUNGS: Bilateral good airflow. No rhonchi or crackle. HEART: S1 and S2 audible. ABDOMEN: Soft, obese, nontender. No rebound, no guarding. NEUROLOGIC: The patient is awake, alert, oriented, communicative. ASSESSMENT: 1. Status post right perisylvian stroke, status post altered mental status, status post respiratory failure. 2. Chronic anemia. 3. Chronic atrial fibrillation. 4. History of gastrointestinal bleed. 5. Hypertension. 6. Chronic bilateral leg edema. PLAN: We will get second opinion from Dr. Moy. The patient is very concerned to give elderly lady medication for seizure. We will get opinion from Dr. Moy. We will review her EEG and make further decision. We will follow up the patient in a.m. Katerin Diaz MD
--- NOTE | 2017-11-06 19:52 | PN ---
DATE: 11/06/2017 REASON FOR CONSULTATION: Followup continuity of care in Transitional Care Unit, history of atrial fibrillation, not on anticoagulation, admitted with CVA, possible intracerebral bleed, history of GI bleed in the past. SUBJECTIVE: The patient denies any chest pain, shortness of breath or any palpitations. PHYSICAL EXAMINATION: GENERAL: Not in any apparent distress. The patient's family is at bedside. VITAL SIGNS: As follows, temperature afebrile, heart rate 78, blood pressure 130/61, HEENT: PERRLA. Extraocular muscles intact. NECK: Supple. No carotid bruit or thyromegaly. CHEST: Clear to auscultation. HEART: S1 and S2 regular. ABDOMEN: Soft. EXTREMITIES: Clubbing and cyanosis negative. LABORATORY DATA: Blood workup as follows, WBC 6.9, hemoglobin 11.5, hematocrit 35.3, platelet count 144. Chemistry showed sodium 140, potassium 4.2, chloride 102, carbon dioxide 30, anion gap of 10, BUN 17, creatinine 0.9. Total protein 5.7, albumin 2.9, albumin-globulin ratio 1.1. IMPRESSION: Protein-calorie malnutrition which was present since admission, anemia, atrial fibrillation, not on anticoagulation because of gastrointestinal bleed and as per family discretion, altered mental status, status post respiratory failure, gastrointestinal bleed, hypertension, chronic bilateral leg edema. Initial CAT scan shows bleed, but later on repeat CAT scan did not show bleed. History of cerebrovascular accident in the past. RECOMMENDATIONS: Continue . Increase nutritional support. We will follow with you. We will supplement Ensure Clear for hypoproteinemia. Thank you, Dr. Diaz, for providing us the opportunity in taking care of the patient, Vicenta Duran. Rodolfo Rudd MD
[2017-11-07] MEDS: Phenytoin 100 mg/4 ml Oral Susp UD PO SCH ×2 (05:58→14:20)
[2017-11-07] MEDS: Pantoprazole 40 mg Susp UD PO SCH (05:58)
[2017-11-07 06:23] LABS: BASO # 0.02 K/mm3 (0.0-2.0); BASO % 0.3 % (0.0-3.0); EOS # 0.2 (0.0-0.7); EOS % 2.3 % (1.5-5.0); GRAN # 5.08 (1.4-6.5); GRAN % 65.9 % (50.0-68.0); HEMOGLOBIN 10.8 g/dL (12.0-16.0); LYMPH # 1.7 (1.2-3.4); LYMPH % 22.1 % (22.0-35.0); MEAN CELL VOLUME 90.3 fl (80.0-105.0); MEAN CORPUSCULAR HEMOGLOBIN 29.1 pg (25.0-35.0); MEAN CORPUSCULAR HGB CONC 32.2 g/dl (31.0-37.0); MEAN PLATELET VOLUME 9.2 fl (7.0-11.0); MONO # 0.7 (0.1-0.6); MONO % 9.4 % (1.0-6.0); RBC 3.71 10^6/uL (3.5-6.1); RED CELL DISTRIBUTION WIDTH 15.1 % (11.5-14.5); WHITE BLOOD COUNT 7.7 10^3/ul (4.5-11.0)
[2017-11-07] MEDS: Aluminum Hydroxide/Magnesium 30 ML, DiphenhydrAMINE 75 MG, Lidocaine 2% Viscous 30 ML PO PRN ×2 (06:29→20:45)
--- NOTE | 2017-11-07 07:44 | CP.PCM.PN ---
Subjective - Date & Time of Evaluation Date of Evaluation: 11/07/17 Time of Evaluation: 06:45 - Subjective Subjective: Lying in bed, sleeping but easily awaken, no distress, family sleeping in chair Reason for consultation and follow up: Continuity of care in TCU, history of atrial fibrillation (no anticoagulation) history of CVA, hypertension, admitted for status epilepticus, post intubation. Seen and examined by me and Dr. Rudd Objective - Vital Signs/Intake and Output Vital Signs (last 24 hours): Temp Pulse Resp BP Pulse Ox 98.6 F 78 20 130/61 97 11/06/17 10:00 11/06/17 10:22 11/06/17 10:00 11/06/17 10:22 11/06/17 10:00 Intake and Output: 11/07/17 11/07/17 06:59 18:59 Intake Total 420 Output Total 250 Balance 170 - Medications Medications: Current Medications Acetaminophen (Tylenol 325mg Tab) 650 mg PO Q6H PRN; Protocol PRN Reason: Fever >100.4 F Last Admin: 11/05/17 11:25 Dose: 650 mg Albuterol/Ipratropium (Duoneb 3 Mg/0.5 Mg (3 Ml) Ud) 3 ml IH Q3H PRN; Protocol PRN Reason: Shortness of Breath Artificial Tears (Refresh Opth Soln) 0 ml OU Q6H PRN; Protocol PRN Reason: Inflammation Al Hydrox/Mg Hydrox/Simethicone 30 ml/Diphenhydramine HCl 75 mg/Lidocaine 30 ml 0 ml PO Q2H PRN; Protocol PRN Reason: Mouth/Throat Pain Last Admin: 11/07/17 06:29 Dose: 5 ml Furosemide (Lasix) 40 mg PO DAILY [facility] Last Admin: 11/06/17 10:22 Dose: 40 mg Guaifenesin (Robitussin) 200 mg PO Q6H PRN; Protocol PRN Reason: Cough and congestion Levetiracetam (Keppra) 250 mg PO HS [facility] Stop: 11/08/17 22:00 Last Admin: 11/06/17 21:14 Dose: 250 mg Losartan Potassium (Cozaar) 50 mg PO DAILY [facility] Last Admin: 11/06/17 10:22 Dose: 50 mg Pantoprazole Sodium (Protonix Susp) 40 mg PO 0600 [facility] Last Admin: 11/07/17 05:58 Dose: 40 mg Phenytoin (Dilantin) 100 mg PO Q8 [facility] PRN Reason: Protocol Last Admin: 11/07/17 05:58 Dose: 100 mg Polyethylene Glycol (Miralax) 17 gm PO DAILY [facility] Last Admin: 11/06/17 10:23 Dose: Not Given - Labs Labs: 11/07/17 05:45 11/04/17 08:55 - Constitutional Appears: No Acute Distress - Head Exam Head Exam: NORMOCEPHALIC - Eye Exam Eye Exam: Normal appearance - ENT Exam ENT Exam: Mucous Membranes Moist - Respiratory Exam Respiratory Exam: Decreased Breath Sounds, NORMAL BREATHING PATTERN - Cardiovascular Exam Cardiovascular Exam: +S1, +S2 - GI/Abdominal Exam GI & Abdominal Exam: Soft, Normal Bowel Sounds - Extremities Exam Extremities Exam: Normal Capillary Refill - Neurological Exam Neurological Exam: Alert, Awake, Oriented x3 - Psychiatric Exam Psychiatric exam: Normal Affect - Skin Skin Exam: Normal Color, Warm Assessment and Plan - Assessment and Plan (Free Text) Assessment: A 82 year old female who was brought to the ER due to altered mental status. She was diagnosed with status epilepticus based on EEG. on Dilantin history of atrial fibrillation no anticoagulation due to history of GI bleeding and family discretion.Status post intubation for respiratory failure, history of hypertension and CVA. transferred to TCU for physical therapy. Plan: Cardiac status stable Blood pressure and heart rate controlled Physical therapy in progress Neuro on consult Nutritional support Continue current treatment Continue current medications Will follow up Plan and treatment discussed with Dr. Rudd
[2017-11-07] MEDS: POLYETHYLENE GLYCOL 3350 17 GM/Dose PACKET PO SCH (09:39)
--- NOTE | 2017-11-07 14:56 | PN ---
DATE: 11/07/2017 SUBJECTIVE: The patient is 82 years old, seen and examined, lying in bed, seems to be comfortable. No nausea or vomiting. No diarrhea. Eating and tolerating. No cough. No congestion. No choking. Leg swelling has significantly improved. Does participate in therapy. PHYSICAL EXAMINATION: VITAL SIGNS: She is afebrile, pulse 75, respirations 18, blood pressure 115/57. LUNGS: Bilateral fair airflow. No rhonchi or crackle. HEART: S1 and S2 audible. ABDOMEN: Soft, obese, nontender. No rebound. No guarding. NEUROLOGICAL: The patient is awake, alert, oriented, able to communicate. EXTREMITIES: Bilateral leg, no edema. LABORATORY EXAM: WBC 7.7, hemoglobin 10.8, hematocrit 33.5, platelet of 157. ASSESSMENT: 1. Status post right perisylvian small cerebrovascular accident. 2. Questionable status epilepticus. 3. Hypertension. 4. Congestive heart failure. 5. Chronic atrial fibrillation. 6. Chronic anemia. PLAN: The patient wanted second opinion. Dr. Moy was consulted. His recommendation is to discontinue phenytoin. Continue on Keppra. Continue on Lasix. If the patient remains stable, . Katerin Diaz MD
[2017-11-07 16:43] VITALS: O2SAT 95
[2017-11-08] MEDS: Pantoprazole 40 mg Susp UD PO SCH (05:59)
[2017-11-08] MEDS: Aluminum Hydroxide/Magnesium 30 ML, DiphenhydrAMINE 75 MG, Lidocaine 2% Viscous 30 ML PO PRN ×3 (06:18→12:11)
[2017-11-08 06:46] VITALS: RESP 18; TEMP 98.7
--- NOTE | 2017-11-08 07:35 | CP.PCM.PN ---
Subjective - Date & Time of Evaluation Date of Evaluation: 11/08/17 Time of Evaluation: 06:45 - Subjective Subjective: Awake,alert, family at bedside, no distress Reason for consultation and follow up: Continuity of care in TCU, history of atrial fibrillation (no anticoagulation) history of CVA, hypertension, admitted for status epilepticus, post intubation. Seen and examined by me and Dr. Rudd Objective - Vital Signs/Intake and Output Vital Signs (last 24 hours): Temp Pulse Resp BP Pulse Ox 98.7 F 64 18 121/60 95 11/08/17 06:46 11/08/17 06:46 11/08/17 06:46 11/08/17 06:46 11/08/17 06:46 - Medications Medications: Current Medications Acetaminophen (Tylenol 325mg Tab) 650 mg PO Q6H PRN; Protocol PRN Reason: Fever >100.4 F Last Admin: 11/05/17 11:25 Dose: 650 mg Albuterol/Ipratropium (Duoneb 3 Mg/0.5 Mg (3 Ml) Ud) 3 ml IH Q3H PRN; Protocol PRN Reason: Shortness of Breath Artificial Tears (Refresh Opth Soln) 0 ml OU Q6H PRN; Protocol PRN Reason: Inflammation Al Hydrox/Mg Hydrox/Simethicone 30 ml/Diphenhydramine HCl 75 mg/Lidocaine 30 ml 0 ml PO Q2H PRN; Protocol PRN Reason: Mouth/Throat Pain Last Admin: 11/08/17 06:18 Dose: 30 ml Furosemide (Lasix) 40 mg PO DAILY [facility] Last Admin: 11/07/17 09:39 Dose: 40 mg Guaifenesin (Robitussin) 200 mg PO Q6H PRN; Protocol PRN Reason: Cough and congestion Levetiracetam (Keppra) 250 mg PO HS [facility] Stop: 11/08/17 22:00 Last Admin: 11/07/17 21:35 Dose: 250 mg Losartan Potassium (Cozaar) 50 mg PO DAILY [facility] Last Admin: 11/07/17 09:38 Dose: 50 mg Pantoprazole Sodium (Protonix Susp) 40 mg PO 0600 [facility] Last Admin: 11/08/17 05:59 Dose: 40 mg Polyethylene Glycol (Miralax) 17 gm PO DAILY [facility] Last Admin: 11/07/17 09:39 Dose: Not Given - Labs Labs: 11/07/17 05:45 11/04/17 08:55 - Constitutional Appears: No Acute Distress - Head Exam Head Exam: NORMOCEPHALIC - Eye Exam Eye Exam: Normal appearance - ENT Exam ENT Exam: Mucous Membranes Moist - Respiratory Exam Respiratory Exam: Decreased Breath Sounds, NORMAL BREATHING PATTERN - Cardiovascular Exam Cardiovascular Exam: +S1, +S2 - GI/Abdominal Exam GI & Abdominal Exam: Soft, Normal Bowel Sounds - Extremities Exam Extremities Exam: Normal Capillary Refill - Neurological Exam Neurological Exam: Alert, Awake - Psychiatric Exam Psychiatric exam: Normal Affect - Skin Skin Exam: Dry, Warm Assessment and Plan - Assessment and Plan (Free Text) Assessment: A 82 year old female who was brought to the ER due to altered mental status. She was diagnosed with status epilepticus based on EEG. on Dilantin history of atrial fibrillation no anticoagulation due to history of GI bleeding and family discretion.Status post intubation for respiratory failure, history of hypertension and CVA. transferred to TCU for physical therapy. Plan: Physical therapy in progress Cardiac status stable Blood pressure and heart rate controlled Nutritional support Aspiration precaution Family at bedside, Continue current treatment Continue current medications Will follow up Plan and treatment discussed with Dr. Rudd
[2017-11-08] MEDS: POLYETHYLENE GLYCOL 3350 17 GM/Dose PACKET PO SCH (09:46)
[2017-11-08 09:58] VITALS: BP 108/57; PULSE 62
--- NOTE | 2017-11-08 20:13 | DS ---
HISTORY OF PRESENT ILLNESS: The patient is 82 years old, seen and examined. She was initially admitted with altered mental status and was found to have perisylvian stroke, had dysphagia that she was on thickened liquids, slowly she improved, now she is on a regular diet, leg swelling has improved, shortness of breath has improved. PHYSICAL EXAMINATION: GENERAL: Today, she is awake, alert, oriented, and communicative. VITAL SIGNS: She is afebrile, pulse 62, respirations 18, and blood pressure 108/57. LUNGS: Bilateral fair airflow. No rhonchi or crackle. HEART: S1 and S2 audible. ABDOMEN: Soft, nontender. No rebound. No guarding. NEUROLOGIC: The patient is awake, alert, oriented, and able to communicate. EXTREMITIES: Bilateral leg, no edema. ASSESSMENT: 1. Status post right perisylvian cerebrovascular accident. The patient has no residual deficit. Her mental status is back to normal. 2. Congestive heart failure, stable. 3. Chronic atrial fibrillation, stable, not on any anticoagulation. 4. Chronic kidney disease, improved. 5. Chronic anemia. PLAN: The patient is being discharged home today on losartan 50 mg in the morning, metoprolol 50 at bedtime. We will discontinue Keppra and she will follow with Dr. Moy as outpatient. We will continue on Lasix 40 mg daily, potassium 10 mEq daily, and Nexium 40 mg daily. I will follow up patient as outpatient and monitor her electrolyte and she will be followed by Dr. Moy as outpatient. Katerin Diaz MD
== END 2017-11-08 16:29 | disposition home health service (06) | DRG 57 ==
LOC: TRCU 12:38
PROVIDERS: ADMIT Internal Medicine; ATTEND Internal Medicine
PROC: F07Z9FZ Gait Training/Functional Ambulation Treatment using Assistive, Adaptive, Supportive or Protective Equipment (ICD-10-PCS; principal; 2017-11-03)
PROC: F07Z8FZ Transfer Training Treatment using Assistive, Adaptive, Supportive or Protective Equipment (ICD-10-PCS; 2017-11-03)
PROC: F07L6ZZ Therapeutic Exercise Treatment of Musculoskeletal System - Lower Back / Lower Extremity (ICD-10-PCS; 2017-11-03)
PROC: F08Z0FZ Bathing/Showering Techniques Treatment using Assistive, Adaptive, Supportive or Protective Equipment (ICD-10-PCS; 2017-11-03)
PROC: F08Z1FZ Dressing Techniques Treatment using Assistive, Adaptive, Supportive or Protective Equipment (ICD-10-PCS; 2017-11-03)
DX: I69.191 Dysphagia following nontraumatic intracerebral hemorrhage (principal); E46 Unspecified protein-calorie malnutrition; I13.0 Hypertensive heart and chronic kidney disease with heart failure and stage 1 through stage 4 chronic kidney disease, or unspecified chronic kidney disease; R13.10 Dysphagia, unspecified; D64.9 Anemia, unspecified; E86.0 Dehydration; I08.3 Combined rheumatic disorders of mitral, aortic and tricuspid valves; G40.901 Epilepsy, unspecified, not intractable, with status epilepticus; I27.20 Pulmonary hypertension, unspecified; I48.2 Chronic atrial fibrillation; E78.5 Hyperlipidemia, unspecified; I50.9 Heart failure, unspecified; L29.9 Pruritus, unspecified; N18.9 Chronic kidney disease, unspecified; N32.81 Overactive bladder; I89.0 Lymphedema, not elsewhere classified; E66.9 Obesity, unspecified; Z68.30 Body mass index [BMI] 30.0-30.9, adult; Z88.0 Allergy status to penicillin; Z88.8 Allergy status to other drugs, medicaments and biological substances

== ENCOUNTER 2018-02-25 08:40 | Inpatient (IN) | payer MEDICARE, MEDICAID ==
[2018-02-25] MEDS ORDERED: levoFLOXacin 750 mg in D5W 750 MG/150 ML BAG IVPB STA (08:54)
--- NOTE | 2018-02-25 09:01 | ED PDOC ---
Arrival/HPI - General Chief Complaint: Shortness Of Breath Time Seen by Provider: 02/25/18 08:41 Historian: Patient, Family (grandson) - History of Present Illness Narrative History of Present Illness (Text): 02/25/18 09:00 A 82 year old female, whose past medical history includes hypertension, diastolic CHF (12/11/16 EF 51%), chronic atrial fibrillation, obesity, and osteoarthritis, presents to the emergency department complaining of cold for 3 days. Patient is armenian-speaking and translated by grandson. Per son, patient has been experiencing weakness and confusion for the past 3 days, along with productive cough described as choking sound, shortness of breath, decreased appetite, and fever of 100. Patient is unable to open eyes due to feeling weakn and fatigue. Patient denies any other complaints at this time. PMD: Dr. Diaz Past Medical History - Provider Review Nursing Documentation Reviewed: Yes - Cardiac Hx Cardiac Disorders: Yes (Afib) Hx Congestive Heart Failure: Yes Hx Hypertension: Yes - Pulmonary Hx Respiratory Disorders: No - Neurological Hx Neurological Disorder: No - HEENT Hx Cataracts: Yes - Renal Hx Renal Disorder: No - Endocrine/Metabolic Hx Endocrine Disorders: No - Hematological/Oncological Hx Blood Disorders: No - Integumentary Hx Dermatological Disorder: No - Musculoskeletal/Rheumatological Hx Arthritis: Yes - Gastrointestinal Hx Gastrointestinal Disorders: Yes - Genitourinary/Gynecological Other/Comment: overactive bladder - Psychiatric Hx Depression: No Hx Emotional Abuse: No Hx Physical Abuse: No Hx Substance Use: No - Past Surgical History Past Surgical History: No Previous - Surgical History Other/Comment: fractured left wrist/arm needing cast - Anesthesia Hx Anesthesia: Yes Hx Anesthesia Reactions: No Hx Malignant Hyperthermia: No - Suicidal Assessment Feels Threatened In Home Enviroment: No Family/Social History - Physician Review Nursing Documentation Reviewed: Yes Family/Social History: No Known Family HX Smoking Status: Never Smoked Hx Alcohol Use: No Hx Substance Use: No Hx Substance Use Treatment: No Allergies/Home Meds Allergies/Adverse Reactions: Allergies dabigatran etexilate mesylate [From Pradaxa] Allergy (Intermediate, Verified 10/31/17 20:33) ANGIOEDEMA arthralgia, cough, vertigo, itching, sorethroat, irritability Penicillins Allergy (Verified 10/31/17 20:33) RASH rofecoxib [From Vioxx] Allergy (Verified 10/31/17 20:33) FATIGUE warfarin Adverse Reaction (Unknown, Verified 10/31/17 20:33) ITCHING intolerant with cardio since she could not tolerate pradaxa pravastatin Adverse Reaction (Verified 10/31/17 20:33) RASH Home Medications: Home Meds Medication Instructions Recorded Confirmed Furosemide [Lasix] 40 mg PO BID 12/11/16 02/25/18 Metoprolol Succinate [Toprol Xl] 50 mg PO DAILY 02/25/18 02/25/18 metOLazone [Zaroxolyn] 5 mg PO DAILY 02/25/18 02/25/18 Review of Systems - Physician Review All systems were reviewed & negative as marked: Yes - Review of Systems Constitutional: Fatigue, Fevers (100), Other (generalized weakness) Respiratory: SOB, Cough Gastrointestinal: Appetite Changes (decreased appetite) Physical Exam Vital Signs Reviewed: Yes Temperature: Febrile Blood Pressure: Normal Pulse: Regular Respiratory Rate: Normal Appearance: Positive for: Well-Appearing, Non-Toxic, Comfortable Pain Distress: None Mental Status: Positive for: Alert and Oriented X 3 - Systems Exam Head: Present: Atraumatic, Normocephalic Pupils: Present: PERRL Extroacular Muscles: Present: EOMI Conjunctiva: Present: Normal Mouth: Present: Moist Mucous Membranes Neck: Present: Normal Range of Motion Respiratory/Chest: Present: Wheezes (at the basis), Rales (at the basis) Cardiovascular: Present: Regular Rate and Rhythm, Normal S1, S2. No: Murmurs Abdomen: No: Tenderness, Distention, Peritoneal Signs Back: Present: Normal Inspection Upper Extremity: Present: Normal Inspection. No: Cyanosis, Edema Lower Extremity: Present: Normal Inspection. No: Edema Neurological: Present: GCS=15, CN II-XII Intact, Speech Normal Skin: Present: Warm, Dry, Normal Color. No: Rashes Psychiatric: Present: Alert, Oriented x 3, Normal Insight, Normal Concentration Medical Decision Making ED Course and Treatment: 02/25/18 09:04 Impression: 82 year old female with cold symptoms, fatigue/weakness/shortness of breath/productive cough. Physical exam shows wheezing and rales at the basis; no other acute findings on examination. Plan: -- EKG -- Chest X-ray -- Labs -- Venous Blood Gas -- Tylenol -- Duoneb -- Levofloxacin -- Blood Culture -- Urine Culture -- Urinalysis -- Influenza A B -- Reassess and disposition Prior Visits: Notes and results from previous visits were reviewed. Patient was last seen in the emergency department on 10/24/2017 for acutely altered mental status. Patient was admitted for intracerebral bleed. Progress Notes: EKG: Ordered, reviewed, and independently interpreted the EKG. Rate : 75 BPM Rhythm : Atrial Fibrillation Interpretation : No ST-segment elevations or depressions, no T-wave inversions, normal intervals. Comparison : No previous EKG for comparison. 02/25/2018 10:05 Chest X-ray IMPRESSION: Findings are concerning for right lower lobe pneumonia and small right pleural effusion. Follow-up is advised. Dictator: Trinity Menezes MD 02/27/18 11:18 intialy blood gas with hypercariba, on biappa improved. hemodynamiccaly stable for tele. accepted by pmd. - Lab Interpretations I have reviewed the lab results: Yes - RAD Interpretation Radiology Orders: 02/25/18 08:49 CHEST PORTABLE [RAD] Stat - Medication Orders Current Medication Orders: Acetaminophen (Tylenol 325mg Tab) 975 mg PO STAT [facility] Stop: 02/25/18 08:53 Levofloxacin/Dextrose (Levaquin 750mg) 750 mg in 150 mls @ 100 mls/hr IVPB STAT [facility]; Protocol Stop: 02/25/18 10:23 - Scribe Statement The provider has reviewed the documentation as recorded by the Wellington Barbosa Provider Scribe Attestation: All medical record entries made by the Scribe were at my direction and persona lly dictated by me. I have reviewed the chart and agree that the record accurately reflects my personal performance of the history, physical exam, medical decision making, and the department course for this patient. I have also personally directed, reviewed, and agree with the discharge instructions and disposition. \ Disposition/Present on Arrival - Present on Arrival Any Indicators Present on Arrival: No History of DVT/PE: No History of Uncontrolled Diabetes: No Urinary Catheter: No History of Decub. Ulcer: No History Surgical Site Infection Following: None - Disposition Have Diagnosis and Disposition been Completed?: Yes Diagnosis: CHF (congestive heart failure), Pneumonia Disposition: HOSPITALIZED Disposition Time: 12:00 Condition: FAIR
[2018-02-25] MEDS ORDERED: Albuterol-Ipratrop 3 mg / 0.5 (3 ml) UD IH STA (09:08)
[2018-02-25 09:37] LABS: VENOUS BLOOD GAS BASE EXCESS 2.3 mmol/L (0.0-2.0); VENOUS BLOOD GAS PO2 61 mm/Hg (30-55); VENOUS BLOOD PH 7.27 (7.32-7.43)
[2018-02-25 09:39] LABS: BASO # 0.01 K/mm3 (0.0-2.0); BASO % 0.1 % (0.0-3.0); EOS % 0.1 % (1.5-5.0); GRAN # 9.04 (1.4-6.5); GRAN % 81.1 % (50.0-68.0); LYMPH # 0.9 (1.2-3.4); MEAN CELL VOLUME 97.9 fl (80.0-105.0); MEAN CORPUSCULAR HEMOGLOBIN 30.6 pg (25.0-35.0); MEAN CORPUSCULAR HGB CONC 31.3 g/dl (31.0-37.0); MEAN PLATELET VOLUME 9.5 fl (7.0-11.0); MONO # 1.2 (0.1-0.6); MONO % 10.7 % (1.0-6.0); RBC 3.27 10^6/uL (3.5-6.1); RED CELL DISTRIBUTION WIDTH 14.9 % (11.5-14.5); WHITE BLOOD COUNT 11.1 10^3/uL (4.5-11.0)
[2018-02-25 09:42] LABS: INR 1.47; PARTIAL THROMBOPLASTIN TIME 28.9 Seconds (25.1-36.5)
[2018-02-25 09:47] LABS: ALBUMIN 3.3 g/dL (3.0-4.8); CALCIUM 8.7 mg/dL (8.4-10.5)
[2018-02-25 09:58] LABS: TROPONIN I 0.01 ng/mL
--- NOTE | 2018-02-25 10:09 | CARD ---
APPROVED REPORT Date of service: 02/25/2018 EKG Measurement Heart [id number] <Conclusion> Atrial fibrillation PRWP Septal infarct, age undetermined NSSTW changes No change
--- NOTE | 2018-02-25 10:10 | RAD ---
Date of service: 02/25/2018 HISTORY: sob COMPARISON: 10/26/2017. FINDINGS: LUNGS: The lungs are well inflated. There is confluent airspace disease in the right lower lobe. PLEURA: Suspect small right pleural effusion. No large left pleural effusion. No pneumothorax. CARDIOVASCULAR: The heart is normal in size. Atherosclerotic aortic arch calcifications are present. OSSEOUS STRUCTURES: Within normal limits for the patient's age. VISUALIZED UPPER ABDOMEN: Normal. OTHER FINDINGS: None. IMPRESSION: Findings are concerning for right lower lobe pneumonia and small right pleural effusion. Follow-up is advised.
[2018-02-25 10:15] LABS: ARTERIAL BLOOD GAS HCO3 27.1 mmol/L (21-28); ARTERIAL BLOOD GAS HEMOGLOBIN 9.6 g/dL (11.7-17.4); ARTERIAL BLOOD GAS O2 CAPACITY 13.7 mL/dl (16-24); ARTERIAL BLOOD GAS O2 CONTENT 13.7 ML/dl (15-23); ARTERIAL BLOOD GAS O2 SAT 100.3 % (95-98); ARTERIAL BLOOD GAS PCO2 55 mm/Hg (35-45); ARTERIAL BLOOD GAS TCO2 28.8 mmol.L (22-28)
[2018-02-25 11:49] VITALS: BMI 34.2
[2018-02-25 13:34] LABS: VENOUS BLOOD GAS PO2 53 mm/Hg (30-55); VENOUS BLOOD PH 7.29 (7.32-7.43)
[2018-02-25] MEDS: Meropenem IV 1 gm in NS 1 GM/50 ML BAG IVPB SCH ×3 (14:45→22:43)
[2018-02-25] MEDS: Albuterol-Ipratrop 3 mg / 0.5 (3 ml) UD IH SCH (21:04)
[2018-02-25 22:21] LABS: URINE BILIRUBIN NEGATIVE (NEGATIVE); URINE BLOOD LARGE (NEGATIVE); URINE GLUCOSE (UA) NEGATIVE (NEGATIVE); URINE LEUKOCYTE ESTERASE SMALL Leu/uL (NEGATIVE); URINE PROTEIN TRACE mg/dL (<30 mg/dL)
[2018-02-25 22:41] LABS: URINE APPEARANCE CLEAR (CLEAR); URINE COLOR YELLOW (YELLOW)
[2018-02-25 22:55] LABS: URINE BACTERIA MOD (NEG); URINE RBC 15 - 20 /hpf (0-2)
--- NOTE | 2018-02-25 23:46 | CON ---
DATE: 02/25/2018 The patient is in room 271. CHIEF COMPLAINT: Fever and shortness of breath x1 day duration. HISTORY OF PRESENT ILLNESS: This is an 82-year-old female known to me from previous admission with hypertension and congestive heart failure, which is systolic with a low ejection fraction of 51%, atrial fibrillation, obesity, osteoarthritis, who is admitted through the emergency room because of shortness of breath and found to have a fever. Infectious consultation requested. The patient's family gives a history who is at the bedside in the emergency room, there has been cough which is nonproductive. There has been shortness of breath but no chest pain. No abdominal pain. No diarrhea or constipation. No dysuria or frequency. No headaches or blurred vision. REVIEW OF SYSTEMS: A 12-point review systems is performed. PAST MEDICAL HISTORY: Significant for hypertension, congestive heart failure with ejection fraction of 51%, atrial fibrillation, obesity, osteoarthritis. PAST SURGICAL HISTORY: Significant for left arm surgery and cataract surgery. ALLERGIES: THE PATIENT IS ALLERGIC TO PENICILLIN, QUESTIONABLE RASH. THE PATIENT IS ALSO ALLERGIC TO WARFARIN AND ROFECOXIB. PHYSICAL EXAMINATION: VITAL SIGNS: The patient is in bed with a temperature of 100.6, pulse of 80, blood pressure is 130/80, respiratory rate of 20, and the patient is on 96% saturation on BiPAP. HEENT: Examination of HEENT is unremarkable. NECK: Supple. LUNGS: Have decreased breath sounds. HEART: Normal S1, S2. ABDOMEN: Soft, nontender. LABORATORY EXAMINATION: Reveals a white count is 11,100, hemoglobin of 10, platelets of 185. Coagulation is noted. Chemistries reveal a BUN of 35, creatinine of 1.2 with a GFR of 43. Glucose is 142, bilirubin is 2.2, alk phos is 37. The BNP is over 16,000, and the serology for influenza is negative. Urinalysis is pending. Urine culture is pending. Review of cultures, the past urine cultures and blood cultures have all been negative. The patient had a chest x-ray with an infiltrate. The EKG shows a QTC of 437. ASSESSMENT AND PLAN: This is an 82-year-old female with hypertension, congestive heart failure, atrial fibrillation, obesity with: 1. Right lower lobe community-acquired pneumonia, last admission was the beginning of 10/2017, more than 90 days ago and the patient with acute systolic congestive heart failure on top of chronic congestive heart failure presenting with fever of 100.6. We will treat the patient with meropenem since she is ALLERGIC TO PENICILLIN AND AZITHROMYCIN and pending blood cultures, urine cultures, sputum cultures, MRSA screen, procalcitonin, urine for Legionella antigen. We will also order an abdominal ultrasound to rule out gallbladder disease, size of the common bile duct presents with a right lower lobe community-acquired pneumonia. We will follow with you. Alin Mckya MD
[2018-02-26] MEDS: Meropenem IV 1 gm in NS 1 GM/50 ML BAG IVPB SCH ×3 (06:37→21:35)
[2018-02-26] MEDS: Albuterol-Ipratrop 3 mg / 0.5 (3 ml) UD IH SCH ×3 (07:41→19:36)
[2018-02-26] MEDS: Budesonide 0.5 mg/2 ml Inhal Susp UD IH SCH ×2 (07:41→19:36)
--- NOTE | 2018-02-26 08:16 | PN ---
DATE: 02/26/2018 SUBJECTIVE: The patient is seen earlier this morning in room 272, bed 1. No fevers, no chills. She is still complaining of some discomfort and she had an uneventful night as per nurse caring for the patient. The fever has subsided. PHYSICAL EXAMINATION: VITAL SIGNS: On exam, temperature is 98, blood pressure is 116/50, respiratory rate of 18, heart rate of 81. HEENT: Examination of HEENT is unremarkable. NECK: Supple. LUNGS: Have decreased breath sounds. HEART: Normal S1 and S2. ABDOMEN: Soft, nontender. LABORATORY DATA: Laboratory examination reveals a white count of 11,000, hemoglobin of 10. Chemistries are noted. BUN of 35, creatinine of 1.2. Urinalysis is noted. Microbiology is pending. The patient had a chest x-ray, which showed right lower lobe. ASSESSMENT AND PLAN: An 82-year-old female, who is allergic to penicillin, who is admitted with hypertension, congestive heart failure, which is systolic with low ejection fraction of 51%, atrial fibrillation, obesity, osteoarthritis, shortness of breath with #1 is right lower lobe community-acquired pneumonia with acute systolic congestive heart failure on top of chronic congestive heart failure with a fever of 100.6, which is responding. The patient is allergic to penicillin. Currently, on day #2 of meropenem and azithromycin and waiting for Legionella antigen, methicillin-resistant Staphylococcus aureus screen, blood cultures, sputum and urine cultures. Of note, the patient's procalcitonin is elevated at 0.54. We will follow with you. Alin Mckay MD
[2018-02-26] MEDS: Metoprolol Succinate 50 mg XL Tab PO SCH (08:51)
--- NOTE | 2018-02-26 10:18 | CON ---
DATE: 02/26/2018 PULMONARY CONSULTATION REASON FOR PULMONARY CONSULTATION: Pneumonia. REFERRING PHYSICIAN: Dr. Alfred Jara. SOURCE OF HISTORY: History is obtained via extensive discussion with the patients daughter. I have also reviewed the chart at length, and tried speaking with the patient as much as possible. HISTORY OF PRESENT ILLNESS: The patient is an 82-year-old female, with past medical history significant for hypertension, congestive heart failure, mild cardiomyopathy, chronic atrial fibrillation, obesity, who presents to [facility] with a 3-day history of worsening shortness of breath at rest, dyspnea on exertion, cough, and sputum production. There is no history of chest pain, coughing up of blood, or chest pain - made worse with deep respirations. The patient did experience low-grade fevers at home. No history of chills or infectious exposure. No history of night sweats, weight loss or appetite change prior to the above events. No history of leg or calf pains. No history of syncope or diaphoresis. No history of recent travel or trauma. REVIEW OF SYSTEMS: No history of nausea, vomiting or diarrhea. No acute urinary symptoms. The patient has been weak and mildly confused at home. Rest of the review of systems is noncontributory. ALLERGIES: PRADAXA, VIOXX, WARFARIN, AND PRAVASTATIN. SOCIAL HISTORY: Negative for tobacco and negative for alcohol. FAMILY HISTORY: No inheritable diseases. HOME MEDICATIONS: Include Zaroxolyn, Toprol, K-Dur, Cozaar, Lasix, aspirin. PHYSICAL EXAMINATION: GENERAL: The patient appears comfortable this morning. She is not short of breath at rest. VITAL SIGNS: Temperature is 98.1, pulse 81, respirations 18/20, blood pressure 116/50. Oxygen saturation on BiPAP is 98%. HEENT: Normocephalic, atraumatic. Positive JVD. CARDIOVASCULAR: Systolic ejection murmur at the lower left sternal border. Positive S3 gallop. LUNGS: Crackles at both bases. Minimal bilateral rhonchi. No wheezing. EXTREMITIES: Positive for edema. No cyanosis, no clubbing. Calves are nontender to palpation. GI: Abdomen is soft, nontender and nondistended. Bowel sounds are positive. SKIN: No acute rash. NEUROLOGIC: Exam limited at the present time. PERTINENT LABORATORY DATA: Chest x-ray was done and reviewed. There is a patchy right lower lobe infiltrate seen. There is also a moderate increase in pulmonary vascular congestion seen. CBC: White count 11.1K, hemoglobin 10.0, hematocrit 32.0, platelets of 185,000. PT 17.0. Arterial blood gas was done in the emergency room on 60% oxygen. Results are: PH 7.30, pCO2 of 55, pO2 of 216. Complete metabolic profile: BUN 35, glucose 142, bilirubin 2.2, alkaline phosphatase 37. B-type natriuretic peptide 61516. Rest of the metabolic profile is within normal limits. IMPRESSION: 1. Right lower lobe pneumonia. 2. Acute bronchitis. 3. Congestive heart failure. 4. Respiratory insufficiency. 5. Mild anemia. PLAN: Again, I did discuss the case with the daughter at length. I have also reviewed the chart at length, and discussed the case with the patient at length (as much as possible). The patient presents to [facility] with a 3-day history of worsening pulmonary symptoms. I did review the chest x-ray as above. The chest x-ray is consistent with a right lower lobe pneumonia, as well as congestive heart failure. I have also reviewed the arterial blood gas. Mild respiratory insufficiency/acidosis is noted. The patient is very comfortable this morning and is saturating at 98%. I will try changing her to nasal cannula this morning (discussed with nurse). On physical exam, there is mild bronchospasm noted. I will continue the current nebulizer treatments and add inhaled steroids this morning. Pearson cultures have been ordered and will be analyzed when feasible. The patient has been placed on antibiotic therapy. Input by Dr. Mckay is noted. The patient has also been placed on intravenous Lasix twice daily. The patient does state to feeling better this morning, and is clinically improved. Her overall status remains guarded. I will discuss the above the attending physician. Thank you very much for this pulmonary consultation. Mike Bowman MD MTDD
[2018-02-26] MEDS ORDERED: Potassium Chloride 20 mEq ER Tab PO SCH (12:45)
[2018-02-26] MEDS ORDERED: Potassium Chloride 10 mEq ER Tab PO ONE (13:00)
[2018-02-26] MEDS: MethylPREDNISolone 40 mg Vial IV SCH ×2 (13:58→21:47)
[2018-02-26] MEDS: Azithromycin 500MG/NS 250ml 500 MG/250 ML BAG IVPB SCH (14:00)
--- NOTE | 2018-02-26 15:02 | US ---
Date of service: 02/26/2018 HISTORY: r/o gb ds size of CBD COMPARISON: None. TECHNIQUE: Sonographic evaluation of the abdomen. FINDINGS: LIVER: Measures 15.6 cm. Normal echogenicity of the liver parenchyma. No mass. No intrahepatic bile duct dilatation. GALLBLADDER: Multiple gallstones. COMMON BILE DUCT: Measures 6.5 mm. No stones. No dilatation. PANCREAS: Unremarkable as visualized. No mass. No ductal dilatation. RIGHT KIDNEY: Measures 11.1 x 4.5 x 4.5cm. Normal echogenicity. No calculus, mass, or hydronephrosis. 3 cm cyst LEFT KIDNEY: Measures 10.8 x 5.6 x 5.3cm. Normal echogenicity. No calculus, mass, or hydronephrosis. SPLEEN: Normal in size and contour. No mass. 12.1 x 5.0 x 4.6 cm. 1 cm cyst in the spleen AORTA: No aneurysmal dilatation. IVC: Unremarkable. OTHER FINDINGS: Right-sided pleural effusion IMPRESSION: Multiple gallstones
[2018-02-26] MEDS ORDERED: Enoxaparin 100 mg Syringe SC SCH (15:30)
--- NOTE | 2018-02-26 20:25 | HP ---
HISTORY OF PRESENT ILLNESS: Patient is 82 years old known to me from office practice. According to the family, she had not been feeling well since last Monday, has been having cough, congestion, and shortness of breath. She coughs and becomes short of breath. Yesterday, the shortness of breath got worse, so the family brought her to emergency room. No history of abdominal pain, slight fever at home. Did not take her flu shot for this year. PAST MEDICAL HISTORY: Significant for: 1. Hypertension. 2. Chronic AFib, not on anticoagulation upon family's request. 3. Gastroesophageal reflux disease. 4. Bilateral leg elephantiasis. 5. Mild renal disease. 6. History of GI bleed. 7. Chronic kidney disease. ALLERGIES: THE PATIENT IS ALLERGIC TO: 1. DABIGATRAN. 2. PENICILLIN. 3. CELEBREX. 4. COUMADIN. 5. PRAVASTATIN. MEDICATIONS AT HOME: The patient is on metolazone 5 mg twice a week, metoprolol 50 mg daily, potassium 10 mEq daily, losartan 50 mg daily, Lasix 40 mg twice a day, aspirin 81 daily. SOCIAL HISTORY: She lives with her daughter. No history of smoking or alcohol use. PHYSICAL EXAMINATION: GENERAL: Mild shortness of breath and cough. VITAL SIGNS: She is afebrile, pulse 86, respirations 20, blood pressure 106/52. LUNGS: Bilateral fair air flow. No rhonchi or crackle anteriorly, however, posteriorly she has soft scattered crackles bilaterally. HEART: S1, S2 audible, irregular, rate controlled. ABDOMEN: Soft, nontender. No rebound. No guarding. EXTREMITIES: Bilateral legs, +1 edema. NEUROLOGICAL: Patient is awake, alert and oriented, able to communicate. Moves all extremities. LABORATORY DATA: WBC is 11.1, hemoglobin 10, hematocrit 32, platelets 185. PT 17.0, INR 1.47. Chemistry: Her sodium 139, potassium 4.3, chloride 101, CO2 of 30, BUN 35, creatinine 1.2, blood sugar of 142. Urinalysis shows small leukocytes, 10-15 wbc's. Blood cultures are negative. DIAGNOSTICS: X-ray of chest shows right lower lobe pneumonia and small right pleural effusion. ASSESSMENT: 1. Right lower pneumonia. 2. Mild congestive heart failure, acute on chronic. 3. Chronic kidney disease. 4. Bilateral leg edema. 5. Hypertension. 6. Hyperlipidemia. PLAN: Currently, the patient is on meropenem every 12 as per ID, she is on metoprolol, she is on Zithromax. Patient is hemodynamically stable. She is fully awake and alert, may be able to tolerate the food. I will order for CBC and CMP to be followed in a.m. and I will add small dose of steroid because she has bronchospasm. We will put her on SCDs and request for physical therapy evaluation and out of bed to chair. Katerin Diaz MD
[2018-02-27] MEDS ORDERED: guaiFENesin DM 100 mg-10 mg/5 ml UD PO ONE (02:33)
[2018-02-27 07:14] LABS: GRAN # 8.33 (1.4-6.5); GRAN % 94.3 % (50.0-68.0); HEMOGLOBIN 9.9 g/dL (12.0-16.0); LYMPH # 0.3 (1.2-3.4); LYMPH % 3.2 % (22.0-35.0); MEAN CELL VOLUME 98.2 fl (80.0-105.0); MEAN CORPUSCULAR HEMOGLOBIN 29.9 pg (25.0-35.0); MEAN CORPUSCULAR HGB CONC 30.5 g/dl (31.0-37.0); MEAN PLATELET VOLUME 9.5 fl (7.0-11.0); MONO # 0.2 (0.1-0.6); MONO % 2.5 % (1.0-6.0); PLATELET COUNT 212 10^3/uL (120.0-450.0); RBC 3.31 10^6/uL (3.5-6.1); RED CELL DISTRIBUTION WIDTH 14.8 % (11.5-14.5); WHITE BLOOD COUNT 8.8 10^3/uL (4.5-11.0)
[2018-02-27 07:39] LABS: ALBUMIN 3.2 g/dL (3.0-4.8); CALCIUM 8.8 mg/dL (8.4-10.5)
--- NOTE | 2018-02-27 07:52 | PN ---
DATE: 02/27/2018 PULMONARY NOTE SUBJECTIVE: The patient appears comfortable this morning. She is not short of breath at rest. PHYSICAL EXAMINATION: VITAL SIGNS: Temperature is 98.4, pulse 81, respirations 18, blood pressure 120/73. Oxygen saturation on nasal cannula is 98%. HEENT: Normocephalic, atraumatic. Positive JVD. CARDIOVASCULAR: Systolic ejection murmur at the lower left sternal border. Positive S3 gallop. LUNGS: Less crackles at the bases. Less rhonchi. No wheezing. EXTREMITIES: Positive for mild edema. No cyanosis or clubbing. Calves are nontender to palpation. GI: Abdomen is soft, nontender and nondistended. Bowel sounds are positive. SKIN: No acute rash. NEUROLOGIC: Limited at the present time. IMPRESSION: 1. Right lower lobe pneumonia. 2. Acute bronchitis. 3. Congestive heart failure. 4. Respiratory insufficiency. 5. Mild anemia. PLAN: The patient appears comfortable this morning. She is not short of breath at rest. I did discuss the case with the night nurse and daughter (at bedside). The patient is improved overall. On physical exam, there is certainly less bronchospasm noted. In addition, the alveolar-arterial gradient is also much less. Oxygen saturation on nasal cannula is now 98%. I will continue the current nebulizer treatments and inhaled steroids for now. The patient is also on low-dose intravenous steroids - started by Dr. Diaz yesterday. The patient remains on antibiotic therapy - as per Infectious Disease. Input by Dr. Mckay is noted. The temperatures have now resolved. Repeat a.m. labs are pending. Clinical status of the patient is certainly improved - compared to her initial presentation. She does remain guarded overall. I will discuss the above with the attending physician. Mike Bowman MD MTDEstephanie
[2018-02-27] MEDS ORDERED: Potassium Chloride 10 mEq ER Tab PO SCH (08:00)
[2018-02-27 08:10] LABS: BAND 1 % (0-2); LYMPHOCYTE 1 % (22.0-35.0); METAMYELOCYTE 1 %; MONOCYTE 2 % (1.0-6.0); NEUTROPHIL 95 % (50.0-70.0); PLATELET ESTIMATE NORMAL (NORMAL)
--- NOTE | 2018-02-27 08:29 | CON ---
DATE: 02/26/2018REASON FOR CONSULTATION: Shortness of breath, atrial fibrillation, rule out congestive heart failure, and cardiac evaluation. BRIEF CLINICAL HISTORY: This is an 82-year-old female with past medical history significant for obesity, CVA, history of atrial fibrillation, speaks Syrian, daughter is at the bedside, history of chronic atrial fibrillation, history of GI bleed in the past. Family opted for not to have anticoagulation, who was initially admitted on 10/24/2017 with altered mental status, possible CVA, possible intercerebral bleed. Now, the patient is readmitted again with shortness of breath, cough and possible pneumonia. Past history is significant for atrial fibrillation, diastolic dysfunction, osteoarthritis, obesity, mild aortic stenosis, moderate mitral regurgitation, moderate tricuspid regurgitation, RV systolic pressure of 49, ejection fraction of 70% by echo on 04/22/2016. The patient had a repeat echo on 10/25/2017 that shows ejection fraction within normal limits, moderate aortic stenosis, [id number] mitral regurgitation, dygx-to-[id number] tricuspid regurgitation, nvaw-iu-xfpsajpt hypertension, RV systolic pressure of 40. History of GI bleed in the past. Family does not want anticoagulation. The patient was brought yesterday by the family because of the shortness of breath. Denies any chest pain. Denies any palpitation. Daughter is at the bedside. PAST MEDICAL HISTORY: As mentioned, significant for atrial fibrillation, off anticoagulation; history of GI bleed. Family opted not to have anticoagulation. PREVIOUS CARDIAC WORKUP: As follows, the patient had most recent echo, 10/25/2017 shows normal LV function, ejection fraction within the normal limits, moderate aortic stenosis, [id number] mitral regurgitation, mild tricuspid regurgitation, mild pulmonary hypertension, RV systolic pressure of 40. History of GI bleed. Prior to that, the patient had echo on 04/22/2016 that showed ejection fraction of 70%, RV systolic pressure of 49. CURRENT MEDICATIONS: The patient is taking at home; metolazone, metoclopramide, Toprol XL, potassium, losartan, Lasix, and aspirin. ALLERGIES: PRADAXA, GIVES ANGIOEDEMA; PENICILLIN, VIOXX, COUMADIN, UNKNOWN REACTION; PRAVACHOL. REVIEW OF SYSTEMS: As per HPI. PHYSICAL EXAMINATION GENERAL: Height of the patient 5 feet inches, weight of the patient 196 pounds, and body mass index 34.2 kg per meter square. VITAL SIGNS: Rest of the examination; temperature is afebrile, heart rate is 86, blood pressure 106/52. HEENT: PERRLA. Extraocular muscles are intact. NECK: Supple. No carotid bruit or thyromegaly. CHEST: Clear to auscultation. HEART: S1 and S2, regular. ABDOMEN: Soft. EXTREMITIES: Clubbing and cyanosis negative. LABORATORY DATA: WBC 11.1, hemoglobin 10, hematocrit 32, and platelet count 185. Chemistries shows sodium 139, potassium 4.7 , chloride 101, carbon dioxide 30, anion gap , BUN 35 and creatinine 1.2. BNP 16,900. Chest x-ray showed possible right lower lobe pneumonia. IMPRESSION: An 82-year-old female with a past medical history significant for moderate aortic stenosis, diastolic dysfunction, atrial fibrillation, not on anticoagulation per family's choice, history of congestive heart failure secondary to valvular dysfunction,[id number] mitral regurgitation, mild pulmonary hypertension, admitted with right lower lobe pneumonia, respiratory insufficiency, and mild anemia. RECOMMENDATIONS: Continue diuretics, continue broad-spectrum antibiotics, monitor electrolytes. We will get lipid profile, TSH, and hemoglobin A1c. We will put Lovenox for now and then we will discuss with the family for the long-term anticoagulation. We will follow with you. Thank you Dr. Diaz for providing us the opportunity in taking care of the patient, Vicenta Duran. The patient is kg for every 24 hours, and we will continue diuretics and supplement electrolytes as needed. Rodolfo Rudd MD
[2018-02-27] MEDS: Budesonide 0.5 mg/2 ml Inhal Susp UD IH SCH ×2 (08:34→20:35)
[2018-02-27] MEDS: Albuterol-Ipratrop 3 mg / 0.5 (3 ml) UD IH SCH ×3 (08:34→20:35)
[2018-02-27] MEDS: Metoprolol Succinate 50 mg XL Tab PO SCH (09:05)
[2018-02-27] MEDS: Meropenem IV 1 gm in NS 1 GM/50 ML BAG IVPB SCH ×2 (10:39→21:51)
[2018-02-27] MEDS: MethylPREDNISolone 40 mg Vial IV SCH ×2 (10:40→21:51)
[2018-02-27] MEDS: Azithromycin 500MG/NS 250ml 500 MG/250 ML BAG IVPB SCH (10:40)
[2018-02-27] MEDS: Enoxaparin 60 mg Syringe SC SCH (11:11)
[2018-02-27] MEDS ORDERED: Dextrose 50% SYRINGE Inj (50 ml) IV PRN (12:39)
[2018-02-27] MEDS: Insulin Reg-HIGH-Coverage SC SCH ×3 (13:34→21:52)
--- NOTE | 2018-02-27 16:22 | PN ---
DATE: 02/27/2018 REASON FOR CONSULTATION AND FOLLOWUP: Shortness of breath, atrial fibrillation, rule out congestive heart failure, cardiac evaluation, possible pneumonia. SUBJECTIVE: Daughter is at the bed side. Denies any chest pain, but complains of cough and wheezing. OBJECTIVE: GENERAL: Mild distress and wheezing. VITAL SIGNS: Temperature afebrile, heart rate 81, blood pressure 120/73. HEENT: PERRLA. Extraocular muscles intact. NECK: Supple. No carotid bruits or thyromegaly. CHEST: Clear to auscultation. HEART: S1, S2, regular. ABDOMEN: Soft. EXTREMITIES: Clubbing, cyanosis negative. LABORATORY DATA: Blood work up as follows: WBC 8.8, hemoglobin 9.9, hematocrit 32.5, platelet count 212. Chemistry shows sodium 140, potassium 4.8, chloride 102, carbon dioxide 30, anion gap of 12, BUN 60, creatinine 1.7. IMPRESSION: An 82-year-old female with past medical history significant for chronic atrial fibrillation, admitted with shortness of breath most likely secondary to pneumonia, right lower lobe pneumonia, acute bronchitis, respiratory insufficiency, mild anemia, history of chronic atrial fibrillation, yesterday rate was little rapid. Last echo 10/25/2017 shows normal left ventricular function, ejection fraction within normal limits, moderate aortic stenosis, [id number]-yn-[id number] mitral regurgitation, mild tricuspid regurgitation, right ventricular systolic pressure 40, history of gastrointestinal bleed in the past, history of cerebrovascular accident in the past. Patient's family opted for not anticoagulate for atrial fibrillation because of risks and benefits ratio. According to them does not want to be intracerebral bleed. RECOMMENDATIONS: Continue broad spectrum antibiotics, continue gentle diuretics, keep negative fluid balance, monitor renal function closely, continue beta-facundo since the patient has renal insufficiency with creatinine clearance 30 mL. So we will change Lovenox to lower rate to 60 every 24 and also we will decrease Lasix to once a day. Keep the negative fluid balance, continue broad spectrum antibiotics. We will follow with you. We will discontinue telemetry. Since the patient is hemodynamically stable, heart rate 80s, blood pressure , we will discontinue telemetry. So far the blood cultures are negative. Thank you, Dr. Diaz, for providing us the opportunity in taking care of the patient, Vicenta Duran. Rodolfo Rudd MD [facility] # [id number]
--- NOTE | 2018-02-27 18:09 | PN ---
DATE: 02/27/2018 SUBJECTIVE: The patient is in bed, in no acute distress and nontoxic. PHYSICAL EXAMINATION: VITAL SIGNS: Temperature is 98, blood pressure is 120/50, respiratory rate of 18. HEENT: Unremarkable. NECK: Supple. LUNGS: Decreased breath sounds. HEART: Normal S1, S2. ABDOMEN: Soft. LABORATORY EXAMINATION: Reveals BUN of 60, creatinine of 1.7. Urinalysis is noted. Serology is noted. Microbiology reveals the urine cultures negative, blood cultures are negative. ASSESSMENT AND PLAN: This is an 82-year-old female who is ALLERGIC TO PENICILLIN and has past medical history of hypertension, systolic congestive heart failure with ejection fraction of 51%, atrial fibrillation, obesity, osteoarthritis, shortness of breath. Right lower lobe community-acquired pneumonia with acute systolic congestive heart failure on top of chronic congestive heart failure and a fever of 100.6 which appears to be responding today is day #3 of meropenem and azithromycin. Urine Legionella is negative. The influenza is negative and the procalcitonin of 0.540. Microbiology reveals methicillin-resistant staphylococcus aureus in nares is negative. The blood cultures are negative. Dr. Bowman's note is reviewed.. We will repeat the procalcitonin to see normalization within next 24 hours, today is day #3 of azithromycin and meropenem. Change the azithromycin to p.o. and if the procalcitonin is negative, we will discontinue meropenem and recommend five to seven days of Zithromax for community-acquired pneumonia with acute systolic congestive heart failure and elevated procalcitonin, probable bacterial pneumonia. Alin cMkay MD
--- NOTE | 2018-02-28 01:29 | PN ---
DATE: 02/27/2018 SUBJECTIVE: The patient is an 82-year-old, seen and examined. Still has cough, congestion, and wheezing, better than yesterday. PHYSICAL EXAMINATION VITAL SIGNS: She is afebrile, pulse 75, respiration 18, blood pressure 130/68. LUNGS: Bilateral few expiratory rhonchi. HEART: S1, S2 audible. ABDOMEN: Soft and nontender. No rebound, no guarding. NEUROLOGIC: The patient is awake, alert, oriented, and communicative. LABORATORY DATA: WBC is 8.8, hemoglobin 9.9, hematocrit 32.5, and platelets 212. Chemistry: Blood sugar was 127. Flu test is negative. Blood culture and urine cultures are negative. ASSESSMENT AND PLAN: 1. Asthmatic bronchitis. 2. Chronic atrial fibrillation, not on anticoagulant. 3. Steroid-induced hyperglycemia. 4. Right lower lobe pneumonia and right pleural effusion. 5. Bilateral leg edema seems to be improving. PLAN: We will continue patient on nebulizer treatment. She is on aspirin 81 daily. She is on Lasix 40 daily. She is on meropenem. She is on IV steroid. We will continue that. Monitor her blood sugar. Follow up in a.m. Katerin Diaz MD
[2018-02-28] MEDS ORDERED: Albuterol-Ipratrop 3 mg / 0.5 (3 ml) UD IH ONE (01:51)
[2018-02-28 07:13] LABS: BASO # 0.01 K/mm3 (0.0-2.0); BASO % 0.1 % (0.0-3.0); GRAN # 11.18 (1.4-6.5); GRAN % 91.9 % (50.0-68.0); HEMOGLOBIN 10.4 g/dL (12.0-16.0); LYMPH # 0.6 (1.2-3.4); LYMPH % 5.1 % (22.0-35.0); MEAN CORPUSCULAR HGB CONC 30.6 g/dl (31.0-37.0); MEAN PLATELET VOLUME 9.4 fl (7.0-11.0); MONO # 0.4 (0.1-0.6); MONO % 2.9 % (1.0-6.0); RBC 3.47 10^6/uL (3.5-6.1); RED CELL DISTRIBUTION WIDTH 14.7 % (11.5-14.5); WHITE BLOOD COUNT 12.2 10^3/uL (4.5-11.0)
[2018-02-28] MEDS: Albuterol-Ipratrop 3 mg / 0.5 (3 ml) UD IH SCH ×2 (07:19→13:29)
[2018-02-28] MEDS: Budesonide 0.5 mg/2 ml Inhal Susp UD IH SCH (07:19)
[2018-02-28 07:29] LABS: ALB/GLOB RATIO 1.1 (1.1-1.8); ALBUMIN 3.4 g/dL (3.0-4.8); CALCIUM 9.1 mg/dL (8.4-10.5)
[2018-02-28 07:41] VITALS: BP 141/79; PULSE 82; RESP 20; TEMP 97.5; O2SAT 94
--- NOTE | 2018-02-28 07:48 | CP.PCM.PN ---
Subjective - Date & Time of Evaluation Date of Evaluation: 02/28/18 Time of Evaluation: 06:40 - Subjective Subjective: Awake, alert, no distress, denies chest pain, denies shortness of breath Reason for consultation and follow up: Cardiac evaluation of shortness of breath, rule out congestive heart failure, possible pneumonia, history of atrial fibrillation Seen and examined by me and Dr. Rudd Objective - Vital Signs/Intake and Output Vital Signs (last 24 hours): Temp Pulse Resp BP Pulse Ox 97.5 F L 82 20 141/79 94 L 02/28/18 07:41 02/28/18 07:41 02/28/18 07:41 02/28/18 07:41 02/28/18 07:41 Intake and Output: 02/28/18 02/28/18 06:59 18:59 Intake Total 1780 Output Total 176 Balance 1604 - Medications Medications: Current Medications Albuterol/Ipratropium (Duoneb 3 Mg/0.5 Mg (3 Ml) Ud) 3 ml IH TIDRESP [facility] Last Admin: 02/28/18 07:19 Dose: 3 ml Aspirin (Aspirin Chewable) 81 mg PO DAILY G[facility] Last Admin: 02/27/18 10:38 Dose: 81 mg Azithromycin (Zithromax) 250 mg PO DAILY GOLDEN; Protocol Budesonide (Pulmicort Respules) 0.5 mg IH [id number] [facility] Last Admin: 02/28/18 07:19 Dose: 0.5 mg Dextrose (Dextrose 50% Inj) 0 ml IV STAT PRN; Protocol PRN Reason: Hypoglycemia Protocol Enoxaparin Sodium (Lovenox) 60 mg SC Q24H G[facility]; Protocol Last Admin: 02/27/18 11:11 Dose: 60 mg Furosemide (Lasix) 40 mg IVP DAILY [facility] Meropenem (Merrem Iv 1 Gm Premix) 1 gm in 50 mls @ 100 mls/hr IVPB Q12 [facility]; Protocol Stop: 03/06/18 13:16 Last Admin: 02/27/18 21:51 Dose: 100 mls/hr Dextrose (Dextrose 5% In Water 1000 Ml) 1,000 mls @ 0 mls/hr IV .Q0M PRN; Protocol PRN Reason: Hypoglycemia Protocol Insulin Human Regular (Humulin R High) 0 units SC ACHS G[facility]; Protocol Last Admin: 02/27/18 21:52 Dose: Not Given Methylprednisolone (Solu-Medrol) 30 mg IV Q12 [facility] Last Admin: 02/27/18 21:51 Dose: 30 mg Metoprolol Succinate (Toprol Xl) 50 mg PO BRK [facility] Last Admin: 02/27/18 09:05 Dose: 50 mg Potassium Chloride (Klor-Con 10) 10 meq PO BRK [facility] Last Admin: 02/27/18 10:39 Dose: 10 meq - Labs Labs: 02/28/18 06:30 02/28/18 06:30 PT 17.0 SECONDS (9.4-12.5) H 02/25/18 09:10 INR 1.47 02/25/18 09:10 APTT 28.9 Seconds (25.1-36.5) 02/25/18 09:10 - Constitutional Appears: Non-toxic, No Acute Distress - Head Exam Head Exam: NORMAL INSPECTION, NORMOCEPHALIC - Eye Exam Eye Exam: Normal appearance Pupil Exam: NORMAL ACCOMODATION - ENT Exam ENT Exam: Mucous Membranes Moist, Normal Exam - Respiratory Exam Respiratory Exam: Decreased Breath Sounds, Rhonchi, NORMAL BREATHING PATTERN - Cardiovascular Exam Cardiovascular Exam: +S1, +S2 - GI/Abdominal Exam GI & Abdominal Exam: Soft, Normal Bowel Sounds - Extremities Exam Extremities Exam: Full ROM Additional comments: 2+pedal edema - Neurological Exam Neurological Exam: Alert, Awake, Oriented x3 - Psychiatric Exam Psychiatric exam: Normal Affect, Normal Mood - Skin Skin Exam: Dry, Normal Color, Warm Assessment and Plan - Assessment and Plan (Free Text) Assessment: An 82 year old obese female who came in to the ER due to generalized weakness and coughing.History of hypertension,diastolic CHF, chronic atrial fibrillation (refusing anticoagulation), osteoarthritis. Chest X ray showed right lower lobe pneumonia. ID on consult and started on antibiotics. Refusing anticoagulation for chronic atrial fibrillation due to concern of cerebral bleeding. Plan: Denies shortness of breath Heart rate controlled Blood pressure controlled Afebrile Continue IV antibiotics as ordered by ID Continue nebulizer treatment On ASA 81 mg daily,Lovenox 60 mg daily.Lasix 40 mg daily, Solumedrol 30 mg every 12 hours Toprol XL 50 mg daily, Klor-con 10 meq daily Potassium level today 5.5, will hold daily potassium dose and replenish K+ PRN Continue current treatment Continue current medications Chart reviewed Will follow up Plan and treatment discussed with Dr. Rudd
[2018-02-28] MEDS ORDERED: Albuterol-Ipratrop 3 mg / 0.5 (3 ml) UD IH PRN (07:51)
--- NOTE | 2018-02-28 08:09 | PN ---
DATE: 02/28/2018 PULMONARY NOTE SUBJECTIVE: The patient appears comfortable this morning. She is not short of breath at rest. PHYSICAL EXAMINATION: VITAL SIGNS: Temperature is 97.5, pulse 82, respirations 18-20, blood pressure 141/79. Oxygen saturation on room air is 94%. HEENT: Normocephalic, atraumatic. Positive JVD. CARDIOVASCULAR: Systolic ejection murmur at the lower left sternal border. Positive S3 gallop. LUNGS: Less crackles at the bases. Minimal/less rhonchi. No wheezing. EXTREMITIES: Positive for mild edema. No cyanosis, no clubbing. Calves are nontender to palpation. GASTROINTESTINAL: Abdomen is soft, nontender, and nondistended. Bowel sounds are positive. SKIN: No acute rash. NEUROLOGIC: Limited at the present time. IMPRESSION: 1. Right lower lobe pneumonia. 2. Acute bronchitis. 3. Congestive heart failure. 4. Respiratory insufficiency. 5. Mild anemia. PLAN: The patient appears comfortable this morning. She is not short of breath at rest. She definitely is feeling better. I did discuss the case with the daughter (at bedside). The daughter also notes that the patient is improved. On physical exam, her bronchospasm continues to resolve. In addition, the alveolar-arterial gradient also continues to resolve. I will continue with the current nebulizer treatments and decrease the intravenous steroids this morning. The patient remains on antibiotic therapy - as per Infectious Disease. The temperatures have now fully resolved. There is a mild leukocytosis - probably partly due to the steroids. Clinical status of the patient is certainly improved - compared to the initial presentation. I would like to see the patient out of bed more often. I will discuss the above with Dr. Diaz. Mike Bowman MD MTDD
[2018-02-28] MEDS: Insulin Reg-HIGH-Coverage SC SCH ×2 (08:42→12:00)
[2018-02-28] MEDS: Meropenem IV 1 gm in NS 1 GM/50 ML BAG IVPB SCH (09:30)
[2018-02-28] MEDS: Metoprolol Succinate 50 mg XL Tab PO SCH (09:32)
[2018-02-28] MEDS: Enoxaparin 60 mg Syringe SC SCH (09:54)
--- NOTE | 2018-02-28 09:59 | PN ---
DATE: 02/28/2018 SUBJECTIVE: The patient is in bed, in no acute distress. The patient is seen earlier this morning. No fevers, no chills. No nausea or vomiting. PHYSICAL EXAMINATION: VITAL SIGNS: On exam, temperature is 98, blood pressure is 140/70, respiratory rate of 20, heart rate of 82. HEENT: Examination of HEENT is unremarkable. NECK: Supple. LUNGS: Have decreased breath sounds. HEART: Normal S1, S2. ABDOMEN: Soft, nontender. LABORATORY DATA: White count is 12,200, hemoglobin of 10, platelets of 215. Coagulation is noted. Chemistries reveals a BUN of 76, creatinine of 1.9. Urinalysis is noted. Serology is noted. Urine for Legionella antigen is negative. Microbiology reveals the blood cultures are negative. Urine cultures are negative. MRSA is not detected. The patient is on meropenem and Solu-Medrol and Zithromax. The patient's creatinine is increased to 1.9. The patient had an abdominal ultrasound, which shows multiple stones, common bile duct measures at 6.5, right-sided pleural effusions. Dr. Bowman's note is reviewed. He states the patient has right lower lobe pneumonia, acute bronchitis, congestive heart failure. The patient's procalcitonin is elevated at 0.54 and 0.79 yesterday. ASSESSMENT AND PLAN: An 82-year-old female, who is allergic to penicillin with past medical history of hypertension, systolic congestive heart failure with ejection fraction of 51%, atrial fibrillation, obesity, osteoarthritis, shortness of breath, right lower lobe community-acquired pneumonia, acute systolic congestive heart failure on top of chronic congestive heart failure and had a fever. Today is day #4 of meropenem and azithromycin with elevated procalcitonin. Methicillin-resistant Staphylococcus aureus screen is negative. Blood cultures are negative. Today is day #4 of meropenem, azithromycin. We will continue to follow with you. Alin Mckay MD
[2018-02-28] MEDS ORDERED: MethylPREDNISolone 40 mg Vial IVP SCH (10:00)
[2018-02-28] MEDS ORDERED: Sod Polystyrene Sulf 15 gm/60 ml Susp PO ONE (11:00)
--- NOTE | 2018-02-28 15:43 | PN ---
DATE: 02/28/2018 REASON FOR CONSULTATION AND FOLLOWUP: Shortness of breath, history of atrial fibrillation, not on anticoagulation as per family wish. Admitted with pneumonia, CHF. This note is in addition to dictated by nurse practitioner. Son and daughter are at the bedside. Extensive discussion done. Concerned about giving the Lovenox. Does not want long-term oral anticoagulation. Mentioned to the son that it is using to prevent DVT prophylaxis as well as AFib, but the patient's son does not want oral anticoagulation, even goes home. In summary, 82-year-old female with generalized weakness, history of chronic atrial fibrillation, refused anticoagulation by family. Admitted with right lower lobe pneumonia. RECOMMENDATIONS: Continue aspirin, continue Lovenox 60, continue gentle diuretics, continue Toprol-XL, continue broad-spectrum antibiotics as per Dr. Diaz. Continue treatment for COPD and bronchitis. We will follow with you. Today potassium is 5.5. We will do a stat potassium, most likely secondary to steroid, methylprednisolone, and we will put Kayexalate 30 g if the repeat potassium is more than 5.3. Thank you, Dr. Diaz, for providing us the opportunity in taking care of the patient, Vicenta Duran. Rodolfo Rudd MD
--- NOTE | 2018-02-28 17:33 | PN ---
DATE: 02/28/2018 SUBJECTIVE: The patient is 82 years old, seen and examined. Still has cough and congestion. Eating well. According to son who is by the bedside that she was somewhat confused last night. PHYSICAL EXAMINATION: VITAL SIGNS: She is afebrile, pulse 82, respirations 20, blood pressure 141/79. LUNGS: Bilateral soft crackle, more pronounced posteriorly, more on cough. HEART: S1 and S2 audible. Regular rate control. ABDOMEN: Soft, nontender. No rebound, no guarding. NEUROLOGICAL: The patient is awake, alert, oriented, unable to communicate. ASSESSMENT: 1. Asthmatic bronchitis and bronchospasm. 2. Chronic atrial fibrillation. 3. Right lower lobe pneumonia. 4. Right pleural effusion. 5. Bilateral pneumonia. 6. Mild dementia. 7. Steroid-induced hyperglycemia. PLAN: Currently, the patient is on aspirin 81 daily. She is on nebulizer treatment. Continue her on Lasix. She is on Lovenox 60 mg subcu every 24 hours. She is on meropenem. We will discontinue IV steroids. Start her on small dose of prednisone because family is very concerned that she is getting increasingly confused and disoriented because of steroids. I will cut down to p.o. steroid 10 mg twice a day and give her Risperdal 0.25 at bedtime and request for TCU evaluation. If accepted, she will be transferred to TCU. Katerin Diaz MD
== END 2018-02-28 18:58 | DRG 291 ==
LOC: ED 08:40 → ERH 10:27 → 2RSO 12:39 → 5RNO 02-27 21:12
PROVIDERS: ADMIT Internal Medicine; ATTEND Internal Medicine
DX: I13.0 Hypertensive heart and chronic kidney disease with heart failure and stage 1 through stage 4 chronic kidney disease, or unspecified chronic kidney disease (principal); J18.9 Pneumonia, unspecified organism; I50.43 Acute on chronic combined systolic (congestive) and diastolic (congestive) heart failure; N18.9 Chronic kidney disease, unspecified; J20.9 Acute bronchitis, unspecified; I48.2 Chronic atrial fibrillation; I27.20 Pulmonary hypertension, unspecified; I08.3 Combined rheumatic disorders of mitral, aortic and tricuspid valves; J45.909 Unspecified asthma, uncomplicated; R73.9 Hyperglycemia, unspecified; T38.0X5A Adverse effect of glucocorticoids and synthetic analogues, initial encounter; F03.90 Unspecified dementia, unspecified severity, without behavioral disturbance, psychotic disturbance, mood disturbance, and anxiety; E78.5 Hyperlipidemia, unspecified; D64.9 Anemia, unspecified; I42.9 Cardiomyopathy, unspecified; K21.9 Gastro-esophageal reflux disease without esophagitis; M19.90 Unspecified osteoarthritis, unspecified site; N32.81 Overactive bladder; E66.9 Obesity, unspecified; Z79.82 Long term (current) use of aspirin; Z88.0 Allergy status to penicillin; Z86.73 Personal history of transient ischemic attack (TIA), and cerebral infarction without residual deficits; Z68.34 Body mass index [BMI] 34.0-34.9, adult

== ENCOUNTER 2018-02-28 19:06 | Inpatient (IN) | payer OTHER, MEDICAID ==
[2018-02-28] MEDS ORDERED: Albuterol-Ipratrop 3 mg / 0.5 (3 ml) UD IH PRN (20:38)
[2018-02-28] MEDS: Arformoterol 15 mcg/2 ml Inh Sol IH SCH (20:51)
[2018-02-28] MEDS: Budesonide 0.5 mg/2 ml Inhal Susp UD IH SCH (20:52)
[2018-02-28] MEDS: Albuterol-Ipratrop 3 mg / 0.5 (3 ml) UD IH SCH (20:52)
[2018-02-28] MEDS: Insulin Reg-HIGH-Coverage SC SCH (22:23)
[2018-02-28] MEDS: Meropenem IV 1 gm in NS 1 GM/50 ML BAG IVPB SCH (22:24)
[2018-02-28 23:39] VITALS: RESP 20
[2018-02-28] MEDS ORDERED: Influenza Vaccine 60 mcg/0.5 mL SYR (4YR UP) IM ONE (23:39)
[2018-02-28] MEDS ORDERED: Pneumococcal 23-Valent Vaccine IM ONE (23:39)
[2018-03-01 07:24] VITALS: O2SAT 97
[2018-03-01] MEDS: Budesonide 0.5 mg/2 ml Inhal Susp UD IH SCH ×2 (07:35→19:55)
[2018-03-01] MEDS: Arformoterol 15 mcg/2 ml Inh Sol IH SCH ×2 (07:35→19:55)
[2018-03-01] MEDS: Albuterol-Ipratrop 3 mg / 0.5 (3 ml) UD IH SCH ×3 (07:35→19:55)
[2018-03-01] MEDS: Insulin Reg-HIGH-Coverage SC SCH ×4 (07:43→21:44)
--- NOTE | 2018-03-01 08:01 | PN ---
DATE: 03/01/2018 PULMONARY NOTE DICTATION SUBJECTIVE: The patient appears comfortable this morning. She is not short of breath at rest. Her daughters are at the bedside. PHYSICAL EXAMINATION: VITAL SIGNS: Temperature is 97.9, pulse 72, respirations 18/20, blood pressure 102/77. Oxygen saturation on nasal cannula is 97%. HEENT: Normocephalic, atraumatic. Positive JVD. CARDIOVASCULAR: Systolic ejection murmur at the lower left sternal border. Positive S3 gallop. LUNGS: Minimal crackles at the bases. Minimal/less rhonchi. No wheezing. EXTREMITIES: Positive for edema. No cyanosis, no clubbing. Calves are nontender to palpation. GI: Abdomen is soft, nontender and nondistended. Bowel sounds are positive. SKIN: No acute rash. NEUROLOGIC: Exam limited at the present time. IMPRESSION: 1. Right lower lobe pneumonia. 2. Acute bronchitis. 3. Congestive heart failure. 4. Respiratory insufficiency. 5. Mild anemia. PLAN: The patient appears comfortable this morning. She is not short of breath at rest. She does state to feeling much better overall. I was approached by the nurse on the transitional care - in reference to the patient's BiPAP usage. The BiPAP was officially discontinued. On physical exam, her bronchospasm continues to resolve. In addition, the alveolar-arterial gradient continues to resolve. I will continue the current nebulizer treatments and oral steroids for now. The patient also remains on antibiotic therapy. There are no temperatures noted. Clinical status of the patient is certainly improved overall. She is now on the Transitional Care Unit-- where she will participate in physical therapy. I will discuss the above with Dr. Diaz. Mike Bowman MD MTDEstephanie
[2018-03-01] MEDS: Metoprolol Succinate 50 mg XL Tab PO SCH (08:33)
[2018-03-01] MEDS ORDERED: Enoxaparin 60 mg Syringe SC SCH (10:00)
[2018-03-01] MEDS: Meropenem IV 1 gm in NS 1 GM/50 ML BAG IVPB SCH (10:51)
[2018-03-01 11:23] VITALS: PULSE 70; TEMP 97.4
[2018-03-01 18:28] LABS: PH,URINE 5.5 (4.7-8.0); URINE BILIRUBIN NEGATIVE (NEGATIVE); URINE BLOOD MODERATE (NEGATIVE); URINE GLUCOSE (UA) NEGATIVE (NEGATIVE); URINE LEUKOCYTE ESTERASE TRACE Leu/uL (NEGATIVE); URINE PROTEIN NEGATIVE mg/dL (<30 mg/dL); URINE UROBILINOGEN 0.2 E.U./dL (<1 E.U./dL)
[2018-03-01 18:33] LABS: URINE APPEARANCE CLEAR (CLEAR); URINE COLOR YELLOW (YELLOW)
[2018-03-01 18:46] LABS: URINE RBC 20 - 25 /hpf (0-2)
[2018-03-01 18:47] LABS: URINE BACTERIA TRACE (NEG)
--- NOTE | 2018-03-01 20:25 | CON ---
DATE OF CONSULTATION: 03/01/2018 HISTORY OF PRESENT ILLNESS: The patient is an 82-year-old female. The patient was admitted on the medical side for evaluation of weakness and confusion for 3 days prior to coming to the hospital, fever. The patient was diagnosed with pneumonia. The patient was doing better and downgraded to transitional care unit. The patient was on Risperdal at the nighttime. This filing writer assumed this is for psychosis and psych consult was called for evaluation of confusion as well as possible delirium stage. The patient was seen and examined. The patient presented to be confused, picking something on the blanket. The patient's daughter as well as her granddaughter is next to her. As per family, the patient's son, Mr. Aaron Fierro, is power of assistant county attorney for the patient, phone number is [phone]. Going back to the patient's presentation, the patient was not able to recognize her family, appears to be confused. Vital signs reviewed. Temperature 97.4, pulse is 70, blood pressure 124/67, respirations 26, and saturation is 96. MEDICATIONS: Reviewed. The patient is on DuoNeb, Brovana, aspirin. The patient is on Zithromax, Pulmicort, Lovenox, Lasix, Humulin, Merrem, metoprolol. Also, the patient was on Risperdal, only one dose of medication given to the patient, it was overnight. LABS: Reviewed. The patient has leukocytosis. WBC cells 12.2, hemoglobin is 10.4, hematocrit 34.0. Coagulation reviewed. Blood gas reviewed. Chemistry reviewed. Urinalysis reviewed, leukocyte esterase small, bacteria moderate, protein trace. Microbiology reviewed. MENTAL STATUS EXAMINATION: As this filing writer described above. This filing writer contacted the patient's power of assistant county attorney, Aaron Fierro, who lives with the patient. Discussed the options and findings. Mr. Fierro does not want any psychotropic medication to be given to his mother. This filing writer explained the rationale behind Risperdal, but the power of assistant county attorney does not want this medication to be given to the patient. We will respect that decision. The patient does not have history of mental illness. The patient does not have history of agitation or aggression. The patient does not have history of any suicidal attempts. IMPRESSION: The patient is obviously in delirium stage. The patient does not present to be in any distress, but mildly confused. The patient's presentation is related to the medical issues as well as prednisone what she was taking before. PLAN: We respect family's decision and power of assistant county attorney's decision, Aaron Fierro [phone]. The patient's family requested no psychotropic medications. Besides that, management as per medical team. This filing writer will sign off. Should you have any questions, give me a call back. Vanessa Ramon MD MTDEstephanie
--- NOTE | 2018-03-01 22:05 | HP ---
DATE OF EXAM: 03/01/2018 HISTORY OF PRESENT ILLNESS: The patient is an 82-year-old, who was admitted for cough and congestion with shortness of breath. The patient was given IV antibiotic, nebulizer treatment with small dose of steroids. She started to have hallucination; although, her condition improved somewhat. Family is very concerned. Her blood sugar was running high too. They were not in big favor of giving insulin either. Since the patient needed close followup, she was transferred to TCU. PAST MEDICAL HISTORY: She has significant past medical history of, 1. Chronic AFib. 2. Hypertension. 3. Hyperlipidemia. 4. Bilateral leg swelling. 5. Chronic anemia. 6. History of GI bleed. ALLERGIES: SHE IS ALLERGIC TO PENICILLIN, COUMADIN, CELEBREX, AND DABIGATRAN. MEDICATIONS AT HOME: She is on metolazone 5 mg daily. She is on K-Dur. She is on metoprolol, losartan, Lasix, DVT prophylaxis, and Pulmicort. SOCIAL HISTORY: She is single, lives with her family. Denies smoking or drinking. PHYSICAL EXAMINATION GENERAL: She is sleepy, but arousable. VITAL SIGNS: She is afebrile, pulse 70, respirations 20, blood pressure 124/67. LUNGS: Bilateral soft crackle in the upper lung region. HEART: S1 and S2 audible. ABDOMEN: Soft, obese, nontender. No rebound. No guarding. NEUROLOGIC: The patient is sleepy, but arousable. Moves all extremities. LABORATORY EXAM: Blood sugar is 121. ASSESSMENT AND PLAN: 1. Lower lobe pneumonia. 2. Hypertension. 3. Hyperlipidemia. 4. Chronic atrial fibrillation, not on any anticoagulation. It was explained to the patient. They understand that there is a risk of stroke, but they do not want her to be on blood thinners. 5. Congestive heart failure. 6. Respiratory insufficiency, improving. PLAN: We will continue the patient on aspirin 81 mg daily. She is on Brovana. She will continue nebulizer treatment. Keep her on Lasix 40 mg daily and decrease her Lovenox to 30 mg for DVT prophylaxis. She is on Pulmicort. We will intervention teacher her Risperdal 0.25 mg at bedtime. She hallucinated at nighttime. We will follow up this patient in a.m. Katerin Diaz MD [facility] # [id number]
--- NOTE | 2018-03-02 00:43 | CON ---
DATE: 03/01/2018 The patient seen earlier today in room 313. CHIEF COMPLAINT: antibiotic orders and weakness since 1 day. HISTORY OF PRESENT ILLNESS: This is an 82-year-old female who appears much older than her stated age who was admitted to the acute care with shortness of breath and weakness and fevers and the patient is known to me from previous admissions. Workup was done, now transferred to Transitional Care for further care and physical therapy. PAST MEDICAL HISTORY: Significant for hypertension, congestive heart failure, and osteoarthritis. Systolic congestive heart failure with an ejection fraction of 51%. The patient also suffers from obesity, osteoarthritis, and atrial fibrillation. PAST SURGICAL HISTORY: Significant for left arm surgery and cataract surgery. ALLERGIES: THE PATIENT IS ALLERGIC TO PENICILLIN, QUESTIONABLE RASH AND THE PATIENT IS ALSO ALLERGIC TO ROFECOXIB AND WARFARIN. MEDICATIONS: Reviewed. REVIEW OF SYSTEMS: A 14-point review of systems is performed. No fevers. No chills. No nausea. Her shortness of breath is greatly improved. No chest pain, abdominal pain, diarrhea or constipation. PHYSICAL EXAMINATION: GENERAL: The patient is seen in bed, no acute distress. VITAL SIGNS: Temperature of 97, blood pressure is 120/60, respiratory rate of 20, and heart rate of 74. HEENT: Unremarkable. NECK: Supple. LUNGS: Decreased breath sounds. ABDOMEN: Soft and nontender. No organomegaly. No rebound. No guarding. No masses. LABORATORY DATA: Reveals a white count of 12,200, hemoglobin of 10, and platelets of 215. Coagulation is noted. Chemistries revealed the patient's elevated glucose with a creatinine of 1.9, which has increased since admission from 1.2 to 1.7 to 1.9 and the patient also had a procalcitonin of 0.54 to 0.79. Urinalysis is noted and there is 10 to 15 wbc's and urine for Legionella antigen is negative. Influenza was negative. Microbiology reveals MRSA screen is negative. Urine cultures are negative. The blood cultures are negative. ASSESSMENT AND PLAN: An 82-year-old female who is ALLERGIC TO PENICILLIN with past medical history of osteoarthritis, hypertension, systolic congestive heart failure, and obesity who is admitted with right lower lobe community-acquired pneumonia with acute systolic congestive heart failure on top of chronic congestive heart failure now with acute kidney injury with creatinine is changed from 1.2 to 1.9 on day number 5 of Zithromax and Merrem. At this time, no IV access. We will discontinue the meropenem and urine for eosinophils. We should have a renal evaluation and urinalysis too. We will repeat urinalysis, looking for casts, medication induced renal disease versus dehydration and the patient has had adequate antibiotic therapy. We will discontinue both meropenem and azithromycin. We will check on the CBC in a.m. and chemistries and repeat procalcitonin in a.m. Since the patient's IV access issues, they will observe her. She is certainly nontoxic state, overall prognosis poor. Alin Mckay MD
--- NOTE | 2018-03-02 04:03 | CON ---
DATE: 03/01/2018 REASON FOR CONSULTATION: Continuity of care to transitional care unit, admitted with congestive heart failure, COPD exacerbation, chronic atrial fibrillation, not on anticoagulation as per family. BRIEF CLINICAL HISTORY: The patient is an 82-year-old female with past medical history significant for obesity, CVA, history of atrial fibrillation, family refused anticoagulation in the past, history of CVA, questionable history of bleed, admitted with shortness of breath, decompensated congestive heart failure secondary to diastolic dysfunction in acute medical floor. Now, the patient is transferred to transitional care unit for the continuity of the care. PAST MEDICAL HISTORY: Significant as mentioned; history of atrial fibrillation, off anticoagulation as per family, history of GI bleed, family opted not to have anticoagulation as per son and daughter. Previous cardiac workup as follows: The patient had most recent echo, 10/24/2017 shows normal LV function, ejection fraction within the normal limits, moderate aortic stenosis, [id number] mitral regurgitation, mild tricuspid regurgitation, mild pulmonary hypertension, RV systolic pressure of 40. History of GI bleed. In the past, the patient had echo also on 04/22/2016 that showed ejection fraction of 70%, RV systolic pressure of 49. SOCIAL HISTORY: Denies smoking. Denies any history of alcohol abuse. MEDICATIONS: Currently, the patient is taking at home; metolazone, metoclopramide, Toprol XL, potassium, losartan, Lasix, and aspirin. ALLERGIES: ALLERGY TO PRADAXA, GIVES ANGIOEDEMA; PENICILLIN, VIOXX AND COUMADIN, UNKNOWN REACTION; ALSO UNKNOWN REACTION TO THE PRAVACHOL. REVIEW OF SYSTEMS: As per HPI. PHYSICAL EXAMINATION GENERAL: Family is at the beside. VITAL SIGNS: Temperature is afebrile, heart rate is 70, blood pressure 124/67. HEENT: PERRLA. Extraocular muscles are intact. NECK: Supple. No carotid bruit or thyromegaly. CHEST: Scattered rhonchi. ABDOMEN: Soft. EXTREMITIES: Clubbing and cyanosis negative. LABORATORY DATA: EKG shows AFib. Blood workup as follows: WBC 12.2, hemoglobin 10.4, hematocrit 34.0, and platelet count 215. Chemistries shows sodium as of 02/28/2018 140, potassium 5.8, chloride 106, carbon dioxide 29, anion gap 14, BUN 76 and creatinine 1.5. IMPRESSION: This is an 82-year-old female with past history of obesity, hypertension, hyperlipidemia, congestive heart failure secondary to diastolic dysfunction, history of atrial fibrillation, the family opted for medical treatment, admitted with decompensated congestive heart failure secondary to diastolic dysfunction as well as bronchitis type of symptoms. X-ray is consistent with right lower lobe pneumonia, respiratory insufficiency and mild change in mental status, now the patient is significantly improved while being transferred from medical floor to TCU awake and alert. RECOMMENDATION: Continue broad-spectrum antibiotics. Continue gentle diuretics. Continue Lovenox. Discussed with the family. Family does not want oral long-term anticoagulation, but agreed to be continued on Lovenox here to prevent DVT as well as stroke. As mentioned, recommended to continue baby aspirin. Continue treatment for COPD. Continue Lasix p.o. Continue enoxaparin 1 mg/kg according to renal insufficiency 1 mg/kg every 24 hours. Discussed with daughter, granddaughter and the son. Repeat blood work in the morning. We will get the CBC and SMA-7 . We will follow with you. Thank you Dr. Diaz, for providing an opportunity in taking care of the patient, Vicenta Duran. Rodolfo Rudd MD
[2018-03-02] MEDS: Enoxaparin 30 mg Syringe SC SCH (05:39)
[2018-03-02] MEDS ORDERED: Enoxaparin 60 mg Syringe SC SCH (06:00)
[2018-03-02] MEDS: Insulin Reg-HIGH-Coverage SC SCH ×3 (06:31→17:33)
[2018-03-02] MEDS: Arformoterol 15 mcg/2 ml Inh Sol IH SCH ×2 (07:33→19:21)
[2018-03-02] MEDS: Budesonide 0.5 mg/2 ml Inhal Susp UD IH SCH ×2 (07:33→19:21)
[2018-03-02] MEDS: Albuterol-Ipratrop 3 mg / 0.5 (3 ml) UD IH SCH ×3 (07:33→19:21)
--- NOTE | 2018-03-02 07:35 | PN ---
DATE: 03/02/2018 PULMONARY NOTE SUBJECTIVE: The patient appears quite comfortable this morning. She is not short of breath at rest. PHYSICAL EXAMINATION: VITAL SIGNS: Last temperature recorded is 97.4, pulse is 70, respirations 18/20, blood pressure 124/67. Oxygen saturation on nasal cannula is 97%. HEENT: Normocephalic, atraumatic. Positive JVD. CARDIOVASCULAR: Systolic ejection murmur at the lower left sternal border. Positive S3 gallop. LUNGS: Minimal crackles at the bases. Minimal/less rhonchi. A few wheezes are also appreciated. EXTREMITIES: Positive edema. No cyanosis, no clubbing. Calves are nontender to palpation. GI: Abdomen is soft, nontender and nondistended. Bowel sounds are positive. SKIN: No acute rash. NEUROLOGIC: Limited at the present time. IMPRESSION: 1. Right lower lobe pneumonia. 2. Acute bronchitis. 3. Congestive heart failure. 4. Respiratory insufficiency. 5. Mild anemia. PLAN: The patient appears comfortable this morning. She is not short of breath at rest. She does state to feeling better overall. Family is at bedside and I did discuss the case with them at length. On physical exam, the patient remains in mild bronchospasm. However, the alveolar-arterial gradient is much less. I would continue with the current nebulizer treatments and low-dose oral steroids for now. I would continue with the antibiotic usage as per Infectious Disease. Input by Dr. Mckay is noted. Input by cardiology (Dr. Rudd) is also noted. The patient remains on Lasix. Clinical status of the patient is definitely improved - compared to the initial presentation. The patient will continue to participate with physical therapy. I will discuss the above with Dr. Diaz. Mike Bowman MD MTDEstephanie
[2018-03-02 08:07] LABS: BASO # 0.01 K/mm3 (0.0-2.0); BASO % 0.1 % (0.0-3.0); EOS % 0.1 % (1.5-5.0); GRAN # 6.81 (1.4-6.5); GRAN % 77.1 % (50.0-68.0); HEMOGLOBIN 9.8 g/dL (12.0-16.0); LYMPH # 1.8 (1.2-3.4); LYMPH % 20.7 % (22.0-35.0); MEAN CELL VOLUME 95.2 fl (80.0-105.0); MEAN CORPUSCULAR HEMOGLOBIN 29.3 pg (25.0-35.0); MEAN CORPUSCULAR HGB CONC 30.8 g/dl (31.0-37.0); MEAN PLATELET VOLUME 8.3 fl (7.0-11.0); MONO # 0.2 (0.1-0.6); RBC 3.34 10^6/uL (3.5-6.1); RED CELL DISTRIBUTION WIDTH 14.7 % (11.5-14.5); WHITE BLOOD COUNT 8.8 10^3/uL (4.5-11.0)
[2018-03-02 08:22] LABS: ALBUMIN 2.9 g/dL (3.0-4.8); CALCIUM 8.9 mg/dL (8.4-10.5)
[2018-03-02] MEDS: Metoprolol Succinate 50 mg XL Tab PO SCH (08:36)
[2018-03-02] MEDS ORDERED: Pantoprazole 40 mg Susp UD PO STA (10:52)
--- NOTE | 2018-03-02 14:02 | PN ---
DATE: 03/02/2018 LOCATION: The patient is seen earlier this morning in room 313. SUBJECTIVE: Family member is present who was sleeping on the chair next to the patient. There have been no fevers, no chills. She appears to be comfortable, uneventful night. PHYSICAL EXAMINATION: VITAL SIGNS: Temperature is 97, blood pressure is 150/70, respiratory 18. Examination of HEENT is unremarkable. NECK: Supple. LUNGS: Have decreased breath sounds. HEART: Normal S1, S2. ABDOMEN: Soft. LABORATORY EXAMINATION: Reveals a white count of 8.8, hemoglobin is noted and the chemistries are reviewed. Chemistries are noted and the patient's procalcitonin is noted and urinalysis is reviewed. Microbiology reveals nares MRSA is negative. Urine cultures are negative. Blood cultures are negative. Review of orders reveals the patient to be off antibiotics and Dr. Bowman's note is reviewed. ASSESSMENT AND PLAN: This is an 82-year-old female who is allergic to penicillin with past medical history of osteoarthritis, hypertension, systolic congestive heart failure, obesity, admitted with a right lower lobe community-acquired pneumonia, acute systolic congestive heart failure on top of chronic congestive heart failure and acute kidney injury and has completed antibiotic therapy of Zithromax and meropenem. Currently, off antibiotics. The patient is requesting no further blood work, although this morning's creatinine is 1.3, which is improved from yesterday at 1.9. Review of medications reveals the patient to be on prednisone, Lasix. We will follow with you. The patient is at risk for developing nosocomial infections. Alin Mckay MD
--- NOTE | 2018-03-02 15:45 | PN ---
DATE: 03/02/2018 LOCATION: The patient is in room 313, bed 1. REASON FOR CONSULTATION AND FOLLOWUP: Congestive heart failure, exacerbation of COPD, chronic atrial fibrillation, deconditioning. SUBJECTIVE: The patient lying flat without any chest pain, shortness of breath, palpitation. PHYSICAL EXAMINATION: VITAL SIGNS: Blood pressure 115/65, patient is afebrile, respirations 20, pulse is 70. HEENT: Head is normocephalic. Eyes: Pupils normal, conjunctivae slightly pale. NECK: JVP low. Carotid equal. THORAX: AP diameter normal. LUNGS: No significant rales. CARDIOVASCULAR: S1, S2. Ejection systolic murmur, grade 3/6. No rub. ABDOMEN: Soft, no tenderness, no organomegaly. EXTREMITIES: No clubbing, no cyanosis. LABORATORY DATA: WBC 8.8, hemoglobin 9.8, hematocrit 31.8, platelets 183. Sodium 143, potassium 4.7, BUN 75, creatinine 1.3, sugar 99. AST 40, ALT 28, total protein 6.0., albumin 2.9. TSH 0.39. DIAGNOSES: Congestive heart failure secondary to diastolic dysfunction, exacerbation of chronic obstructive pulmonary disease, hypertension, hyperlipidemia, obesity. History of atrial fibrillation, patient not on anticoagulation because the family decided against anticoagulation. Pneumonia, respiratory insufficiency, mild mental status change, deconditioning. PLAN: Continue broad-spectrum antibiotics. Continue gentle diuretics. Patient not on Coumadin therapy because patient's family did not want any long-term anticoagulation. Patient on prophylactic dose of Lovenox 30 mg subcutaneously daily, furosemide 40 p.o. daily, aspirin 81 mg daily, Duoneb hand nebulizer therapy, prednisone 10 mg b.i.d., Protonix 40 daily, metoprolol succinate 50 mg daily. We will continue present therapy and we will follow. Rodolfo Hinojosa MD
[2018-03-02] MEDS: Chlorhexidine 0.12% Oral Sol 480 ml Bot PO SCH (17:34)
--- NOTE | 2018-03-02 23:51 | PN ---
DATE: 03/02/2018 SUBJECTIVE: The patient is 82 years old, seen and examined, lying in bed, seems to be comfortable. Family states that she is complaining of abdominal pain, eating fair. Did not sleep well last night. Again, they refused to give her Risperdal. PHYSICAL EXAMINATION: VITAL SIGNS: She is afebrile, pulse 70, respiration 20, blood pressure 124/67. LUNGS: Bilateral fair airflow. No rhonchi or crackle. HEART: S1 and S2 audible. Irregular rate control. ABDOMEN: Soft, nontender. No rebound, no guarding. EXTREMITIES: Bilateral legs +1 edema. NEUROLOGIC: The patient is awake, alert, oriented, communicative. LABORATORY DATA: WBC 8.8, hemoglobin 9.8, hematocrit 31.8, platelets 183. Sodium 143, potassium 4.7, chloride 104, CO2 of 34, BUN 75, creatinine 1.3, blood sugar of 140. LFTs are within normal limit. Blood cultures and urine cultures are negative. ASSESSMENT: 1. Asthmatic bronchitis. 2. Right lower lobe pneumonia. 3. Hypertension. 4. Chronic atrial fibrillation. 5. History of gastrointestinal bleed. PLAN: Currently, the patient is on aspirin. She is getting nebulizer treatment. We will be monitoring blood sugar. She has minimal wheezing, cut down her steroids, the patient's family does not like her to be on steroids, and cut down her Lasix to 20 mg. According to family, she is feeling very thirsty and asking for water again and again. Continue her on Protonix. She is on prednisone 10 mg twice a day, she is minimally wheezing, I will cut down to once a day and discontinue her Risperdal as family does not want her to be on any medications that affect her brain and they are adamant about stopping it. Encourage ambulation. We will follow up the patient in a.m. Katerin Diaz MD
[2018-03-03] MEDS: Enoxaparin 30 mg Syringe SC SCH (05:14)
[2018-03-03] MEDS ORDERED: Pantoprazole 40 mg Susp UD PO SCH (06:00)
[2018-03-03] MEDS: Budesonide 0.5 mg/2 ml Inhal Susp UD IH SCH (07:32)
[2018-03-03] MEDS: Arformoterol 15 mcg/2 ml Inh Sol IH SCH (07:32)
[2018-03-03] MEDS: Albuterol-Ipratrop 3 mg / 0.5 (3 ml) UD IH SCH ×2 (07:32→13:24)
[2018-03-03] MEDS: Chlorhexidine 0.12% Oral Sol 480 ml Bot PO SCH (09:20)
[2018-03-03] MEDS: Metoprolol Succinate 50 mg XL Tab PO SCH (09:21)
[2018-03-03 09:26] VITALS: BP 131/67
--- NOTE | 2018-03-03 14:55 | PN ---
DATE: 03/03/2018 The patient is in bed, in no acute distress, nontoxic, was seen earlier with family members, in the chair and sleeping. PHYSICAL EXAMINATION: The patient's temperature is 97, blood pressure is 130/60, respiratory rate 18. Examination of HEENT is unremarkable. Neck is supple. Lungs show decreased breath sounds. Heart exam is normal S1 and S2. Abdominal examination is soft, nontender. LABORATORY EXAMINATION: Reveals a white count of 8.8, hemoglobin of 9. Chemistries are noted. Urinalysis is noted. ASSESSMENT AND PLAN: This is an 82-year-old female, who is allergic to penicillin, who has a history of osteoarthritis, hypertension, systolic congestive heart failure, who was admitted initially with right lower lobe community-acquired pneumonia with acute systolic congestive heart failure on top of chronic congestive heart failure and acute kidney injury. Has completed the antibiotic therapy of Zithromax and meropenem. Currently off of antibiotics and afebrile. The patient is on prednisone. The patient is at risk for developing nosocomial infections. Dr. Diaz's note from yesterday is reviewed. Alin Mckay MD
--- NOTE | 2018-03-03 23:12 | DS ---
HISTORY OF PRESENT ILLNESS: The patient is an 82-year-old, seen and examined and doing well. As per daughter, she is not sleeping well while she was there, they are requesting to take her home. They states that her cough and congestion is much better and she will feel better when she goes home. PHYSICAL EXAMINATION: GENERAL: She is awake, alert, oriented, and communicative. VITAL SIGNS: She is afebrile, pulse 70, respirations 18, and blood pressure 131/67. LUNGS: Bilateral fair airflow. No rhonchi or crackle. HEART: S1 and S2 audible. ABDOMEN: Soft, nontender, and obese. No hepatosplenomegaly. NEUROLOGIC: She is awake, alert, oriented and able to communicate. LABORATORY DATA: Blood sugar is 130. HOSPITAL COURSE: The patient was admitted because of increasing cough and congestion. She was found to have right low lobe pneumonia and was evaluated by Infectious Disease. The patient was initially on Zithromax and vancomycin. The patient did well, was switched to p.o. and then transfer to TCU. She did well and participated in therapy. Taper down her steroids. The patient did have some confusion with the steroids, so it was sharply taper down upon family's request, they did not want her to be on Risperdal or steroids. The patient tolerated well without steroids breathing is much better. ASSESSMENT: 1. Right lower lobe pneumonia, improved. 2. Asthmatic bronchitis. 3. Congestive heart failure. 4. Chronic atrial fibrillation. 5. Hypertension. 6. Hyperlipidemia. PLAN: The patient is being discharged home. She will resume her medications including Lasix, metoprolol, they have nebulizer machine at home, they will use metolazone as needed and I will follow the patient as outpatient. Katerin Diaz MD
--- NOTE | 2018-03-05 09:05 | PN ---
DATE: 03/03/2018 PULMONARY PROGRESS NOTE SUBJECTIVE: The patient was seen and examined at bedside with the family present at bedside. She is currently receiving inhalation treatment with Brovana and budesonide and she is on low-dose prednisone. PHYSICAL EXAMINATION: VITAL SIGNS: Her temperature is 98, respirations 20, blood pressure is 110/70 and heart rate is 84. HEAD: Normocephalic and atraumatic. NECK: Supple with no jugular vein distentions. CARDIOVASCULAR: S1, S2. No S3, regular. PULMONARY: Diminished breath sounds bilaterally with no rhonchi, rales or wheezing. GI: Soft, nontender. No organomegaly. EXTREMITIES: 1+ pedal edema. SKIN: No acute skin rash. NEUROLOGIC: No focal deficits. ASSESSMENT: 1. Right lower lobe pneumonia, clinically improving. 2. Acute bronchitis. 3. Congestive heart failure. PLAN: The patient appears more comfortable. She is not short of breath at rest. She is still on nasal cannula. She is tolerating aerosol therapy well. Her bronchospasm has basically resolved. Chest x-ray will be repeated to assess progress in terms of resolution of pneumonia in the next 48 hours. Pieter Fuentes MD
== END 2018-03-03 15:19 | disposition home or self-care (01) | DRG 193 ==
LOC: TRCU 19:06
PROVIDERS: ADMIT Internal Medicine; ATTEND Internal Medicine
PROC: F08Z4FZ Home Management Treatment using Assistive, Adaptive, Supportive or Protective Equipment (ICD-10-PCS; 2018-03-01)
PROC: F07Z5FZ Bed Mobility Treatment using Assistive, Adaptive, Supportive or Protective Equipment (ICD-10-PCS; principal; 2018-03-02)
PROC: F07L6ZZ Therapeutic Exercise Treatment of Musculoskeletal System - Lower Back / Lower Extremity (ICD-10-PCS; 2018-03-02)
PROC: F07Z8FZ Transfer Training Treatment using Assistive, Adaptive, Supportive or Protective Equipment (ICD-10-PCS; 2018-03-03)
DX: J18.9 Pneumonia, unspecified organism (principal); I50.43 Acute on chronic combined systolic (congestive) and diastolic (congestive) heart failure; J44.0 Chronic obstructive pulmonary disease with (acute) lower respiratory infection; J44.1 Chronic obstructive pulmonary disease with (acute) exacerbation; F05 Delirium due to known physiological condition; I11.0 Hypertensive heart disease with heart failure; J20.9 Acute bronchitis, unspecified; I48.2 Chronic atrial fibrillation; E78.5 Hyperlipidemia, unspecified; D64.9 Anemia, unspecified; I08.3 Combined rheumatic disorders of mitral, aortic and tricuspid valves; I27.20 Pulmonary hypertension, unspecified; E66.9 Obesity, unspecified; F29 Unspecified psychosis not due to a substance or known physiological condition; M19.90 Unspecified osteoarthritis, unspecified site; Z86.73 Personal history of transient ischemic attack (TIA), and cerebral infarction without residual deficits; Z88.0 Allergy status to penicillin; Z68.36 Body mass index [BMI] 36.0-36.9, adult

== ENCOUNTER 2018-08-26 10:26 | Inpatient (IN) | payer MEDICARE, MEDICAID ==
--- NOTE | 2018-08-26 11:05 | ED PDOC ---
Arrival/HPI - General Chief Complaint: Weakness/Neurological Deficit Time Seen by Provider: 08/26/18 10:32 Historian: Family - History of Present Illness Narrative History of Present Illness (Text): 08/26/18 10:59 An 83 year old female, whose past medical history includes Atrial fibrillation, CHF, and TIA, who presents to the ED accompanied by family for neurological changes for the past 2 days. Patient's son reports the last time she was normal was 2 days ago, afterwhich she gradually became lethargic, confused and unresponsive. Son also reports problems with sleeping, as well as a current UTI infection for which patient takes medication. Son also notes ongoing abdominal pain and vaginal bleeding for the past 6 months. Son denies patient has any fevers, chills, shortness of breath, dyspnea on exertion, cough, nausea, vomiting, diarrhea, urinary/bowel changes, or any other complaints. PMD: Dr. Diaz. Time/Duration: < week (2 days) Symptom Onset: Gradual Symptom Course: Unchanged Activities at Onset: Light Context: Work Past Medical History - Provider Review Nursing Documentation Reviewed: Yes - Cardiac Hx Cardiac Disorders: Yes (Afib) Hx Congestive Heart Failure: Yes Hx Hypertension: Yes - Pulmonary Hx Respiratory Disorders: No - Neurological Hx Neurological Disorder: No - HEENT Hx Cataracts: Yes - Renal Hx Renal Failure: Yes (CKD) - Endocrine/Metabolic Hx Endocrine Disorders: No - Hematological/Oncological Hx Blood Disorders: No - Integumentary Hx Dermatological Disorder: No - Musculoskeletal/Rheumatological Hx Arthritis: Yes (OA) - Gastrointestinal Hx Gastrointestinal Disorders: Yes (GI BLEED,H PYLORI,) - Genitourinary/Gynecological Hx Genitourinary Disorders: Yes (INCONTINENT) Hx Reproductive Disorders: No - Psychiatric Hx Depression: No Hx Emotional Abuse: No Hx Physical Abuse: No Hx Substance Use: No - Past Surgical History Past Surgical History: No Previous - Surgical History Other/Comment: fractured left wrist/arm needing cast - Anesthesia Hx Anesthesia: Yes Hx Anesthesia Reactions: No Hx Malignant Hyperthermia: No - Suicidal Assessment Feels Threatened In Home Enviroment: No Family/Social History - Physician Review Nursing Documentation Reviewed: Yes Family/Social History: Unknown Family HX Smoking Status: Never Smoked Hx Alcohol Use: No Hx Substance Use: No Hx Substance Use Treatment: No Allergies/Home Meds Allergies/Adverse Reactions: Allergies dabigatran etexilate mesylate [From Pradaxa] Allergy (Intermediate, Verified 08/26/18 10:32) ANGIOEDEMA arthralgia, cough, vertigo, itching, sorethroat, irritability Penicillins Allergy (Verified 08/26/18 10:32) RASH rofecoxib [From Vioxx] Allergy (Verified 08/26/18 10:32) FATIGUE warfarin Adverse Reaction (Unknown, Verified 08/26/18 10:32) ITCHING intolerant with cardio since she could not tolerate pradaxa pravastatin Adverse Reaction (Verified 08/26/18 10:32) RASH Home Medications: Home Meds Medication Instructions Recorded Confirmed Furosemide [Lasix] 40 mg PO BID 08/26/18 08/26/18 Lisinopril [Zestril] 10 mg PO DAILY 08/26/18 08/26/18 Nitrofurantoin Macrocrystals 100 mg PO BID 08/26/18 08/26/18 [Macrobid] Review of Systems - Physician Review All systems were reviewed & negative as marked: Yes - Review of Systems Constitutional: Other (lethargy) ENT: absent: Rhinorrhea Respiratory: absent: SOB, Cough Gastrointestinal: Abdominal Pain (right side). absent: Diarrhea, Vomiting Genitourinary Female: Vaginal Bleeding. absent: Hematuria Musculoskeletal: absent: Joint Swelling Skin: absent: Rash Endocrine: absent: Diaphoresis Hemo/Lymphatic: absent: Easy Bleeding Physical Exam Vital Signs Reviewed: Yes Vital Signs Temp Pulse Resp BP Pulse Ox 08/26/18 10:43 97.5 F L 81 18 164/58 H 91 L Temperature: Afebrile Blood Pressure: Hypertensive Pulse: Regular Respiratory Rate: Normal Appearance: Positive for: Ill-Appearing Pain Distress: None Mental Status: Positive for: Lethargic Finger Stick Blood Glucose: 100 - Systems Exam Head: Present: Atraumatic, Normocephalic Pupils: Present: PERRL Extroacular Muscles: Present: EOMI Conjunctiva: Present: Normal Mouth: Present: Moist Mucous Membranes Pharnyx: Present: Normal. No: ERYTHEMA, EXUDATE Respiratory/Chest: Present: Clear to Auscultation, Good Air Exchange. No: Respiratory Distress, Accessory Muscle Use, Wheezes, Rales, Retracting Cardiovascular: Present: Regular Rate and Rhythm Abdomen: Present: Normal Bowel Sounds. No: Tenderness, Distention Rectal: Present: Other (Guaiac negative) Upper Extremity: Present: Normal Inspection, NORMAL PULSES, Neurovascularly Intact Lower Extremity: Present: Swelling, Neurovascularly Intact Neurological: Present: GCS=15, CN II-XII Intact Skin: Present: Warm Psychiatric: Present: Alert Medical Decision Making ED Course and Treatment: 08/26/18 11:09 Impression: 83 yo female presents with confusion and decreased appetite and known UTI Differential Diagnosis included but are not limited to: Sepsis vs Electrolyte imbalance vs CVA Plan: -- VBG -- Head CT -- EKG -- Labs -- Chest X-Ray -- Blood Culture -- Urine Culture -- IV Fluids -- Urinalysis -- Reassess and disposition Prior Visits: Notes and results from previous visits were reviewed. Progress Notes: 08/26/18 11:09 EKG: Afib @ 75 bpm. Q waves in anterior leads. No ST elevations. 08/26/18 13:21 CT Abdomen/Pelvis IMPRESSION: Markedly limited examination due to patient motion. Air near the gastroesophageal junction may represent an ulcer or diverticulum. Diffuse anasarca. Small right pleural effusion. Head CT IMPRESSION: No acute intracranial pathology. Age-related changes. No significant interval change. Chest X-Ray IMPRESSION: Stable chronic prominence of the bilateral interstitial markings with superimposed pulmonary vascular congestion not excluded. No focal consolidation or pleural effusion. 08/26/18 14:16 Patient is now alert, awake, oriented to person. She is communicating almost at baseline as per son but she appears confused. Case was discussed with Dr. Jara who is covering for Dr. Diaz. He recommends Dr. Carver for ID and Dr. Hinojosa/Tobin. - Critical Care Critical Care Minutes: 30 minutes - RAD Interpretation Radiology Orders: 08/26/18 10:52 CHEST PORTABLE [RAD] Stat 08/26/18 10:54 HEAD W/O CONTRAST [CT] Stat - Scribe Statement The provider has reviewed the documentation as recorded by the Wellington Darby Provider Scribe Attestation: All medical record entries made by the Scribe were at my direction and personally dictated by me. I have reviewed the chart and agree that the record accurately reflects my personal performance of the history, physical exam, medical decision making, and the department course for this patient. I have also personally directed, reviewed, and agree with the discharge instructions and disposition. Disposition/Present on Arrival - Present on Arrival Any Indicators Present on Arrival: No History of DVT/PE: No History of Uncontrolled Diabetes: No Urinary Catheter: No History of Decub. Ulcer: No History Surgical Site Infection Following: None - Disposition Have Diagnosis and Disposition been Completed?: Yes Diagnosis: Altered mental status, CHF (congestive heart failure), UTI (urinary tract infection) Disposition: HOSPITALIZED Disposition Time: 14:20 Patient Plan: Admission Condition: GUARDED Discharge Instructions (ExitCare): Heart Failure (ED) Forms: [employer] ( [facility] ) Connect (Hungarian)
[2018-08-26 11:42] LABS: VENOUS BLOOD GAS BASE EXCESS 12.3 mmol/L (0.0-2.0); VENOUS BLOOD GAS PO2 39 mm/Hg (30-55); VENOUS BLOOD PH 7.43 (7.32-7.43)
[2018-08-26 11:45] LABS: PH,URINE 7.5 (4.7-8.0); URINE BILIRUBIN NEGATIVE (NEGATIVE); URINE BLOOD MODERATE (NEGATIVE); URINE GLUCOSE (UA) NEGATIVE (NEGATIVE); URINE LEUKOCYTE ESTERASE MODERATE Leu/uL (NEGATIVE); URINE PROTEIN 30 mg/dL (<30 mg/dL)
[2018-08-26 11:47] LABS: URINE APPEARANCE CLEAR (CLEAR); URINE COLOR YELLOW (YELLOW)
[2018-08-26 11:48] LABS: BASO # 0.04 K/mm3 (0.0-2.0); BASO % 0.5 % (0.0-3.0); EOS # 0.2 (0.0-0.7); EOS % 2.5 % (1.5-5.0); HEMOGLOBIN 9.5 g/dL (12.0-16.0); LYMPH # 0.8 (1.2-3.4); LYMPH % 10.8 % (22.0-35.0); MEAN CELL VOLUME 93.9 fl (80.0-105.0); MEAN CORPUSCULAR HEMOGLOBIN 28.9 pg (25.0-35.0); MEAN CORPUSCULAR HGB CONC 30.7 g/dl (31.0-37.0); MEAN PLATELET VOLUME 9.5 fl (7.0-11.0); MONO # 1.1 (0.1-0.6); MONO % 14.1 % (1.0-6.0); RBC 3.29 10^6/uL (3.5-6.1); RED CELL DISTRIBUTION WIDTH 16.4 % (11.5-14.5); WHITE BLOOD COUNT 7.6 10^3/uL (4.5-11.0)
[2018-08-26 11:52] LABS: URINE BACTERIA MANY /hpf; URINE RBC 20 - 25 /hpf (0-2); URINE WBC 25 - 30 /hpf (0-6)
[2018-08-26 11:53] LABS: URINE AMORPHOUS SEDIMENT FEW /hpf; URINE COARSE GRANULAR CAST TRACE /hpf
[2018-08-26 11:54] LABS: INR 1.24; PARTIAL THROMBOPLASTIN TIME 32.2 Seconds (26.9-38.3)
[2018-08-26 12:04] LABS: ALBUMIN 3.4 g/dL (3.0-4.8); ALT/SGPT 21 U/L (7-56); AST/SGOT 50 U/L (14-36); BLOOD UREA NITROGEN 40 mg/dL (7-21); CALCIUM 9.5 mg/dL (8.4-10.5); GFR NON-AFRICAN AMERICAN 53
[2018-08-26 12:16] LABS: B-TYPE NATRIURETIC PEPTIDE 6250 pg/mL (0-450); TROPONIN I 0.05 ng/mL
[2018-08-26] MEDS ORDERED: Aztreonam 2 Gm in NS 100mL 100 ML IVPB STA (12:39)
--- NOTE | 2018-08-26 13:10 | CT ---
Date of service: 08/26/2018 PROCEDURE: CT HEAD WITHOUT CONTRAST. HISTORY: altered mental status COMPARISON: CT head dated 12/06/2017. TECHNIQUE: Axial computed tomography images were obtained through the head/brain without intravenous contrast. Radiation dose: Total exam DLP = 1835.56 mGy-cm. This CT exam was performed using one or more of the following dose reduction techniques: Automated exposure control, adjustment of the mA and/or kV according to patient size, and/or use of iterative reconstruction technique. FINDINGS: HEMORRHAGE: No intracranial hemorrhage. BRAIN: No mass effect or edema. Atrophy. Chronic microvascular ischemic changes. VENTRICLES: Unremarkable. No hydrocephalus. CALVARIUM: Unremarkable. PARANASAL SINUSES: Unremarkable as visualized. No significant inflammatory changes. MASTOID AIR CELLS: Unremarkable as visualized. No inflammatory changes. OTHER FINDINGS: None. IMPRESSION: No acute intracranial pathology. Age-related changes. No significant interval change.
--- NOTE | 2018-08-26 13:11 | RAD ---
Date of service: 08/26/2018 HISTORY: Sepsis Patient COMPARISON: Chest radiograph dated 02/25/2018. TECHNIQUE: 1 view obtained. FINDINGS: LUNGS: Chronic prominence of the bilateral interstitial markings with superimposed pulmonary vascular congestion not excluded. No focal consolidation. PLEURA: No significant pleural effusion identified, no pneumothorax apparent. CARDIOVASCULAR: Aortic atherosclerotic calcifications. Cardiomediastinal silhouette stably enlarged. OSSEOUS STRUCTURES: Unchanged. VISUALIZED UPPER ABDOMEN: Normal. OTHER FINDINGS: None. IMPRESSION: Stable chronic prominence of the bilateral interstitial markings with superimposed pulmonary vascular congestion not excluded. No focal consolidation or pleural effusion.
--- NOTE | 2018-08-26 13:21 | CT ---
Date of service: 08/26/2018 PROCEDURE: CT Abdomen and Pelvis without intravenous contrast HISTORY: abd pain COMPARISON: CT scan of the abdomen pelvis dated 01/07/2016 TECHNIQUE: Contiguous images were obtained from the domes of the diaphragms to the upper thighs without the administration of intravenous contrast. Oral contrast was not administered. Radiation dose: Total exam DLP = 936.02 mGy-cm. This CT exam was performed using one or more of the following dose reduction techniques: Automated exposure control, adjustment of the mA and/or kV according to patient size, and/or use of iterative reconstruction technique. FINDINGS: LOWER THORAX: Cardiomegaly. Coronary arterial and valvular calcifications. Small right pleural effusion. LIVER: Nodular contour suggestive of cirrhosis. No gross lesion or ductal dilatation. GALLBLADDER AND BILE DUCTS: Unremarkable. PANCREAS: Unremarkable. No gross lesion or ductal dilatation. SPLEEN: Unremarkable. ADRENALS: Unremarkable. No mass. KIDNEYS AND URETERS: Right lower pole 3.9 cm cyst.. No hydronephrosis. No solid mass. VASCULATURE: Aortic atherosclerotic calcifications. No aortic aneurysm. BOWEL: Small to moderate hiatal hernia. Air near the gastroesophageal junction may represent an ulcer or diverticulum. Diffuse colonic diverticula. No obstruction. No gross mural thickening. APPENDIX: Findings to suggest acute appendicitis. PERITONEUM: Fat containing umbilical hernia. Anasarca. No free fluid. No free air. LYMPH NODES: Unremarkable. No enlarged lymph nodes. BLADDER: Unremarkable. REPRODUCTIVE: Unremarkable. BONES: Multilevel spinal degenerative changes. Grade 1 anterolisthesis of L4 on L5. No acute fracture. OTHER FINDINGS: None. IMPRESSION: Markedly limited examination due to patient motion. Air near the gastroesophageal junction may represent an ulcer or diverticulum. Diffuse anasarca. Small right pleural effusion.
[2018-08-26 17:22] VITALS: BMI 39.0
--- NOTE | 2018-08-26 18:42 | CARD ---
APPROVED REPORT Date of service: 08/26/2018 EKG Measurement Heart [id number] <Conclusion> Atrial fibrillation Anteroseptal infarct, age undetermined Abnormal ECG
--- NOTE | 2018-08-26 20:21 | CP.PCM.PN ---
Subjective - Date & Time of Evaluation Date of Evaluation: 08/26/18 Time of Evaluation: 20:20 - Subjective Subjective: Patient was seen at bedside. Family members state that she had burning pain in the abdomen. Has no other complaints. This 83 year old woman was admitted with confusion, lethargy ,unresponsiveness. Has PMH of CHF,TIA,atrial fibrillation,HTN, UTI, cataract,CKD,GI bleeding , H pylori infection. Objective - Vital Signs/Intake and Output Vital Signs (last 24 hours): Temp Pulse Resp BP Pulse Ox 98.5 F 87 20 169/78 H 96 08/26/18 18:00 08/26/18 18:00 08/26/18 18:00 08/26/18 18:00 08/26/18 18:00 - Medications Medications: Current Medications Furosemide (Lasix) 40 mg PO BID [facility] Lisinopril (Zestril) 10 mg PO DAILY [facility] Pantoprazole Sodium (Protonix Inj) 40 mg IVP ONCE ONE Stop: 08/27/18 20:14 - Labs Labs: 08/26/18 11:20 08/26/18 11:20 PT 14.0 SECONDS (9.4-12.5) H 08/26/18 11:20 INR 1.24 08/26/18 11:20 APTT 32.2 Seconds (26.9-38.3) 08/26/18 11:20 - Constitutional Appears: Well, No Acute Distress - Head Exam Head Exam: ATRAUMATIC, NORMAL INSPECTION, NORMOCEPHALIC - Eye Exam Eye Exam: Normal appearance - ENT Exam ENT Exam: Normal External Ear Exam - Neck Exam Neck Exam: Normal Inspection - Respiratory Exam Respiratory Exam: NORMAL BREATHING PATTERN - Cardiovascular Exam Cardiovascular Exam: absent: JVD - GI/Abdominal Exam GI & Abdominal Exam: absent: Distended - Rectal Exam Rectal Exam: Deferred - Exam Additional comments: Deferred. - Extremities Exam Extremities Exam: Normal Inspection - Back Exam Back Exam: NORMAL INSPECTION - Neurological Exam Neurological Exam: Altered - Psychiatric Exam Psychiatric exam: Depressed - Skin Skin Exam: Normal Color Assessment and Plan - Assessment and Plan (Free Text) Assessment: Gastritis. Atrial fibrillation. HTN. CKD. History TIA. CHF. Plan: Protonix 40 mg IV x 1. Zofran 4 mg IV was given for nausea.
[2018-08-26] MEDS ORDERED: Morphine 2 mg/ml ISec IVP PRN (21:23)
--- NOTE | 2018-08-27 06:34 | CP.PCM.CON ---
<Lakesiha Gaspar - Last Filed: 08/27/18 06:31> History of Present Illness - History of Present Illness History of Present Illness: General surgery consult note for Dr. Rivera-Lakeisha Gaspar, PGY-2 Pt seen/examined at bedside with surgical team. History as per daughter at bedside. 83F w/PMH sig for GI bleed on Nexium consulted for epigastric abdominal pain overnight. Pt admitted for AMS, lethargy. Per daughter, pt was given Tylenol and PO antibiotic on an empty stomach, ended up having burning epigastric pain with some nausea overnight that resolved with PPI. Pt no longer complaining of abdominal pain, only complaining of inability to sleep. Pt having flatus, voiding via wick, productive cough, SHARP and itching LE. Denies emesis, fevers, chills, sore throat, BM overnight, other complaints. PMH: Afib, CHF, TIA, HTN, CKD, cataracts, hx GI bleed on Nexium, incontinent PSH: Denies All:Dabigatran, PCN, Coumadin, Rofecoxib SH: Denies ETOH, tobacco, or illicit drug use ?PMD: Perveen Review of Systems - Review of Systems Systems not reviewed;Unavailable: Altered Mental Status All systems: reviewed and no additional remarkable complaints except - Constitutional Constitutional: absent: Chills, Fever - EENT Nose/Mouth/Throat: absent: Sore Throat - Cardiovascular Cardiovascular: absent: Chest Pain - Respiratory Respiratory: Cough - Gastrointestinal Gastrointestinal: Abdominal Pain, Nausea. absent: Vomiting - Genitourinary Genitourinary: Urinary Incontinence - Neurological Neurological: Behavioral Changes - Endocrine Endocrine: Fatigue Past Patient History - Past Social History Smoking Status: Never Smoked - CARDIAC Hx Cardiac Disorders: Yes (Afib) Hx Congestive Heart Failure: Yes Hx Hypertension: Yes - PULMONARY Hx Respiratory Disorders: No - NEUROLOGICAL Hx Neurological Disorder: No - HEENT Hx Cataracts: Yes - RENAL Hx Renal Failure: Yes (CKD) - ENDOCRINE/METABOLIC Hx Endocrine Disorders: No - HEMATOLOGICAL/ONCOLOGICAL Hx Blood Disorders: No - INTEGUMENTARY Hx Dermatological Problems: No - MUSCULOSKELETAL/RHEUMATOLOGICAL Hx Falls: No - GASTROINTESTINAL Hx Gastrointestinal Disorders: Yes (GI BLEED,H PYLORI,) - GENITOURINARY/GYNECOLOGICAL Hx Genitourinary Disorders: Yes (INCONTINENT) - PSYCHIATRIC Hx Depression: No Hx Emotional Abuse: No Hx Physical Abuse: No Hx Substance Use: No - SURGICAL HISTORY Other/Comment: fractured left wrist/arm needing cast - ANESTHESIA Hx Anesthesia: Yes Hx Anesthesia Reactions: No Hx Malignant Hyperthermia: No Meds Allergies/Adverse Reactions: Allergies Allergy/AdvReac Type Severity Reaction Status Date / Time dabigatran etexilate mesylate Allergy Intermediate ANGIOEDEMA Verified 08/26/18 10:32 [From Pradaxa] Penicillins Allergy RASH Verified 08/26/18 10:32 rofecoxib [From Vioxx] Allergy FATIGUE Verified 08/26/18 10:32 warfarin AdvReac Unknown ITCHING Verified 08/26/18 10:32 pravastatin AdvReac RASH Verified 08/26/18 10:32 - Medications Medications: Current Medications Furosemide (Lasix) 40 mg PO BID [facility] Lisinopril (Zestril) 10 mg PO DAILY [facility] Morphine Sulfate (Morphine) 2 mg IVP Q6H PRN PRN Reason: Pain, severe (8-10) Physical Exam - Constitutional Appears: Non-toxic, No Acute Distress, Confused - Head Exam Head Exam: ATRAUMATIC, NORMAL INSPECTION, NORMOCEPHALIC - Eye Exam Eye Exam: EOMI, Normal appearance - ENT Exam ENT Exam: Mucous Membranes Dry - Neck Exam Neck exam: Positive for: Full Rom - Respiratory Exam Respiratory Exam: NORMAL BREATHING PATTERN - Cardiovascular Exam Cardiovascular Exam: REGULAR RHYTHM, +S1, +S2 - GI/Abdominal Exam GI & Abdominal Exam: Normal Bowel Sounds, Soft. absent: Distended (obese), Firm, Guarding, Hernia, Rebound, Rigid, Tenderness - Extremities Exam Extremities exam: Positive for: pedal edema (b/l) - Neurological Exam Additional comments: GCS 13 Moaning in swiss - Skin Skin Exam: Dry, Intact, Normal Color, Warm Results - Vital Signs Recent Vital Signs: Last Vital Signs Temp 97.8 F 08/27/18 00:01 Pulse 71 08/27/18 05:29 Resp 20 08/27/18 00:01 BP 154/66 H 08/27/18 00:01 Pulse Ox 97 08/27/18 00:01 - Labs Result Diagrams: 08/26/18 11:20 08/26/18 11:20 Labs: Laboratory Results - last 24 hr 08/26/18 08/26/18 08/26/18 10:33 11:20 11:20 WBC 7.6 RBC 3.29 L Hgb 9.5 L Hct 30.9 L MCV 93.9 MCH 28.9 MCHC 30.7 L RDW 16.4 H Plt Count 199 MPV 9.5 Neut % (Auto) 72.1 H Lymph % (Auto) 10.8 L Irion % (Auto) 14.1 H Eos % (Auto) 2.5 Baso % (Auto) 0.5 Lymph # (Auto) 0.8 L Irion # (Auto) 1.1 H Eos # (Auto) 0.2 Baso # (Auto) 0.04 Absolute Neuts (auto) 5.47 PT 14.0 H INR 1.24 APTT 32.2 pO2 VBG pH VBG pCO2 VBG HCO3 VBG Total CO2 VBG O2 Sat (Calc) VBG Base Excess VBG Potassium Glucose Lactate FiO2 Sodium Potassium Chloride Carbon Dioxide Anion Gap BUN Creatinine Est GFR ( Amer) Est GFR (Non-Af Amer) POC Glucose (mg/dL) 100 Random Glucose Calcium Phosphorus Magnesium Total Bilirubin AST ALT Alkaline Phosphatase Troponin I NT-Pro-B Natriuret Pep Total Protein Albumin Globulin Albumin/Globulin Ratio Procalcitonin Venous Blood Potassium Urine Color Urine Appearance Urine pH Ur Specific [place] Urine Protein Urine Glucose (UA) Urine Ketones Urine Blood Urine Nitrate Urine Bilirubin Urine Urobilinogen Ur Leukocyte Esterase Urine RBC Urine WBC Ur Epithelial Cells Amorphous Sediment Urine Bacteria Coarse Granular Casts Urine Other 08/26/18 08/26/18 08/26/18 11:20 11:20 11:20 WBC RBC Hgb Hct MCV MCH MCHC RDW Plt Count MPV Neut % (Auto) Lymph % (Auto) Irion % (Auto) Eos % (Auto) Baso % (Auto) Lymph # (Auto) Irion # (Auto) Eos # (Auto) Baso # (Auto) Absolute Neuts (auto) PT INR APTT pO2 VBG pH VBG pCO2 VBG HCO3 VBG Total CO2 VBG O2 Sat (Calc) VBG Base Excess VBG Potassium Glucose Lactate FiO2 Sodium 141 Potassium 4.1 Chloride 99 Carbon Dioxide 39 H Anion Gap 7 L BUN 40 H Creatinine 1.0 Est GFR ( Amer) > 60 Est GFR (Non-Af Amer) 53 POC Glucose (mg/dL) Random Glucose 97 Calcium 9.5 Phosphorus 3.6 Magnesium 1.9 Total Bilirubin 1.5 H AST 50 H D ALT 21 Alkaline Phosphatase 57 Troponin I 0.05 D NT-Pro-B Natriuret Pep 6250 H Total Protein 6.8 Albumin 3.4 Globulin 3.4 Albumin/Globulin Ratio 1.0 L Procalcitonin 3.76 H Venous Blood Potassium Urine Color Yellow Urine Appearance Clear Urine pH 7.5 Ur Specific [place] 1.010 Urine Protein 30 H Urine Glucose (UA) Negative Urine Ketones Negative Urine Blood Moderate H Urine Nitrate Negative Urine Bilirubin Negative Urine Urobilinogen 1.0 H Ur Leukocyte Esterase Moderate H Urine RBC 20 - 25 H Urine WBC 25 - 30 H Ur Epithelial Cells 6 - 8 H Amorphous Sediment Few Urine Bacteria Many Coarse Granular Casts Trace Urine Other Fiber 08/26/18 11:30 WBC RBC Hgb Hct MCV MCH MCHC RDW Plt Count MPV Neut % (Auto) Lymph % (Auto) Irion % (Auto) Eos % (Auto) Baso % (Auto) Lymph # (Auto) Irion # (Auto) Eos # (Auto) Baso # (Auto) Absolute Neuts (auto) PT INR APTT pO2 39 VBG pH 7.43 VBG pCO2 59.0 VBG HCO3 39.2 H VBG Total CO2 41.0 H VBG O2 Sat (Calc) 78.8 H VBG Base Excess 12.3 H VBG Potassium 4.0 Glucose 96 Lactate 1.2 FiO2 21.0 Sodium 141.0 Potassium Chloride 102.0 Carbon Dioxide Anion Gap BUN Creatinine Est GFR ( Amer) Est GFR (Non-Af Amer) POC Glucose (mg/dL) Random Glucose Calcium Phosphorus Magnesium Total Bilirubin AST ALT Alkaline Phosphatase Troponin I NT-Pro-B Natriuret Pep Total Protein Albumin Globulin Albumin/Globulin Ratio Procalcitonin Venous Blood Potassium 4.0 Urine Color Urine Appearance Urine pH Ur Specific Red[place] Urine Protein Urine Glucose (UA) Urine Ketones Urine Blood Urine Nitrate Urine Bilirubin Urine Urobilinogen Ur Leukocyte Esterase Urine RBC Urine WBC Ur Epithelial Cells Amorphous Sediment Urine Bacteria Coarse Granular Casts Urine Other Assessment & Plan - Assessment and Plan (Free Text) Assessment: 83F w/epigastric abdominal pain- resolved with PPI Plan: Continue PPI No acute surgical intervention at this time Further care as per primary team Will ANMOL Gaspar, PGY-2 - Date & Time Date: 08/27/18 Time: 06:32 <Lyndon Rivera - Last Filed: 08/27/18 11:24> Meds - Medications Medications: Current Medications Furosemide (Lasix) 40 mg PO BID [facility] Last Admin: 08/27/18 09:12 Dose: Not Given Lisinopril (Zestril) 10 mg PO DAILY [facility] Last Admin: 08/27/18 09:13 Dose: Not Given Morphine Sulfate (Morphine) 2 mg IVP Q6H PRN PRN Reason: Pain, severe (8-10) Results - Vital Signs Recent Vital Signs: Last Vital Signs Temp 98.4 F 08/27/18 06:00 Pulse 78 08/27/18 06:00 Resp 20 08/27/18 06:00 BP 137/87 08/27/18 06:00 Pulse Ox 99 08/27/18 06:00 - Labs Result Diagrams: 08/27/18 10:30 08/27/18 10:30 Labs: Laboratory Results - last 24 hr 08/26/18 08/26/18 08/26/18 11:20 11:20 11:20 WBC 7.6 RBC 3.29 L Hgb 9.5 L Hct 30.9 L MCV 93.9 MCH 28.9 MCHC 30.7 L RDW 16.4 H Plt Count 199 MPV 9.5 Neut % (Auto) 72.1 H Lymph % (Auto) 10.8 L Irion % (Auto) 14.1 H Eos % (Auto) 2.5 Baso % (Auto) 0.5 Lymph # (Auto) 0.8 L Irion # (Auto) 1.1 H Eos # (Auto) 0.2 Baso # (Auto) 0.04 Absolute Neuts (auto) 5.47 PT 14.0 H INR 1.24 APTT 32.2 pO2 VBG pH VBG pCO2 VBG HCO3 VBG Total CO2 VBG O2 Sat (Calc) VBG Base Excess VBG Potassium Glucose Lactate FiO2 Sodium Potassium Chloride Carbon Dioxide Anion Gap BUN Creatinine Est GFR ( Amer) Est GFR (Non-Af Amer) Random Glucose Calcium Phosphorus Magnesium Total Bilirubin AST ALT Alkaline Phosphatase Troponin I NT-Pro-B Natriuret Pep Total Protein Albumin Globulin Albumin/Globulin Ratio Triglycerides Cholesterol LDL Cholesterol Direct HDL Cholesterol Procalcitonin Free T4 Venous Blood Potassium Urine Color Yellow Urine Appearance Clear Urine pH 7.5 Ur Specific [place] 1.010 Urine Protein 30 H Urine Glucose (UA) Negative Urine Ketones Negative Urine Blood Moderate H Urine Nitrate Negative Urine Bilirubin Negative Urine Urobilinogen 1.0 H Ur Leukocyte Esterase Moderate H Urine RBC 20 - 25 H Urine WBC 25 - 30 H Ur Epithelial Cells 6 - 8 H Amorphous Sediment Few Urine Bacteria Many Coarse Granular Casts Trace Urine Other Fiber 08/26/18 08/26/18 08/26/18 11:20 11:20 11:30 WBC RBC Hgb Hct MCV MCH MCHC RDW Plt Count MPV Neut % (Auto) Lymph % (Auto) Irion % (Auto) Eos % (Auto) Baso % (Auto) Lymph # (Auto) Irion # (Auto) Eos # (Auto) Baso # (Auto) Absolute Neuts (auto) PT INR APTT pO2 39 VBG pH 7.43 VBG pCO2 59.0 VBG HCO3 39.2 H VBG Total CO2 41.0 H VBG O2 Sat (Calc) 78.8 H VBG Base Excess 12.3 H VBG Potassium 4.0 Glucose 96 Lactate 1.2 FiO2 21.0 Sodium 141 141.0 Potassium 4.1 Chloride 99 102.0 Carbon Dioxide 39 H Anion Gap 7 L BUN 40 H Creatinine 1.0 Est GFR ( Amer) > 60 Est GFR (Non-Af Amer) 53 Random Glucose 97 Calcium 9.5 Phosphorus 3.6 Magnesium 1.9 Total Bilirubin 1.5 H AST 50 H D ALT 21 Alkaline Phosphatase 57 Troponin I 0.05 D NT-Pro-B Natriuret Pep 6250 H Total Protein 6.8 Albumin 3.4 Globulin 3.4 Albumin/Globulin Ratio 1.0 L Triglycerides Cholesterol LDL Cholesterol Direct HDL Cholesterol Procalcitonin 3.76 H Free T4 Venous Blood Potassium 4.0 Urine Color Urine Appearance Urine pH Ur Specific [place] Urine Protein Urine Glucose (UA) Urine Ketones Urine Blood Urine Nitrate Urine Bilirubin Urine Urobilinogen Ur Leukocyte Esterase Urine RBC Urine WBC Ur Epithelial Cells Amorphous Sediment Urine Bacteria Coarse Granular Casts Urine Other 08/27/18 08/27/18 08/27/18 10:30 10:30 10:30 WBC 8.5 RBC 3.14 L Hgb 8.9 L Hct 30.2 L MCV 96.2 MCH 28.3 MCHC 29.5 L RDW 16.8 H Plt Count 161 MPV 8.6 Neut % (Auto) 77.1 H Lymph % (Auto) 5.3 L Irion % (Auto) 15.3 H Eos % (Auto) 1.9 Baso % (Auto) 0.4 Lymph # (Auto) 0.5 L Irion # (Auto) 1.3 H Eos # (Auto) 0.2 Baso # (Auto) 0.03 Absolute Neuts (auto) 6.58 H PT INR APTT pO2 VBG pH VBG pCO2 VBG HCO3 VBG Total CO2 VBG O2 Sat (Calc) VBG Base Excess VBG Potassium Glucose Lactate FiO2 Sodium 143 Potassium 4.2 Chloride 101 Carbon Dioxide 37 H Anion Gap 10 BUN 40 H Creatinine 1.1 Est GFR ( Amer) 57 Est GFR (Non-Af Amer) 47 Random Glucose 75 Calcium 9.3 Phosphorus 4.4 Magnesium 1.9 Total Bilirubin 1.5 H AST 47 H ALT 25 Alkaline Phosphatase 49 Troponin I 0.05 NT-Pro-B Natriuret Pep Total Protein 6.7 Albumin 3.3 Globulin 3.3 Albumin/Globulin Ratio 1.0 L Triglycerides 94 Cholesterol 112 L LDL Cholesterol Direct 50 HDL Cholesterol 39 Procalcitonin Free T4 1.69 Venous Blood Potassium Urine Color Urine Appearance Urine pH Ur Specific [place] Urine Protein Urine Glucose (UA) Urine Ketones Urine Blood Urine Nitrate Urine Bilirubin Urine Urobilinogen Ur Leukocyte Esterase Urine RBC Urine WBC Ur Epithelial Cells Amorphous Sediment Urine Bacteria Coarse Granular Casts Urine Other Assessment & Plan - Assessment and Plan (Free Text) Plan: DX PUD-chr bleeding-GERD Chr rec UTI A Fib Anemia Anasarca-fluid overload Mult allergies(Meds)-Difficult medical management Dysfunctional Uterine bleeding(Bx benign) Suggest Protonix IV/Cath urine specimen(c/s)/Swallowing eval before diet/Stricy I & O-Daily weight No surgery suggested now-Possible EGD w H Pylori Bx 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
--- NOTE | 2018-08-27 09:39 | CARD ---
APPROVED REPORT Date of service: 08/26/2018 EKG Measurement Heart [id number] <Conclusion> Atrial fibrillation Rightward axis Anteroseptal infarct, age undetermined Abnormal ECG
[2018-08-27] MEDS ORDERED: Furosemide 40 mg/5 mL Oral Soln UD PO SCH (10:00)
[2018-08-27 10:39] LABS: BASO # 0.03 K/mm3 (0.0-2.0); BASO % 0.4 % (0.0-3.0); EOS # 0.2 (0.0-0.7); EOS % 1.9 % (1.5-5.0); HEMOGLOBIN 8.9 g/dL (12.0-16.0); LYMPH # 0.5 (1.2-3.4); LYMPH % 5.3 % (22.0-35.0); MEAN CELL VOLUME 96.2 fl (80.0-105.0); MEAN CORPUSCULAR HEMOGLOBIN 28.3 pg (25.0-35.0); MEAN CORPUSCULAR HGB CONC 29.5 g/dl (31.0-37.0); MEAN PLATELET VOLUME 8.6 fl (7.0-11.0); MONO # 1.3 (0.1-0.6); MONO % 15.3 % (1.0-6.0); RBC 3.14 10^6/uL (3.5-6.1); RED CELL DISTRIBUTION WIDTH 16.8 % (11.5-14.5); WHITE BLOOD COUNT 8.5 10^3/uL (4.5-11.0)
[2018-08-27 10:57] LABS: ALBUMIN 3.3 g/dL (3.0-4.8); CALCIUM 9.3 mg/dL (8.4-10.5)
[2018-08-27 11:06] LABS: TROPONIN I 0.05 ng/mL
[2018-08-27 11:12] LABS: FREE T4 1.69 ng/dL (0.78-2.19)
[2018-08-27] MEDS: Pantoprazole 40 mg EC Tab PO SCH ×3 (12:34→21:42)
[2018-08-27] MEDS: Potassium Chloride 10 mEq ER Tab PO SCH (12:34)
--- NOTE | 2018-08-27 13:38 | CP.PCM.PCO ---
Physician Communication Note - Physician Communication Note Physician Communication Note: swallow screen pending
--- NOTE | 2018-08-27 15:32 | CON ---
DATE OF CONSULTATION: 08/27/2018 The patient is seen earlier today in room 272, bed 2. The patient's daughter is at the chair, asleep. CHIEF COMPLAINT: Epigastric discomfort times several days. HISTORY OF PRESENT ILLNESS: This is an 83-year-old female with a history of atrial fibrillation, congestive heart failure, coronary artery disease, TIA, hypertension, gastrointestinal bleed, kidney disease in the past, and the cataract, who was admitted with a diagnosis of altered mental status and urinary tract infection. The patient states that she does not have any urinary symptoms. There is no frequency. No dysuria. No headaches. No chest pain. There is epigastric pain, dull in nature and without radiation. No fevers or chills. No nausea or vomiting. No diarrhea. REVIEW OF SYSTEMS: Revealed a 12-point review of systems performed. PAST MEDICAL HISTORY: Significant for atrial fibrillation, congestive heart failure, coronary artery disease, TIA, hypertension, GI bleed, kidney disease, and cataract. PAST SURGICAL HISTORY: Significant for cataract surgery, cardiac catheterization, and cardiac stents. ALLERGIES: THE PATIENT IS ALLERGIC TO PENICILLIN, AND SHE DEVELOPS A QUESTIONABLE RASH, IT IS NOT TYPE ONE. MEDICATIONS: Medications at home reveals the patient to be on nitrofurantoin, Macrobid, Lasix, and potassium. PHYSICAL EXAMINATION: GENERAL: The patient is in bed, in no acute distress, nontoxic. VITAL SIGNS: Temperature of 97, blood pressure is 137/70, respiratory rate of 20, heart rate of 83. HEENT: Examination of HEENT is noted. NECK: Supple. LUNGS: Bibasilar crackles. HEART: Normal S1, S2. ABDOMEN: Soft, nontender. No rebound or guarding. EXTREMITIES: The patient's lower extremity reveals there is bilateral edema. LABORATORY DATA: Laboratory examination reveals a white count of 7.6, hemoglobin of 9, platelets of 199, and chemistries reveal a BUN of 40, creatinine of 1, AST is 50. BNP is 6250. Procalcitonin is 3.76. Urinalysis is noted with 25 to 30 wbc's, many bacteria. Urine culture is negative. Blood cultures are pending. Chest x-ray is unremarkable. CAT scan of the abdomen and pelvis is unremarkable. CAT scan of the head is negative. Chest x-ray is pulmonary congestion, no focal consolidation. ASSESSMENT AND PLAN: An 83-year-old female with acute systolic congestive heart failure on top of chronic congestive heart failure with an asymptomatic bacteriuria and epigastric pain. No indication for antibiotics at this point, and we will check on the blood cultures and follow with you and discuss it with PMD. Alin Mckay MD
--- NOTE | 2018-08-27 20:51 | HP ---
DATE OF EXAM: 08/27/2018 HISTORY OF PRESENT ILLNESS: The patient is 83 years old, who was brought to emergency room because of abdominal pain. The patient complained of abdominal discomfort last night. They gave her Tylenol, after that, she started to have epigastric discomfort with some nausea overnight. The patient was given a dose of Protonix with significant improvement. No history of diarrhea. No rectal bleeding. No nausea. No fever or chills. However, the patient was seen in office 2 weeks ago. According to family, she was having increased frequency of urination. She has urinalysis done that showed E. coli, so she was given nitrofurantoin since she is ALLERGIC TO PENICILLIN and she is resistant to Levaquin. The patient also has episode of vaginal bleeding. Two to three months ago, she was evaluated by [facility] as outpatient and had D and C done that was found to be nonmalignant. She also has pelvic sonogram done that was significant for cystic changes in the endometrium. PAST MEDICAL HISTORY: Significant for: 1. AFib. 2. Chronic kidney disease. 3. Congestive heart failure. 4. Chronic anemia. 5. History of GI bleed. ALLERGIES: SHE IS ALLERGIC TO PENICILLIN, COUMADIN, AND CELEBREX. SOCIAL HISTORY: She lives with her family. She has multiple supportive cares. On examination, she is complaining of feeling hungry. No history of nausea or vomiting; however, she has some difficulty swallowing last night, awaiting swallow eval. PHYSICAL EXAMINATION GENERAL: She is awake and alert, able to communicate. VITAL SIGNS: She is afebrile. Pulse 73, respirations 20, blood pressure 137/87. LUNGS: Bilateral fair airflow. No rhonchi or crackles. HEART: S1 and S2 audible. Irregular rate control. ABDOMEN: Soft. Epigastric discomfort. NEUROLOGIC: The patient is awake and alert, able to communicate. EXTREMITIES: Bilateral legs +3 edema. LABORATORY DATA: WBC is 8.5, hemoglobin 8.9, hematocrit 30.2, platelets 161. PT 14.0, INR 1.24. Chemistry; sodium 143, potassium 4.2, chloride 101. CO2 of 37, BUN 40, creatinine 1.1, blood sugar of 75. Total bili 1.5. Procalcitonin is 3.76. Blood culture and urine cultures are negative. ASSESSMENT 1. Abdominal pain, etiology unclear, probably gastritis. 2. Chronic atrial fibrillation, not on anticoagulant because of history of gastrointestinal bleed. 3. Chronic kidney disease. 4. Bilateral leg severe edema. 5. Morbid obesity. PLAN: We will diurese the patient, do her Protonix. Blood culture and urine cultures are negative. As per ID recommendation, no need for antibiotic for now. We will followup her electrolyte in a.m. Katerin Diaz MD
--- NOTE | 2018-08-28 09:00 | CON ---
CARDIAC EVALUATION DATE: 08/27/2018 Admitted with altered mental status, lethargy, abdominal pain. History of GI bleed in the past, history of chronic atrial fibrillation, not on anticoagulation as per choice of the family, history of recent bleed (vaginal bleeding), cardiac evaluation. BRIEF CLINICAL HISTORY: This is an 83-year-old female with past medical history significant for chronic atrial fibrillation not on anticoagulation as per family, history of CHF, history of TIA, history of abdominal pain, history of GI bleed in the past, history of recurrent UTI, brought by the family, the son and daughter, because the patient was unresponsive and confused and very lethargic since last 2 days. Yesterday, the patient had similar episode again lethargic and somnolence, hence the patient's family brought here. Denies any chest pain prior to it. Denies any shortness of breath. Denies any palpitation. The patient complained of abdominal pain and history of vaginal bleed on aspirin, history of recurrent UTI in the past. PAST HISTORY: Significant as mentioned, history of atrial fibrillation, off anticoagulation as per family, history of GI bleed. Family does not want, especially the son and both the daughters to have the patient anticoagulation. Previous cardiac workup as follows: The patient had a most recent echo on 10/24/2017. This shows normal LV function and ejection fraction within normal limits. Moderate aortic stenosis, [id number] mitral regurgitation, mild tricuspid regurgitation, mild pulmonary systolic pressure of 40, history of GI bleed in the past. In the past, the patient had echo dated 04/25/2016 that showed ejection fraction of 70%, systolic pressure 49, history of chronic atrial fibrillation as above. SOCIAL HISTORY: Denies any history of alcohol abuse. MEDICATIONS: Currently, the patient is taking at home aspirin, but since the patient has bleed completely stopped aspirin as well. Currently taking nitrofurantoin, Macrobid 100 mg p.o. b.i.d., Toprol XL 50 mg daily, lisinopril 10 mg daily, Lasix 40 mg daily. ALLERGIES: ALLERGY TO PENICILLIN AND ALLERGY TO VIOXX, QUESTIONABLE ALLERGY TO PRAVASTATIN AND QUESTIONABLE ALLERGY TO COUMADIN, GETS ITCHING. REVIEW OF SYSTEMS: As per HPI. PHYSICAL EXAMINATION: As follows: Height of the patient is 5 feet, weight of the patient 216 pounds, body mass index 42.2 kg/m2. VITAL SIGNS: Temperature afebrile, heart rate 81, blood pressure 130/60. HEENT: PERRLA. Extraocular muscles intact. NECK: Supple. No carotid bruit or thyromegaly. CHEST: Clear to auscultation. HEART: S1, S2 regular. ABDOMEN: Soft. EXTREMITIES: Clubbing and cyanosis negative. EKG shows atrial fibrillation, rate of 86. Blood workup as follows. WBC 8.5, hemoglobin 8.9, hematocrit 30.2, platelet count 161. Chemistry shows sodium 140, potassium 4.2, chloride 101, 37, gap of 10, BUN 40, creatinine 1.1, GFR 57. TSH 1.55. Total bilirubin 1.5, AST 47, ALT 25. Troponin 0.05, negative. BNP 6250. CT head, no acute intracranial findings noted. CAT scan of the abdomen and pelvis done yesterday because of the abdominal pain and seen by Dr. Jacobs. CAT scan of the abdomen and pelvis shows marked limited examination because of the patient's motion. Diffuse anasarca noted. Small right pleural effusion noted. Chest x-ray done on admission yesterday at 10 o'clock reviewed by me that did not show any significant infiltrate, but mild congestion noted and is rotatory film. IMPRESSION: An 83-year-old female with past medical history significant for chronic atrial fibrillation and not on anticoagulation as per family, opted not for any medication, history of hypertension, hyperlipidemia, admitted with altered mental status, history of chronic kidney disease, chronic renal insufficiency, hypertension, history of transient ischemic attack in the past, admitted with anemia, altered mental status, and so far no evidence of acute myocardial infarction, elevated BNP, history of genitourinary bleed, not on anticoagulation, family does not want because of the risk of bleeding. RECOMMENDATIONS: Neuro evaluation. Broad-spectrum antibiotic, rule out UTI because blood culture and urine shows moderate leukocyte esterase and moderate blood in the urine and elevated WBC and RBC. Broad-spectrum antibiotic, cabrales culture, add gentle diuretics with elevated BNP. We will follow with you. Last echo the patient had 6 months ago, we will repeat echo to assess LV function. We will follow with you. Possibly, this acute CHF is secondary to acute decompensated congestive heart failure secondary to diastolic dysfunction, but because of the last echo, the patient shows preserved LV function, ejection fraction on last echo on 10/24/2017 was normal, reported 70%, so we will repeat echo to see any significant valvular heart disease as well as systolic function evaluation. The patient has a history of moderate aortic . Further recommendations depending on hospital course. We will follow with you. Rodolfo Rudd MD
[2018-08-28 09:30] LABS: BASO # 0.02 K/mm3 (0.0-2.0); BASO % 0.2 % (0.0-3.0); EOS # 0.3 (0.0-0.7); EOS % 3.7 % (1.5-5.0); HEMOGLOBIN 8.5 g/dL (12.0-16.0); LYMPH % 12.6 % (22.0-35.0); MEAN CELL VOLUME 97.6 fl (80.0-105.0); MEAN CORPUSCULAR HEMOGLOBIN 28.8 pg (25.0-35.0); MEAN CORPUSCULAR HGB CONC 29.5 g/dl (31.0-37.0); MEAN PLATELET VOLUME 8.8 fl (7.0-11.0); MONO # 0.8 (0.1-0.6); MONO % 10.3 % (1.0-6.0); RBC 2.95 10^6/uL (3.5-6.1); RED CELL DISTRIBUTION WIDTH 16.6 % (11.5-14.5)
[2018-08-28] MEDS: Pantoprazole 40 mg EC Tab PO SCH ×2 (09:38→18:19)
[2018-08-28] MEDS: Potassium Chloride 10 mEq ER Tab PO SCH (09:38)
[2018-08-28 09:39] LABS: ALB/GLOB RATIO 0.9 (1.1-1.8); ALBUMIN 2.9 g/dL (3.0-4.8); CALCIUM 8.9 mg/dL (8.4-10.5)
--- NOTE | 2018-08-28 11:02 | CP.PCM.PN ---
Subjective - Date & Time of Evaluation Date of Evaluation: 08/28/18 Time of Evaluation: 10:58 - Subjective Subjective: SURGERY PROGRESS NOTE- DR RIVERA SERVICE Pt s/e at bedside, still with AMS, GCS 8, as per daughter at bedside, this tis new onest she is much more energetic at home. Daughter states pt has not had a BM yet nor passing flatus. Per nursing no FC NV CP SOB overnight, no acute events. Limited ROS due to AMS. Objective - Vital Signs/Intake and Output Vital Signs (last 24 hours): Temp Pulse Resp BP Pulse Ox 97.4 F L 63 19 114/67 98 08/28/18 06:00 08/28/18 09:38 08/28/18 06:00 08/28/18 09:38 08/28/18 06:00 Intake and Output: 08/28/18 08/28/18 06:59 18:59 Intake Total 0 Output Total 500 Balance -500 - Medications Medications: Current Medications Furosemide (Lasix) 40 mg IVP BID [facility] Last Admin: 08/28/18 09:38 Dose: 40 mg Lisinopril (Zestril) 10 mg PO DAILY [facility] Last Admin: 08/28/18 09:38 Dose: 10 mg Morphine Sulfate (Morphine) 2 mg IVP Q6H PRN PRN Reason: Pain, severe (8-10) Ondansetron HCl (Zofran Inj) 4 mg IVP Q6H PRN PRN Reason: Nausea/Vomiting Pantoprazole Sodium (Protonix Ec Tab) 40 mg PO BID [facility] Last Admin: 08/28/18 09:38 Dose: 40 mg Potassium Chloride (Klor-Con 10) 10 meq PO DAILY [facility] Last Admin: 08/28/18 09:38 Dose: 10 meq - Labs Labs: 08/28/18 09:00 08/28/18 09:00 PT 14.0 SECONDS (9.4-12.5) H 08/26/18 11:20 INR 1.24 08/26/18 11:20 APTT 32.2 Seconds (26.9-38.3) 08/26/18 11:20 - Additional Findings Additional findings: - Constitutional Appears: Non-toxic, No Acute Distress, Confused - Head Exam Head Exam: ATRAUMATIC, NORMAL INSPECTION, NORMOCEPHALIC - Eye Exam Eye Exam: EOMI, Normal appearance - ENT Exam ENT Exam: Mucous Membranes Dry - Neck Exam Neck exam: Positive for: Full Rom - Respiratory Exam Respiratory Exam: NORMAL BREATHING PATTERN - Cardiovascular Exam Cardiovascular Exam: REGULAR RHYTHM, +S1, +S2 - GI/Abdominal Exam GI & Abdominal Exam: Normal Bowel Sounds, Soft. absent: Distended (obese), Firm, Guarding, Hernia, Rebound, Rigid, Tenderness - Extremities Exam Extremities exam: Positive for: pedal edema (b/l) - Neurological Exam Additional comments: GCS 8 Moaning incoherent upper sorbian, opens eyes to painful stimuli, does not localize pain, no facial droop or focal weakness noted. - Skin Skin Exam: Dry, Intact, Normal Color, Warm Assessment and Plan - Assessment and Plan (Free Text) Assessment: - Pt is to get Swallow study today, suspected posterior leak - Pt is to continue with Purees and nectar thick diet - Aspiration precautions - continue with medical management, no surgical intervention at this time CK PGY1 will paz owens/ Dr Rivera
--- NOTE | 2018-08-28 11:29 | CP.PCM.PCO ---
Physician Communication Note - Physician Communication Note Physician Communication Note: continue to diures, possible D/C 08/29, repeat labs in am, reeval in am
--- NOTE | 2018-08-28 11:45 | PN ---
DATE: 08/28/2018 REASON FOR CONSULTATION AND FOLLOWUP: Admitted with altered mental status, history of GI bleed in the past, history of chronic atrial fibrillation, not on anticoagulation as per choice of the family, history of bleed, vaginal bleed (cardiac evaluation). SUBJECTIVE: The patient is lethargic, but waking up. Passed swallowing evaluations. Son and daughter is at the bedside. PHYSICAL EXAMINATION: VITAL SIGNS: Temperature afebrile. Heart rate 83, blood pressure 114/67. HEENT: PERRLA. Extraocular muscles intact. NECK: Supple. No carotid bruit or thyromegaly. CHEST: Clear to auscultation. HEART: S1 and S2, regular. ABDOMEN: Soft. EXTREMITIES: Clubbing and cyanosis negative. LABORATORY DATA: Blood workup as follows; WBC 8.5, hemoglobin 8.9, hematocrit 28.8, platelet count 158. Chemistry shows sodium 140, potassium 4, chloride 100, CO2 of 38, anion gap 9, BUN 42, creatinine 1.1. Troponin remains 0.05 negative. IMPRESSION: An 83-year-old morbidly obese female with past medical history of chronic atrial fibrillation, not on anticoagulation as per family, history of congestive heart failure secondary to diastolic dysfunction, history of transient ischemic attack, history of abdominal pain, history of gastrointestinal bleed, now history of recently vaginal bleed, off anticoagulation, was on aspirin, dropping hemoglobin and hematocrit. Admitted with lethargic, altered mental status yesterday. The patient's passed the swallowing evaluation. Family is at the bedside. Most recent echo dated 10/24/2017 shows a normal LV function, ejection fraction within the normal limits, moderate aortic stenosis, [id number] mitral regurgitation, mild tricuspid regurgitation, mild pulmonary hypertension. Right ventricular systolic pressure 40. Ejection fraction reported as 70% on the last echo 04/25/2016. RECOMMENDATION: I will repeat echo. Agree to hold aspirin because the drop in H and H. Discussed with the son who is at the bedside. We will follow with you. Thank you Dr. Castellon for providing us the opportunity in taking care of the patient, Vicenta Duran, Resume lisinopril, resume gentle diuretics because elevated BNP and chest scan consistent with CHF secondary to diastolic dysfunction and valvular heart disease with atrial fibrillation. Though the patient is in atrial fibrillation, but rate is well controlled. We will follow with you. Waiting for the echo. Rodolfo uRdd MD
[2018-08-28] MEDS: Mupirocin 2% Ointment 15 GM TUBE TOP SCH ×2 (13:00→18:17)
--- NOTE | 2018-08-28 17:13 | PN ---
DATE: 08/28/2018 SUBJECTIVE: The patient is 83 years old, seen and examined. Seems to be more alert, being fed by the family. She is reporting yesterday she had episode of chocking on food, had swallowing eval done and was advised feeding with pureed consistency food. Denies any abdominal pain. PHYSICAL EXAMINATION: VITAL SIGNS: She is afebrile. Pulse 68, respiration 19 and blood pressure 114/67. LUNGS: Bilateral fair airflow, at bases. HEART: S1 and S2, audible. ABDOMEN: Soft, obese, nontender. No rebound. No guarding. NEUROLOGIC: She is awake, alert and able to communicate. EXTREMITIES: Bilateral legs, she has +2 edema. LABORATORY STUDIES: WBC is 8, hemoglobin 8.5, hematocrit 28 and platelets 158. Chemistry, sodium 143, potassium 4.2, chloride 100, CO2 38, BUN 42, creatinine 1.1, blood sugar of 87, her total bili 1.4, AST 144. The patient recently had course of nitrofurantoin. The patient's blood culture and urine cultures are negative. ASSESSMENT: 1. Abdominal pain, probably gastritis. 2. History of vaginal bleed. The patient had curettage done in [facility] office Dr. Bri Porras and then found to have cystic changes in her endometrium, but noncancerous, so she wanted to have dilatation and curettage done because of the patient's multiple comorbidities, it was deferred, however, I spoke to her yesterday and she is recommending to put Mirena that is progesterone impregnated intrauterine device to be placed as of this procedure that will be done upon discharge. 3. Congestive heart failure. 4. Chronic atrial fibrillation. 5. Not on anticoagulant because of history of gastrointestinal bleed. 6. Bilateral leg chronic stasis dermatitis. PLAN: The plan is currently, the patient is on IV diuretics. She is on potassium supplementation. Continue on lisinopril, her metoprolol has been stopped because she was running bradycardiac. We will follow up her electrolyte, out of bed to chair, physical therapy evaluation and treatment has been requested. We will revaluate the patient in a.m. The patient's family does not want her to go to TCU or rehab, however, we will encourage out of bed to chair and physical therapy evaluation. She remains stable, possible discharge in a.m., also discontinue her telemetry. Katerin Diaz MD
--- NOTE | 2018-08-29 01:03 | PN ---
DATE: 08/28/2018 SUBJECTIVE: The patient is seen in bed, in no acute distress. She was seen early this morning in 272, bed 2. No fevers and no chills. Doing better. PHYSICAL EXAMINATION: VITAL SIGNS: Temperature is 98, blood pressure is 112/60, respiratory rate of 18, heart rate of 60. HEENT: Unremarkable. NECK: Supple. LUNGS: Decreased breath sounds. HEART: Normal S1 and S2. ABDOMEN: Soft. LABORATORY EXAMINATION: Reveals a white count of 8000, hemoglobin of 8, BUN of 42, creatinine of 1.1. Procalcitonin is 3.76. Urinalysis is noted. Microbiology reveals urine culture is negative, blood culture is negative. The patient is off of antibiotics. ASSESSMENT AND PLAN: An 83-year-old female with acute systolic congestive heart failure on top of chronic congestive heart failure with asymptomatic bacteriuria. Currently off of antibiotics. Cultures blood and urine are negative. Dr. Diaz's note is reviewed. The patient is also at risk for developing nosocomial infections. Alin Mckay MD
--- NOTE | 2018-08-29 07:07 | CP.PCM.PN ---
Subjective - Date & Time of Evaluation Date of Evaluation: 08/29/18 Time of Evaluation: 06:30 - Subjective Subjective: Awake, no distress, daughter at bedside Reason for consultation and follow up:Cardiac evaluation and follow up history of atrial fibrillation (no anticoagulation per family request/choice)history of CHF, TIA Seen and examined by me and Dr. Rudd Objective - Vital Signs/Intake and Output Vital Signs (last 24 hours): Temp Pulse Resp BP Pulse Ox 99.2 F 80 20 115/53 L 94 L 08/28/18 22:59 08/28/18 22:59 08/28/18 22:59 08/28/18 22:59 08/28/18 22:59 Intake and Output: 08/29/18 08/29/18 06:59 18:59 Intake Total 120 Balance 120 - Medications Medications: Current Medications Furosemide (Lasix) 40 mg IVP BID [facility] Last Admin: 08/28/18 18:19 Dose: 40 mg Lisinopril (Zestril) 10 mg PO DAILY [facility] Last Admin: 08/28/18 09:38 Dose: 10 mg Morphine Sulfate (Morphine) 2 mg IVP Q6H PRN PRN Reason: Pain, severe (8-10) Mupirocin (Bactroban Ointment) 0 gm TOP BID [facility] Last Admin: 08/28/18 18:17 Dose: 1 applic Ondansetron HCl (Zofran Inj) 4 mg IVP Q6H PRN PRN Reason: Nausea/Vomiting Pantoprazole Sodium (Protonix Ec Tab) 40 mg PO BID [facility] Last Admin: 08/28/18 18:19 Dose: 40 mg Potassium Chloride (Klor-Con 10) 10 meq PO DAILY [facility] Last Admin: 08/28/18 09:38 Dose: 10 meq - Labs Labs: 08/28/18 09:00 08/28/18 09:00 PT 14.0 SECONDS (9.4-12.5) H 08/26/18 11:20 INR 1.24 08/26/18 11:20 APTT 32.2 Seconds (26.9-38.3) 08/26/18 11:20 - Constitutional Appears: Non-toxic, No Acute Distress - Head Exam Head Exam: NORMAL INSPECTION, NORMOCEPHALIC - Eye Exam Eye Exam: Normal appearance Pupil Exam: NORMAL ACCOMODATION - ENT Exam ENT Exam: Mucous Membranes Moist, Normal Exam - Respiratory Exam Respiratory Exam: Decreased Breath Sounds, NORMAL BREATHING PATTERN - Cardiovascular Exam Cardiovascular Exam: +S1, +S2 - GI/Abdominal Exam GI & Abdominal Exam: Soft, Normal Bowel Sounds - Extremities Exam Additional comments: bilateral earnestine wrapped leg edema - Neurological Exam Neurological Exam: Alert, Awake - Psychiatric Exam Psychiatric exam: Normal Affect, Normal Mood - Skin Skin Exam: Dry, Normal Color, Warm Assessment and Plan - Assessment and Plan (Free Text) Assessment: An 83 year old female who came in to the ER due to altered mental status. History of chronic atrial fibrillation, no anticoagulation by family request/choice, diastolic dysfunction congestive heart failure ,chronic renal insufficiency, hypertension, hyperlipidemia, TIA, gastrointestinal bleeding, recent vaginal bleeding (was on Aspirin and stopped). Echo done on 10/27/17 showed LVEF 50%, moderate aortic valve stenosis, mild to moderate MR,mild TR, mild pulmonary hypertension. BNP elevated consistent with diastolic dysfunction CHF secondary to valvular aortic stenosis and atrial fibrillation. Atrial fibrillation rate controlled. Continue to diurese. No distress.Swallowing evaluation done and recommended pureed with nectar thickened liquids, Aspiration precaution. GYNE follow up with Dr. Bri Porras upon discharge. Plan: No distress Heart rate stable Blood pressure stable On Lasix 40 mg BID,Lisinopril 10 mg daily, Klor-con 10 meq daily Continue to hold Aspirin Continue current treatment Continue current medications Weight reduction Will follow up Plan and treatment discussed with Dr. Rudd
[2018-08-29 08:40] LABS: BASO # 0.04 K/mm3 (0.0-2.0); BASO % 0.5 % (0.0-3.0); EOS # 0.4 (0.0-0.7); EOS % 4.6 % (1.5-5.0); HEMOGLOBIN 8.4 g/dL (12.0-16.0); LYMPH # 0.6 (1.2-3.4); LYMPH % 7.5 % (22.0-35.0); MEAN CORPUSCULAR HEMOGLOBIN 28.6 pg (25.0-35.0); MEAN CORPUSCULAR HGB CONC 29.2 g/dl (31.0-37.0); MEAN PLATELET VOLUME 9.3 fl (7.0-11.0); MONO # 1.2 (0.1-0.6); MONO % 15.6 % (1.0-6.0); RBC 2.94 10^6/uL (3.5-6.1); RED CELL DISTRIBUTION WIDTH 16.4 % (11.5-14.5)
[2018-08-29 08:58] LABS: CALCIUM 8.7 mg/dL (8.4-10.5)
[2018-08-29] MEDS: Potassium Chloride 10 mEq ER Tab PO SCH (09:57)
[2018-08-29] MEDS: Mupirocin 2% Ointment 15 GM TUBE TOP SCH ×2 (09:57→18:05)
[2018-08-29] MEDS: Pantoprazole 40 mg EC Tab PO SCH ×2 (09:58→18:05)
[2018-08-29] MEDS ORDERED: Levalbuterol 0.63 MG/3 ML Inhal Soln UD IH ONE (11:07)
[2018-08-29] MEDS ORDERED: Promethazine DM 6.25 mg-15 mg/5 ml Syrup PO ONE (11:08)
[2018-08-29] MEDS ORDERED: Promethazine DM 6.25 mg-15 mg/5 ml Syrup PO PRN (12:24)
--- NOTE | 2018-08-29 13:38 | CP.PCM.PCO ---
Physician Communication Note - Physician Communication Note Physician Communication Note: CT chest pending
[2018-08-29 16:24] VITALS: O2SAT 98
--- NOTE | 2018-08-29 19:20 | CARD ---
APPROVED REPORT Date of service: 08/29/2018 EXAM: Two-dimensional and M-mode echocardiogram with Doppler and color Doppler. INDICATION Aortic Valve Disease Congestive Heart Failure 2D DIMENSIONS Left Atrium (2D)5.1 (1.6-4.0cm)IVSd1.1 (0.7-1.1cm) LVDd5.0 (3.9-5.9cm)PWd1.3 (0.7-1.1cm) LVDs3.2 (2.5-4.0cm)FS (%) 36.2 % LVEF (%)65.6 (>50%) M-Mode DIMENSIONS Aortic Root2.30 (2.2-3.7cm)Aortic Cusp Exc.1.40 (1.5-2.0cm) Aortic Valve AoV Peak [id number]/Nabil Peak GR.34mmHg Mitral Valve E/A ratio0.0 TDI E/Lateral E'0.0E/Medial E'0.0 Tricuspid Valve TR Peak [id number] [id number] Peak Gr.82mmHg [id number] LEFT VENTRICLE The left ventricle is normal size. There is borderline concentric left ventricular hypertrophy. The left ventricular function is normal.EF-60-65% ( A fib) There is normal LV segmental wall motion. Afib No left ventricle thrombus noted on this study. There is no ventricular septal defect visualized. There is no left ventricular aneurysm. There is no mass noted in the left ventricle. RIGHT VENTRICLE The right ventricle is moderately to severely dilated. The right ventricle is borderline hypertrophied. Systolic function of RV is moderately reduced. ATRIA The left atrium is moderately dilated. The right atrium is moderately dilated. The atrial septum is aneurysmal. AORTIC VALVE The aortic valve is calcified and displays decreased opening. There is trace aortic regurgitation. There is mild to moderate valvular aortic stenosis. There is no aortic valvular vegetation. MITRAL VALVE The mitral valve is thickened but opens well. Mitral regurgitation is moderate. There is no mitral valve stenosis. There is no evidence of mitral valve prolapse. TRICUSPID VALVE The tricuspid valve leaflets are thickened , but open well. There is severe tricuspid regurgitation.RVSP-87 mmof Hg. There is severe pulmonary hypertension. There is no tricuspid valve stenosis. There is no tricuspid valve prolapse or vegetation. PULMONIC VALVE The pulmonic valve is mildly thickened. There is mild to moderate pulmonic valvular regurgitation. There is no pulmonic valvular stenosis. GREAT VESSELS The aortic root is normal in size. The ascending aorta is normal in size. The pulmonary artery is normal. The IVC is dilated. PERICARDIAL EFFUSION There is no pleural effusion. There is no pericardial effusion. <Conclusion> The left ventricle is normal size. There is borderline concentric left ventricular hypertrophy. The left ventricular function is normal.EF-60-65% ( A fib) The right ventricle is moderately to severely dilated. Systolic function of RV is moderately reduced. There is mild to moderate valvular aortic stenosis. Mitral regurgitation is moderate. There is severe tricuspid regurgitation.RVSP-87 mmof Hg. There is severe pulmonary hypertension. The IVC is dilated. There is no pericardial effusion. Pt. was in A fiob at the time of study. No Vegetation or thrombus.
--- NOTE | 2018-08-30 01:55 | PN ---
DATE: 08/29/2018 SUBJECTIVE: The patient is in bed, seen earlier today in room 577, bed 1. No fevers. No chills. She is comfortable. PHYSICAL EXAMINATION VITAL SIGNS: Temperature 97, blood pressure 109/60, respiratory rate 18, heart rate of 84. HEENT: Unremarkable. NECK: Supple. LUNGS: Have decreased breath sounds. HEART: Normal S1, S2. ABDOMEN: Soft. LABORATORY EXAMINATION: Reveals white count 8000, hemoglobin 8. Creatinine 1.2. Urinalysis reveals 25 to 30 WBCs. Microbiology reveals gram-positive cocci in urine, initially with gram-negative rods. Blood cultures are negative. MEDICATIONS: Review of orders reveals the patient to be on no antibiotics. ASSESSMENT AND PLAN: An 83-year-old female was admitted with acute systolic congestive heart failure on top of chronic congestive heart failure and asymptomatic bacteriuria, currently off of antibiotics. Now urine cultures gram-positive cocci, most likely colonizing antigen. Dr. Rudd's progress note from today is risk for developing nosocomial infections. Alin Mckay MD
--- NOTE | 2018-08-30 05:16 | DS ---
HISTORY OF PRESENT ILLNESS: The patient is 83 years old. According to family, she was less lethargic this morning, but when I saw the patient, she was fully awake, alert, oriented, communicative and answering appropriately in Vietnamese. PHYSICAL EXAMINATION: VITAL SIGNS: She is afebrile, pulse 84, respirations 18, and blood pressure 107/68. LUNGS: Bilateral soft crackle in upper lung region. HEART: S1 and S2 audible. ABDOMEN: Soft, obese, and nontender. No rebound. No guarding. NEUROLOGIC: The patient is awake and alert; able to communicate. EXTREMITIES: Bilateral leg +2 edema. LABORATORY DATA: WBC 8.0, hemoglobin 8.4, hematocrit 28, and platelets 160. Chemistry; sodium 142, potassium 4.5, chloride 100, CO2 of 40, BUN 45, creatinine 1.2, blood sugar of 43, total bilirubin 1.4. Urine analysis and blood cultures are negative. Catheterized urine shows gram positive cocci. ASSESSMENT: 1. Abdominal pain, probably secondary to gastritis. 2. History of urinary tract infection was on Macrobid, but repeat culture on 08/26/2018, negative; however, catheterized specimen is growing gram positive cocci. 3. Congestive heart failure. 4. Chronic atrial fibrillation. 5. History of gastrointestinal bleed. 6. History of hypertension. 7. Chronic bilateral leg edema. PLAN: Currently, the patient is on potassium 10 mEq daily. She is on Lasix 40 mg twice a day. She is on Protonix, we will continue that, we will give her a dose of Xopenex and Phenergan DM. We will reevaluate after giving inhalation treatment and antitussive. The patient is stable, possible discharge later on today. Katerin Diaz MD
[2018-08-30 07:48] LABS: BASO # 0.02 K/mm3 (0.0-2.0); BASO % 0.3 % (0.0-3.0); EOS # 0.4 (0.0-0.7); EOS % 5.5 % (1.5-5.0); HEMOGLOBIN 8.5 g/dL (12.0-16.0); LYMPH # 0.6 (1.2-3.4); LYMPH % 8.1 % (22.0-35.0); MEAN CELL VOLUME 99.3 fl (80.0-105.0); MEAN CORPUSCULAR HEMOGLOBIN 28.5 pg (25.0-35.0); MEAN CORPUSCULAR HGB CONC 28.7 g/dl (31.0-37.0); MEAN PLATELET VOLUME 9.7 fl (7.0-11.0); MONO # 1.1 (0.1-0.6); MONO % 15.4 % (1.0-6.0); RBC 2.98 10^6/uL (3.5-6.1); RED CELL DISTRIBUTION WIDTH 16.6 % (11.5-14.5)
[2018-08-30 07:58] LABS: IRON 36 ug/dL (45-180)
[2018-08-30 08:03] LABS: ALB/GLOB RATIO 0.9 (1.1-1.8); ALBUMIN 2.9 g/dL (3.0-4.8); CALCIUM 8.7 mg/dL (8.4-10.5)
[2018-08-30 08:06] LABS: % IRON SATURATION 12 % (20-55); TOTAL IRON BINDING CAPACITY 298 ug/dL (265-497)
[2018-08-30 08:28] VITALS: BP 102/61; PULSE 81; RESP 18; TEMP 97.3
--- NOTE | 2018-08-30 08:29 | CP.PCM.PN ---
Subjective - Date & Time of Evaluation Date of Evaluation: 08/30/18 Time of Evaluation: 06:48 - Subjective Subjective: Awake, no distress, son at bedside Reason for consultation and follow up:Cardiac evaluation and follow up history of atrial fibrillation (no anticoagulation per family request/choice)history of CHF, TIA Seen and examined by me and Dr. Rudd Objective - Vital Signs/Intake and Output Vital Signs (last 24 hours): Temp Pulse Resp BP Pulse Ox 97.3 F L 81 18 102/61 98 08/30/18 06:00 08/30/18 06:00 08/30/18 06:00 08/30/18 06:00 08/30/18 06:00 Intake and Output: 08/30/18 08/30/18 06:59 18:59 Intake Total 240 Balance 240 - Medications Medications: Current Medications Furosemide (Lasix) 40 mg IVP BID [facility] Last Admin: 08/29/18 18:05 Dose: 40 mg Lisinopril (Zestril) 10 mg PO DAILY [facility] Last Admin: 08/29/18 10:07 Dose: 10 mg Morphine Sulfate (Morphine) 2 mg IVP Q6H PRN PRN Reason: Pain, severe (8-10) Mupirocin (Bactroban Ointment) 0 gm TOP BID [facility] Last Admin: 08/29/18 18:05 Dose: Not Given Ondansetron HCl (Zofran Inj) 4 mg IVP Q6H PRN PRN Reason: Nausea/Vomiting Pantoprazole Sodium (Protonix Ec Tab) 40 mg PO BID [facility] Last Admin: 08/29/18 18:05 Dose: Not Given Potassium Chloride (Klor-Con 10) 10 meq PO DAILY [facility] Last Admin: 08/29/18 09:57 Dose: Not Given Promethazine HCl/Dextromethorphan (Phenergan Dm Syrup) 5 ml PO Q6H PRN PRN Reason: Cough - Labs Labs: 08/30/18 07:30 08/30/18 07:30 PT 14.0 SECONDS (9.4-12.5) H 08/26/18 11:20 INR 1.24 08/26/18 11:20 APTT 32.2 Seconds (26.9-38.3) 08/26/18 11:20 - Constitutional Appears: Non-toxic, No Acute Distress - Head Exam Head Exam: NORMAL INSPECTION, NORMOCEPHALIC - Eye Exam Eye Exam: Normal appearance Pupil Exam: NORMAL ACCOMODATION - ENT Exam ENT Exam: Mucous Membranes Moist, Normal Exam - Respiratory Exam Respiratory Exam: Decreased Breath Sounds, NORMAL BREATHING PATTERN Additional comments: mild expiratory wheezing - Cardiovascular Exam Cardiovascular Exam: +S1, +S2 - GI/Abdominal Exam GI & Abdominal Exam: Soft, Normal Bowel Sounds - Extremities Exam Additional comments: leg edema with bilateral earnestine wrapped - Neurological Exam Neurological Exam: Alert, Awake - Psychiatric Exam Psychiatric exam: Normal Affect, Normal Mood - Skin Skin Exam: Dry, Normal Color, Warm Assessment and Plan - Assessment and Plan (Free Text) Assessment: An 83 year old female who came in to the ER due to altered mental status. History of chronic atrial fibrillation, no anticoagulation by family requ est/choice, diastolic dysfunction congestive heart failure ,chronic renal insufficiency, hypertension, hyperlipidemia, TIA, gastrointestinal bleeding, recent vaginal bleeding (was on Aspirin and stopped). Echo done on 10/27/17 showed LVEF 50%, moderate aortic valve stenosis, mild to moderate MR,mild TR, mild pulmonary hypertension. BNP elevated consistent with diastolic dysfunction CHF secondary to valvular aortic stenosis and atrial fibrillation. Atrial fibrillation rate controlled. Continue to diurese. No distress.Swallowing evaluation done and recommended pureed with nectar thickened liquids, Aspiration precaution. GYNE follow up with Dr. Bri Porras upon discharge. Discussed status with son at bedside. Discharge planning. CT scan of chest done awaiting results. Echo done yesterday and showed borderline concentric LVH, LVEF 60-65%, (atrial fibrillation). Moderate to severely dilated RV, mild to moderate valvular aortic stenosis,moderate mitral regurgitation, severe tricuspid regurgitation RVSP 87 mmHg, severe pulmonary hypertension. CT scan of chest done awaiting results. Discharge planning. Plan: No distress, son at bedside Heart rate stable Blood pressure stable Cardiac status stable Awaiting CT of chest result On Lasix 40 mg BID,Lisinopril 10 mg daily, Klor-con 10 meq daily Continue to hold Aspirin Continue current treatment Continue current medications Weight reduction Discharge planning Will follow up Plan and treatment discussed with Dr. Rudd
[2018-08-30] MEDS ORDERED: POLYETHYLENE GLYCOL 3350 17 GM/Dose PACKET PO ONE (10:07)
--- NOTE | 2018-08-30 10:21 | CT ---
Date of service: 08/29/2018 PROCEDURE: CT Chest without contrast HISTORY: r/o PNA COMPARISON: None available. TECHNIQUE: Contiguous axial images were obtained through the chest without intravenous contrast enhancement. Sagittal and coronal reconstructions were performed. Radiation dose: Total exam DLP = 673.32 mGy-cm. This CT exam was performed using one or more of the following dose reduction techniques: Automated exposure control, adjustment of the mA and/or kV according to patient size, and/or use of iterative reconstruction technique. FINDINGS: LUNGS: Clear lungs. Visualized airway clear MEDIASTINUM: Unremarkable thoracic aorta. No aneurysm. Moderate to severe cardiomegaly main pulmonary artery unremarkable. No vascular congestion. No lymphadenopathy. Extensive aortic calcification PLEURA: Moderate right-sided pleural effusion BONES: No fracture. No destructive lesion. UPPER ABDOMEN: Grossly unremarkable. OTHER FINDINGS: None. IMPRESSION: Moderate to severe cardiomegaly. Moderate size right pleural effusion. No evidence of pneumonia
[2018-08-30] MEDS: Potassium Chloride 10 mEq ER Tab PO SCH (10:46)
[2018-08-30] MEDS: Pantoprazole 40 mg EC Tab PO SCH (10:46)
--- NOTE | 2018-08-30 19:56 | PN ---
DATE: 08/30/2018 SUBJECTIVE: The patient is seen in bed, in no acute distress, and nontoxic. OBJECTIVE: VITAL SIGNS: Temperature is 98, blood pressure is 102/60, respiratory rate of 18, and heart rate of 81. HEENT: Unremarkable. NECK: Supple. LUNGS: Have decreased breath sounds. HEART: Normal S1 and S2. ABDOMEN: Soft and nontender. LABORATORY EXAMINATION: Reveals a white count of 7, hemoglobin of 8, and platelets of 175. Chemistries reveals a BUN of 45 and creatinine of 1.1 and procalcitonin is noted. Microbiology reveals the urine has Enterococcus fecalis. ASSESSMENT AND PLAN: This is an 83-year-old female who was seen early this morning in room 577, bed 1 with acute systolic congestive heart failure on top of chronic congestive heart failure and asymptomatic bacteriuria. Alin Mckay MD
--- NOTE | 2018-08-31 07:48 | DS ---
HISTORY OF PRESENT ILLNESS: The patient is an 83-year-old who was brought to emergency room because of abdominal discomfort. She had CT scan of the abdomen and pelvis done that shows some thickening of gastroesophageal junction. The patient was given IV fluid, started on PPI responded well. She also has bilateral leg edema and was carefully given IV diuretics also. The patient was evaluated by Cardiology. CT scan of the chest was also done that shows right pleural effusion and cardiomegaly. The patient was also evaluated by Dr. Rivera, no surgical intervention was needed. She was consulted because of abdominal distension, probably it was benign ileus. PHYSICAL EXAMINATION: GENERAL: Today she is awake and alert, able to communicate. VITAL SIGNS: She is afebrile, pulse 81, respirations 18, blood pressure 102/61. LUNGS: Bilateral fair airflow. Decreased at right lung base. HEART: S1, S2 audible. Irregular, rate control. ABDOMEN: Soft, obese, nontender. No rebound. No guarding. NEUROLOGIC: The patient is awake and alert, able to communicate. EXTREMITIES: Bilateral leg + 2 edema. LABORATORY DATA: WBC 7.0, hemoglobin 8.5, hematocrit 29.6, platelet 175. Chemistry: Sodium 143, potassium 4.6, chloride 99, CO2 of 41, BUN 45, creatinine 1.1, blood sugar 81. BNP 7150. ASSESSMENT: 1. Probably gastritis. 2. Hypertension. 3. Cardiomegaly. 4. Pleural effusion. 5. Bilateral leg stasis dermatitis along with chronic leg edema. PLAN: The patient is being discharged home on PPI. She will be on Nexium 40 mg daily. She is advised to take metoprolol 25 mg daily and she will be maintained on lisinopril 10 mg daily, Lasix 40 mg twice a day, and potassium 10 mEq daily. Will follow the patient in 2 weeks. Katerin Diaz MD
== END 2018-08-30 15:12 | disposition home health service (06) | DRG 291 ==
LOC: ED 10:26 → ERH 15:23 → 2RSO 17:26 → 5RSO 08-28 19:51
PROVIDERS: ADMIT Internal Medicine Nephrology; ATTEND Internal Medicine
DX: I13.0 Hypertensive heart and chronic kidney disease with heart failure and stage 1 through stage 4 chronic kidney disease, or unspecified chronic kidney disease (principal); I50.41 Acute combined systolic (congestive) and diastolic (congestive) heart failure; N39.0 Urinary tract infection, site not specified; Z68.41 Body mass index [BMI] 40.0-44.9, adult; K29.70 Gastritis, unspecified, without bleeding; B95.2 Enterococcus as the cause of diseases classified elsewhere; N18.9 Chronic kidney disease, unspecified; I48.2 Chronic atrial fibrillation; E66.01 Morbid (severe) obesity due to excess calories; I08.3 Combined rheumatic disorders of mitral, aortic and tricuspid valves; I25.10 Atherosclerotic heart disease of native coronary artery without angina pectoris; I27.20 Pulmonary hypertension, unspecified; N93.9 Abnormal uterine and vaginal bleeding, unspecified; I87.2 Venous insufficiency (chronic) (peripheral); R41.82 Altered mental status, unspecified; Z16.23 Resistance to quinolones and fluoroquinolones; Z86.73 Personal history of transient ischemic attack (TIA), and cerebral infarction without residual deficits; Z95.5 Presence of coronary angioplasty implant and graft; Z88.0 Allergy status to penicillin

== ENCOUNTER 2018-09-01 14:55 | Inpatient (IN) | payer MEDICARE, MEDICAID ==
--- NOTE | 2018-09-01 15:20 | ED PDOC ---
Arrival/HPI - General Chief Complaint: Altered Mental Status Historian: Patient - History of Present Illness Narrative History of Present Illness (Text): 09/01/18 15:18 An 83 year old female, whose past medical history includes Atrial fibrillation, CHF, and TIA, who presents to the ED accompanied by family for altered mental status. Grandson reports patient was discharged from [facility] [place] days ago after being admitted noting patient was able to ambulate by herself, talking, and was alert. Per patient's family, patient was noted unable to open her eyes and was unresponsive to verbal calls since yesterday. Technical Architect notes current symptoms are similar to her symptoms in her last visit to the emergency room. ROS is limited due to patient having altered mental status. PMD: Dr. Diaz Time/Duration: 24 hours Symptom Onset: Gradual Symptom Course: Unchanged Activities at Onset: Light Context: Home Past Medical History - Provider Review Nursing Documentation Reviewed: Yes - Infectious Disease Hx of Infectious Diseases: None - Reproductive Menopause: Yes - Cardiac Hx Cardiac Disorders: Yes (Afib) Hx Congestive Heart Failure: Yes Hx Hypertension: Yes - Pulmonary Hx Respiratory Disorders: No - Neurological Hx Neurological Disorder: No - HEENT Hx Cataracts: Yes - Renal Hx Renal Failure: Yes (CKD) - Endocrine/Metabolic Hx Endocrine Disorders: No - Hematological/Oncological Hx Blood Disorders: No - Integumentary Hx Dermatological Disorder: No - Musculoskeletal/Rheumatological Hx Falls: No - Gastrointestinal Hx Gastrointestinal Disorders: Yes (GI BLEED,H PYLORI,) - Genitourinary/Gynecological Hx Genitourinary Disorders: Yes (INCONTINENT) - Psychiatric Hx Depression: No Hx Emotional Abuse: No Hx Physical Abuse: No Hx Substance Use: No - Past Surgical History Past Surgical History: No Previous - Surgical History Other/Comment: fractured left wrist/arm needing cast - Anesthesia Hx Anesthesia: Yes Hx Anesthesia Reactions: No Hx Malignant Hyperthermia: No - Suicidal Assessment Feels Threatened In Home Enviroment: No Family/Social History - Physician Review Nursing Documentation Reviewed: Yes Family/Social History: No Known Family HX Smoking Status: Never Smoked Hx Alcohol Use: No Hx Substance Use: No Hx Substance Use Treatment: No Allergies/Home Meds Allergies/Adverse Reactions: Allergies dabigatran etexilate mesylate [From Pradaxa] Allergy (Intermediate, Verified 09/01/18 15:12) ANGIOEDEMA arthralgia, cough, vertigo, itching, sorethroat, irritability Penicillins Allergy (Verified 09/01/18 15:12) RASH rofecoxib [From Vioxx] Allergy (Verified 09/01/18 15:12) FATIGUE warfarin Adverse Reaction (Unknown, Verified 09/01/18 15:12) ITCHING intolerant with cardio since she could not tolerate pradaxa pravastatin Adverse Reaction (Verified 09/01/18 15:12) RASH Home Medications: Home Meds Medication Instructions Recorded Confirmed Furosemide [Lasix] 40 mg PO BID 08/26/18 09/01/18 Lisinopril [Zestril] 10 mg PO DAILY 08/26/18 09/01/18 Metoprolol Succinate 25 mg PO DAILY 09/01/18 09/01/18 Potassium Chloride [K-Tab ER] 10 meq PO DAILY 09/01/18 09/01/18 Review of Systems - Review of Systems Systems not reviewed;Unavailable: Altered Mental Status Constitutional: absent: Fevers Respiratory: SOB Gastrointestinal: absent: Vomiting Skin: Skin Lesions Neurological: Speech Changes. absent: Focal Weakness Hemo/Lymphatic: absent: Easy Bleeding Physical Exam - Physical Exam Narrative Physical Exam (Text): 09/01/18 15:18 Head: Atraumatic. Normocephalic. Eyes: Patients eye are closed, she will at times open to verbal stimuli. No nystagmus noted. Pupils are equal. ENT: Mucous membranes are moist and intact. Some drooling noted but no pharyngeal erythema or exudates, no angioedema noted. Neck: Supple. No meningeal signs or erythema noted. Cardiovascular: Irregular rate and rhythm. Pulmonary/Chest: Tachypneic, rales at the bases. Abdominal: Distended, no focal tenderness elicited. No pulsatile masses. Rectal: no gross bleeding or melena Back: No midline deformity. Extremities: Bilateral lower extremity edema with some skin breakdown anteriorly with no active bleeding or drainage. Feet warm. Skin: Skin is warm. No petechiae. Neurological: Patient will at times open eyes to verbal command but for majority of exam will not follow commands. No obvious facial droop, will be noted to move all four extremities at times to stimulation. No seizure activity noted. Pelvic: no active heavy bleeding noted Psychiatric: Not verbally communicating. Vital Signs Reviewed: Yes Temperature: Afebrile Pulse: Irregular Respiratory Rate: Tachypneic Appearance: Positive for: Ill-Appearing Mental Status: Positive for: Lethargic Finger Stick Blood Glucose: 146 Medical Decision Making ED Course and Treatment: 09/01/18 15:18 Impression: 83 year old female presenting to the emergency room for altered mental status. History is supplemented by family members, specifically son Aaron. I reviewed patient's past admission and reviewed Dr. Diaz's discharge note and consultants notes. I also discussed patient's initial exam with Dr. Diaz as patient was recently discharged two days ago. As per family report, when patient was discharged on she was speaking, walking, but later that night started to become more lethargic, this has been noted for over a day. I did reviewed past visits and noted prior his of brain hemorrhage which was noted during prior visit, although current exam with no obvious focal deficits in the extremities or with gaze. CT head obtained and reviewed. Limitations of CT head reviewed with patient's family and son, stressed need for serial neuro exams. She reportedly is not on strong anticoagulants. Currently abdomen is soft and nontender with serial exams. No active bleeding noted. Patient noted to have small pleural effusion on cxr, cardiomegaly, bilateral leg edema. BNP elevated I suspect component of CHF, lasix ordered. RR 20,oxygen staturations 100%. I reviewed prior urine culture and current UA. IV antibiotics ordered after prior culture results and current UA reviewed with patient's family in laymen's terms. With serial exams, she remains altered, although no hypoxia noted, blood pressure stable, heart rate stable. She is afebrile. Initial Hgb at prior baseline with currently no signs of active bleeding. I have again reviewed differential diagnosis and labs as well as LIMITATIONS OF LABS AND IMAGING STUDIES in laymens' terms with son and family. I reviewed case with Dr. Diaz and patient's family who states during prior admission she had similar episodes "and then she just improved". Differential diagnosis includes BUT IS NOT LIMITED TO neurologic disease, infection, cardiac disease, CHF, effusion, UTI, sepsis, respiratory disease. I requested ICU consultation, Dr. Gutiérrez evaluated patient with family. She is protecting her airway, not hypoxic. After discussing with family indications for ICU consultation including her comorbities and risk factors for deterioration, patient's family states that they do not wish ICU admission as she has had previous episode similar to this and had improved. As vital signs currently stable, this risks and again limitations of studies reviewed with patient's family, they request that patient not be admitted to ICU this was reviewed in depth with Dr. Gutiérrez present and Dr. Diaz updated. - RAD Interpretation Narrative RAD Interpretations (Text): 09/01/18 17:59 Procedure: Chest X-ray Dictator: Tan Wallace Impression: Small right pleural effusion. Cardiomegaly. Procedure: Head CT Dictator: Tan Wallace Impression: No intracranial mass, ehmorrhage or evidence of acute infart. Age related white matter ischemic change. Examination limited by patient motion artifact. Passenger Service Supervisor: Radiologist - EKG Interpretation EKG Interpretation (Text): 09/01/18 19:50 EKG at 1521 atrial fibrillation rate of 77, septal infarct, age undetermined Interpreted by ED Physician: Yes Type: 12 lead EKG - Scribe Statement The provider has reviewed the documentation as recorded by the [place] Senior All medical record entries made by the Kaciibe were at my direction and personally dictated by me. I have reviewed the chart and agree that the record accurately reflects my personal performance of the history, physical exam, medical decision making, and the department course for this patient. I have also personally directed, reviewed, and agree with the discharge instructions and disposition. Disposition/Present on Arrival - Present on Arrival Any Indicators Present on Arrival: No History of DVT/PE: No History of Uncontrolled Diabetes: No Urinary Catheter: No History of Decub. Ulcer: No History Surgical Site Infection Following: None - Disposition Have Diagnosis and Disposition been Completed?: Yes Diagnosis: Altered mental status, CHF (congestive heart failure), Edema, UTI (urinary tract infection), Pleural effusion, Dyspnea Disposition: HOSPITALIZED Disposition Time: 18:00 Patient Plan: Admission, Telemetry Patient Problems: Current Active Problems Problem Status Onset Altered mental status Acute CHF (congestive heart failure) Acute Edema Acute UTI (urinary tract infection) Acute Condition: SERIOUS
[2018-09-01 15:50] LABS: BASO # 0.04 K/mm3 (0.0-2.0); BASO % 0.5 % (0.0-3.0); EOS # 0.2 (0.0-0.7); EOS % 1.9 % (1.5-5.0); HEMOGLOBIN 9.2 g/dL (12.0-16.0); LYMPH # 1.1 (1.2-3.4); MEAN CELL VOLUME 96.8 fl (80.0-105.0); MEAN PLATELET VOLUME 9.7 fl (7.0-11.0); MONO # 0.6 (0.1-0.6); MONO % 6.9 % (1.0-6.0); RBC 3.17 10^6/uL (3.5-6.1); RED CELL DISTRIBUTION WIDTH 16.8 % (11.5-14.5); WHITE BLOOD COUNT 8.2 10^3/uL (4.5-11.0)
[2018-09-01 15:52] LABS: VENOUS BLOOD GAS BASE EXCESS 18.1 mmol/L (0.0-2.0); VENOUS BLOOD GAS PO2 56 mm/Hg (30-55); VENOUS BLOOD PH 7.46 (7.32-7.43)
[2018-09-01 15:57] LABS: INR 1.44; PARTIAL THROMBOPLASTIN TIME 29.9 Seconds (26.9-38.3)
[2018-09-01 16:04] LABS: ALB/GLOB RATIO 0.9 (1.1-1.8); ALBUMIN 3.1 g/dL (3.0-4.8); CALCIUM 9.1 mg/dL (8.4-10.5)
[2018-09-01 16:08] LABS: ARTERIAL BLOOD GAS HCO3 42.2 mmol/L (21-28); ARTERIAL BLOOD GAS O2 SAT 100.2 % (95-98); ARTERIAL BLOOD GAS PCO2 58 mm/Hg (35-45); ARTERIAL BLOOD GAS PH 7.47 (7.35-7.45)
[2018-09-01 16:14] LABS: TROPONIN I 0.03 ng/mL
[2018-09-01 16:15] LABS: PH,URINE 6.5 (4.7-8.0); URINE BILIRUBIN NEGATIVE (NEGATIVE); URINE BLOOD LARGE (NEGATIVE); URINE COLOR YELLOW (YELLOW); URINE GLUCOSE (UA) NEGATIVE (NEGATIVE); URINE LEUKOCYTE ESTERASE MODERATE Leu/uL (NEGATIVE); URINE PROTEIN 30 mg/dL (<30 mg/dL)
[2018-09-01 16:16] LABS: URINE APPEARANCE CLEAR (CLEAR)
[2018-09-01 16:21] LABS: URINE BACTERIA MOD /hpf
--- NOTE | 2018-09-01 16:32 | CT ---
Date of service: 09/01/2018 PROCEDURE: CT HEAD WITHOUT CONTRAST. HISTORY: ams COMPARISON: 08/26/2018 TECHNIQUE: Axial computed tomography images were obtained through the head/brain without intravenous contrast. Radiation dose: Total exam DLP = 1514.93 mGy-cm. This CT exam was performed using one or more of the following dose reduction techniques: Automated exposure control, adjustment of the mA and/or kV according to patient size, and/or use of iterative reconstruction technique. FINDINGS: HEMORRHAGE: No intracranial hemorrhage. BRAIN: No mass effect or edema. Evaluation limited by patient motion artifact. No significant atrophy. Mild periventricular and patchy deep/subcortical white matter lucency consistent with microvascular white matter ischemic change. No evidence of acute infarct. VENTRICLES: Unremarkable. No hydrocephalus. CALVARIUM: Unremarkable. PARANASAL SINUSES: Unremarkable as visualized. No significant inflammatory changes. MASTOID AIR CELLS: Unremarkable as visualized. No inflammatory changes. OTHER FINDINGS: None. IMPRESSION: No intracranial mass, hemorrhage or evidence of acute infarct. Age related white matter ischemic change. Examination limited by patient motion artifact.
[2018-09-01] MEDS ORDERED: Vancomycin 1gm in NS 250ml 1 GM/250 ML BAG IVPB STA (17:17)
--- NOTE | 2018-09-01 17:18 | RAD ---
Date of service: 09/01/2018 HISTORY: sob, ams COMPARISON: 08/26/2018 TECHNIQUE: 1 view obtained. FINDINGS: LUNGS: No active pulmonary disease. PLEURA: Small right pleural effusion. No left pleural effusion. No pneumothorax. CARDIOVASCULAR: There is atherosclerotic calcification of the thoracic aorta. Mild cardiomegaly. No congestive change. OSSEOUS STRUCTURES: No acute fracture. VISUALIZED UPPER ABDOMEN: Normal. OTHER FINDINGS: None. IMPRESSION: Small right pleural effusion. Cardiomegaly.
[2018-09-01] MEDS ORDERED: Sodium Chloride 0.9% 1,000 ML IV SCH (18:30)
[2018-09-01 21:15] VITALS: BMI 42.9
[2018-09-01] MEDS ORDERED: Pneumococcal 23-Valent Vaccine IM ONE (21:16)
[2018-09-01] MEDS: levETIRAcetam 1000mg/100ml NS 100 ML IV SCH (22:30)
[2018-09-01] MEDS: Aztreonam 1 Gm in NS 100mL 100 ML IVPB SCH (22:31)
--- NOTE | 2018-09-01 23:14 | CON ---
DATE OF CONSULTATION: 09/01/2018 HISTORY OF PRESENT ILLNESS: This is an 83-year-old lady with history of CHF, recurrent UTIs, atrial fibrillation and TIA in the past, who presented 3 days after discharge from [facility] [place] (where she was admitted for UTI) with altered mental status. Grandson at bedside reports that the patient was herself talking and was alert, however noted that she was unable to open her eyes and was unresponsive to verbal calls since yesterday. Of note, the symptoms that were described appear to be similar to the ones during her last visit to emergency room. According to grandson at bedside, the patient spontaneously recovered and got back to her usual state of health. No fever, no chills, no sweats. No nausea, no vomiting, no diarrhea, no constipation. PAST MEDICAL HISTORY: Atrial fibrillation, CHF, TIA. FAMILY HISTORY: Noncontributory. SOCIAL HISTORY: No alcohol or illicit drug abuse. No tobacco smoking. MEDICATIONS AT HOME: Metoprolol, lisinopril, Lasix, potassium. ALLERGIES: PRADAXA, PENICILLIN, VIOXX, WARFARIN, AND LIPITOR. REVIEW OF SYSTEMS: Review of 12-organ systems other than mentioned in the history of present illness is negative. PHYSICAL EXAMINATION: VITAL SIGNS: Blood pressure 135/85, heart rate 65, respiratory rate 18, oxygen saturation 100% on 2 liters nasal cannula, temperature 99.3. ENT: Head and neck atraumatic. LUNGS: Clear to auscultation bilaterally. HEART: Regular rate and rhythm. S1, S2 normal. ABDOMEN: Soft, nontender, nondistended. MUSCULOSKELETAL: 1 to 2+ bilateral pedal and ankle edema. SKIN: Moist. PSYCHIATRIC: The patient only responsive to strong touch and stimuli. She responded only with grimacing. She appears to be able to protect her airways as per grandson at the bedside. They were even able to feed her and she was swallowing okay without any cough or signs of aspiration (that was prior to admission to ER). LABORATORY DATA: WBC 8.2, hemoglobin 9.2, platelet count 194,000. Sodium 146, potassium 4.2, chloride 100, carbon dioxide 41, BUN 48, creatinine 1.1, glucose 127. AST 44, ALT 22, total bilirubin 2, magnesium 1.8. ProBNP 12,000, troponin 0.03, INR 1.44. Lactic acid 1.4. Influenza negative. Urine is positive for leukocyte esterase and nitrites. Head CT showed no intracranial mass, hemorrhage or evidence of acute infarct, age-related white-matter ischemic changes. Chest x-ray showed small right pleural effusion, cardiomegaly, no acute pulmonary disease. ASSESSMENT AND PLAN: This is an 83-year-old lady with altered mental status without acute intracranial pathology evident on CT scan of the head. Possibility of recurrent urinary tract infection causing altered mental status is likely. The patient will be on aztreonam and vancomycin. ID consult will be called. Septic workup will be initiated including blood, urine culture and calcitonin level. Of note, about 6 months ago, the patient was admitted to ICU with altered mental status and was found to have non-convulsive SE requiring intubation for airway protection. Thus, possibility of nonconvulsive seizure is there and we will proceed with continuous EEG monitoring, Keppra 1 g IV every 12 hours and neurology consult. Of note, Dr. Stephenson was called and agreed with above and will continue with this. The patient was initially accepted to the ICU; however, family refused to go to the ICU citing the fact that she had similar symptoms in the past and recovered from them to the baseline. The benefits of close monitoring in the ICU were explained to the family; however, they insisted on going to telemetry with idea that if clinical situation change, they would be agreeable for reconsidering their decision. Thus, the patient will be going to the telemetry; however, please re-consult ICU if clinical situation deteriorates including, but not limited to, inability to protect airways, hypotension, hypoxemia, respiratory distress, DVT/GI prophylaxis. ccm time 40 min Sriram Gutiérrez MD [facility]
[2018-09-02] MEDS: Levalbuterol 1.25 MG/3 ML Inhal Soln UD IH SCH ×4 (01:39→20:22)
--- NOTE | 2018-09-02 01:55 | HP ---
DATE OF EXAM: 09/01/2018 HISTORY OF PRESENT ILLNESS: The patient is 83 years old, who was recently discharged 2 days ago. Yesterday, I got a call that the patient seems to be confused. She is talking to herself. She is seeing things, not eating that well, I ordered small dose of Risperdal 0.25 mg to be used as needed, but she was increasingly lethargic and not eating. So family brought to emergency room for further evaluation. PAST MEDICAL HISTORY: 1. She has significant history of chronic atrial fibrillation not on anticoagulant because of gastrointestinal bleed. 2. History of bilateral leg elephantiasis and chronic leg edema. 3. History of transient ischemic attack in the past. 4. Recurrent urinary tract infection. 5. History of congestive heart failure. 6. History of vaginal bleeding. She was evaluated by boiler tester, who did D&C. She was found to have cystic endometrial changes and it was decided to place NuvaRing as outpatient. ALLERGIES: SHE IS ALLERGIC TO PENICILLIN, COUMADIN, AND CELEBREX. SOCIAL HISTORY: She lives with the family, medicating. No history of smoking or alcohol use. PHYSICAL EXAMINATION: GENERAL: She seems to be lethargic. Not communicating. VITAL SIGNS: She is afebrile, pulse 60, respirations 19, and blood pressure 130/62. LUNGS: Bilateral soft crackles at bases. HEART: S1 and S2 audible. ABDOMEN: Soft, obese, nontender. No rebound, no guarding. NEUROLOGIC: The patient is awake and alert. The patient is lethargic. Not communicative with poor neurological exam. LABORATORY DATA: Sodium 146, potassium 4.2, chloride 100, CO2 of 41, BUN of 48, creatinine 1.1, blood sugar 127, total bilirubin 2.0. LDH is 1167. BNP is 12,000. Urinalysis shows moderate leukocytes, wbc's 10 to 15. Flu test is negative. CT scan of the head is unremarkable. X-ray chest, small pleural effusion. ASSESSMENT AND PLAN: 1. Altered mental status, etiology unclear. The patient had urinary tract infection last time, actually decided not to treat. She seems to still have pyuria, has been given one dose Azactam. 2. Chronic atrial fibrillation. 3. Bilateral leg edema. 4. History of gastritis. PLAN: The patient is being admitted in telemetry. She has been started on Azactam, IV Lasix, and Protonix. We discuss following the evaluation in a.m. and reevaluate the patient in a.m. Follow up electrolyte and CBC. Katerin Diaz MD
[2018-09-02] MEDS: Aztreonam 1 Gm in NS 100mL 100 ML IVPB SCH (05:23)
[2018-09-02] MEDS ORDERED: Pantoprazole 40 mg EC Tab PO SCH (06:30)
[2018-09-02] MEDS: levETIRAcetam 1000mg/100ml NS 100 ML IV SCH (09:32)
--- NOTE | 2018-09-02 09:47 | CP.PCM.CON ---
History of Present Illness - History of Present Illness History of Present Illness: No distress, eyes close but saying 'shady valarie" while turning Reason for consultation: Cardiac evaluation for congestive heart failure, admitted for altered mental status Brief history of present illness: An 83 year old female, who was brought to the ER by family member due to altered mental status. Family claimed not opening her eyes and not responding to verbal stimuli. She was just discharged from [facility] 2 days ago admitted for similar symptoms. History of chronic atrial fibrillation, no anticoagulation by family request/choice, diastolic dysfunction congestive heart failure ,chronic renal insufficiency, hypertension, hyperlipidemia, TIA, gastrointestinal bleeding, vaginal bleeding (was on Aspirin and stopped). Consult was called to evaluate congestive heart failure. Seen ad examined by me and Dr. Hinojosa Review of Systems - Review of Systems All systems: reviewed and no additional remarkable complaints except Review of Systems: as per HPI Past Patient History - Infectious Disease Hx of Infectious Diseases: None - Past Social History Smoking Status: Never Smoked - CARDIAC Hx Cardiac Disorders: Yes (Afib, palpittions) Hx Cardia Arrhythmia: Yes Hx Congestive Heart Failure: Yes Hx Hypertension: Yes Hx Peripheral Edema: Yes (ble +3 pitting edema) Other/Comment: circulation problems - PULMONARY Hx Respiratory Disorders: No - NEUROLOGICAL Hx Neurological Disorder: Yes (ams) - HEENT Hx HEENT Problems: Yes Hx Cataracts: Yes (b/l sx) - RENAL Hx Chronic Kidney Disease: Yes Hx Renal Failure: Yes (CKD) - ENDOCRINE/METABOLIC Hx Endocrine Disorders: No - HEMATOLOGICAL/ONCOLOGICAL Hx Blood Disorders: No - INTEGUMENTARY Hx Dermatological Problems: Yes Other/Comment: ble +3 pitting edema red dry tight skin, with skin breakdown, hands swollen, 2cm x 1.5cm red wound to lle neela - MUSCULOSKELETAL/RHEUMATOLOGICAL Hx Falls: No - GASTROINTESTINAL Hx Gastrointestinal Disorders: Yes (GI BLEED,H PYLORI, obese) Other/Comment: constipated when in the hospital, no bm x1 wk, was discharged on 08/30/18, was given miralax but it didn't work as pr son - GENITOURINARY/GYNECOLOGICAL Hx Genitourinary Disorders: Yes (INCONTINENT) Hx Incontinence: Yes (overactive bladder) Other/Comment: post menapauseal bleeding - PSYCHIATRIC Hx Substance Use: No - SURGICAL HISTORY Hx Surgeries: Yes Hx Cardiac Catheterization: Yes Hx Coronary Stent: Yes Other/Comment: cardiac catherization, cardiac stent - ANESTHESIA Hx Anesthesia: Yes Hx Anesthesia Reactions: No Hx Malignant Hyperthermia: No Meds Allergies/Adverse Reactions: Allergies Allergy/AdvReac Type Severity Reaction Status Date / Time dabigatran etexilate mesylate Allergy Intermediate ANGIOEDEMA Verified 09/01/18 15:12 [From Pradaxa] Penicillins Allergy RASH Verified 09/01/18 15:12 rofecoxib [From Vioxx] Allergy FATIGUE Verified 09/01/18 15:12 warfarin AdvReac Unknown ITCHING Verified 09/01/18 15:12 pravastatin AdvReac RASH Verified 09/01/18 15:12 - Medications Medications: Current Medications Furosemide (Lasix) 40 mg IVP DAILY [facility] Last Admin: 09/02/18 09:32 Dose: 40 mg Levetiracetam (Keppra 1000mg/100ml Ns) 100 mls @ 460 mls/hr IV Q12 [facility] Last Admin: 09/02/18 09:32 Dose: 460 mls/hr Levalbuterol HCl (Xopenex) 1.25 mg IH [id number] [facility] Last Admin: 09/02/18 07:37 Dose: 1.25 mg Pantoprazole Sodium (Protonix Inj) 40 mg IVP DAILY [facility] Last Admin: 09/02/18 09:32 Dose: 40 mg Physical Exam - Constitutional Appears: Non-toxic, No Acute Distress - Head Exam Head Exam: NORMAL INSPECTION, NORMOCEPHALIC - Eye Exam Eye Exam: Normal appearance Pupil Exam: NORMAL ACCOMODATION - ENT Exam ENT Exam: Mucous Membranes Dry - Respiratory Exam Respiratory Exam: Decreased Breath Sounds, Rhonchi, NORMAL BREATHING PATTERN - Cardiovascular Exam Cardiovascular Exam: Irregular Rhythm, +S1, +S2 Additional comments: Telemetry Atria fibrillation 70's - GI/Abdominal Exam GI & Abdominal Exam: Normal Bowel Sounds, Soft - Neurological Exam Additional comments: lethargic, does not open eyes to verbal command - Skin Skin Exam: Normal Color, Warm Results - Vital Signs Recent Vital Signs: Last Vital Signs Temp 97.7 F 09/02/18 06:00 Pulse 73 09/02/18 06:00 Resp 20 09/02/18 06:00 BP 119/65 09/02/18 09:32 Pulse Ox 98 09/02/18 06:00 - Labs Result Diagrams: 09/01/18 15:33 09/01/18 15:33 Labs: Laboratory Results - last 24 hr 09/01/18 09/01/18 09/01/18 15:06 15:33 15:33 WBC 8.2 RBC 3.17 L Hgb 9.2 L Hct 30.7 L MCV 96.8 MCH 29.0 MCHC 30.0 L RDW 16.8 H Plt Count 194 MPV 9.7 Neut % (Auto) 77.7 H Lymph % (Auto) 13.0 L [place] % (Auto) 6.9 H Eos % (Auto) 1.9 Baso % (Auto) 0.5 Lymph # (Auto) 1.1 L [place] # (Auto) 0.6 Eos # (Auto) 0.2 Baso # (Auto) 0.04 Absolute Neuts (auto) 6.40 PT 16.0 H INR 1.44 APTT 29.9 pCO2 pO2 HCO3 ABG pH ABG Total CO2 ABG O2 Saturation ABG Base Excess ABG Potassium VBG pH VBG pCO2 VBG HCO3 VBG Total CO2 VBG O2 Sat (Calc) VBG Base Excess VBG Potassium Glucose Lactate FiO2 Sodium Potassium Chloride Carbon Dioxide Anion Gap BUN Creatinine Est GFR ( Amer) Est GFR (Non-Af Amer) POC Glucose (mg/dL) 143 H Random Glucose Calcium Magnesium Total Bilirubin AST ALT Alkaline Phosphatase Lactate Dehydrogenase Total Creatine Kinase Troponin I NT-Pro-B Natriuret Pep Total Protein Albumin Globulin Albumin/Globulin Ratio Arterial Blood Potassium Venous Blood Potassium Urine Color Urine Appearance Urine pH Ur Specific [place] Urine Protein Urine Glucose (UA) Urine Ketones Urine Blood Urine Nitrate Urine Bilirubin Urine Urobilinogen Ur Leukocyte Esterase Urine RBC Urine WBC Ur Epithelial Cells Urine Bacteria Influenza Typ A,B (EIA) 09/01/18 09/01/18 09/01/18 15:33 15:40 16:00 WBC RBC Hgb Hct MCV MCH MCHC RDW Plt Count MPV Neut % (Auto) Lymph % (Auto) [place] % (Auto) Eos % (Auto) Baso % (Auto) Lymph # (Auto) [place] # (Auto) Eos # (Auto) Baso # (Auto) Absolute Neuts (auto) PT INR APTT pCO2 pO2 56 H HCO3 ABG pH ABG Total CO2 ABG O2 Saturation ABG Base Excess ABG Potassium VBG pH 7.46 H VBG pCO2 64.0 H VBG HCO3 45.5 H VBG Total CO2 47.5 H VBG O2 Sat (Calc) 92.2 H VBG Base Excess 18.1 H VBG Potassium 4.0 Glucose 124 H Lactate 1.7 FiO2 21.0 Sodium 146 144.0 Potassium 4.2 Chloride 100 106.0 Carbon Dioxide 41 H Anion Gap 9 L BUN 48 H Creatinine 1.1 Est GFR ( Amer) 57 Est GFR (Non-Af Amer) 47 POC Glucose (mg/dL) Random Glucose 127 H Calcium 9.1 Magnesium 1.8 Total Bilirubin 2.0 H AST 44 H ALT 22 Alkaline Phosphatase 51 Lactate Dehydrogenase 1167 H Total Creatine Kinase 48 Troponin I 0.03 D NT-Pro-B Natriuret Pep 19059 H Total Protein 6.6 Albumin 3.1 Globulin 3.5 Albumin/Globulin Ratio 0.9 L Arterial Blood Potassium Venous Blood Potassium 4.0 Urine Color Yellow Urine Appearance Clear Urine pH 6.5 Ur Specific [place] 1.010 Urine Protein 30 H Urine Glucose (UA) Negative Urine Ketones Negative Urine Blood Large H Urine Nitrate Negative Urine Bilirubin Negative Urine Urobilinogen 2.0 H Ur Leukocyte Esterase Moderate H Urine RBC 10 - 15 H Urine WBC 10 - 15 H Ur Epithelial Cells 1 - 3 Urine Bacteria Mod Influenza Typ A,B (EIA) 09/01/18 09/01/18 16:00 16:40 WBC RBC Hgb Hct MCV MCH MCHC RDW Plt Count MPV Neut % (Auto) Lymph % (Auto) [place] % (Auto) Eos % (Auto) Baso % (Auto) Lymph # (Auto) [place] # (Auto) Eos # (Auto) Baso # (Auto) Absolute Neuts (auto) PT INR APTT pCO2 58 H pO2 131.0 H HCO3 42.2 H* ABG pH 7.47 H ABG Total CO2 44.0 H ABG O2 Saturation 100.2 H ABG Base Excess 15.6 H ABG Potassium 4.0 VBG pH VBG pCO2 VBG HCO3 VBG Total CO2 VBG O2 Sat (Calc) VBG Base Excess VBG Potassium Glucose 116 H Lactate 1.4 FiO2 32.0 Sodium 145.0 Potassium Chloride 107.0 Carbon Dioxide Anion Gap BUN Creatinine Est GFR ( Amer) Est GFR (Non-Af Amer) POC Glucose (mg/dL) Random Glucose Calcium Magnesium Total Bilirubin AST ALT Alkaline Phosphatase Lactate Dehydrogenase Total Creatine Kinase Troponin I NT-Pro-B Natriuret Pep Total Protein Albumin Globulin Albumin/Globulin Ratio Arterial Blood Potassium 4.0 Venous Blood Potassium Urine Color Urine Appearance Urine pH Ur Specific [place] Urine Protein Urine Glucose (UA) Urine Ketones Urine Blood Urine Nitrate Urine Bilirubin Urine Urobilinogen Ur Leukocyte Esterase Urine RBC Urine WBC Ur Epithelial Cells Urine Bacteria Influenza Typ A,B (EIA) Negative for flu a/b Assessment & Plan - Assessment and Plan (Free Text) Assessment: Brief history of present illness: An 83 year old female, who was brought to the ER by family member due to altered mental status. Family claimed not opening her eyes and not responding to verbal stimuli. She was just discharged from [facility] 2 days ago admitted for similar symptoms. History of chronic atrial fibrillation, no anticoagulation by family request/choice, diastolic dysfunction congestive heart failure ,chronic renal insufficiency,chronic leg edema, hypertension, hyperlipidemia, TIA, gastrointestinal bleeding, vaginal bleeding (was on Aspirin and stopped). Follows up with Dr Bri Porras. Consult was called to evaluate congestive heart failure. Chest X ray showed small right pleural effusion, no vascular gian estion. Right pleural effusion improved compared to last CT of chest from previous admission. BNP elevated but clinically patient is not in heart failure,semi-lying in bed, Echo done 08/29/18 and showed borderline concentric LVH, LVEF 60-65%, (atrial fibrillation). Moderate to severely dilated RV, mild to moderate valvular aortic stenosis,moderate mitral regurgitation, severe tricuspid regurgitation RVSP 87 mmHg, severe pulmonary hypertension. Ruled out acute congestive heart failure. CT of head no bleeding/hemorrhage. Plan: No distress, family at bedside Heart rate stable Blood pressure stable Cardiac status stable Continue Lasix 40 mg daily, Continue current treatment Continue current medications Weight reduction Further recommendations during hospital course Will follow up Plan and treatment discussed with Dr. Rudd - Date & Time Date: 09/02/18 Time: 06:30
--- NOTE | 2018-09-02 10:58 | CARD ---
APPROVED REPORT Date of service: 09/01/2018 EKG Measurement Heart [id number] <Conclusion> Atrial fibrillation Septal infarct, age undetermined Non specific T-wave changes Abnormal ECG
[2018-09-02] MEDS: Dextrose 5%/0.45% NS 1,000 ML IV SCH (12:58)
--- NOTE | 2018-09-02 13:11 | CP.PCM.CON ---
History of Present Illness - History of Present Illness History of Present Illness: Neurology Consultation Note: Consult requested by Dr. Diaz Mrs. Duran is an 83-year-old woman with a past medical history of atrial fibrillation (not on anticoagulation) diastolic dysfunction congestive heart failure, CKD, HTN, HLD, TIA, previous GI bleed, who was brought in by family for worsening mental status and lethargy. According to records the patient has had similar episodes in the past and after developing an acute encephalopathy, she recovers spontaneously and returns to baseline. About 6 months ago, she was in the hosptial and was having sublinical seizures and was also diagnosed with subclinical status epilepticus. She was treated successfully and discharged. I discussed the case with Dr. Gutiérrez and agreed that the patient should be on an AED considering her history and current presentation. We started Keppra 1000 mg BID and also recommended continuous EEG and close observation in the ICU. The family refused ICU admission at the time. I spoke with the patient's daughter today at length, and she expressed concern about using Keppra since the patient had psychiatric symptoms in the past with i t. That is why the family stopped giving it to her. Past Patient History - Infectious Disease Hx of Infectious Diseases: None - Past Social History Smoking Status: Never Smoked - CARDIAC Hx Cardiac Disorders: Yes (Afib, palpittions) Hx Cardia Arrhythmia: Yes Hx Congestive Heart Failure: Yes Hx Hypertension: Yes Hx Peripheral Edema: Yes (ble +3 pitting edema) Other/Comment: circulation problems - PULMONARY Hx Respiratory Disorders: No - NEUROLOGICAL Hx Neurological Disorder: Yes (ams) - HEENT Hx HEENT Problems: Yes Hx Cataracts: Yes (b/l sx) - RENAL Hx Chronic Kidney Disease: Yes Hx Renal Failure: Yes (CKD) - ENDOCRINE/METABOLIC Hx Endocrine Disorders: No - HEMATOLOGICAL/ONCOLOGICAL Hx Blood Disorders: No - INTEGUMENTARY Hx Dermatological Problems: Yes Other/Comment: ble +3 pitting edema red dry tight skin, with skin breakdown, hands swollen, 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 - MUSCULOSKELETAL/RHEUMATOLOGICAL Hx Falls: No - GASTROINTESTINAL Hx Gastrointestinal Disorders: Yes (GI BLEED,H PYLORI, obese) Other/Comment: constipated when in the hospital, no bm x1 wk, was discharged on 08/30/18, was given miralax but it didn't work as pr son - GENITOURINARY/GYNECOLOGICAL Hx Genitourinary Disorders: Yes (INCONTINENT) Hx Incontinence: Yes (overactive bladder) Other/Comment: post menapauseal bleeding - PSYCHIATRIC Hx Substance Use: No - SURGICAL HISTORY Hx Surgeries: Yes Hx Cardiac Catheterization: Yes Hx Coronary Stent: Yes Other/Comment: cardiac catherization, cardiac stent - ANESTHESIA Hx Anesthesia: Yes Hx Anesthesia Reactions: No Hx Malignant Hyperthermia: No Meds Allergies/Adverse Reactions: Allergies Allergy/AdvReac Type Severity Reaction Status Date / Time dabigatran etexilate mesylate Allergy Intermediate ANGIOEDEMA Verified 09/01/18 15:12 [From Pradaxa] Penicillins Allergy RASH Verified 09/01/18 15:12 rofecoxib [From Vioxx] Allergy FATIGUE Verified 09/01/18 15:12 warfarin AdvReac Unknown ITCHING Verified 09/01/18 15:12 pravastatin AdvReac RASH Verified 09/01/18 15:12 - Medications Medications: Current Medications Furosemide (Lasix) 40 mg IVP DAILY [facility] Last Admin: 09/02/18 09:32 Dose: 40 mg Levetiracetam (Keppra 1000mg/100ml Ns) 100 mls @ 460 mls/hr IV Q12 [facility] Last Admin: 09/02/18 09:32 Dose: 460 mls/hr Dextrose/Sodium Chloride (Dextrose 5%/0.45% Ns 1000 Ml) 1,000 mls @ 40 mls/hr IV .Q24H [facility] Last Admin: 09/02/18 12:58 Dose: 40 mls/hr Levalbuterol HCl (Xopenex) 1.25 mg IH [id number] [facility] Last Admin: 09/02/18 07:37 Dose: 1.25 mg Pantoprazole Sodium (Protonix Inj) 40 mg IVP DAILY [facility] Last Admin: 09/02/18 09:32 Dose: 40 mg Physical Exam - Constitutional Appears: Confused - Head Exam Head Exam: ATRAUMATIC, NORMAL INSPECTION, NORMOCEPHALIC - Eye Exam Eye Exam: EOMI, Normal appearance, PERRL Pupil Exam: NORMAL ACCOMODATION, PERRL - ENT Exam ENT Exam: Mucous Membranes Moist, Normal Exam - Neck Exam Neck exam: Positive for: Normal Inspection - Respiratory Exam Respiratory Exam: Clear to Auscultation Bilateral, NORMAL BREATHING PATTERN - Cardiovascular Exam Cardiovascular Exam: REGULAR RHYTHM, +S1, +S2 - GI/Abdominal Exam GI & Abdominal Exam: Normal Bowel Sounds, Soft. absent: Tenderness - Extremities Exam Extremities exam: Positive for: normal inspection - Back Exam Back exam: NORMAL INSPECTION - Neurological Exam Neurological exam: Altered, CN II-XII Intact, Reflexes Normal Additional comments: Confused, does not open eyes spontaneously, repeats the same phrase and does not follow commands. - Psychiatric Exam Psychiatric exam: Normal Affect, Normal Mood - Skin Skin Exam: Dry, Intact, Normal Color, Warm Results - Vital Signs Recent Vital Signs: Last Vital Signs Temp 97.7 F 09/02/18 06:00 Pulse 79 09/02/18 10:00 Resp 20 09/02/18 06:00 BP 119/65 09/02/18 09:32 Pulse Ox 98 09/02/18 06:00 - Labs Result Diagrams: 09/01/18 15:33 09/01/18 15:33 Labs: Laboratory Results - last 24 hr 09/01/18 09/01/18 09/01/18 15:06 15:33 15:33 WBC 8.2 RBC 3.17 L Hgb 9.2 L Hct 30.7 L MCV 96.8 MCH 29.0 MCHC 30.0 L RDW 16.8 H Plt Count 194 MPV 9.7 Neut % (Auto) 77.7 H Lymph % (Auto) 13.0 L [place] % (Auto) 6.9 H Eos % (Auto) 1.9 Baso % (Auto) 0.5 Lymph # (Auto) 1.1 L [place] # (Auto) 0.6 Eos # (Auto) 0.2 Baso # (Auto) 0.04 Absolute Neuts (auto) 6.40 PT 16.0 H INR 1.44 APTT 29.9 pCO2 pO2 HCO3 ABG pH ABG Total CO2 ABG O2 Saturation ABG Base Excess ABG Potassium VBG pH VBG pCO2 VBG HCO3 VBG Total CO2 VBG O2 Sat (Calc) VBG Base Excess VBG Potassium Glucose Lactate FiO2 Sodium Potassium Chloride Carbon Dioxide Anion Gap BUN Creatinine Est GFR ( Amer) Est GFR (Non-Af Amer) POC Glucose (mg/dL) 143 H Random Glucose Calcium Magnesium Total Bilirubin AST ALT Alkaline Phosphatase Lactate Dehydrogenase Total Creatine Kinase Troponin I NT-Pro-B Natriuret Pep Total Protein Albumin Globulin Albumin/Globulin Ratio Arterial Blood Potassium Venous Blood Potassium Urine Color Urine Appearance Urine pH Ur Specific [place] Urine Protein Urine Glucose (UA) Urine Ketones Urine Blood Urine Nitrate Urine Bilirubin Urine Urobilinogen Ur Leukocyte Esterase Urine RBC Urine WBC Ur Epithelial Cells Urine Bacteria Influenza Typ A,B (EIA) 09/01/18 09/01/18 09/01/18 15:33 15:40 16:00 WBC RBC Hgb Hct MCV MCH MCHC RDW Plt Count MPV Neut % (Auto) Lymph % (Auto) [place] % (Auto) Eos % (Auto) Baso % (Auto) Lymph # (Auto) [place] # (Auto) Eos # (Auto) Baso # (Auto) Absolute Neuts (auto) PT INR APTT pCO2 pO2 56 H HCO3 ABG pH ABG Total CO2 ABG O2 Saturation ABG Base Excess ABG Potassium VBG pH 7.46 H VBG pCO2 64.0 H VBG HCO3 45.5 H VBG Total CO2 47.5 H VBG O2 Sat (Calc) 92.2 H VBG Base Excess 18.1 H VBG Potassium 4.0 Glucose 124 H Lactate 1.7 FiO2 21.0 Sodium 146 144.0 Potassium 4.2 Chloride 100 106.0 Carbon Dioxide 41 H Anion Gap 9 L BUN 48 H Creatinine 1.1 Est GFR ( Amer) 57 Est GFR (Non-Af Amer) 47 POC Glucose (mg/dL) Random Glucose 127 H Calcium 9.1 Magnesium 1.8 Total Bilirubin 2.0 H AST 44 H ALT 22 Alkaline Phosphatase 51 Lactate Dehydrogenase 1167 H Total Creatine Kinase 48 Troponin I 0.03 D NT-Pro-B Natriuret Pep 52253 H Total Protein 6.6 Albumin 3.1 Globulin 3.5 Albumin/Globulin Ratio 0.9 L Arterial Blood Potassium Venous Blood Potassium 4.0 Urine Color Yellow Urine Appearance Clear Urine pH 6.5 Ur Specific [place] 1.010 Urine Protein 30 H Urine Glucose (UA) Negative Urine Ketones Negative Urine Blood Large H Urine Nitrate Negative Urine Bilirubin Negative Urine Urobilinogen 2.0 H Ur Leukocyte Esterase Moderate H Urine RBC 10 - 15 H Urine WBC 10 - 15 H Ur Epithelial Cells 1 - 3 Urine Bacteria Mod Influenza Typ A,B (EIA) 09/01/18 09/01/18 09/02/18 16:00 16:40 11:22 WBC RBC Hgb Hct MCV MCH MCHC RDW Plt Count MPV Neut % (Auto) Lymph % (Auto) [place] % (Auto) Eos % (Auto) Baso % (Auto) Lymph # (Auto) [place] # (Auto) Eos # (Auto) Baso # (Auto) Absolute Neuts (auto) PT INR APTT pCO2 58 H pO2 131.0 H HCO3 42.2 H* ABG pH 7.47 H ABG Total CO2 44.0 H ABG O2 Saturation 100.2 H ABG Base Excess 15.6 H ABG Potassium 4.0 VBG pH VBG pCO2 VBG HCO3 VBG Total CO2 VBG O2 Sat (Calc) VBG Base Excess VBG Potassium Glucose 116 H Lactate 1.4 FiO2 32.0 Sodium 145.0 Potassium Chloride 107.0 Carbon Dioxide Anion Gap BUN Creatinine Est GFR ( Amer) Est GFR (Non-Af Amer) POC Glucose (mg/dL) 91 Random Glucose Calcium Magnesium Total Bilirubin AST ALT Alkaline Phosphatase Lactate Dehydrogenase Total Creatine Kinase Troponin I NT-Pro-B Natriuret Pep Total Protein Albumin Globulin Albumin/Globulin Ratio Arterial Blood Potassium 4.0 Venous Blood Potassium Urine Color Urine Appearance Urine pH Ur Specific [place] Urine Protein Urine Glucose (UA) Urine Ketones Urine Blood Urine Nitrate Urine Bilirubin Urine Urobilinogen Ur Leukocyte Esterase Urine RBC Urine WBC Ur Epithelial Cells Urine Bacteria Influenza Typ A,B (EIA) Negative for flu a/b Assessment & Plan (1) Encephalopathy acute Assessment and Plan: The patient has a history of subclinical status epilepticus and this was in relation to her previous underlying infection. She was to remain in Keppra, but family stopped it due to psychiatric side effects. I recommend stopping Keppra now and starting Depakote 500 mg BID instead. Will start continuous video EEG and follow up for effect of AED. Will titrate accordingly. Thank you for this consultation. Status: Acute
[2018-09-02] MEDS ORDERED: Valproate 500 MG in Sodium Chloride 0.9% 100 ML IVPB SCH (14:00)
--- NOTE | 2018-09-02 20:57 | PN ---
DATE: 09/02/2018 SUBJECTIVE: The patient is 83 years old, seen and examined, seemed to be lethargic, only responding to painful stimulus, not very communicative. PHYSICAL EXAMINATION: VITAL SIGNS: She is afebrile, pulse 79, respirations 20, blood pressure 119/65. LUNGS: Bilateral decreased breath sounds at the bases. HEART: S1 and S2 audible, regular rate controlled. ABDOMEN: Soft, nontender. No rebound. No guarding. NEUROLOGIC: Patient is lethargic, minimally responsive. LABORATORY DATA: Flu test is negative. Urine positive for gram-positive jimmy. Blood cultures are negative. On 08/28/2018, her urine was positive for Enterococcus faecalis. ASSESSMENT: 1. Altered mental status and lethargy. 2. Enterococcus faecalis urinary tract infection. 3. History of congestive heart failure. 4. History of hypertension. 5. Coronary artery disease. PLAN: Currently, patient is on meropenem as per ID. We will keep her n.p.o. since she is lethargic and unable to swallow, get a Neurology evaluation and get an EEG in the a.m. Follow up electrolytes. Katerin Diaz MD
[2018-09-02] MEDS: Meropenem IV 1 gm in NS 1 GM/50 ML BAG IVPB SCH (21:34)
--- NOTE | 2018-09-02 22:05 | CON ---
DATE OF CONSULTATION: 09/02/2018 The patient is seen earlier today in Room 367, Bed 2. The patient's daughters are present and give history. The patient's daughter states that the patient was just discharged; however, after getting home, on the day of discharge, the patient was at normal baseline, however at night next day the patient had a change of mental status. HISTORY OF PRESENT ILLNESS: This is an 83-year-old female with atrial fibrillation, congestive heart failure, coronary artery disease, cataracts, TIA, hypertension, GI bleed, enterococcus urinary tract infection, asymptomatic bacteriuria and kidney disease. The patient's congestive heart failure is systolic congestive heart failure with cataract, also who is allergic to penicillin and now admitted with diagnosis of congestive heart failure and the patient's mental status is poor, but review of systems reveals the patient did not have any fevers, any chills. However, the daughter states that because of her mental status, it is difficult to obtain an accurate history with no fevers, no chills, no nausea, no abdominal pain, diarrhea or constipation. PAST MEDICAL HISTORY: Significant for atrial fibrillation, systolic congestive heart failure, kidney disease, cataract, coronary artery disease, TIA, hypertension, GI bleed, enterococcus urinary tract infection, asymptomatic bacteriuria. PAST SURGICAL HISTORY: Significant for cataract surgery, cardiac catheterization with stent placement. MEDICATIONS AT HOME: Reveals the patient to be on potassium, metoprolol, Zestril. ALLERGIES: THE PATIENT IS ALLERGIC TO PENICILLIN, TYPE OF ALLERGY IS NOT CLEAR, QUESTIONABLE RASH. REVIEW OF SYSTEMS: A 12-point review of systems is performed. PHYSICAL EXAMINATION: VITAL SIGNS: The patient's temperature is 97, T-max is 99.3, blood pressure is 140/60, respiratory rate of 20, was up to 26, and the heart rate was up to 85. HEENT: Unremarkable. NECK: Supple. LUNGS: Have decreased breath sounds. HEART: Normal S1, S2. ABDOMEN: Soft, nontender. LABORATORY EXAMINATION: White count of 8.2, hemoglobin of 9, platelets of 194,000. Chemistries reveal a BUN of 48, creatinine of 1.1. BNP is 12,000. Urinalysis is noted, 10-15. Serologies and influenza is negative. Microbiology is gram-positive cocci in the urine. The patient did have 300,000 colonies of gram-positive cocci in the urine. The blood cultures are pending. On the last admission, the patient had Enterococcus fecalis, sensitive to ampicillin. ASSESSMENT/PLAN: The patient is an 83-year-old female with 1. Acute systolic congestive heart failure with bacteriuria. It is not clear at this point if she is asymptomatic. We will treat the patient with meropenem. The patient was given a dose of vancomycin and we will follow her mental status. The patient's both daughters are present at the room. We will follow up the cultures and make further recommendations and we will discuss with them. Alin Mckay MD
[2018-09-03] MEDS: Levalbuterol 1.25 MG/3 ML Inhal Soln UD IH SCH ×4 (01:59→20:38)
[2018-09-03] MEDS ORDERED: Levalbuterol 1.25 MG/3 ML Inhal Soln UD IH STA (05:20)
[2018-09-03 07:21] LABS: ALB/GLOB RATIO 0.9 (1.1-1.8); ALBUMIN 2.9 g/dL (3.0-4.8); ALT/SGPT 22 U/L (7-56); AST/SGOT 43 U/L (14-36); BLOOD UREA NITROGEN 42 mg/dL (7-21); CALCIUM 8.7 mg/dL (8.4-10.5); GFR NON-AFRICAN AMERICAN 53
--- NOTE | 2018-09-03 09:08 | PCM.VEEG ---
Video EEG - Procedure Start Date: 09/02/18 Start Time: 15:50 End Date: 09/03/18 End Time: 08:50 Technical Summary: DATA ACQUISITION: This was a multichannel inpatient video-EEG, a minimum of 22 channels were uti lized, performed in accordance with recommendations specified by the [place] [employer] (Gio Jarrett et al. ACNS Guideline 1: Minimum Technical Requirements for Performing Clinical Electroencephalography. Journal of Clinical Neurophysiology 2016;33:303-7). The 10-20 electrode placement system was utilized in accordance with guidelines detailed by the International Federation of Clinical Neurophysiology (Manuel Augustin et al. The Ten-Twenty Electrode System of the International Federation. Recommendations for the Practice of Clinical Neurophysiology: Guidelines of the International Federation of Clinical Physiology 1999; EEG Suppl. 52.). DATA REVIEW / SPIKE DETECTION / DIGITAL ANALYSIS: The entire EEG was scanned and reviewed. Synchronized audio and video recording were reviewed at the time of each alarm and whenever an abnormality or suspicious activity was noted. The entire recording was analyzed utilizing an automated digital spike and seizure analysis program and all automatic spike and seizure detections were manually reviewed. A compressed spectral array was displayed and reviewed alongside the raw EEG tracings. In addition, further analysis of the EEG was performed when abnormalities were identified, including montage changes, dipole source localization, and frequency band identification. Video portion of the study is necessary to correlate abnormal EEG activity with clinical behavior. This study was attended 24 hours per day. - Interpretation Description of the study: Indication; status epilepticus EEG Finding during wakefulness: No awake architecture was seen, the EEG shows very frequent sharp waves with triphasic morphology that showed bi-frontal predominance, in between them the EEG showed diffuse bilateral slowing at 4 to5 Hz, When no triphasics were seen the EEG showed diffuse attenuated slowing. There was intermittent bitemporal slowing at 4 to 5 Hz , mainly seen during drowsiness and occasionally during wakefulness. Hyperventilation and photic stimulation were not performed EEG Finding during sleep: There was not discernible sleep. Interictal non-epileptiform abnormalities: There were frequent generalized paroxysmal discharges with triphasic morphology. As the study evolved the GPds became less frequent, and they were more conspicuous during transition from wakefulness to sleep or vice versa, that were seen in isolation or in rhythmic runs, lasting for several minutes. NO organized seizure activity was seen. Interictal epileptiform abnormalities: None Ictal epileptiform abnormalities: None - Impression Impression: This is an abnormal video-EEG monitoring study due to the presence of 1) Moderate diffuse background slowing, and EEG disorganization. 2) Generalized paroxysmal discharges with triphasic morphology, that were nearly continuous at the beginning of the test, and improved as the study went on. This EEG with triphasics sharp discharges, could be due to an encephalopathy or due to resolving status epilepticus, since there is a improvement of EEG during drowsiness and abnormalities are activated during wakefulness that supports an encephalopahty , rather than status epilepticus. INTERPRETATION: These findings are consistent with a moderate diffuse disturbance of cortical ac tivity, in keeping with a diffuse hannon matter dysfunction; these findings do not support a specific etiology. Less likely this is consistent with non convulsive status epielpticus. MANAGEMENT; I would suggest to continue monitoring for 24 hs, to see how the EEG behaves to come out with a more specific diagnosis.
[2018-09-03] MEDS: Meropenem IV 1 gm in NS 1 GM/50 ML BAG IVPB SCH ×2 (10:00→21:33)
--- NOTE | 2018-09-03 12:00 | RAD ---
Date of service: 09/03/2018 HISTORY: new onset cough COMPARISON: No prior. TECHNIQUE: 1 view obtained. FINDINGS: LUNGS: Diffuse infiltrate in the right lung. The left lung is clear PLEURA: No significant pleural effusion identified, no pneumothorax apparent. CARDIOVASCULAR: Aortic calcification Moderate cardiomegaly no pulmonary vascular congestion. OSSEOUS STRUCTURES: No significant abnormalities. VISUALIZED UPPER ABDOMEN: Normal. OTHER FINDINGS: None. IMPRESSION: Diffuse infiltrate in the right lung. The left lung is clear
[2018-09-03] MEDS: MethylPREDNISolone 40 mg Vial IV SCH ×2 (14:36→21:33)
[2018-09-03] MEDS: Dextrose 5%/0.45% NS 1,000 ML IV SCH (15:36)
--- NOTE | 2018-09-03 16:36 | PN ---
DATE: 09/03/2018 SUBJECTIVE: The patient is 83-year-old, seen and examined. Seems to be little more alert as per family who was at the bedside that she was communicating with them. She seems less confused currently getting EEG who has notice to have cough. Not sure if she aspirated. We will get an x-ray of chest stat. PHYSICAL EXAMINATION: VITAL SIGNS: She has a temperature of 99.3, pulse 82, respiration 20 and blood pressure 143/77. LUNGS: Bilateral fair airflow. crackle in the upper lung region in the throat. HEART: S1 and S2, audible. Irregular rate control. ABDOMEN: Soft, obese and nontender. No rebound. No guarding. NEUROLOGIC: The patient is sleepy, but arousable. ASSESSMENT: 1. Altered mental status. 2. Enterococcus faecalis urinary tract infection. 3. Lethargy. 4. History of congestive heart failure. 5. Chronic atrial fibrillation not on anticoagulants because of history of gastrointestinal bleed. PLAN: Currently, the patient is on IV fluid. Continue her or meropenem and give her dose of Solu-Medrol. Continue on nebulizer treatment. chest is negative. We will get swallow evaluation later on today to start feeding her. Katerin Diaz MD
--- NOTE | 2018-09-04 00:25 | PN ---
DATE: 09/03/2018 SUBJECTIVE: The patient is in bed, in no acute distress, seen earlier. The patient's mental status is unchanged. The patient has low grade fevers. PHYSICAL EXAMINATION: VITAL SIGNS: Temperature is 99.9, blood pressure is 140/70, respiratory rate of 16. HEENT: Unremarkable. NECK: Supple. LUNGS: Have decreased breath sounds. HEART: Normal S1, S2. ABDOMEN: Soft. LABORATORY DATA: Reveals a white count of 8.2, hemoglobin of 9, platelets of 194. Chemistries are noted and include BUN of 42, creatinine of 1.2. Urinalysis is noted and microbiology reveals Enterococcus faecalis and sensitive to ampicillin in the urine. Blood cultures are negative. Review of orders reveals the patient to be on meropenem. The patient is also on Solu-Medrol. The patient had a chest x-ray, diffuse infiltrate in her right lung. The left lung is clear. ASSESSMENT AND PLAN: This is an 83-year-old female with acute systolic congestive heart failure with bacteriuria which now grown to be Enterococcus faecalis urinary tract infection in a patient with now positive chest x-ray, shows healthcare-associated pneumonia with low grade fevers, heart rate of 97, and respiratory rate of 26. By definition, the patient has sepsis with healthcare-associated pneumonia and Enterococcus urinary tract infection and currently on meropenem since the patient is ALLERGIC TO DOXYCYCLINE and with negative blood cultures and the patient had a negative methicillin-resistant Staphylococcus aureus screen in the past. We will add doxycycline for a typical methicillin-resistant Staphylococcus aureus coverage. Today is day #2, would complete 4 to 7 days of antibiotics and doxycycline, meropenem. Alin Mckay MD
--- NOTE | 2018-09-04 00:38 | CON ---
DATE: 09/03/2018 CARDIOLOGY CONSULT REASON FOR THE CONSULTATION: Followup cardiac evaluation, history of atrial fibrillation, rule out congestive heart failure. BRIEF CLINICAL HISTORY: This is an 83-year-old female with past medical history significant for chronic atrial fibrillation, bilateral lower extremity edema, history of TIA, history of hypertension, recently started 2 days ago; history of recurrent urinary tract infection, readmitted because of this as per family. The patient was found to be confused. Cardiology consultation was called to rule out CHF. The patient is very weak, lethargic, not in apparent distress. Denies any chest pain, denies any shortness of breath, denies any palpitation. PAST MEDICAL HISTORY: Significant for TIA, congestive heart failure, recurrent UTI, history of chronic atrial fibrillation on anticoagulation, history of GI bleed. Family does not want, especially son does not want anticoagulation. History of recent vaginal bleed and history of examination and D and C was done. PREVIOUS CARDIAC WORKUP: The patient had a recent echocardiography dated 08/29/2018 that revealed ejection fraction of 60% to 65%, atrial fibrillation, right ventricle is [id number]-[id number] dilated, systolic function of RV is moderately reduced, mild-to,moderate valvular aortic stenosis, moderate mitral regurgitation, severe tricuspid regurgitation, RV systolic pressure of 87, severe pulmonary hypertension. The patient was in AFib at the time of the study. History of GI bleed. Liwn-nn-syndhhqa aortic stenosis. History of chronic atrial fibrillation. CURRENT MEDICATIONS: The patient is taking at home potassium chloride, metoprolol, lisinopril and furosemide 40 mg daily. ALLERGY: PENICILLIN, WARFARIN, DABIGATRAN THAT IS PRADAXA PER HISTORY OF PRESENT ILLNESS. PHYSICAL EXAMINATION: As follows: GENERAL: Height of the patient is 5 feet 2 inches, weight of the patient 204 pounds, body mass index 35 kg/m2. VITAL SIGNS: Temperature is 190, blood pressure is 119/71. HEENT: PERRLA, extraocular muscles intact. NECK: Supple. No carotid bruit or thyromegaly. CHEST: Clear to auscultation. HEART: S1 and S2 regular. ABDOMEN: Soft. EXTREMITIES: Clubbing and cyanosis negative. LABORATORY DATA: Blood workup as follows: WBC of 8.2, hemoglobin of 9.2, hematocrit of 30.7, platelet count of 194. Chemistry shows sodium of 147, potassium of 3.2, chloride of 104, carbon dioxide of 41, anion gap of 6, BUN 42, creatinine 1.0. Total protein of 6.2, albumin of 2.9, albumin/globulin ratio is 0.9. IMPRESSION: This is an 83-year-old female with past medical history significant for chronic atrial fibrillation, not on anticoagulation as per family, this patient's son does not want; admitted with altered mental status, history of recurrent urinary tract infection, recently discharged 2 days ago when the patient admitted with altered mental status. Recent echocardiogram shows preserved left ventricle function, ejection fraction of 60% to 65%, licg-dn-apuevylu mitral regurgitation, ilhw-dc-rjytztht aortic stenosis, ntol-xr-kxfyjqqs tricuspid regurgitation, mild pulmonary hypertension. Recent echocardiogram dated 08/29/2018 revealed preserved left ventricular function, ejection fraction 60% to 65% and there is djvi-az-meldnsik valvular aortic stenosis, mssokuvz-mr-wbhnnr regurgitation, severe tricuspid regurgitation, right ventricular systolic pressure of 87, severe pulmonary hypertension, admitted with altered mental status, confused, possible large urine leukocyte esterase, possible urinary tract infection. RECOMMENDATION: Panculture, broad-spectrum antibiotics. Continue gentle diuretics. The patient's family does not want anticoagulation. The patient has right-sided failure secondary to elevated right-sided pressure and pulmonary hypertension. Continue gentle diuretics. History of chronic bilateral leg edema, altered mental status most likely secondary to sepsis, continue broad-spectrum antibiotics as per ID. We will follow with you. Continue gentle diuretics. The patient take care of urinary tract infection, possibly this caused precipitating this event. Because of the mental status, the patient is having EEGs and . We will follow with you. Thank you Dr. Diaz for providing use the opportunity in taking care of the patient Vicenta Duran. Rodolfo Rudd MD
[2018-09-04] MEDS: Levalbuterol 1.25 MG/3 ML Inhal Soln UD IH SCH ×4 (01:23→20:13)
[2018-09-04] MEDS: MethylPREDNISolone 40 mg Vial IV SCH ×3 (05:17→21:37)
[2018-09-04 07:29] LABS: HEMOGLOBIN 9.1 g/dL (12.0-16.0); LYMPH # 0.2 (1.2-3.4); LYMPH % 3.2 % (22.0-35.0); MEAN CELL VOLUME 99.7 fl (80.0-105.0); MEAN CORPUSCULAR HEMOGLOBIN 28.4 pg (25.0-35.0); MEAN CORPUSCULAR HGB CONC 28.5 g/dl (31.0-37.0); MEAN PLATELET VOLUME 9.3 fl (7.0-11.0); MONO # 0.1 (0.1-0.6); MONO % 1.2 % (1.0-6.0); PLATELET COUNT 164 10^3/uL (120.0-450.0); WHITE BLOOD COUNT 5.7 10^3/uL (4.5-11.0)
[2018-09-04 08:14] LABS: HYPOCHROMIA SLIGHT; LYMPHOCYTE 2 % (22.0-35.0); NEUTROPHIL 98 % (50.0-70.0); OVALOCYTES SLIGHT; POIKILOCYTOSIS SLIGHT
[2018-09-04 08:15] LABS: PLATELET ESTIMATE NORMAL (NORMAL)
[2018-09-04] MEDS: Aztreonam 1 Gm in NS 100mL 100 ML IVPB SCH ×3 (12:28→22:51)
[2018-09-04] MEDS: Vancomycin 750mg 750 MG/250 ML BAG IVPB SCH ×2 (12:29→21:52)
--- NOTE | 2018-09-04 13:32 | CP.PCM.APN ---
Subjective - Date & Time of Evaluation Date of Evaluation: 09/04/18 Time of Evaluation: 20:00 - Subjective Subjective: pt seen and examined at bedside, pt with son present translating Monegasque, pt lethargic but opens eyes to verbal and tactile stimuli Review of Systems - Constitutional Constitutional: As Per HPI Objective - Vital Signs/Intake and Output Vital Signs (last 24 hours): Temp Pulse Resp BP Pulse Ox 98.2 F 74 19 121/64 99 09/04/18 12:00 09/04/18 12:00 09/04/18 12:00 09/04/18 12:00 09/04/18 05:39 Intake and Output: 09/04/18 09/04/18 06:59 18:59 Intake Total 540 Output Total 1650 Balance -1110 - Medications Medications: Current Medications Furosemide (Lasix) 40 mg IVP DAILY [facility] Last Admin: 09/04/18 10:28 Dose: 40 mg Dextrose/Sodium Chloride (Dextrose 5%/0.45% Ns 1000 Ml) 1,000 mls @ 40 mls/hr IV .Q24H [facility] Last Admin: 09/03/18 15:36 Dose: 40 mls/hr Doxycycline Hyclate 100 mg/ (Sodium Chloride) 100 mls @ 100 mls/hr IVPB Q12 [facility]; Protocol Last Admin: 09/04/18 10:29 Dose: 100 mls/hr Vancomycin HCl (Vancomycin 750 Mg In Ns) 750 mg in 250 mls @ 167 mls/hr IVPB Q12H [facility]; Protocol Last Admin: 09/04/18 12:29 Dose: 167 mls/hr Aztreonam (Azactam 1 Gm) 100 mls @ 100 mls/hr IVPB Q8 [facility]; Protocol Stop: 09/09/18 09:46 Last Admin: 09/04/18 12:28 Dose: Not Given Levalbuterol HCl (Xopenex) 1.25 mg IH [id number] [facility] Last Admin: 09/04/18 13:25 Dose: 1.25 mg Methylprednisolone (Solu-Medrol) 40 mg IV Q8 [facility] Last Admin: 09/04/18 05:17 Dose: 40 mg Pantoprazole Sodium (Protonix Inj) 40 mg IVP DAILY [facility] Last Admin: 09/04/18 10:28 Dose: 40 mg - Labs Labs: 09/04/18 07:00 09/03/18 06:30 PT 16.0 SECONDS (9.4-12.5) H 09/01/18 15:33 INR 1.44 09/01/18 15:33 APTT 29.9 Seconds (26.9-38.3) 09/01/18 15:33 - Constitutional Appears: No Acute Distress, Chronically Ill - Head Exam Head Exam: NORMAL INSPECTION - Eye Exam Eye Exam: Normal appearance - ENT Exam ENT Exam: Mucous Membranes Moist - Respiratory Exam Respiratory Exam: Decreased Breath Sounds, NORMAL BREATHING PATTERN - Cardiovascular Exam Cardiovascular Exam: +S1, +S2 - GI/Abdominal Exam GI & Abdominal Exam: Soft, Normal Bowel Sounds - Extremities Exam Extremities Exam: Normal Capillary Refill - Neurological Exam Neurological Exam: Awake Additional comments: lethargic, bouts of confusion Assessment and Plan - Assessment and Plan (Free Text) Plan: ITS Impressions Chest X-Ray 09/01/18 15:20 IMPRESSION: Small right pleural effusion. Cardiomegaly. Head CT 09/01/18 15:20 IMPRESSION: No intracranial mass, hemorrhage or evidence of acute infarct. Age related white matter ischemic change. Examination limited by patient motion artifact. Chest X-Ray 09/03/18 11:26 IMPRESSION: Diffuse infiltrate in the right lung. The left lung is clear Microbiology 09/01/18 15:50 Blood Blood Culture - Preliminary NO GROWTH AFTER 48 HOURS 09/01/18 15:36 Blood Blood Culture - Preliminary NO GROWTH AFTER 48 HOURS 09/01/18 16:00 Urine Random Urine Culture - Final Enterococcus Faecalis A/P 83 yr old uruguayan speaking female with pmh sig for chronic afib, HLD, GI bleed, chronic LE edema, CHF, gastritis who was recently Dc home with family now presented to the ED with worsening confusion and AMS now admitted for futher evaluation with cardio, neurology and ID evaluation. Head ct noted normal, pt with positive UC and right lung infiltrate with IV antibiotic regimen of Vanco and Azactam and ID consultation noted. Low grade fever noted 5/6. pt failed swallow eval and is maintained NPO, with repeat swallow eval pending. Aspiration precautions maintained due to lethargy and dysphagia. pt s/p EEG with results pending discussed patient status with son at bedside re : UC and infiltrate and antibiotic regimen family amenable to rehab vs taking pt home when clinically improved. pt discussed in IDT rounds BPCI/TIC - BPCIA/TIC Educated pt/family on BPCIA/CIR/Med to Bed Programs: Yes Flyers given, including CMS Beneficiary letter: Yes Pt/family verbalized understanding & agreed to program: Yes
[2018-09-04] MEDS: Dextrose 5%/0.45% NS 1,000 ML IV SCH (13:41)
--- NOTE | 2018-09-04 14:03 | PN ---
DATE: 09/04/2018 SUBJECTIVE: The patient is 83 years old, seen and examined, seems to be much more awake and alert. She states she is hungry and want to eat, I fed her . Without choking, she was able to swallow. PHYSICAL EXAMINATION: VITAL SIGNS: She is afebrile. Pulse 75, respirations 20, and blood pressure 126/72. LUNGS: Bilateral fair airflow. No rhonchi or crackles. HEART: S1 and S2, audible. ABDOMEN: Soft, obese and nontender. No rebound. No guarding. NEUROLOGIC: She is awake and alert, able to communicate. LABORATORY DATA: WBC 5.7, hemoglobin 9.1, hematocrit 31.9, and platelets of 164. Chemistry, sodium 143. Her urinalysis shows Enterococcus faecalis. Blood cultures are negative. ASSESSMENT: 1. Status post altered mental status, probably secondary to Enterococcus faecalis, urinary tract infection. 2. History of hypertension. 3. Congestive heart failure. 4. Chronic atrial fibrillation. 5. History of gastrointestinal bleed. 6. Chronic anemia. 7. Right lung pneumonia, probably aspiration. PLAN: Currently, the patient is on Azactam. She is on doxycycline and she is on vancomycin, we will continue that as per ID recommendation. We will discontinue IV fluids, order for pureed diet, and we will reevaluate the patient in a.m. We will discontinue telemetry. Out of bed to chair and physical therapy evaluation has been requested. Katerin Diaz MD
--- NOTE | 2018-09-04 17:02 | PN ---
DATE: 09/04/2018 REASON FOR THE CONSULTATION AND FOLLOWUP: Cardiac evaluation, history of atrial fibrillation, rule out congestive heart failure. SUBJECTIVE: The patient denies any chest pain, shortness of breath or any palpitation. Much awake and alert. Son is at the bedside. PHYSICAL EXAMINATION: VITAL SIGNS: Temperature afebrile, heart rate 75, blood pressure is 126/72. HEENT: PERRLA, extraocular muscles intact. NECK: Supple. No carotid bruit or thyromegaly. CHEST: Clear to auscultation. HEART: S1, S2. Regular. ABDOMEN: Soft. EXTREMITIES: Clubbing, cyanosis negative. LABORATORY DATA: Blood workup as follows: WBC 5.3, hemoglobin 9.3, hematocrit of 31.9, platelet count 164. Chemistry shows sodium 147, potassium 3.8, chloride 104, carbon dioxide 41, anion gap of 6, BUN 42, creatinine 1. IMPRESSION: An 83-year-old female with past medical history significant for chronic atrial fibrillation, not on anticoagulation as per family, admitted after recently being discharged for a day or two with altered mental status. The patient is being treated with intravenous antibiotics, mentation significantly improved. Last echo dated 08/29/2018 showed preserved left ventricular function, , olmw-ng-qgleyomp valvular aortic stenosis, lyrs-vd-iaawqcnl mitral regurgitation, severe tricuspid regurgitation, right ventricular systolic pressure 87, severe pulmonary hypertension. RECOMMENDATION: Continue broad-spectrum antibiotics. Monitor H and H. CV status is stable. Heart rate is stable. Consider discontinue telemetry. Discussed with the son at length. We will repeat the blood workup in the morning. We will follow with you. Thank you Dr. Diaz for providing use the opportunity in taking care of the patient, Vicenta Duran. Rodolfo Rudd MD
--- NOTE | 2018-09-04 23:19 | PN ---
DATE: 09/04/2018 SUBJECTIVE: The patient is in bed, in no acute distress, nontoxic. PHYSICAL EXAMINATION: VITAL SIGNS: Temperature is 98, blood pressure is 120/60, respiratory rate of 20, heart rate of 75. HEENT: Unremarkable. NECK: Supple. LUNGS: Decreased breath sounds. HEART: Normal S1, S2. ABDOMEN: Soft. LABORATORY EXAMINATION: Reveals a white count of 5.7, hemoglobin of 9. Chemistries are noted. Creatinine is 1. Urinalysis is noted. Serology is noted. Microbiology: Enterococcus faecalis in the urine, sensitive to ampicillin. ASSESSMENT AND PLAN: This is an 83-year-old female with acute systolic congestive heart failure and Enterococcus bacteriuria with healthcare-associated pneumonia. Had been complaining of itching this morning, possibly from meropenem, although there is no eosinophilia in the complete blood count. We will continue to treat with vancomycin. We will discontinue the meropenem and treat the patient with vancomycin, aztreonam and doxycycline. We will follow closely with you. Alin Mckay MD
[2018-09-05] MEDS: Levalbuterol 1.25 MG/3 ML Inhal Soln UD IH SCH ×4 (02:30→21:00)
[2018-09-05] MEDS: MethylPREDNISolone 40 mg Vial IV SCH ×3 (05:34→21:25)
[2018-09-05] MEDS: Aztreonam 1 Gm in NS 100mL 100 ML IVPB SCH ×3 (05:34→21:24)
[2018-09-05 06:52] LABS: BASO # 0.01 K/mm3 (0.0-2.0); BASO % 0.1 % (0.0-3.0); HEMOGLOBIN 9.1 g/dL (12.0-16.0); LYMPH # 0.2 (1.2-3.4); LYMPH % 2.3 % (22.0-35.0); MEAN CELL VOLUME 100.7 fl (80.0-105.0); MEAN CORPUSCULAR HEMOGLOBIN 29.8 pg (25.0-35.0); MEAN CORPUSCULAR HGB CONC 29.6 g/dl (31.0-37.0); MEAN PLATELET VOLUME 10.6 fl (7.0-11.0); MONO # 0.4 (0.1-0.6); MONO % 3.5 % (1.0-6.0); RBC 3.05 10^6/uL (3.5-6.1); RED CELL DISTRIBUTION WIDTH 17.2 % (11.5-14.5)
[2018-09-05 06:53] LABS: CALCIUM 8.8 mg/dL (8.4-10.5)
--- NOTE | 2018-09-05 07:53 | CP.PCM.PN ---
Subjective - Date & Time of Evaluation Date of Evaluation: 09/05/18 Time of Evaluation: 06:35 - Subjective Subjective: Awake, alert, no distress,family at bedside Reason for consultation and follow up: Cardiac evaluation for congestive heart failure, admitted for altered mental status,History of chronic atrial fibrillation, no anticoagulation by family request/choice, diastolic dysfunction congestive heart failure ,chronic renal insufficiency, hypertension, hyperlipidemia, TIA Seen ad examined by me and Dr. Rudd Objective - Vital Signs/Intake and Output Vital Signs (last 24 hours): Temp Pulse Resp BP Pulse Ox 99 F 82 20 123/66 98 09/04/18 19:51 09/04/18 19:51 09/04/18 19:51 09/04/18 19:51 09/04/18 19:51 Intake and Output: 09/05/18 09/05/18 06:59 18:59 Intake Total 120 Output Total 800 Balance -680 - Medications Medications: Current Medications Furosemide (Lasix) 40 mg IVP DAILY [facility] Last Admin: 09/04/18 10:28 Dose: 40 mg Doxycycline Hyclate 100 mg/ (Sodium Chloride) 100 mls @ 100 mls/hr IVPB Q12 [facility]; Protocol Last Admin: 09/04/18 21:38 Dose: 100 mls/hr Vancomycin HCl (Vancomycin 750 Mg In Ns) 750 mg in 250 mls @ 167 mls/hr IVPB Q12H [facility]; Protocol Last Admin: 09/04/18 21:52 Dose: 167 mls/hr Aztreonam (Azactam 1 Gm) 100 mls @ 100 mls/hr IVPB Q8 [facility]; Protocol Stop: 09/09/18 09:46 Last Admin: 09/05/18 05:34 Dose: 100 mls/hr Levalbuterol HCl (Xopenex) 1.25 mg IH [id number] [facility] Last Admin: 09/05/18 02:30 Dose: 1.25 mg Methylprednisolone (Solu-Medrol) 40 mg IV Q8 [facility] Last Admin: 09/05/18 05:34 Dose: 40 mg Pantoprazole Sodium (Protonix Inj) 40 mg IVP DAILY [facility] Last Admin: 09/04/18 10:28 Dose: 40 mg - Labs Labs: 09/05/18 06:10 09/05/18 06:10 PT 16.0 SECONDS (9.4-12.5) H 09/01/18 15:33 INR 1.44 09/01/18 15:33 APTT 29.9 Seconds (26.9-38.3) 09/01/18 15:33 - Constitutional Appears: Non-toxic, No Acute Distress - Head Exam Head Exam: NORMAL INSPECTION, NORMOCEPHALIC - Eye Exam Eye Exam: Normal appearance Pupil Exam: NORMAL ACCOMODATION - ENT Exam ENT Exam: Mucous Membranes Moist, Normal Exam - Respiratory Exam Respiratory Exam: Decreased Breath Sounds, Rhonchi, NORMAL BREATHING PATTERN - Cardiovascular Exam Cardiovascular Exam: +S1, +S2 - GI/Abdominal Exam GI & Abdominal Exam: Soft, Normal Bowel Sounds - Extremities Exam Additional comments: bilateral leg edema with earnestine wrap - Neurological Exam Neurological Exam: Alert, Awake - Psychiatric Exam Psychiatric exam: Normal Affect, Normal Mood - Skin Skin Exam: Dry, Normal Color, Warm Assessment and Plan - Assessment and Plan (Free Text) Assessment: An 83 year old female, who was brought to the ER by family member due to altered mental status. Family claimed not opening her eyes and not responding to verbal stimuli. She was [place] [facility] [place] admitted for similar symptoms. History of chronic atrial fibrillation, no anticoagulation by family request/choice, diastolic dysfunction congestive heart failure ,chronic renal insufficiency,chronic leg edema, hypertension, hyperlipidemia, TIA, gastrointestinal bleeding, vaginal bleeding (was on Aspirin and stopped). Follows up with Dr Bri Porras. Consult was called to evaluate congestive heart failure. Chest X ray showed small right pleural effusion, no vascular congestion. Right pleural effusion improved compared to last CT of chest from previous admission. BNP elevated but clinically patient is not in heart failure,semi-lying in bed, Echo done 08/29/18 and showed borderline concentric LVH, LVEF 60-65%, (atrial fibrillation). Moderate to severely dilated RV, mild to moderate valvular aortic stenosis,moderate mitral regurgitation, severe tricuspid regurgitation RVSP 87 mmHg, severe pulmonary hypertension. Ruled out acute congestive heart failure. CT of head no bleeding/hemorrhage. Urinary tract infection, urine positive for entereococcus faecalis. ID on consult. Continue IV antibiotics per ID. Cardiac status stable. No further cardiac work up at this time. Plan: Awake, alert, wanted to get out of bed No distress, family at bedside Heart rate stable Blood pressure stable Cardiac status stable Continue Lasix 40 mg daily, Solumedrol 40 mg every 8 hours Continue current treatment Continue current medications Continue IV antibiotics per ID. ID on consult Weight reduction No further cardiac work up at this time. Will follow up Plan and treatment discussed with Dr. Rudd
[2018-09-05] MEDS: Vancomycin 750mg 750 MG/250 ML BAG IVPB SCH (10:00)
--- NOTE | 2018-09-05 11:29 | CP.PCM.PCO ---
Physician Communication Note - Physician Communication Note Physician Communication Note: pt seenand alexandrea at bedside with son, discuss plans with pmd and ID Additional Comments - Additional Comments Additional Comments: pt to continue iv antibitics x 7 days total per ID, day #4 today of IV antibiotic regimen,pt with pcn allergy- on Azactam and Vanco and doxy. pt now on puree diet, more alert, responsive. discuss plan of care with pmd/family, plan for home when antibiotics completed.
--- NOTE | 2018-09-05 15:50 | PN ---
DATE: 09/05/2018 SUBJECTIVE: The patient is an 83-year-old, doing well, more awake and alert. Eating and tolerating. No chest pain. No shortness of breath. No more cough. PHYSICAL EXAMINATION: VITAL SIGNS: The patient is afebrile, pulse 81, respiration 22, and blood pressure 132/68. LUNGS: Bilateral fair airflow. No rhonchi or crackle. HEART: S1 and S2 audible. ABDOMEN: Soft, nontender. No rebound. No guarding. NEUROLOGIC: The patient is awake and alert, able to communicate. LABORATORY DATA: WBC is 10, hemoglobin 9.1, hematocrit 30.7, platelets 186. Chemistry; sodium 144, potassium 4.3, chloride 101, CO2 of 37, BUN 53, creatinine 1.2, blood sugar 151. Procalcitonin 5.52. She is growing Enterococcus faecalis UTI. She also has right middle and lower lobe pneumonia. ASSESSMENT: 1. Probably aspiration pneumonia. 2. Enterococcus faecalis, urinary tract infection. 3. Congestive heart failure. 4. Chronic anemia. 5. Bilateral leg cellulitis and venous stasis. PLAN: Currently, the patient is on three antibiotics, Azactam for Enterococcus faecalis and she is on doxycycline and vancomycin for pneumonia. We will continue diet. I will request for TCU evaluation to complete her course of antibiotic in TCU and we will monitored her CBC and CMP intermittently. Katerin Diaz MD
--- NOTE | 2018-09-05 18:50 | PN ---
DATE: 09/05/2018 SUBJECTIVE: The patient seen earlier this morning. The patient's daughter is at the bedside. She states that the patient is back in bed, baseline doing well. She has not itching anymore. PHYSICAL EXAMINATION: VITAL SIGNS: Temperature is 98, blood pressure is 130/60, respiratory rate of 18. HEENT: Unremarkable. NECK: Supple. LUNGS: Have decreased breath sounds. HEART: Normal S1, S2. ABDOMEN: Soft, nontender. LABORATORY EXAMINATION: Reveals a white count of 10,000, hemoglobin of 9, platelets of 186. Chemistries reveals a BUN of 53, creatinine of 1.2 and the urinalysis is noted and serology is reviewed. ASSESSMENT AND PLAN: This is a 83-year-old female who was seen earlier today with acute systolic congestive heart failure, Enterococcus bacteriuria, healthcare-associated pneumonia, and questionable itching to meropenem, although allergy is doubtful. Currently on vancomycin, aztreonam, and doxycycline doing well with complete 4-7 days of antibiotics and we will may be able to change the doxycycline to p.o. We will also discontinue the vancomycin. Alin Mckay MD
[2018-09-06] MEDS: Levalbuterol 1.25 MG/3 ML Inhal Soln UD IH SCH ×4 (02:20→20:25)
[2018-09-06] MEDS: MethylPREDNISolone 40 mg Vial IV SCH ×3 (06:31→21:22)
[2018-09-06] MEDS: Aztreonam 1 Gm in NS 100mL 100 ML IVPB SCH ×2 (06:31→13:09)
[2018-09-06 07:03] LABS: HEMOGLOBIN 8.8 g/dL (12.0-16.0); LYMPH # 0.2 (1.2-3.4); LYMPH % 1.7 % (22.0-35.0); MEAN CELL VOLUME 95.8 fl (80.0-105.0); MEAN CORPUSCULAR HEMOGLOBIN 28.8 pg (25.0-35.0); MEAN PLATELET VOLUME 9.6 fl (7.0-11.0); MONO # 0.3 (0.1-0.6); MONO % 2.7 % (1.0-6.0); RBC 3.06 10^6/uL (3.5-6.1); RED CELL DISTRIBUTION WIDTH 16.9 % (11.5-14.5)
[2018-09-06 07:52] LABS: ALB/GLOB RATIO 0.9 (1.1-1.8); ALBUMIN 2.9 g/dL (3.0-4.8); CALCIUM 8.4 mg/dL (8.4-10.5)
--- NOTE | 2018-09-06 08:34 | CP.PCM.PN ---
Subjective - Date & Time of Evaluation Date of Evaluation: 09/06/18 Time of Evaluation: 06:55 - Subjective Subjective: Lying in bed, easily awaken, no distress, family at bedside Reason for consultation and follow up: Cardiac evaluation for congestive heart failure, admitted for altered mental status,History of chronic atrial fibrillation, no anticoagulation by family request/choice, diastolic dysfunction congestive heart failure ,chronic renal insufficiency, hypertension, hyperlipidemia, TIA Seen ad examined by me and Dr. Rudd Objective - Vital Signs/Intake and Output Vital Signs (last 24 hours): Temp Pulse Resp BP Pulse Ox 98.7 F 87 18 135/74 96 09/05/18 21:29 09/05/18 21:29 09/05/18 21:29 09/05/18 21:29 09/05/18 21:29 Intake and Output: 09/06/18 09/06/18 06:59 18:59 Intake Total 1140 Output Total 200 Balance 940 - Medications Medications: Current Medications Doxycycline Hyclate (Doryx) 100 mg PO Q12 [facility]; Protocol Stop: 09/10/18 22:01 Last Admin: 09/05/18 21:25 Dose: 100 mg Furosemide (Lasix) 40 mg IVP DAILY [facility] Last Admin: 09/05/18 09:59 Dose: 40 mg Aztreonam (Azactam 1 Gm) 100 mls @ 100 mls/hr IVPB Q8 [facility]; Protocol Stop: 09/09/18 09:46 Last Admin: 09/06/18 06:31 Dose: 100 mls/hr Levalbuterol HCl (Xopenex) 1.25 mg IH [id number] [facility] Last Admin: 09/06/18 08:13 Dose: 1.25 mg Methylprednisolone (Solu-Medrol) 40 mg IV Q8 [facility] Last Admin: 09/06/18 06:31 Dose: 40 mg Pantoprazole Sodium (Protonix Inj) 40 mg IVP DAILY [facility] Last Admin: 09/05/18 10:00 Dose: 40 mg - Labs Labs: 09/06/18 06:30 09/06/18 06:30 PT 16.0 SECONDS (9.4-12.5) H 09/01/18 15:33 INR 1.44 09/01/18 15:33 APTT 29.9 Seconds (26.9-38.3) 09/01/18 15:33 - Constitutional Appears: Non-toxic, No Acute Distress - Head Exam Head Exam: NORMAL INSPECTION, NORMOCEPHALIC - Eye Exam Eye Exam: Normal appearance Pupil Exam: NORMAL ACCOMODATION - ENT Exam ENT Exam: Mucous Membranes Moist, Normal Exam - Neck Exam Neck Exam: Full ROM, Normal Inspection - Respiratory Exam Respiratory Exam: Decreased Breath Sounds, Clear to Ausculation Bilateral, NORMAL BREATHING PATTERN - Cardiovascular Exam Cardiovascular Exam: +S1, +S2 - GI/Abdominal Exam GI & Abdominal Exam: Soft, Normal Bowel Sounds - Extremities Exam Additional comments: bilateral leg edema with earnestine wrap - Neurological Exam Neurological Exam: Alert, Awake - Psychiatric Exam Psychiatric exam: Normal Affect, Normal Mood - Skin Skin Exam: Dry, Normal Color, Warm Assessment and Plan - Assessment and Plan (Free Text) Assessment: An 83 year old female, who was brought to the ER by family member due to altered mental status. Family claimed not opening her eyes and not responding to verbal stimuli. She was just discharged from [facility] 2 days ago admitted for similar symptoms. History of chronic atrial fibrillation, no anticoagulation by family request/choice, diastolic dysfunction congestive heart failure ,chronic renal insufficiency,chronic leg edema, hypertension, hyperlipidemia, TIA, gastrointestinal bleeding, vaginal bleeding (was on Aspirin and stopped). Follows up with Dr Bri Porras. Consult was called to evaluate congestive heart failure. Chest X ray showed small right pleural effusion, no vascular congestion. Right pleural effusion improved compared to last CT of chest from previous admission. BNP elevated but clinically patient is not in heart failure,semi-lying in bed, Echo done 08/29/18 and showed borderline concentric LVH, LVEF 60-65%, (atrial fibrillation). Moderate to severely dilated RV, mild to moderate valvular aortic stenosis,moderate mitral regurgitation, severe tricuspid regurgitation RVSP 87 mmHg, severe pulmonary hypertension. Ruled out acute congestive heart failure. CT of head no bleeding/hemorrhage. Urinary tract infection, urine positive for entereococcus faecalis. ID on consult. Continue IV antibiotics per ID. Cardiac status stable. No further cardiac work up at this time. Discharge planning, discharge home as per family. Plan: Awake, alert, feels okay No distress, family at bedside Heart rate stable Blood pressure stable Cardiac status stable No further cardiac work up at this time. Continue Lasix 40 mg daily, Solumedrol 40 mg every 8 hours Continue current treatment Continue current medications Continue IV antibiotics per ID. ID on consult Weight reduction Discharge planning Will follow up Plan and treatment discussed with Dr. Rudd
[2018-09-06] MEDS ORDERED: DiphenhydrAMINE 1% 1 EA TUBE TOP PRN (12:27)
--- NOTE | 2018-09-06 12:35 | CP.PCM.PCO ---
Physician Communication Note - Physician Communication Note Physician Communication Note: pt continues with IV Azactam, ordered Benadrly topical for c/o itching
[2018-09-06] MEDS: POLYETHYLENE GLYCOL 3350 17 GM/Dose PACKET PO SCH (13:09)
--- NOTE | 2018-09-06 21:40 | PN ---
DATE: 09/06/2018 SUBJECTIVE: The patient is seen in bed, in no acute distress, and was seen earlier this morning. No fevers and no chills. OBJECTIVE: VITAL SIGNS: Temperature is 98, blood pressure is 119/60, and respiratory rate of 18. HEENT: Unremarkable. NECK: Supple. LUNGS: Have decreased breath sounds. HEART: Normal S1 and S2. ABDOMEN: Soft. LABORATORY EXAMINATION: Reveals a white count of 11,000 and chemistries are noted. Creatinine is 1.6, which is increased from 1.2. Urinalysis is noted. Serology is noted. REVIEW OF ORDERS: Reveal the patient is on aztreonam, doxycycline, and the patient is on Solu-Medrol. ASSESSMENT AND PLAN: This is an 83-year-old female who was seen earlier today, admitted with acute systolic congestive heart failure, Enterococcus bacteriuria, and healthcare-associated pneumonia. Currently, the patient is on aztreonam and doxycycline. The vancomycin was discontinued yesterday. The patient now with acute kidney injury on top of chronic kidney disease, we will treat with 4-7 days of antibiotics, today is day #5 of antibiotics. Overall, she is improved. We will follow with you. We will discontinue the Azactam, may be contributing to the itching, I doubt this to be antibiotic induced. Alin Mckay MD
--- NOTE | 2018-09-06 23:27 | PN ---
DATE: 09/06/2018 SUBJECTIVE: The patient is an 83-year-old, seen and examined, resting comfortably, no chest pain, no shortness of breath. As per family, she is eating well, complained of constipation, did not have bowel movement for three days. PHYSICAL EXAMINATION: VITAL SIGNS: She is afebrile, pulse 76, respirations 18, blood pressure 137/80. LUNGS: Bilateral decreased breath sound at bases. HEART: S1, S2 audible. Regular, rate controlled. ABDOMEN: Soft, obese, nontender, no rebound, no guarding. NEUROLOGIC: She is awake and alert. EXTREMITIES: Bilateral leg +2 edema. LABORATORY DATA: WBC is 11, hemoglobin 8.8, hematocrit 29.3, platelet of 170. Chemistry: Sodium 142, potassium 4.6, chloride 100, CO2 of 40, BUN 65, creatinine 1.6, blood sugar of 171. Urine culture is positive for Enterococcus faecalis. Blood cultures are negative. ASSESSMENT: 1. Enterococcus faecalis urinary tract infection. 2. Right lower lobe and middle lobe pneumonia. 3. Chronic atrial fibrillation, not on anticoagulant. 4. Congestive heart failure. 5. Bilateral chronic stasis dermatitis and chronic bilateral leg edema. PLAN: Currently, the patient is on doxycycline. She is on Lasix 40 mg IV daily. She is on Protonix. I will cut down her steroid. We will start her on MiraLax, out of bed to chair, physical therapy evaluation has been requested. I offered patient's family to send her to TCU but they rather want to take her home. We will continue on physical therapy and we will reevaluate patient in a.m. Katerin Diaz MD
[2018-09-07] MEDS: Levalbuterol 1.25 MG/3 ML Inhal Soln UD IH SCH ×3 (01:48→19:34)
[2018-09-07] MEDS: Pantoprazole 40 mg EC Tab PO SCH (09:36)
[2018-09-07] MEDS: POLYETHYLENE GLYCOL 3350 17 GM/Dose PACKET PO SCH (09:37)
[2018-09-07] MEDS: MethylPREDNISolone 40 mg Vial IV SCH ×2 (09:37→21:30)
--- NOTE | 2018-09-07 14:22 | PN ---
DATE: 09/07/2018 SUBJECTIVE: The patient is 83 years old, seen and examined sitting in chair. Seems to be comfortable. No chest pain. No shortness of breath. According to the daughter, who is at the bedside, she did eat well. Had bowel movements yesterday and today, and no complaints of chest pain. Scanty cough. PHYSICAL EXAMINATION: VITAL SIGNS: She is afebrile, pulse 71, respirations 20, blood pressure 144/68. LUNGS: Bilateral fair airflow. No rhonchi or crackle. HEART: S1 and S2 audible. ABDOMEN: Soft, nontender, no rebound, no guarding. NEUROLOGIC: She is awake and alert, oriented. Able to communicate. EXTREMITIES: Bilateral legs +1 edema. LABORATORY DATA: Blood sugar is 121. Her urine cultures were positive for Enterococcus faecalis. MEDICATIONS: The patient received Azactam, doxycycline. She responded very well, became afebrile. Initially, she was lethargic and minimally responsive, responded to antibiotics very well. Currently, she is eating, tolerating, no cough, no congestion. ASSESSMENT: 1. Enterococcus faecalis urinary tract infection. 2. Aspiration pneumonia during the period of lethargy. 3. Congestive heart failure. 4. Chronic anemia. 5. Bilateral chronic stasis dermatitis and chronic leg edema. PLAN: The patient is off of meropenem and currently, she is on p.o. doxycycline. We will monitor another 24 hours. If she remains afebrile, she will be discharged home in a.m. Katerin Diaz MD
--- NOTE | 2018-09-07 15:09 | PN ---
DATE: 09/07/2018 LOCATION: The patient is in room 362, bed 2. REASON FOR CONSULTATION AND FOLLOWUP: Cardiac evaluation, history of atrial fibrillation, and rule out congestive heart failure. SUBJECTIVE: The patient denies any chest pain. Her breathing is better. The patient is awake and alert. The patient getting bedside physical therapy now. PHYSICAL EXAMINATION: VITAL SIGNS: Blood pressure 144/68, respirations 20, pulse is 71, and temperature 97.5. Yesterday blood pressure was 137/80 and 131/70. JVP Low. Lungs. Few crackles Lt.Base. S1,S2,.Abd: Protuberant,no organomegaly Bowel Sounds Normal. Periphery: No Clubbing No Cyanosis. LABORATORY DATA: WBC 11.0, hemoglobin 8.8. hematocrit 29.3, and platelets 170. Random sugar 121. DIAGNOSES: Current atrial fibrillation, not on anticoagulation because family does not want nay anticoagulation; altered mental status. X-ray of chest on 09/03/2018, showed diffused infiltrate in the right lung, left lung clear. Echocardiography on 08/29/2018, showed preserved left ventricular systolic function, mild to moderate [id number] valvular aortic stenosis, [id number] mitral regurgitation, severe tricuspid regurgitation, right ventricular systolic pressure 87, severe pulmonary hypertension. Echocardiography showed ejection fraction 60% to 65%. Chronic anemia, pneumonia probably aspiration pneumonia. PLAN: The patient is getting doxycycline hyclate 100 mg p.o. every 12 hours, furosemide 40 mg IV daily, Protonix 40 mg daily, methylprednisolone 20 mg IV every 12 hours, Xopenex hand Nembulizer therapy. The patient also getting physical therapy. Renal dysfunction. Lab work on 09/05/2018 showed BUN 53, creatinine 1.2. We will repeat CBC and SMA-7 in the morning. We will continue present therapy. We will follow up. Rodolfo Hinojosa MD [facility]
--- NOTE | 2018-09-07 19:55 | PN ---
DATE: 09/07/2018 SUBJECTIVE: The patient is in bed in no acute distress, nontoxic. PHYSICAL EXAMINATION VITAL SIGNS: On exam temperature is 98, blood pressure is 140/60, respiratory 20 and heart rate of 71. HEENT: Unremarkable. NECK: Supple. LUNGS: Have decreased breath sounds. HEART: Normal S1 and S2. ABDOMEN: Soft. LABORATORY EXAMINATION: Reveals a white count of 11,000, hemoglobin of 8 and platelets of 170. Chemistries reveals creatinine is up to 1.6. Review of orders reveals the patient is on p.o. doxycycline. The patient is on Solu-Medrol. ASSESSMENT AND PLAN: This is an 83-year-old female who was seen early this morning in room 360 bed 2, who was admitted with acute systolic congestive heart failure, Enterococcus bacteriuria, healthcare associated pneumonia, she completed with vancomycin, Azactam, doxycycline and now is day #6 of doxycycline to complete therapy 7 days. We will follow with you. The patient does get more confused at night and . Alin Mckay MD
[2018-09-08] MEDS: Levalbuterol 1.25 MG/3 ML Inhal Soln UD IH SCH ×3 (01:07→13:12)
[2018-09-08 08:12] VITALS: PULSE 68; TEMP 98.5; O2SAT 98
[2018-09-08] MEDS: Pantoprazole 40 mg EC Tab PO SCH (08:19)
[2018-09-08 09:16] LABS: EOS % 0.1 % (1.5-5.0); HEMOGLOBIN 9.1 g/dL (12.0-16.0); LYMPH # 0.7 (1.2-3.4); MEAN CORPUSCULAR HEMOGLOBIN 28.5 pg (25.0-35.0); MEAN CORPUSCULAR HGB CONC 30.8 g/dl (31.0-37.0); MONO # 0.5 (0.1-0.6); MONO % 4.3 % (1.0-6.0); RBC 3.19 10^6/uL (3.5-6.1); RED CELL DISTRIBUTION WIDTH 16.8 % (11.5-14.5); WHITE BLOOD COUNT 10.6 10^3/uL (4.5-11.0)
[2018-09-08] MEDS: MethylPREDNISolone 40 mg Vial IV SCH (09:17)
[2018-09-08] MEDS: POLYETHYLENE GLYCOL 3350 17 GM/Dose PACKET PO SCH (09:18)
[2018-09-08 09:20] LABS: MEAN CELL VOLUME 92.5 fl (80.0-105.0)
[2018-09-08 09:24] VITALS: BP 110/72
[2018-09-08 09:24] LABS: CALCIUM 8.6 mg/dL (8.4-10.5)
[2018-09-08 10:57] VITALS: RESP 20
--- NOTE | 2018-09-08 23:38 | PN ---
DATE: 09/08/2018 SUBJECTIVE: The patient is seen early this morning in room 360, bed 2. The patient is comfortable. The patient's daughter is at the bedside who states overall, the patient is improved; however, there is still some weakness. PHYSICAL EXAMINATION VITAL SIGNS: Temperature is 98, blood pressure is 110/70, respiratory rate is 20. HEENT: Unremarkable. NECK: Supple. LUNGS: Have decreased breath sounds. HEART: Normal S1 and S2. ABDOMEN: Soft. LABORATORY EXAMINATION: Reveals a white count of 10,000, hemoglobin of 9, BUN of 74, creatinine of 1.6. Urinalysis is noted. Serology is reviewed. ASSESSMENT AND PLAN: This is an 83-year-old female who was seen early this morning. The patient's daughter is at the bedside, who gave the history. Overall doing better. Admitted for acute systolic congestive heart failure, Enterococcus bacteruria, healthcare-associated pneumonia, day #7 of doxycycline. Mental status according to the daughter is baseline. Alin Mckay MD
--- NOTE | 2018-09-09 02:50 | DS ---
HISTORY OF PRESENT ILLNESS: The patient is an 83-year-old, who was brought in with altered mental status. Initially, the patient was minimally responsive, short of breath, cough and congestion. So, she was started on IV antibiotic as per ID recommendation. The patient grew Enterococcus faecalis in her urine again, so she was treated with meropenem, Azactam and doxycycline. Did very well, started to improve, congestion improve. She was also given IV steroid. PHYSICAL EXAMINATION: GENERAL: The patient is awake, alert and able to communicate. VITAL SIGNS: She is afebrile. Pulse 68, respirations 18 and blood pressure 110/72. LUNGS: Bilateral fair airflow. No rhonchi or crackle. HEART: S1 and S2, audible. ABDOMEN: Soft, obese and nontender. No rebound. No guarding. NEUROLOGIC: The patient is awake, alert and able to communicate. Bilateral leg +1 edema. LABORATORY EXAMINATION: WBC 10.6, hemoglobin 9.1, hematocrit 29.5 and platelet 184. Chemistry: Sodium 139, potassium 5.3, chloride 98, CO2 of 37, BUN 74, creatinine 1.6 and blood sugar of 117. ASSESSMENT: 1. Enterococcus faecalis urinary tract infection. 2. Aspiration pneumonia secondary to lethargy. Healthcare-associated pneumonia. 3. Congestive heart failure. 4. Chronic atrial fibrillation, not on anticoagulant because of risk of bleeding, she has previous gastrointestinal bleed. PLAN: The patient is being discharge home today on doxycycline 100 mg twice a day for 5 more days and prednisone 20 mg daily for 3 more days and she will resume her medication as prior to admission will be given one dose of Kayexalate today prior to discharge. Katerin Diaz MD
--- NOTE | 2018-09-10 08:50 | CON ---
DATE: 09/08/2018 HISTORY OF PRESENT ILLNESS: This is an 83-year-old female with a past medical history of atrial fibrillation, TIA, hypertension. The patient also had urinary tract infection and admitted. Family is at bedside. Found to be confused. The patient was weak and lethargic, but now is more alert. Denies any chest pain or shortness of breath, swelling of both the lower extremities. I was called to evaluate the patient. PAST MEDICAL HISTORY: TIA, CHF, chronic atrial fibrillation. PHYSICAL EXAMINATION HEENT: Normocephalic, atraumatic. NECK: Supple. NEUROLOGIC: Awake and orientated to self. Cranial nerves II through XII were tested. Pupils reactive. EOM intact. Visual kraus full. There is no facial asymmetry. Tongue is midline. Motor examination; moves all the extremities, upper more than the lower, has swelling of both the lower extremities. Follows simple commands. Sensory appears intact. Cerebellar; gait deferred. IMPRESSION AND PLAN: An 83-year-old female with a past medical history of chronic atrial fibrillation and was admitted with altered mental status and possible encephalopathy. A CT scan of the head was ordered. The patient is going to get an EEG. Further management after the results of the above tests. Bubba Moy MD
--- NOTE | 2018-09-11 16:20 | PQF ---
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 Please clarify the diagnosis/diagnoses. Please also document if the condition is: -- Confirmed and current -- Confirmed, treated and resolved -- Ruled out -- Other, please specify The patient's Clinical Indicators include: ID home performance consultant documents that patient was admitted with sepsis. You do not document this diagnosis on your discharge summary--UTI only. Do you agree, disagree, other with sepsis? Thank you. Query created by: Estefany Beckwith on 09/11/2018 3:43 PM Electronically signed by: Katerin Diaz MD 09/11/2018 4:17 PM
== END 2018-09-08 14:30 | disposition home or self-care (01) | DRG 871 ==
LOC: ED 14:55 → ERH 17:33 → 2RNO 21:03 → 3RNO 09-04 19:05
PROVIDERS: ADMIT Internal Medicine; ATTEND Internal Medicine
DX: A41.9 Sepsis, unspecified organism (principal); J69.0 Pneumonitis due to inhalation of food and vomit; I50.23 Acute on chronic systolic (congestive) heart failure; N39.0 Urinary tract infection, site not specified; I13.0 Hypertensive heart and chronic kidney disease with heart failure and stage 1 through stage 4 chronic kidney disease, or unspecified chronic kidney disease; G93.40 Encephalopathy, unspecified; F05 Delirium due to known physiological condition; L03.115 Cellulitis of right lower limb; L03.116 Cellulitis of left lower limb; N17.9 Acute kidney failure, unspecified; R41.82 Altered mental status, unspecified; Z86.73 Personal history of transient ischemic attack (TIA), and cerebral infarction without residual deficits; I48.2 Chronic atrial fibrillation; G40.909 Epilepsy, unspecified, not intractable, without status epilepticus; B95.2 Enterococcus as the cause of diseases classified elsewhere; I25.10 Atherosclerotic heart disease of native coronary artery without angina pectoris; Y95 Nosocomial condition; I08.3 Combined rheumatic disorders of mitral, aortic and tricuspid valves; I27.20 Pulmonary hypertension, unspecified; Z79.01 Long term (current) use of anticoagulants; D64.9 Anemia, unspecified; H26.9 Unspecified cataract; I87.2 Venous insufficiency (chronic) (peripheral); I87.8 Other specified disorders of veins; K59.00 Constipation, unspecified; N18.9 Chronic kidney disease, unspecified; N32.81 Overactive bladder; Z87.440 Personal history of urinary (tract) infections; Z88.0 Allergy status to penicillin; Z95.5 Presence of coronary angioplasty implant and graft; Z88.1 Allergy status to other antibiotic agents; Z88.8 Allergy status to other drugs, medicaments and biological substances; Z87.19 Personal history of other diseases of the digestive system